=== PATIENT | male | born 1950 | race Caucasian/White ===

== ENCOUNTER → 2016-09-23 | Outpatient (CLI) | payer BC, OTHER ==
[~2016-09-23] MED LIST: ADVIN25/60 INH; ALBUAER2 INH; ASPI81TA28 PO; ATOR-54 PO; CLOP1TAB15 PO; DIGO0.122 PO; FURO-85 PO; LISI5TAB3 PO; MELO15TA4 PO; METO1TAB31 PO; SPIR25TA PO; VENL1CAP92 PO
--- NOTE | 2016-09-24 06:01 | PAP/PSG TECHNICIAN REPORT ---
[facility] Occupational Therapy Co Director Polysomnogram Report Study name: None Report date: 09/24/2016 Study date: 09/23/2016 Referring Physician: Misbah Bianchi M.D. Name: BRIGITTE GRIMM Interpreting Physician: Justine Bianchi M.D. Date of : 1950 Occupational Therapy Co Director: Faina Epps RPS. Sex: Male Age: 66 StudyType: PSG Weight: 200 lbs Height: 66 years, Height 6' 0" Neck Circum: 15 inches BMI: 27.12 Medications: Ccdmcuhw26-15 mg, Lipitor 40 mg, Toprol XL 25 mg, Lanoxin 125 mcg, Aldactone 25 mg, Anoro Ellipta 62.5-25 mcg, Venlafaxine 150 mg, Proventil 108 ( 90 Base), Aspirin 81 mg, Plavix 75 mg Patient History 66 yr. old male here for a possible split night sleep study with ETC02. Patient complains of EDS. Patient has a history of HTN, CHF, CAD, and COPD. Patients [place] Sleepiness Scale Score is 5/24. Parameters Monitored NPSG: E1-M2, E2-M1, Fp1-M2, Fp2-M1, F3-M2, F4-M2, F4-M1, C3-M2, C4-M2, C4-M1, O1-M2, O2-M2, O2-M1, T3-M2, T4-M1, P3-M2, P4-M1, CHIN1, CHIN2, HR, EKG, Legs, PFLOW, SNOR, FLOW, CFLOW, Tidal Volume, THOR, ABDO, SpO2, PLTH, CPRESS, ETCO2 Wave, ETCO2, pH Sleep Architecture Sleep Stages Time at Lights Off 10:43:37 PM STAGES Time (min.) TST (%) Time at Lights On 5:32:37 AM Wake 240.5 -- Total Recording Time (TRT) 409.50 min. N1 22.5 13 Total Sleep Period (TSP) 297.0 min. N2 139.0 82 Total Sleep Time (TST) 168.5min. N3 0.0 0 Awake Time 240.5 min. REM 7.0 4 Wake after Sleep Onset 128.5 min. Sleep Efficiency (SE) 41 % Sleep Onset Latency (JASON) 112.0 min. Number of Stage 1 Shifts None Awakenings 11 Stage Changes 50 Number of REM periods 1 REM 7.0 4 REM Latency 227.0 min. NREM 161.5 96 Body Position Analysis Supine Right Left Side Prone Vertical Total Sleep Time (min.) 110.7 3.5 93.0 96.52 0.0 0.0 Total Sleep Time (%) 43% 2% 55% 57 0% N/A% Total Sleep Time REM (min.) 7.0 0.0 0.0 None 0.0 0.0 Total Sleep Time NREM (min.) 65.0 3.5 93.0 None 0.0 0.0 Intermittent Wake (min.) 38.7 165.4 36.4 None 0.0 0.0 Total Sleep Period (%) 37% None None None None None Arousals Myoclonus (PLM) * Events Count Index Events Count Index Spontaneous 3 1 Events Awake (PLMW) 61 15.2 Respiratory 8 3.2 Events Asleep w/ Arousal (PLMA) 8 2.8 PLM 8 3 Events Asleep w/o Arousal (PLMS) 74 26.4 Snoring 7 2 Total Asleep 82 29.2 Total 26 9 Total 143 21 Respiratory Analysis * CA OA MA CH H RERA Total Count 3 8 4 0 67 1 82 Index 1.1 2.8 1.4 0 23.9 0 29.6 Mean Duration 15.0 24.4 26.2 0.00 30.5 33.7 29.2 Longest Duration 20.1 38.6 34.0 0.00 34.0 33.7 47.7 Respiratory Event Summary Total Supine ~Supine Right Left Prone REM NREM Apneas Count 15 13 2 0 2 N/A 4 11 Index 5.3 11 1 0.0 1.3 N/A 34 4 Hypopneas (4% Desat) Count 67 51 16 0 16 N/A 3 64 Index 23.9 42.5 10 0.0 10.3 N/A 25.7 23.8 Apneas & All Hypopneas Count 82 64 18 0 18 N/A 7 75 Index 29.2 53 11 0 12 N/A 60.0 27.9 Respiratory Events (Road Driver+All Hyp+RERA) Count 82 64 19 0 19 N/A 7 75 Index 29.6 53 12 0.0 12.3 N/A 60.0 28.2 Respiratory Related Arousal Count 8 64 2 0 2 N/A 0 9 Index 3.2 6 1 0 1 N/A 0 3 Snoring Analysis Supine Right Left Prone REM NREM Total Snore duration 4.9 min Snores count 67 0 81 N/A 2 146 148 Snore mean duration 2.0 Sec Snores index 56 0 52 N/A 17.1 54.2 52.7 TST with snoring (%) 2.9% SpO2 Analysis Total REM NREM Awake <50% 0.2 min. 0.0 min. 0.0 min. 0.2 min. 51 - 60% 0.0 min. 0.0 min. 0.0 min. 0.0 min. 61 - 70% 0.0 min. 0.0 min. 0.0 min. 0.0 min. 71 - 80% 0.1 min. 0.0 min. 0.0 min. 0.1 min. 81 - 90% 43.9 min. 1.7 min. 21.9 min. 20.4 min. 91 - 100% 355.6 min. 5.3 min. 139.6 min. 210.6 min. Average 92 93 92 93 Minimum SpO2 31 89 88 31 Desaturation Event Index 14.2 51.4 29.0 3.2 # Desat. Events below 89% 6 N/A 3 3 Time(%) with Saturation below 89% 1.0 0.0 0.1 0.9 Time(min.) with Saturation below 89% 3.8 0.0 0.4 3.4 Heart Rate Analysis End Tidal CO2 Analysis Min (bpm) Max (bpm) Average (bpm) TSP (mins) % of TSP Awake 67 237 74 Above 55 mmHg 0.0 0.0 NREM 62 87 70 50-55 mmHg 0.0 0.0 REM 69 70 70 45-50 mmHg 19.9 11.8 Overall 62 87 70 40-45 mmHg 57.3 34.0 35-40 mmHg 55.6 33.0 30-35 mmHg 19.7 11.7 Average ETCO2 0.1 Supplemental O2 Values Minimum O2 level: None Value Start Time End Time Occupational Therapy Co Director Comments Mr. Grimm slept in the right, left, and supine positions. Cardiac arrhythmia noted. PLMs noted. No bruxism noted. Snoring was noted and scored as a 3 on a scale of 0 through 5. (0=no snoring, 5=snoring loud enough to be heard through a closed door or down the [address])Mr. Grimm awoke to use the restroom two times during the night. Mr. Grimm stated, I did not sleep as well as I do when I am in my own bed. The final report will be interpreted and signed by a sleep physician. The completed physician report will then be placed in the patient medical record. Therapy (cm H2O) 0 TIB (min.) 409.0 TST (min.) 168.5 Sleep Onset (min.) 112.0 REM Onset From Sleep (min.) 227.0 Sleep Efficiency % 41 Wakefulness (%) 59 Wakefulness (min.) 240.5 NREM 1 (%) 13 NREM 1 (min.) 22.5 NREM 2 (%) 82 NREM 2 (min.) 139.0 NREM 3 (%) 0 NREM 3 (min.) 0.0 REM (%) 4 REM (min.) 7.0 # Arousals 26 Arousal Index 9 # Snore 148 Snore Index 52.7 AHI 29.2 AHI Supine 53 AHI Non-Supine 11 NREM AHI 27.9 REM AHI 60.0 RDI 29.6 # Obstructive Apnea 8 # Central Apnea 3 # Mixed Apnea 4 # Hypopneas 67 RERAs 1 Total Respiratory Events 86 Time Below SpO2 89% (min.) 0.4 Mean NREM SpO2 (%) 92 Mean REM SpO2 (%) 93 Mean Sleep SpO2 (%) 92 Min NREM SpO2 (%) 88 Min REM SpO2 (%) 89 Position Supine (min.) 110.7 Position Non-supine (min.) 96.5 LM Index Sleep 29.2 LM Index NREM 30.1 LM Index REM 8.6 Mean Heart Rate (bpm) 70 Min Heart Rate (bpm) 62
--- NOTE | 2016-10-02 09:08 | POLYSOMNOGRAPH REPORT ---
REFERRING PERSON: Dr. Cody Bianchi. ROLL EDGE STITCHER HAND: Faina Epps. Mr. Grimm is a 66-year-old male sent for a possible split night sleep study. He complains of excessive daytime sleepiness. He has a history of hypertension, congestive heart failure, coronary artery disease and COPD. His [place] sleepiness scale score on the evening of this study is 5. BMI is 27.12. Following the technical and digital specifications of the [place] [employer] (AASM) a standard diagnostic polysomnogram was performed monitoring EEG, EOG, EMG (chin and leg deviations), oxygen saturation, body position, digital video, respiratory effort and airflow. The sleep Stage and event scoring was based on the AASM Manual for the Scoring of Sleep and Associated Events 2007 edition. Apneas are defined as a drop in the peak thermal sensor excursion by >90% of baseline for at least 10 seconds. Hypopneas were scored using the 4% oxygen desaturation rule (4A-[employer]) and a decrease in the nasal pressure excursions by >30% of baseline for at least 10 seconds. Respiratory effort-related arousal (RERA's) is defined as a sequence of breaths lasting at least 10 seconds characterized by increasing respiratory effort or flattening of the nasal pressure waveform leading to an arousal from sleep when the sequence of breaths does not meet criteria for an apnea or hypopnea. Apnea Hypopnea index (AHI) is defined as the number of apneas and hypopneas occurring in an hour of sleep. Respiratory disturbance index (RDI) is defined as the number of apneas, hypopneas, and RERA's occurring in an hour of sleep. Mr. Grimm' total sleep period time was 297 minutes. Total sleep time was only 168.5 minutes. Sleep efficiency was 41%. Latency to sleep onset was prolonged at 112 minutes as was wake after sleep onset of 128.5 minutes. Total non-REM sleep time was 161.5 minutes. He spent 13% of that time in N1 sleep, 82% in N2 sleep and no time in N3 sleep. REM latency was 227 minutes. Total REM sleep time was only 7 minutes or 4% of total sleep time. This is abnormal sleep architecture with a propensity for superficial sleep. There are 26 cortical arousals from sleep. Three of these arousals were spontaneous, 8 were due to respiratory events, 8 due to periodic limb movements of sleep and 7 were due to snoring. There were 82 periodic limb movements noted on this test. Limb movement index was 29.2. Limb movement with arousal index was 2.8. There were 3 central, 8 obstructive and 4 mixed apnea on this test. There were 67 hypopnea and 1 RERA. Apnea-hypopnea index was 29.2. Supine AHI was 53, REM AHI was 60. 148 snoring events were recorded. Total sleep time with snoring was 2.9%. Mean saturation was 92%. Saturations were less than 89% for only 3.8 minutes of recorded time. PACs were noted on EKG monitoring. Heart rates ranged from a low of 62 beats per minute to a high of 87 beats per minute during sleep. End-tidal CO2 was recorded on this patient. End-tidal CO2s were between 45 and 50 mmHg for 11.8% of total sleep period time, between 40 and 45 mmHg for 34% of total sleep period time, between 35 and 40 mmHg for 33% of total sleep period time and between 30 and 35 mmHg for 11.7% of total sleep period time. IMPRESSION AND PLAN: Mr. Grimm is a 66-year-old male with evidence of moderately severe to severe sleep apnea in supine and REM sleep without nocturnal hypoxemia on this study. 1. This patient would likely benefit from positive airway pressure therapy. He should return to the sleep lab for a full night titration and then based on those results be started on equipment at home. A download from his machine can be reviewed in 1 month both to check compliance as well as AHI and further pressure adjustments can occur at that time. 2. Alternatively, this patient could be started on auto titrating CPAP with pressures of 5-15 cm. After a month, a review of his download can be done and this patient set to optimal pressure. 3. Should this patient be unwilling or unable to tolerate CPAP therapy, he could be referred to ear, nose and throat or oral surgery/dental medicine (if appropriate) to discuss alternative treatments for sleep disorder breathing.
== END | disposition home or self-care (01) ==
LOC: C.NEUR 21:00
PROVIDERS: ATTEND Family Medicine
DX: R40.0 Somnolence (principal); F51.11 Primary hypersomnia; I25.5 Ischemic cardiomyopathy; R06.02 Shortness of breath

== ENCOUNTER → 2016-11-28 | Outpatient (CLI) | payer OTHER ==
[~2016-11-28] MED LIST changes: +METO-478 PO; -METO1TAB31 PO
== END ==
LOC: C.LAB 22:38
DX: Z02.83 Encounter for blood-alcohol and blood-drug test (principal)

== ENCOUNTER 2021-03-12 09:44 | Inpatient (IN) ==
[2021-03-12 10:08] LABS: Basophils # (auto) 0.01 K/uL (0-0.2); Basophils % (auto) 0.1 %; Eosinophils # (auto) 0.08 K/uL (0-0.5); Hematocrit (blood only) 48.4 % (42-52); Hemoglobin 14.9 g/dL (14.0-18.0); Immature Granulocytes # (auto) 0.07 K/uL (0.00-0.02); Immature Granulocytes % (auto) 0.9 %; Lymphocytes # (auto) 0.96 K/uL (1.2-3.4); Mean Corpuscular Hemoglobin 28.8 pg (25-34); Mean Corpuscular Hgb Conc 30.8 g/dL (32-36); Mean Corpuscular Volume 93.6 fL (80-100); Mean Platelet Volume 10.4 fL (7.4-10.4); Monocytes # (auto) 0.42 K/uL (0.11-0.59); Monocytes % (auto) 5.2 %; Neutrophils # (auto) 6.49 K/uL (1.4-6.5); Neutrophils % (auto) 80.8 %; Platelet Count 187 K/uL (130-400); RDW Coefficient of Variation 17.4 % (11.5-14.5); RDW Standard Deviation 59.7 fL (36.4-46.3); Red Blood Count 5.17 M/uL (4.7-6.1); White Blood Count 8.03 K/uL (4.8-10.8)
--- NOTE | 2021-03-12 10:22 | XRay Report ---
XR chest 1V portable CLINICAL HISTORY: sob. COMPARISON STUDY: 08/20/2013 TECHNIQUE: 1 view of the chest FINDINGS: Single frontal view of the chest demonstrates the heart size to be at the upper limits of normal stat us post previous cardiothoracic surgery and pacer placement. Mild patchy interstitial and alveolar op acities are present bilaterally. The findings are most characteristic of a viral type pneumonitis. Co vid 19 pneumonia should be excluded. There is no evidence for pleural effusion. There is no evidence for vascular congestion. There is no acute osseous pathology. IMPRESSION: Mild patchy interstitial and alveolar opacities bilaterally characteristic of a viral typ e pneumonitis and probable early Covid 19 pneumonia. ACT 112: Negative or not required by law. Electronically signed by: Ever Matute M.D. 03/12/2021 10:20 AM
[2021-03-12 10:32] LABS: Troponin I 0.03 ng/ml (0-0.04)
[2021-03-12 10:41] LABS: Albumin Globulin Ratio 1.4 (0.9-2); Albumin Level 3.4 gm/dl (3.4-5.0); BUN Creatinine Ratio 24.7 (10-20); Bilirubin,Total 1.4 mg/dl (0.2-1.0); Calcium 9.2 mg/dl (8.5-10.1); Creatinine Clr Calc Pharmacy 84.4 ml/min; Est GFR (Non-African American) 77.7 ml/min; Globulin 2.5 gm/dl (2.5-4.0); Potassium 3.5 mmol/L (3.5-5.1); Total Protein 5.9 gm/dl (6.0-8.3)
[2021-03-12] MEDS ORDERED: FUROSEMIDE INJ 20 MG/2 ML VIAL IV ONE ×3 (11:07→17:00)
[2021-03-12 11:33] LABS: INR 4.6 (0.9-1.1); Prothrombin Time 41.7 Seconds (9.0-12.0)
--- NOTE | 2021-03-12 11:53 | Emergency Department Note ---
Impression & Plan TREADWELL (dyspnea on exertion), Chest pain, exertional, CHF (congestive heart failure) ED Provider Note Provider: Helio Woodall MD DATE OF SERVICE: 03/12/2021 CHIEF COMPLAINT: Shortness of breath, weakness, chest discomfort HISTORY OF PRESENT ILLNESS: Patient is a 71-year-old gentleman history of CHF, CAD with prior CABG, pacemaker, and COPD presenting here today via ambulance from home. Patient has been ill for approximately past 10 days. States he has had worsening shortness of breath with exertion and has recently been developing a bit of chest discomfort dull in nature with this as well. Denies currently having any chest discomfort. Denies sick contacts. Patient took a home Covid test and this was reportedly negative. He denies fevers. Denies significant abdominal pain, nausea, or diarrhea. States has not been eating or drinking so well and having decreased urine output. Does take Lasix 3 times a week and states only on those days does he have some good urine output. States over the past 3 months his weight is gone up about 10 pounds and states he feels that his lower legs are a bit more swollen than normal. Has been on his home medications otherwise including Coumadin and digoxin. Patient was somewhat weak and slid to the ground yesterday but denies any significant fall or striking his head or loss of consciousness. REVIEW OF SYSTEMS: A total of 10 review of systems was obtained and negative except as stated above in the HPI. PAST MEDICAL HISTORY: As noted above MEDICATIONS: Reviewed home medications includes Coumadin SOCIAL HISTORY: Lives at home with PHYSICAL EXAM: GENERAL: alert and oriented in no acute distress on stretcher but fatigued in appearance Head: normocephalic and atraumatic EYES: No injection, discharge or icterus. NECK: Trachea midline. LUNGS: Airway patent. No retractions. Breath sounds clear but diminished in the bases HEART: Mildly irregular rate and rhythm. No chest wall tenderness with L upper chest ACID appreciated ABDOMEN: Soft and non-tender, without guarding or rebound. SKIN: Acyanotic, warm, dry, without rashes EXTREMITIES: Without swelling, tenderness or deformity NEUROLOGICAL: No focal deficits. No aphasia. No facial droop or slurred speech. EK bpm predominantly ventricularly paced occasional [place] beat and PVC noted. No acute ST segment elevation noted with bundle branch block. QTc 524. Compared to previous from August 222013 in the system no longer atrially paced with a prolonged QRS. CONTINUOUS CARDIAC MONITORING: was ordered and showed a heart rate of 70s bpm in Ventricular paced rhythm with occasional [place] beat and PVC Patient's laboratory studies and imaging reviewed. Differential includes Reactive airway disease, pneumonia, pneumothorax, COPD, CHF, infections, cardiac ischemia, pulmonary embolism, musculoskeletal, gastrointestinal, as well as other pathologies. IMPRESSION/MEDICAL DECISION MAKING: Patient presents with some dyspnea on exertion and chest discomfort on exertion. Significant cardiac history. Anticoagulated on Coumadin. This level does retu rn somewhat high lowering suspicion for any VTE. Does have some increased lower extremity swelling. Not hypoxic at rest. Predominance of symptoms or with movement but does note some generalized fatigue. No fevers reported. Negative Covid test here. Chest x-ray question some pneumonitis but no classic findings for pneumonia. No significant leukocytosis. No anemia today. No severe electrolyte abnormalities and renal function appears similar to previous. Troponin detectable but not abnormal. Digoxin therapeutic at 1.0. Given concerns for some fluid overload given a small amount of additional IV Lasix here as he did take his oral Lasix prior to coming in today. Discussed with the patient trial of outpatient therapy of increased diuretic. Discussion with the patient and his at bedside given his significant generalized weakness they felt more comfortable staying for further observation given his symptoms. Patient does have 12 steps on stairs at home but he has to navigate and feels he is at high risk of falling and is concerned with this especially given his anticoagulated status. Discussed with the hospitalist. DIAGNOSIS: TREADWELL, CHF, exertional chest discomfort DISPOSITION: Hospitalist will evaluate Patient was agreeable with this plan. Past Med/Surg History Medical History (Updated 03/12/21 @ 12:55 by Yara Bedoya PA-C) Anticoagulated on Coumadin CHF (congestive heart failure) CHF (congestive heart failure), NYHA class III "Last EF 20%" COPD (chronic obstructive pulmonary disease) Coronary artery disease H/O cardiac pacemaker "[employer] AICD by Dr. Jiang, [facility] [place] 07/19/2013" Ischemic cardiomyopathy LV (left ventricular) mural thrombus Myocardial infarct SREEDHAR on CPAP Pericardial effusion Surgical History (Updated 03/12/21 @ 12:54 by Yara Bedoya PA-C) AICD (automatic cardioverter/defibrillator) present H/O percutaneous transluminal coronary angioplasty S/P CABG (coronary artery bypass graft) "SVG to LAD, SVG to OM" Family History (Updated 03/12/21 @ 12:45 by Yara Bedoya PA-C) Mother CHF (congestive heart failure) Social History (Updated 03/12/21 @ 12:45 by Yara Bedoya PA-C) Smoking Status: Former smoker Years Smoked: 50; Hx Alcohol Use: No Hx Substance Use: No Preferred Language: Chinese marital status: Current Living Situation: Spouse current occupational status: retired Feels Safe at Home: Yes Allergies Allergies Allergy/AdvReac Type Severity Reaction Status Date / Time codeine Allergy Severe HIVES, Verified 03/12/21 11:35 ITCHY Home Meds Home Medications Medication Instructions Recorded Confirmed albuterol sulfate 2.5 mg INHALATION QID PRN 03/12/21 03/12/21 aspirin 81 mg tablet,delayed 81 mg PO DAILY 03/12/21 03/12/21 release atorvastatin 40 mg tablet 40 mg PO DAILY@182903/12/21 03/12/21 digoxin 125 mcg (0.125 mg) tablet 125 mcg PO DAILY@182903/12/21 03/12/21 furosemide 20 mg tablet 40 mg PO DAILY 03/12/21 03/12/21 hydrocodone 5 mg-acetaminophen 325 1 tab PO Q8H PRN 03/12/21 03/12/21 mg tablet metoprolol succinate 100 mg 100 mg PO DAILY@182903/12/21 03/12/21 tablet,extended release 24 hr sacubitril 24 mg-valsartan 26 mg 1 tab PO BID 03/12/21 03/12/21 tablet (Entresto) umeclidinium 62.5 mcg-vilanterol 1 inh INHALATION DAILY 03/12/21 03/12/21 25 mcg/actuation powdr for inhalation (Anoro Ellipta) venlafaxine 75 mg capsule,extended 150 mg PO HS 03/12/21 03/12/21 release 24 hr warfarin 5 mg tablet 2.5 mg PO MOFR 03/12/21 03/12/21 warfarin 5 mg tablet 5 mg PO SUTUWETHSA 03/12/21 03/12/21 zolpidem 10 mg tablet 10 mg PO HS PRN 03/12/21 03/12/21 Results & Data (ED) Vital Signs Vital Signs - 24 hr 03/12/21 09:44 03/12/21 09:52 03/12/21 10:00 Temperature 36.5 C Temperature Source Oral Pulse Rate 77 88 70 Pulse Rate [Finger] Pulse Rate from SpO2 Sensor 76 70 Pulse Strength Normal Respiratory Rate 10 L 20 22 Respiratory Effort / Characteristics Spontaneous Respiratory Depth Blood Pressure [Right Arm] Blood Pressure Mean [Right Arm] Pulse Oximetry 100 97 98 Oxygen Delivery Method Room Air Sepsis Recent Fever Within 48 Hours No Sepsis New/Unexplained Change in Mental Status No Sepsis Action Taken by Nursing No Action Required 03/12/21 10:30 03/12/21 10:44 Temperature Temperature Source Pulse Rate 71 Pulse Rate [Finger] 70 Pulse Rate from SpO2 Sensor 69 Pulse Strength Respiratory Rate 19 20 Respiratory Effort / Characteristics Respiratory Depth Normal Blood Pressure [Right Arm] 115/89 Blood Pressure Mean [Right Arm] 97 Pulse Oximetry 96 95 Oxygen Delivery Method Room Air Sepsis Recent Fever Within 48 Hours Sepsis New/Unexplained Change in Mental Status Sepsis Action Taken by Nursing Laboratory Data Result diagrams: 03/12/21 09:35 03/12/21 09:35 Lab Results 03/12/21 03/12/21 03/12/21 Range/Units 09:35 09:35 09:35 WBC 8.03 (4.8-10.8) K/uL RBC 5.17 (4.7-6.1) M/uL Hgb 14.9 (14.0-18.0) g/dL Hct 48.4 (42-52) % MCV 93.6 (80-100) fL MCH 28.8 (25-34) pg MCHC 30.8 L (32-36) g/dL RDW Std Deviation 59.7 H (36.4-46.3) fL RDW Coeff of Kasey 17.4 H (11.5-14.5) % Plt Count 187 (130-400) K/uL MPV 10.4 (7.4-10.4) fL Immature Gran % (Auto) 0.9 % Neut % (Auto) 80.8 % Lymph % (Auto) 12.0 % [place] % (Auto) 5.2 % Eos % (Auto) 1.0 % Baso % (Auto) 0.1 % Neut # (Auto) 6.49 (1.4-6.5) K/uL Lymph # (Auto) 0.96 L (1.2-3.4) K/uL [place] # (Auto) 0.42 (0.11-0.59) K/uL Eos # (Auto) 0.08 (0-0.5) K/uL Baso # (Auto) 0.01 (0-0.2) K/uL Immature Gran # (Auto) 0.07 H (0.00-0.02) K/uL PT (9.0-12.0) Seconds INR (0.9-1.1) Sodium 140 (136-145) mmol/L Potassium 3.5 (3.5-5.1) mmol/L Chloride 101 (98-107) mmol/L Carbon Dioxide 31 (21-32) mmol/L Anion Gap 8 (3-11) BUN 24 H (6-23) mg/dl Creatinine 0.97 (0.6-1.4) mg/dl Est Cr Clr Drug Dosing 84.4 ml/min Est GFR ( Amer) 90.0 ml/min Est GFR (Non-Af Amer) 77.7 ml/min BUN/Creatinine Ratio 24.7 H (10-20) Glucose 146 H (70-99(Fasting)) mg/dl Calcium 9.2 (8.5-10.1) mg/dl Total Bilirubin 1.4 H (0.2-1.0) mg/dl AST 10 L (13-39) U/L ALT 15 (7-52) U/L Alkaline Phosphatase 67 (34-104) U/L Troponin I 0.03 (0-0.04) ng/ml B-Natriuretic Peptide (0-100) pg/ml Total Protein 5.9 L (6.0-8.3) gm/dl Albumin 3.4 (3.4-5.0) gm/dl Globulin 2.5 (2.5-4.0) gm/dl Albumin/Globulin Ratio 1.4 (0.9-2) Lipase 26 (11-82) U/L Procalcitonin (0-0.5) ng/ml Digoxin (0.8-2.0) ng/ml SARS-CoV-2, RNA, NAAT (NEGATIVE) 02/01/22 02/01/22 02/01/22 Range/Units 09:35 09:35 09:55 WBC (4.8-10.8) K/uL RBC (4.7-6.1) M/uL Hgb (14.0-18.0) g/dL Hct (42-52) % MCV (80-100) fL MCH (25-34) pg MCHC (32-36) g/dL RDW Std Deviation (36.4-46.3) fL RDW Coeff of Kasey (11.5-14.5) % Plt Count (130-400) K/uL MPV (7.4-10.4) fL Immature Gran % (Auto) % Neut % (Auto) % Lymph % (Auto) % [place] % (Auto) % Eos % (Auto) % Baso % (Auto) % Neut # (Auto) (1.4-6.5) K/uL Lymph # (Auto) (1.2-3.4) K/uL [place] # (Auto) (0.11-0.59) K/uL Eos # (Auto) (0-0.5) K/uL Baso # (Auto) (0-0.2) K/uL Immature Gran # (Auto) (0.00-0.02) K/uL PT 41.7 H (9.0-12.0) Seconds INR 4.6 H (0.9-1.1) Sodium (136-145) mmol/L Potassium (3.5-5.1) mmol/L Chloride (98-107) mmol/L Carbon Dioxide (21-32) mmol/L Anion Gap (3-11) BUN (6-23) mg/dl Creatinine (0.6-1.4) mg/dl Est Cr Clr Drug Dosing ml/min Est GFR ( Amer) ml/min Est GFR (Non-Af Amer) ml/min BUN/Creatinine Ratio (10-20) Glucose (70-99(Fasting)) mg/dl Calcium (8.5-10.1) mg/dl Total Bilirubin (0.2-1.0) mg/dl AST (13-39) U/L ALT (7-52) U/L Alkaline Phosphatase (34-104) U/L Troponin I (0-0.04) ng/ml B-Natriuretic Peptide 3324 H (0-100) pg/ml Total Protein (6.0-8.3) gm/dl Albumin (3.4-5.0) gm/dl Globulin (2.5-4.0) gm/dl Albumin/Globulin Ratio (0.9-2) Lipase (11-82) U/L Procalcitonin (0-0.5) ng/ml Digoxin 1.0 (0.8-2.0) ng/ml SARS-CoV-2, RNA, NAAT (NEGATIVE) 03/12/21 03/12/21 Range/Units 09:55 10:19 WBC (4.8-10.8) K/uL RBC (4.7-6.1) M/uL Hgb (14.0-18.0) g/dL Hct (42-52) % MCV (80-100) fL MCH (25-34) pg MCHC (32-36) g/dL RDW Std Deviation (36.4-46.3) fL RDW Coeff of Kasey (11.5-14.5) % Plt Count (130-400) K/uL MPV (7.4-10.4) fL Immature Gran % (Auto) % Neut % (Auto) % Lymph % (Auto) % [place] % (Auto) % Eos % (Auto) % Baso % (Auto) % Neut # (Auto) (1.4-6.5) K/uL Lymph # (Auto) (1.2-3.4) K/uL [place] # (Auto) (0.11-0.59) K/uL Eos # (Auto) (0-0.5) K/uL Baso # (Auto) (0-0.2) K/uL Immature Gran # (Auto) (0.00-0.02) K/uL PT (9.0-12.0) Seconds INR (0.9-1.1) Sodium (136-145) mmol/L Potassium (3.5-5.1) mmol/L Chloride (98-107) mmol/L Carbon Dioxide (21-32) mmol/L Anion Gap (3-11) BUN (6-23) mg/dl Creatinine (0.6-1.4) mg/dl Est Cr Clr Drug Dosing ml/min Est GFR ( Amer) ml/min Est GFR (Non-Af Amer) ml/min BUN/Creatinine Ratio (10-20) Glucose (70-99(Fasting)) mg/dl Calcium (8.5-10.1) mg/dl Total Bilirubin (0.2-1.0) mg/dl AST (13-39) U/L ALT (7-52) U/L Alkaline Phosphatase (34-104) U/L Troponin I (0-0.04) ng/ml B-Natriuretic Peptide (0-100) pg/ml Total Protein (6.0-8.3) gm/dl Albumin (3.4-5.0) gm/dl Globulin (2.5-4.0) gm/dl Albumin/Globulin Ratio (0.9-2) Lipase (11-82) U/L Procalcitonin < 0.05 (0-0.5) ng/ml Digoxin (0.8-2.0) ng/ml SARS-CoV-2, RNA, NAAT NEGATIVE (NEGATIVE) Administered Medications Discontinued Medications Furosemide (Furosemide Inj 20 Mg/2 Ml Vial) 10 mg IV ONE ONE Stop: 03/12/21 11:08 Last Admin: 03/12/21 11:21 Dose: 10 mg Documented by: [id number] Furosemide (Furosemide Inj 20 Mg/2 Ml Vial) 10 mg IV NOW STA Stop: 03/12/21 12:16 Last Admin: 03/12/21 12:28 Dose: 10 mg Documented by: [id number] Imaging Data Radiologist's Impression: Chest X-Ray 03/12/21 10:06 XR chest 1V portable CLINICAL HISTORY: sob. COMPARISON STUDY: 08/20/2013 TECHNIQUE: 1 view of the chest FINDINGS: Single frontal view of the chest demonstrates the heart size to be at the upper limits of normal status post previous cardiothoracic surgery and pacer placement. Mild patchy interstitial and alveolar opacities are present bilaterally. The findings are most characteristic of a viral type pneumonitis. Covid 19 pneumonia should be excluded. There is no evidence for pleural e ffusion. There is no evidence for vascular congestion. There is no acute osseous pathology. IMPRESSION: Mild patchy interstitial and alveolar opacities bilaterally characteristic of a viral type pneumonitis and probable early Covid 19 pneumonia. ACT 112: Negative or not required by law. Electronically signed by: Ever Matute M.D. 03/12/2021 10:20 AM Discharge Plan Visit Data Chief Complaint: Shortness of Breath/Dyspnea Stated Complaint: weakness; SOB ED Provider: Helio Woodall ED Midlevel Provider: Juan Manuel Caputo Discharge Problem: TREADWELL (dyspnea on exertion), Chest pain, exertional, CHF (congestive heart failure) Patient Disposition: Being Evaluated by Hospitalist Forms Stand Alone Forms: [facility] Prescriptions Prescriptions: No Action albuterol sulfate 2.5 mg /3 mL (0.083 %) solution for nebulization 2.5 mg inhalation QID PRN (Reason: Shortness Of Breath) RF: 0 atorvastatin 40 mg tablet 40 mg PO DAILY@1829 RF: 0 venlafaxine 75 mg capsule,extended release 24hr 150 mg PO HS RF: 0 hydrocodone-acetaminophen 5-325 mg tablet 1 tab PO Q8H PRN (Reason: Pain) RF: 0 metoprolol succinate 100 mg tablet extended release 24 hr 100 mg PO DAILY@1829 RF: 0 warfarin 5 mg tablet 2.5 mg PO MOFR RF: 0 digoxin 125 mcg (0.125 mg) tablet 125 mcg PO DAILY@1829 RF: 0 zolpidem 10 mg tablet 10 mg PO HS PRN (Reason: Sleep) RF: 0 Entresto 24-26 mg tablet 1 tab PO BID RF: 0 aspirin [Aspir-81] 81 mg Tablet,Delayed Release (Dr/Ec) 81 mg PO DAILY RF: 0 warfarin 5 mg Tablet 5 mg PO SUTUWETHSA RF: 0 furosemide 20 mg Tablet 40 mg PO DAILY RF: 0 Anoro Ellipta 62.5-25 mcg/actuation Blister With Device 1 inh INHALATION DAILY RF: 0 Referrals Referrals: Antonio Meredith MD [Primary Care Provider] -
[2021-03-12] MEDS ORDERED: FUROSEMIDE INJ 20 MG/2 ML VIAL IV STA (12:15)
--- NOTE | 2021-03-12 12:26 | History & Physical Report ---
Date of Service March 12, 2021 Assessment & Plan (1) Acute on chronic HFrEF (heart failure with reduced ejection fraction): (2) Ischemic cardiomyopathy: (3) Coronary artery disease: (4) SREEDHAR on CPAP: (5) AICD (automatic cardioverter/defibrillator) present: (6) COPD (chronic obstructive pulmonary disease): (7) Anticoagulated on Coumadin: Plan: This is a 71-year-old male who has significant past medical history of ischemic cardiomyopathy, CAD with hx of CABG, chronic systolic CHF EF 20 to 25%, pacemaker/AICD in place, left ventricular mural thrombus, SREEDHAR on CPAP, HTN, HLD, COPD, history of tobacco abuse who presents to ED due to dyspnea on exertion and fatigue x3 weeks. Acute on Chronic HFrEF Ischemic Cardiomyopathy CAD with hx of CABG AICD/PACER in place Last echo 2018 -EF 20 to 24%, LV cavity moderately dilated, diffuse ventricular myocardial thinning presents, possible small, laminar, apical thrombus. Diffuse severe left ventricular hypokinesis. Mild mitral regurgitation and tricuspid regurgitation present. PASP 70 mmHg. 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 with salt intake Pt appears to have confusion with his medication, appears to have been doubling his coumadin and only taking lasix 20mg (if at all per ) continue ASA, Statin, Entresto, Digoxin, metoprolol LV mural thrombus Supratherapeutic INR hold coumadin home regimen 2.5mg MoFr and 5mg all other days (appears pt has been doing 5mg and 10mg) SREEDHAR on CPAP cpap at HS COPD hx of tobacco abuse continue home inhalers, no acute exac DVT ppx: hold warfarin, INR 4.8, resume when between 2-3, pt follows with [facility] pharmacy Dispo: PCU, to remain hospitalized 1-2 days; pt likely to need assistance as outpt with medication regimen education, may benefit from [facility] pharmacy to help assist with this as well PCP: DANIELLE FULL CODE PT was seen and examined in collaboration with Dr. Myers, please see addendum History of Present Illness Chief Complaint: SOB/Fatigue x 3 weeks. Primary Care Provider: Antonio Meredith MD This is a 71-year-old male who has significant past medical history of ischemic cardiomyopathy, CAD with hx of CABG, chronic systolic CHF EF 20 to 25%, pacemaker/AICD in place, left ventricular mural thrombus, SREEDHAR on CPAP, HTN, HLD, COPD, history of tobacco abuse who presents to ED due to dyspnea on exertion and fatigue x3 weeks. His is at bedside. Over the past 3 weeks he has had worsening shortness of breath with exertion. He states he has 12 steps at home and typically he can do this with moderate effort. However, recently he can only do 5 steps due to being extremely short of breath and fatigue. He also has been complaining of exertional chest pain on 2 separate occasions. Last occurring 2 days ago. He further complains of a 10 pound weight gain over the past month as well as increased lower extremity swelling and abdominal bloating. He denies any orthopnea or PND; however he does wear a CPAP at bedtime. He recently established with Dr. Meredith as an outpatient PCP due to PCP in [facility]. He denies any recent illness and is fully vaccinated boosted against COVID-19. He denies any sick contacts. He does follow with [facility] cardiology but was last seen August 2019. Appears has not been compliant with follow-ups. He states last pacemaker check would have been at that time too. He denies any fever, chills, sweats, lightheadedness, dizziness, syncope, chest pain at rest, shortness of breath at rest, hemoptysis, nausea, vomiting, abdominal pain, dysuria, increased urgency or frequency with urination, hematuria, melena or hematochezia. He has noted decreased urination recently. He also admits to a wet cough worsening in the morning. After reviewing medication it appears patient may not be taking Lasix as prescribed if at all. He states he is either taking 5 or 10 mg daily. It also appears he is confusing his Lasix with his warfarin. He does not follow any dietary restrictions and also salts his food. In ED patient remained hemodynamically stable and not require any supplemental oxygen. His CBC and CMP was generally unremarkable. His troponin was detectable but not elevated. His BNP was elevated at 3324. Chest x-ray was concerning for mild patchy interstitial and alveolar opacities concerning for viral type pneumonitis. Received 10 mg IV Lasix in ED to start. Allergies Allergy/AdvReac Type Severity Reaction Status Date / Time codeine Allergy Severe HIVES, Verified 03/12/21 11:35 ITCHY Home Medications Medication Instructions Recorded Confirmed Type albuterol sulfate 2.5 mg INHALATION QID PRN 03/12/21 03/12/21 History aspirin 81 mg tablet,delayed 81 mg PO DAILY 03/12/21 03/12/21 History release atorvastatin 40 mg tablet 40 mg PO DAILY@182903/12/21 03/12/21 History digoxin 125 mcg (0.125 mg) tablet 125 mcg PO DAILY@182903/12/21 03/12/21 History furosemide 20 mg tablet 40 mg PO DAILY 03/12/21 03/12/21 History hydrocodone 5 mg-acetaminophen 325 1 tab PO Q8H PRN 03/12/21 03/12/21 History mg tablet metoprolol succinate 100 mg 100 mg PO DAILY@182903/12/21 03/12/21 History tablet,extended release 24 hr sacubitril 24 mg-valsartan 26 mg 1 tab PO BID 03/12/21 03/12/21 History tablet (Entresto) umeclidinium 62.5 mcg-vilanterol 1 inh INHALATION DAILY 03/12/21 03/12/21 History 25 mcg/actuation powdr for inhalation (Anoro Ellipta) venlafaxine 75 mg capsule,extended 150 mg PO HS 03/12/21 03/12/21 History release 24 hr warfarin 5 mg tablet 2.5 mg PO MOFR 03/12/21 03/12/21 History warfarin 5 mg tablet 5 mg PO SUTUWETHSA 03/12/21 03/12/21 History zolpidem 10 mg tablet 10 mg PO HS PRN 03/12/21 03/12/21 History Past Med/Surg History Medical History (Updated 03/12/21 @ 12:55 by Yara Bedoya PA-C) Anticoagulated on Coumadin CHF (congestive heart failure) CHF (congestive heart failure), NYHA class III "Last EF 20%" COPD (chronic obstructive pulmonary disease) Coronary artery disease H/O cardiac pacemaker "[employer] AICD by Dr. Jiang, [facility] [place] 07/19/2013" Ischemic cardiomyopathy LV (left ventricular) mural thrombus Myocardial infarct SREEDHAR on CPAP Pericardial effusion Surgical History (Updated 03/12/21 @ 12:54 by Yara Bedoya PA-C) AICD (automatic cardioverter/defibrillator) present H/O percutaneous transluminal coronary angioplasty S/P CABG (coronary artery bypass graft) "SVG to LAD, SVG to OM" Family History (Updated 03/12/21 @ 12:45 by Yara Bedoya PA-C) Mother CHF (congestive heart failure) Social History (Updated 03/12/21 @ 12:45 by Yara Bedoya PA-C) Smoking Status: Former smoker Years Smoked: 50; Second Hand Exposure: No; Do You Dip or Chew Tobacco: No; Tobacco Cessation Education Requested by Patient: No Hx Alcohol Use: No Hx Substance Use: No Preferred Language: [place] Communication Ability: Effective [employer] Required: No Beliefs That Will Affect Care: None marital status: Current Living Situation: Spouse current occupational status: retired Other Information That Helps Us Care for You: No Feels Safe at Home: Yes Assistive Devices: Denture - Upper, Denture - Lower and Glasses Review of Systems Review of Systems: All systems reviewed & are unremarkable except as noted in HPI & below Physical Exam Physical Exam: Constitutional: WD/WN, vitals as above, NAD, sitting up in bed, pleasant, conversing easily Head: Normocephalic, Atraumatic Eyes: PERRL, conjunctivae normal, anicteric sclerae ENMT: external ear and nose normal, oropharynx normal Neck: trachea midline, no thyromegaly normal visual inspection Respiratory: normal respiratory effort, lungs clear to auscultation, no wheeze, rales, rhonchi. Normal insp/exp effort, no accessory muscle use Cardiovascular: RRR, no murmur, +1-2 edema Vessels: + JVD or carotid bruit Chest: normal inspection of chest Abdomen: normal bowel sounds, soft, nontender, no hepatosplenomegaly Musculoskeletal: no cyanosis or clubbing, extremities motor strength 5/5 Skin: no rashes, warm and dry normal turgor Neurologic: PERRL, EOMI, accommodation nl, no face palsy, no dysarthria CN's II-XI intact bilaterally and moves all extremities Psychiatric: A+Ox3, euthymic affect Lymphatic: no cervical or axillary lymphadenopathy : deferred Results & Data Results & Data ([facility]) Vital Signs (Past 12 Hours) Vital Signs Temp Pulse Pulse Resp BP Pulse Ox 03/12/21 10:44 70 20 115/89 95 03/12/21 10:30 71 19 96 03/12/21 10:00 70 22 98 03/12/21 09:52 36.5 C 88 20 97 03/12/21 09:44 77 10 L 100 Diagnostic Findings Chest X-Ray 03/12/21 10:06 XR chest 1V portable CLINICAL HISTORY: sob. COMPARISON STUDY: 08/20/2013 TECHNIQUE: 1 view of the chest FINDINGS: Single frontal view of the chest demonstrates the heart size to be at the upper limits of normal status post previous cardiothoracic surgery and pacer placement. Mild patchy interstitial and alveolar opacities are present bilaterally. The findings are most characteristic of a viral type pneumonitis. Covid 19 pneumonia should be excluded. There is no evidence for pleural effusion. There is no evidence for vascular congestion. There is no acute osseous pathology. IMPRESSION: Mild patchy interstitial and alveolar opacities bilaterally characteristic of a viral type pneumonitis and probable early Covid 19 pneumonia. ACT 112: Negative or not required by law. Electronically signed by: Ever Matute M.D. 03/12/2021 10:20 AM Medications Administered Medication List Discontinued Medications Furosemide (Furosemide Inj 20 Mg/2 Ml Vial) 10 mg IV ONE ONE Stop: 03/12/21 11:08 Last Admin: 03/12/21 11:21 Dose: 10 mg Documented by: [id number] Furosemide (Furosemide Inj 20 Mg/2 Ml Vial) 10 mg IV NOW STA Stop: 03/12/21 12:16 Last Admin: 03/12/21 12:28 Dose: 10 mg Documented by: [id number] ECG Rate (beats per minute): 79 Rhythm: normal sinus Findings: + PVC and + paced rhythm COVID-19 Results Results COVID-19 Adm Lab Results: RBC 5.17 M/uL (4.7-6.1) 03/12/21 WBC 8.03 K/uL (4.8-10.8) 03/12/21 Hgb 14.9 g/dL (14.0-18.0) 03/12/21 Hct 48.4 % (42-52) 03/12/21 Plt Count 187 K/uL (130-400) 03/12/21 Neutrophils (%) (Auto) 80.8 % 03/12/21 Lymphocytes (%) (Auto) 12.0 % 03/12/21 Monocytes # (Auto) 0.42 K/uL (0.11-0.59) 03/12/21 Eosinophils # (Auto) 0.08 K/uL (0-0.5) 03/12/21 Immature Granulocyte % (Auto) 0.9 % 03/12/21 Neutrophils # (Auto) 6.49 K/uL (1.4-6.5) 03/12/21 Lymphocytes # (Auto) 0.96 K/uL (1.2-3.4) L 03/12/21 Monocytes # (Auto) 0.42 K/uL (0.11-0.59) 03/12/21 Eosinophils # (Auto) 0.08 K/uL (0-0.5) 03/12/21 Basophils # (Auto) 0.01 K/uL (0-0.2) 03/12/21 Immature Granulocyte # (Auto) 0.07 K/uL (0.00-0.02) H 03/12/21 Na 140 mmol/L (136-145) 03/12/21 K 3.5 mmol/L (3.5-5.1) 03/12/21 Cl 101 mmol/L (98-107) 03/12/21 CO2 31 mmol/L (21-32) 03/12/21 Anion Gap 8 (3-11) 03/12/21 BUN 24 mg/dl (6-23) H 03/12/21 Creatinine 0.97 mg/dl (0.6-1.4) 03/12/21 BUN/Creatinine Ratio 24.7 (10-20) H 03/12/21 Glucose Level 146 mg/dl (70-99(Fasting)) H 03/12/21 Ca 9.2 mg/dl (8.5-10.1) 03/12/21 Total Bilirubin 1.4 mg/dl (0.2-1.0) H 03/12/21 AST/SGOT 10 U/L (13-39) L 03/12/21 ALT/SGPT 15 U/L (7-52) 03/12/21 Alkaline Phosphatase 67 U/L (34-104) 03/12/21 Total Protein 5.9 gm/dl (6.0-8.3) L 03/12/21 Albumin 3.4 gm/dl (3.4-5.0) 03/12/21 Globulin 2.5 gm/dl (2.5-4.0) 03/12/21 Albumin/Globulin Ratio 1.4 (0.9-2) 03/12/21 Troponin I 0.03 ng/ml (0-0.04) 03/12/21 Procalcitonin < 0.05 ng/ml (0-0.5) 03/12/21 INR 4.6 (0.9-1.1) H 03/12/21 SARS-CoV-2, RNA, NAAT NEGATIVE (NEGATIVE) 03/12/21 Chest X-Ray 03/12/21 Code Status & VTE Plan Code Status FULL CODE VTE Prophylaxis Plan VTE Prophylaxis will be ordered: No Supervising Physician Co-Signing Physician Notes I have seen and examined the patient and have discussed the case with the provider above. I agree with the assessment and plan as stated. 71 yo M with known ischemic cardiomyopathy s/p ICD placement presents today with a few weeks of progressive SOB and weight gain. Denies any orthopnea but is winded with minimal exertion and reports feeling short of breath with just 5 steps. He reports some chest tightness with exertion but not otherwise. He denies PND, and has gained 10 lbs. He reports eating salty foods and lately having more dietary indiscretions than normal. He also has recently mixed up his Lasix and warfarin and caused his INR to go higher. Received lasix 20mg IV in the ER with approx 500cc out. Will give another 20mg IV now along with KCL 40MEq. Will cont with strict I/s, daily standing weights, low salt diet. Cardiology consult requested. Cont to monitor on telemetry. Physical reveals WNWD man in NAD, easily winded but no conversational dyspnea. Mentating normally and he is alert and appropriate. 3/6 JAYESH across precordium, lungs are CTA throughout but diminished at the bases. Abdomen is soft, NTND. No lower extremity edema. Reports a wound on his fot but has some cracked dry feet, especially worse on his left heel. Cont daily lasix as above and await cardiology recommendations and clinical improvement. Patient is not requiring oxygen. DO Louis
[2021-03-12] MEDS ORDERED: ALBUTEROL 0.083% NEBU SOLN 3 ML VIAL INH PRN (14:59)
[2021-03-12] MEDS ORDERED: ACETAMINOPHEN 325 MG TAB PO PRN (14:59)
[2021-03-12] MEDS ORDERED: HYDROCODONE/ACETAMOPHEN 5/325MG TAB PO PRN (14:59)
[2021-03-12] MEDS ORDERED: MAGNESIUM HYDROXIDE SUSP 30 ML UDC PO PRN (14:59)
[2021-03-12] MEDS ORDERED: ALUMINUM/MAGNESIUM SUSP 30 ML UDC PO PRN (14:59)
[2021-03-12] MEDS ORDERED: POLYETHYLENE (MIRALAX) 17 GM PACK PO PRN (14:59)
[2021-03-12] MEDS ORDERED: ONDANSETRON INJ 2 MG/ML 2 ML VIAL IV PRN (14:59)
[2021-03-12] MEDS ORDERED: ZOLPIDEM TARTRATE 10 MG TAB PO PRN (14:59)
[2021-03-12] MEDS ORDERED: POTASSIUM CHLORIDE CRTAB 20 MEQ TABCR PO STA (15:46)
--- NOTE | 2021-03-12 16:27 | Electrocardiogram Report ---
Test Reason : Blood Pressure : / mmHG Vent. Rate : 076 BPM Atrial Rate : 090 BPM P-R Int : 000 ms QRS Dur : 172 ms QT Int : 466 ms P-R-T Axes : 000 -76 109 degrees QTc Int : 524 ms Ventricular-paced rhythm with frequent , and consecutive Premature ventricular complexes Abnormal ECG When compared with ECG of 22-AUG-2013 06:28, Electronic ventricular pacemaker has replaced Electronic atrial pacemaker Confirmed by Terence Oseguera ([id number]) on 03/12/2021 4:27:23 PM Referred By: REFERRED SELF Confirmed By:Terence Oseguera
[2021-03-12] MEDS: ATORVASTATIN 40 MG TAB PO SCH (18:14)
[2021-03-12] MEDS: DIGOXIN 0.125 MG TAB PO SCH (18:14)
[2021-03-12] MEDS: METOPROLOL SUCC 50MG EXT REL TAB PO SCH (18:14)
[2021-03-12] MEDS: VENLAFAXINE HCL XR 150 MG CAPXR PO SCH (20:15)
[2021-03-12] MEDS: VALSARTAN/SACUBITRIL 26/24MG TAB PO SCH (20:16)
[2021-03-13 07:20] LABS: Hematocrit (blood only) 47.3 % (42-52); Hemoglobin 14.9 g/dL (14.0-18.0); Mean Corpuscular Hemoglobin 29.2 pg (25-34); Mean Corpuscular Hgb Conc 31.5 g/dL (32-36); Mean Corpuscular Volume 92.6 fL (80-100); Platelet Count 188 K/uL (130-400); RDW Coefficient of Variation 17.5 % (11.5-14.5); RDW Standard Deviation 59.2 fL (36.4-46.3); Red Blood Count 5.11 M/uL (4.7-6.1); White Blood Count 7.32 K/uL (4.8-10.8)
[2021-03-13 07:43] LABS: INR 3.8 (0.9-1.1); Prothrombin Time 34.5 Seconds (9.0-12.0)
[2021-03-13 07:46] LABS: Albumin Globulin Ratio 1.4 (0.9-2); Albumin Level 3.4 gm/dl (3.4-5.0); BUN Creatinine Ratio 23.2 (10-20); Bilirubin,Total 1.9 mg/dl (0.2-1.0); Creatinine Clr Calc Pharmacy 82.5 ml/min; Est GFR (African American) 87.8 ml/min; Est GFR (Non-African American) 75.8 ml/min; Globulin 2.4 gm/dl (2.5-4.0); Total Protein 5.8 gm/dl (6.0-8.3)
[2021-03-13] MEDS: ASPIRIN 81 MG ECTAB PO SCH (08:03)
[2021-03-13] MEDS: UMECLIDINIUM/VILANTEROL 62.5/25MCG 7 PUFFS/INHALER INH SCH (08:03)
[2021-03-13] MEDS: VALSARTAN/SACUBITRIL 26/24MG TAB PO SCH ×2 (08:03→19:53)
--- NOTE | 2021-03-13 10:08 | Cardiology Consultation ---
Date of Consultation March 13, 2021 Assessment & Plan (1) Acute on chronic HFrEF (heart failure with reduced ejection fraction): Continue cautious IV diuretic therapy along with oral potassium supplementation Monitor I/O's, daily weights on the same standing scale. Restrict sodium intake to 1,500 mg/day. Daily AM basic metabolic panels (2) Ischemic cardiomyopathy: Continue appropriate medical management. (3) Atrial fibrillation: New onset as of February 09, 2021, persistent. Rate controlled. Continue metoprolol and digoxin for rate control Continue chronic Coumadin anticoagulation. (4) LV (left ventricular) mural thrombus: Continue chronic Coumadin anticoagulation (5) AICD (automatic cardioverter/defibrillator) present: 7-12 months of longevity noted. Recommend outpatient Electrophysiology consultation, RE: generator exchange, ? benefit>risks of cardiac resynchronization therapy. (6) SREEDHAR on CPAP: Continue CPAP therapy Supervising Physician Co-Signing Physician Notes Patient seen and examined with Freddy Marino PA-C. Agree with findings and assessment as above. Need for cardiac follow-up and medication adherence reiterated to the patient. Would likely benefit from device upgrade with next generator change. Given the fact that atrial fibrillation is now present consideration may also be given to AV hao ablation at that time. History of Present Illness Reason for Consultation: Acute decompensated systolic heart failure Requesting Physician: Elke Attending Physician: Galina History of Present Illness Mr. Kiko Grimm is a complex 71 year old male with ASCVD status post CABG, severe ischemic cardiomyopathy with ejection fraction less than 20%, NYHA Functional Class III-IV chronic systolic congestive heart failure, status post dual chamber pacemaker defibrillator implantation, LV mural thrombus (prescribed Coumadin anticoagulation). Additional issues include obstructive sleep apnea (CPAP therapy), chronic obstructive pulmonary disease, dyslipidemia "Everything was fine until I screwed up my prescriptions (? taking Coumadin instead of furosemide). I started picking up water about three weeks ago." Notes gradual worsening fluid retention in the abdomen and lower extremities, cough, weight gain, worsening exertional dyspnea with reduced exercise tolerance, orthopnea with rare episode of PND despite CPAP therapy, increased fatigue, intermittent exertional chest pain. Decreased appetite. Decreased urine output. Mechanical fall yesterday. Received low-dose IV diuretic therapy in the ER with increased urine output and improvement in presenting symptoms. Noncompliance with cardiology follow-up noted. Last pacemaker interrogation was in October 2019. Allergies Allergy/AdvReac Type Severity Reaction Status Date / Time codeine Allergy Severe HIVES, Verified 03/12/21 11:35 ITCHY Home Medications Medication Instructions Recorded Confirmed Type albuterol sulfate 2.5 mg INHALATION QID PRN 03/12/21 03/12/21 History aspirin 81 mg tablet,delayed 81 mg PO DAILY 03/12/21 03/12/21 History release atorvastatin 40 mg tablet 40 mg PO DAILY@182903/12/21 03/12/21 History digoxin 125 mcg (0.125 mg) tablet 125 mcg PO DAILY@182903/12/21 03/12/21 History furosemide 20 mg tablet 40 mg PO DAILY 03/12/21 03/12/21 History hydrocodone 5 mg-acetaminophen 325 1 tab PO Q8H PRN 03/12/21 03/12/21 History mg tablet metoprolol succinate 100 mg 100 mg PO DAILY@182903/12/21 03/12/21 History tablet,extended release 24 hr sacubitril 24 mg-valsartan 26 mg 1 tab PO BID 03/12/21 03/12/21 History tablet (Entresto) umeclidinium 62.5 mcg-vilanterol 1 inh INHALATION DAILY 03/12/21 03/12/21 History 25 mcg/actuation powdr for inhalation (Anoro Ellipta) venlafaxine 75 mg capsule,extended 150 mg PO HS 03/12/21 03/12/21 History release 24 hr warfarin 5 mg tablet 2.5 mg PO MOFR 03/12/21 03/12/21 History warfarin 5 mg tablet 5 mg PO SUTUWETHSA 03/12/21 03/12/21 History zolpidem 10 mg tablet 10 mg PO HS PRN 03/12/21 03/12/21 History Patient History Medical History (Updated 03/13/21 @ 10:24 by Freddy Marino) Anticoagulated on Coumadin CHF (congestive heart failure) CHF (congestive heart failure), NYHA class III "Last EF 20%" COPD (chronic obstructive pulmonary disease) Coronary artery disease H/O cardiac pacemaker "[employer] AICD by Dr. Jiang, [facility] [place] 07/19/2013" Ischemic cardiomyopathy LV (left ventricular) mural thrombus Myocardial infarct SREEDHAR on CPAP Pericardial effusion Surgical History (Updated 03/12/21 @ 12:54 by Yara Bedoya PA-C) AICD (automatic cardioverter/defibrillator) present H/O percutaneous transluminal coronary angioplasty S/P CABG (coronary artery bypass graft) "SVG to LAD, SVG to OM" Family History (Updated 03/12/21 @ 12:45 by Yara Bedoya PA-C) Mother CHF (congestive heart failure) Social History (Updated 03/12/21 @ 12:45 by Yara Bedoya PA-C) Smoking Status: Former smoker Years Smoked: 50; Second Hand Exposure: No; Do You Dip or Chew Tobacco: No; Tobacco Cessation Education Requested by Patient: No Hx Alcohol Use: No Hx Substance Use: No Preferred Language: Greek Communication Ability: Effective High School Science Tutor Required: No Beliefs That Will Affect Care: None marital status: Current Living Situation: Spouse current occupational status: retired Other Information That Helps Us Care for You: No Feels Safe at Home: Yes Assistive Devices: Denture - Upper, Denture - Lower and Glasses Review of Systems Review of Systems: Complete Review of Systems is as stated above, negative, or noncontributory. Physical Exam Physical Exam: General: A&Ox3. NAD. HENT: Normocephalic. Atraumatic. Eyes: PER. Conjunctiva pink, sclera clear. Neck: No carotid bruits. + JVD. +HJR. Heart: Distant heart sounds. Irregular. Soft apical systolic murmur. No diastolic murmur. No rub. PMI is displaced laterally Lungs: Diminished. Decreased. Bibasilar rales. No wheeze. Abdomen: +BS. Soft. Nontender. No masses or organomegaly. Extremities: 1+ nonpitting edema. No clubbing. No cyanosis. Limited neurological examination is without focal deficits. Pulses: radial=2/4, posterior tibial=2/4. Results & Data ([facility]) Vital Signs (Past 12 Hours) Vital Signs Temp Pulse Pulse Resp BP Pulse Ox 03/13/21 06:46 36.6 C 70 18 124/88 93 03/13/21 03:45 36.8 C 73 18 129/85 96 03/13/21 01:05 70 03/12/21 23:18 75 23 95 03/12/21 23:05 36.6 C 68 18 131/92 94 Laboratory Results Laboratory Results - last 24 hr 03/12/21 03/12/21 03/12/21 09:35 09:35 09:35 WBC 8.03 RBC 5.17 Hgb 14.9 Hct 48.4 MCV 93.6 MCH 28.8 MCHC 30.8 L RDW Std Deviation 59.7 H RDW Coeff of Kasey 17.4 H Plt Count 187 MPV 10.4 Immature Gran % (Auto) 0.9 Neut % (Auto) 80.8 Lymph % (Auto) 12.0 [place] % (Auto) 5.2 Eos % (Auto) 1.0 Baso % (Auto) 0.1 Neut # (Auto) 6.49 Lymph # (Auto) 0.96 L [place] # (Auto) 0.42 Eos # (Auto) 0.08 Baso # (Auto) 0.01 Immature Gran # (Auto) 0.07 H PT INR Sodium 140 Potassium 3.5 Chloride 101 Carbon Dioxide 31 Anion Gap 8 BUN 24 H Creatinine 0.97 Est Cr Clr Drug Dosing 84.4 Est GFR ( Amer) 90.0 Est GFR (Non-Af Amer) 77.7 BUN/Creatinine Ratio 24.7 H Glucose 146 H Calcium 9.2 Magnesium Total Bilirubin 1.4 H AST 10 L ALT 15 Alkaline Phosphatase 67 Troponin I 0.03 B-Natriuretic Peptide Total Protein 5.9 L Albumin 3.4 Globulin 2.5 Albumin/Globulin Ratio 1.4 Lipase 26 Procalcitonin Digoxin Hepatitis C Ab Screen SARS-CoV-2, RNA, NAAT 03/12/21 03/12/21 03/12/21 09:35 09:35 09:55 WBC RBC Hgb Hct MCV MCH MCHC RDW Std Deviation RDW Coeff of Kasey Plt Count MPV Immature Gran % (Auto) Neut % (Auto) Lymph % (Auto) [place] % (Auto) Eos % (Auto) Baso % (Auto) Neut # (Auto) Lymph # (Auto) [place] # (Auto) Eos # (Auto) Baso # (Auto) Immature Gran # (Auto) PT 41.7 H INR 4.6 H Sodium Potassium Chloride Carbon Dioxide Anion Gap BUN Creatinine Est Cr Clr Drug Dosing Est GFR ( Amer) Est GFR (Non-Af Amer) BUN/Creatinine Ratio Glucose Calcium Magnesium Total Bilirubin AST ALT Alkaline Phosphatase Troponin I B-Natriuretic Peptide 3324 H Total Protein Albumin Globulin Albumin/Globulin Ratio Lipase Procalcitonin Digoxin 1.0 Hepatitis C Ab Screen SARS-CoV-2, RNA, NAAT 03/12/21 03/12/21 03/12/21 09:55 09:55 10:19 WBC RBC Hgb Hct MCV MCH MCHC RDW Std Deviation RDW Coeff of Kasey Plt Count MPV Immature Gran % (Auto) Neut % (Auto) Lymph % (Auto) [place] % (Auto) Eos % (Auto) Baso % (Auto) Neut # (Auto) Lymph # (Auto) [place] # (Auto) Eos # (Auto) Baso # (Auto) Immature Gran # (Auto) PT INR Sodium Potassium Chloride Carbon Dioxide Anion Gap BUN Creatinine Est Cr Clr Drug Dosing Est GFR ( Amer) Est GFR (Non-Af Amer) BUN/Creatinine Ratio Glucose Calcium Magnesium Total Bilirubin AST ALT Alkaline Phosphatase Troponin I B-Natriuretic Peptide Total Protein Albumin Globulin Albumin/Globulin Ratio Lipase Procalcitonin < 0.05 Digoxin Hepatitis C Ab Screen Pending SARS-CoV-2, RNA, NAAT NEGATIVE 03/12/21 03/12/21 03/13/21 14:52 20:50 06:54 WBC 7.32 RBC 5.11 Hgb 14.9 Hct 47.3 MCV 92.6 MCH 29.2 MCHC 31.5 L RDW Std Deviation 59.2 H RDW Coeff of Kasey 17.5 H Plt Count 188 MPV 10.0 Immature Gran % (Auto) Neut % (Auto) Lymph % (Auto) [place] % (Auto) Eos % (Auto) Baso % (Auto) Neut # (Auto) Lymph # (Auto) [place] # (Auto) Eos # (Auto) Baso # (Auto) Immature Gran # (Auto) PT INR Sodium Potassium Chloride Carbon Dioxide Anion Gap BUN Creatinine Est Cr Clr Drug Dosing Est GFR ( Amer) Est GFR (Non-Af Amer) BUN/Creatinine Ratio Glucose Calcium Magnesium Total Bilirubin AST ALT Alkaline Phosphatase Troponin I 0.03 0.03 B-Natriuretic Peptide Total Protein Albumin Globulin Albumin/Globulin Ratio Lipase Procalcitonin Digoxin Hepatitis C Ab Screen SARS-CoV-2, RNA, NAAT 03/13/21 03/13/21 06:54 06:54 WBC RBC Hgb Hct MCV MCH MCHC RDW Std Deviation RDW Coeff of Kasey Plt Count MPV Immature Gran % (Auto) Neut % (Auto) Lymph % (Auto) [place] % (Auto) Eos % (Auto) Baso % (Auto) Neut # (Auto) Lymph # (Auto) [place] # (Auto) Eos # (Auto) Baso # (Auto) Immature Gran # (Auto) PT 34.5 H INR 3.8 H Sodium 139 Potassium 4.0 Chloride 101 Carbon Dioxide 29 Anion Gap 9 BUN 23 Creatinine 0.99 Est Cr Clr Drug Dosing 82.5 Est GFR ( Amer) 87.8 Est GFR (Non-Af Amer) 75.8 BUN/Creatinine Ratio 23.2 H Glucose 98 Calcium 9.0 Magnesium 2.0 Total Bilirubin 1.9 H AST 11 L ALT 15 Alkaline Phosphatase 72 Troponin I B-Natriuretic Peptide Total Protein 5.8 L Albumin 3.4 Globulin 2.4 L Albumin/Globulin Ratio 1.4 Lipase Procalcitonin Digoxin Hepatitis C Ab Screen SARS-CoV-2, RNA, NAAT Diagnostic Findings Cardiac catheterization on 04/07/2013 demonstrated a 100% occlusion of the left main with the entire left circulation filling nicely through the SVG to the mid LAD. The LAD filled retrograde to the occlusion in the left main as well as the left circumflex system. The left circumflex had a moderate smooth stenosis in its obtuse marginal (50% long tubular lesion). The other graft (SVG to OM) was 100% occluded at the aorta. The RCA was described as huge, with a very long PDA (Type I LAD) and with mild disease only. Device interrogation occurred on October 20, 2019. At that time, 21 months of longevity were remaining. No atrial or ventricular arrhythmias were seen. Rhythm notably predominantly atrial paced at that time. EKG on March 12, 2021 revealed a ventricular paced rhythm with frequent and consecutive premature ventricular complexes. March 13, 2021 TTE Interpretation Summary ([facility], Dr. Cain): Moderately dilated LV chamber size with global wall thinning. Severely reduced LV systolic function with severe global hypokinesis, ejection fraction less than 15%. Cannot exclude a small, laminar apical thrombus. Grade 3 diastolic dysfunction consistent with restrictive physiology. Dilated mitral annulus with mild to moderate mitral regurgitation, poor leaflet coaptation. Moderate tricuspid regurgitation. Mild biatrial enlargement. Severe pulmonary hypertension, PASP 75 mmHg. PA systolic pressure of 65% of systolic blood pressure. Device interrogation today (03/13/2021) reveals 7-12 months of longevity. Atrial fibrillation noted since February 09, 2021. Increase % in ventricular pacing noted with the onset of atrial fibrillation Telemetry: Ventricular paced rhythm with what looks like underlying atrial fibrillation and frequent premature ventricular contractions.
--- NOTE | 2021-03-13 12:50 | Hospitalist Progress Note ---
Date of Service March 13, 2021 Assessment & Plan Plan: 1. Acute on chronic systolic CHF -Due to lasix non compliance, patient mixed up his lasix and coumadin -management per Cardiology, recommend continued low dose IV lasix -patient's I/Os and daily weights are not being measured -On exam still appears hypervolemic -Patient anxious to return home, discussed with Cardiology--> recommend additional 1-2 days of IV lasix -continue entresto 2. Anticoagulated on coumadin Supratherapeutic INR LV mural thrombus -continue to hold coumadin. INR down to 3.8 today -Patient follows at the coumadin clinic -goal INR 2-3 3. COPD, SREEDHAR -stable currently 4. CAD Ischemic cardiomyopathy -s/p AICD although patient not compliant with follow up -aspirin, statin 5. PAF -digoxin, metoprolol 100mg daily, coumadin on hold due to # 2 above Admission and Anticipated Discharge Date Admission Date: March 12, 2021 Subjective Feels anxious to return home. "I don't want to stay here another night now that I know what's wrong" Not yet back to baseline Review of Systems Review of Systems: still volume overloaded, diuresing well. denies chest pain Physical Exam Physical Exam: pleasant, no acute distress Neck: neck supple but thick Respiratory: diminished at bases, no wheezing/rhonchi Cardiovascular: regular rate and rhythm, no murmurs/rubs/gallops Gastrointestinal (Abdomen): soft, non tender Musculoskeletal: +1 edema bilateral legs, skin on anterior tibial area is shiny/tight Skin: very dry, scaly (chronic per patient) Neurologic: awake, alert, ambulating to rest room with no difficulty Psychiatric: anxious Results & Data Results & Data ([facility]) Vital Signs (Past 12 Hours) Vital Signs Temp Pulse Pulse Resp BP BP Pulse Ox 03/13/21 11:35 36.8 C 70 118/84 97 03/13/21 10:20 70 03/13/21 06:46 36.6 C 70 18 124/88 93 03/13/21 03:45 36.8 C 73 18 129/85 96 03/13/21 01:05 70 Pulse Ox 03/13/21 11:35 03/13/21 10:20 94 03/13/21 06:46 03/13/21 03:45 03/13/21 01:05 Laboratory Results INR 3.8
[2021-03-13] MEDS ORDERED: FUROSEMIDE 40 MG/4 ML VIAL IV ONE (17:12)
[2021-03-13] MEDS ORDERED: POTASSIUM CHLORIDE CRTAB 20 MEQ TABCR PO ONE (17:19)
[2021-03-13] MEDS: METOPROLOL SUCC 50MG EXT REL TAB PO SCH (18:13)
[2021-03-13] MEDS: ATORVASTATIN 40 MG TAB PO SCH (18:13)
[2021-03-13] MEDS: DIGOXIN 0.125 MG TAB PO SCH (18:14)
[2021-03-13] MEDS: VENLAFAXINE HCL XR 150 MG CAPXR PO SCH (19:53)
[2021-03-14 06:57] LABS: Hematocrit (blood only) 48.8 % (42-52); Hemoglobin 15.3 g/dL (14.0-18.0); Mean Corpuscular Hemoglobin 29.3 pg (25-34); Mean Corpuscular Hgb Conc 31.4 g/dL (32-36); Mean Corpuscular Volume 93.3 fL (80-100); Platelet Count 184 K/uL (130-400); RDW Coefficient of Variation 17.5 % (11.5-14.5); RDW Standard Deviation 59.1 fL (36.4-46.3); Red Blood Count 5.23 M/uL (4.7-6.1); White Blood Count 7.81 K/uL (4.8-10.8)
[2021-03-14 07:06] LABS: INR 2.5 (0.9-1.1); Prothrombin Time 23.2 Seconds (9.0-12.0)
[2021-03-14 07:27] LABS: Albumin Globulin Ratio 1.5 (0.9-2); Albumin Level 3.7 gm/dl (3.4-5.0); BUN Creatinine Ratio 21.9 (10-20); Bilirubin,Total 1.8 mg/dl (0.2-1.0); Calcium 9.4 mg/dl (8.5-10.1); Creatinine Clr Calc Pharmacy 77.4 ml/min; Est GFR (African American) 81.8 ml/min; Est GFR (Non-African American) 70.6 ml/min; Globulin 2.5 gm/dl (2.5-4.0); Magnesium 2.1 mg/dl (1.7-2.4); Potassium 4.6 mmol/L (3.5-5.1); Total Protein 6.2 gm/dl (6.0-8.3)
[2021-03-14] MEDS: ASPIRIN 81 MG ECTAB PO SCH (08:29)
[2021-03-14] MEDS: VALSARTAN/SACUBITRIL 26/24MG TAB PO SCH ×2 (08:29→20:31)
[2021-03-14] MEDS: UMECLIDINIUM/VILANTEROL 62.5/25MCG 7 PUFFS/INHALER INH SCH (08:29)
[2021-03-14] MEDS: FUROSEMIDE 40 MG/4 ML VIAL IV SCH (08:36)
--- NOTE | 2021-03-14 09:41 | Cardiology Progress Note ---
Date of Service March 14, 2021 Assessment & Plan (1) Acute on chronic HFrEF (heart failure with reduced ejection fraction): Plan: Continue IV diuretic therapy (furosemide 40 mg/day). Maintain normokalemia with oral potassium supplementation Monitor I/O's, daily weights on the same standing scale. Restrict sodium intake to 1,500 mg/day. Daily AM basic metabolic panels Continue appropriate guideline directed medical therapy. (2) Ischemic cardiomyopathy: Plan: Continue appropriate medical management. (3) Atrial fibrillation: Plan: New onset as of February 09, 2021, persistent, rate controlled. Continue metoprolol and digoxin for rate control Continue chronic Coumadin anticoagulation. (4) LV (left ventricular) mural thrombus: Plan: Continue chronic Coumadin anticoagulation (5) AICD (automatic cardioverter/defibrillator) present: Plan: 7-12 months of longevity noted via device interrogation on 03/13/2021.. Recommend outpatient Electrophysiology consultation, RE: generator exchange, ? device upgrade (6) SREEDHAR on CPAP: Plan: Recommend utilization of CPAP therapy at night and when napping during the day. Admission and Anticipated Discharge Date Admission Date: March 13, 2021 Supervising Physician Co-Signing Physician Notes Patient seen and examined with Freddy Marino PA-C. Agree with findings and assessment as above. Need for cardiac follow-up and medication adherence reiterated to the patient. Would likely benefit from device upgrade with next generator change. Given the fact that atrial fibrillation is now present consideration may also be given to AV hao ablation at that time. Subjective Patient seen and examined. Chart, medications, laboratory, and telemetry reviewed. Notes transiently feeling better after receiving IV diuretic therapy then with return of dyspnea and fatigue Orthopnea, abdominal bloating, and peripheral edema are unchanged. He becomes dyspnea when ambulating to the bathroom He has not been wearing CPAP in house at night or when napping during the day No chest pain, tachypalpitations, PND, dizziness, or near syncope Telemetry: Probable underlying atrial fibrillation with a high percentage of ventricular pacing and occasional premature ventricular or aberrantly conducted complexes. Review of Systems Review of Systems: Complete Review of Systems is as stated above, negative, or noncontributory. Physical Exam Physical Exam: General: A&Ox3. NAD. HENT: Normocephalic. Atraumatic. Eyes: PER. Conjunctiva pink, sclera clear. Neck: No carotid bruits. + JVD. +HJR. Heart: Distant heart sounds. Irregular. Soft apical systolic murmur. No diastolic murmur. No rub. PMI is displaced laterally Lungs: Diminished. Decreased. Bibasilar rales. No wheeze. Abdomen: +BS. Soft. Nontender. No masses or organomegaly. Extremities: 1+ nonpitting edema. No clubbing. No cyanosis. Limited neurological examination is without focal deficits. Pulses: radial=2/4, posterior tibial=2/4. Results & Data ([facility]) Vital Signs (Past 12 Hours) Vital Signs Temp Pulse Pulse Resp BP BP Pulse Ox 03/14/21 08:00 36.7 C 72 18 128/66 95 03/14/21 03:39 36.6 C 75 20 130/80 93 03/14/21 00:21 76 03/13/21 23:15 36.6 C 85 24 141/90 H 95 Laboratory Results Laboratory Results - last 24 hr 03/12/21 03/14/21 03/14/21 09:55 06:24 06:24 WBC 7.81 RBC 5.23 Hgb 15.3 Hct 48.8 MCV 93.3 MCH 29.3 MCHC 31.4 L RDW Std Deviation 59.1 H RDW Coeff of Kasey 17.5 H Plt Count 184 MPV 10.0 PT 23.2 H INR 2.5 H Sodium Potassium Chloride Carbon Dioxide Anion Gap BUN Creatinine Est Cr Clr Drug Dosing Est GFR ( Amer) Est GFR (Non-Af Amer) BUN/Creatinine Ratio Glucose Calcium Magnesium Total Bilirubin AST ALT Alkaline Phosphatase Total Protein Albumin Globulin Albumin/Globulin Ratio Hepatitis C Ab Screen Neg 03/14/21 06:24 WBC RBC Hgb Hct MCV MCH MCHC RDW Std Deviation RDW Coeff of Kasey Plt Count MPV PT INR Sodium 141 Potassium 4.6 Chloride 101 Carbon Dioxide 33 H Anion Gap 7 BUN 23 Creatinine 1.05 Est Cr Clr Drug Dosing 77.4 Est GFR ( Amer) 81.8 Est GFR (Non-Af Amer) 70.6 BUN/Creatinine Ratio 21.9 H Glucose 108 H Calcium 9.4 Magnesium 2.1 Total Bilirubin 1.8 H AST 13 ALT 15 Alkaline Phosphatase 74 Total Protein 6.2 Albumin 3.7 Globulin 2.5 Albumin/Globulin Ratio 1.5 Hepatitis C Ab Screen
--- NOTE | 2021-03-14 12:56 | Hospitalist Progress Note ---
Date of Service March 14, 2021 Assessment & Plan (1) Acute on chronic HFrEF (heart failure with reduced ejection fraction): Plan: Lasix 40mg IV daily Already on metoprolol, Entresto (2) Ischemic cardiomyopathy: Plan: s/p AICD. Will need follow up with EP for device upgrade (3) Coronary artery disease: Plan: aspirin, statin (4) SREEDHAR on CPAP: Plan: has refused CPAP while being here, uses CPAP at home (5) AICD (automatic cardioverter/defibrillator) present: (6) COPD (chronic obstructive pulmonary disease): Plan: stable (7) Anticoagulated on Coumadin: Plan: supratherapeutic INR on admission due to mixing up his medications INR today 2.5, resume coumadin at home dose Plan: Dispo: discharge home when cleared by Cardiology. Patient will need help with his medications Admission and Anticipated Discharge Date Admission Date: March 13, 2021 Subjective Initially was asking repeated to go home then agreed to stay after being seen by Cardiology. "Ok I give up, I'll stay for next couple days if you guys want me to" Feels better Physical Exam Physical Exam: ambulating in room with no difficulty Respiratory: no wheezing/rhonchi/rales Cardiovascular: irregular but not rapid, no murmurs/rubs/galloops Gastrointestinal (Abdomen): soft, decreased girth Musculoskeletal: Edema improved Skin: very dry scaly Neurologic: awake, alert, spontaneously moving extremities Results & Data Results & Data ([facility]) Vital Signs (Past 12 Hours) Vital Signs Temp Pulse Pulse Resp BP BP Pulse Ox 03/14/21 12:00 36.8 C 71 18 152/71 H 96 03/14/21 10:05 71 03/14/21 10:00 03/14/21 08:00 36.7 C 72 18 128/66 95 03/14/21 03:39 36.6 C 75 20 130/80 93 Pulse Ox 03/14/21 12:00 03/14/21 10:05 03/14/21 10:00 95 03/14/21 08:00 03/14/21 03:39
[2021-03-14] MEDS ORDERED: WARFARIN SOD 5 MG TAB PO ONE (16:00)
[2021-03-14] MEDS: ATORVASTATIN 40 MG TAB PO SCH (17:42)
[2021-03-14] MEDS: METOPROLOL SUCC 50MG EXT REL TAB PO SCH (17:43)
[2021-03-14] MEDS: DIGOXIN 0.125 MG TAB PO SCH (17:43)
[2021-03-14] MEDS: VENLAFAXINE HCL XR 150 MG CAPXR PO SCH (20:31)
[2021-03-15 07:15] LABS: INR 1.8 (0.9-1.1); Prothrombin Time 17.3 Seconds (9.0-12.0)
[2021-03-15 07:37] LABS: Creatinine Clr Calc Pharmacy 83.8 ml/min; Est GFR (African American) 91.2 ml/min; Est GFR (Non-African American) 78.7 ml/min; Magnesium 2.1 mg/dl (1.7-2.4)
[2021-03-15] MEDS: FUROSEMIDE 40 MG/4 ML VIAL IV SCH (09:29)
[2021-03-15] MEDS: UMECLIDINIUM/VILANTEROL 62.5/25MCG 7 PUFFS/INHALER INH SCH (09:29)
[2021-03-15] MEDS: VALSARTAN/SACUBITRIL 26/24MG TAB PO SCH ×2 (09:29→20:39)
[2021-03-15] MEDS: ASPIRIN 81 MG ECTAB PO SCH (09:29)
--- NOTE | 2021-03-15 11:29 | Cardiology Progress Note ---
Date of Service March 15, 2021 Assessment & Plan (1) Acute on chronic HFrEF (heart failure with reduced ejection fraction): Plan: Continue cautious IV diuretic therapy along with oral potassium supplementation Monitor I/O's, daily weights on the same standing scale. Restrict sodium intake to 1,500 mg/day. Daily AM basic metabolic panels (2) Ischemic cardiomyopathy: Plan: Continue appropriate medical management. 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 Rate controlled. Continue metoprolol and digoxin for rate control Continue chronic Coumadin anticoagulation. (4) LV (left ventricular) mural thrombus: Plan: Continue chronic Coumadin anticoagulation (5) AICD (automatic cardioverter/defibrillator) present: Plan: 7-12 months of longevity noted. Recommend outpatient Electrophysiology consultation, RE: generator exchange Device should be upgraded to BiV at that time and consideration given to possible AV node ablation given the decompensation with loss of atrial kick (6) SREEDHAR on CPAP: Plan: Continue CPAP therapy Admission and Anticipated Discharge Date Admission Date: March 13, 2021 Subjective Patient seen and examined, chart reviewed. States that still short of breath this morning but seems to improve throughout the day. Continues to actively diurese. Denies chest pain. Telemetry reviewed: Paced rhythm Review of Systems Review of Systems: All systems reviewed & are unremarkable except as noted in HPI & below Physical Exam Physical Exam: General: Awake, alert and oriented x 3. No acute distress. HEENT: Normocephalic, atraumatic. Pupils equal, round and reactive to light and accommodation. Extraocular muscles are intact. Anicteric sclera. Moist mucous membranes. Neck: No JVD. No bruit. Cardiovascular: Regular. Positive S-4. Normal S-1 and S-2. No S-3. No murmurs or rubs. Pulmonary: Clear to auscultation B/L. No rales, rhonchi or wheezing Abdomen: Bowel sounds x 4, soft. No rebound, guarding or tenderness. No organomegaly. Extremities: No clubbing, cyanosis or edema. +2 pedal pulses bilaterally. Skin: Warm and dry. Results & Data ([facility]) Vital Signs (Past 12 Hours) Vital Signs Temp Pulse Pulse Resp BP BP Pulse Ox 03/15/21 08:25 36.8 C 66 16 115/69 98 03/15/21 08:01 77 18 95 03/15/21 07:43 76 03/15/21 03:55 73 03/15/21 02:54 36.4 C L 75 18 120/82 95
--- NOTE | 2021-03-15 12:19 | Hospitalist Progress Note ---
Date of Service March 15, 2021 Assessment & Plan (1) Acute on chronic HFrEF (heart failure with reduced ejection fraction): Plan: Lasix 40mg IV daily Already on metoprolol, Entresto starting spironolactone today (2) Ischemic cardiomyopathy: Plan: s/p AICD. Will need follow up with EP for device upgrade (3) Coronary artery disease: Plan: aspirin, statin (4) SREEDHAR on CPAP: Plan: Had previously refused CPAP but last night used it (5) AICD (automatic cardioverter/defibrillator) present: (6) COPD (chronic obstructive pulmonary disease): Plan: stable (7) Anticoagulated on Coumadin: Plan: supratherapeutic INR on admission due to mixing up his medications INR today 1.8, will receive another coumadin 5mg today Plan: Dispo: discharge home when cleared by Cardiology. Patient will need help with his medications Admission and Anticipated Discharge Date Admission Date: March 13, 2021 Subjective This morning felt short of breath and received a breathing treatment. Overnight used CPAP Abdominal girth is improved Overall feels better than when he first got here. Denies chest pain Physical Exam Physical Exam: Pleasant and comfortable, no acute distress Neck: thick Respiratory: clear bilaterally, no wheezing/rhonchi/rales Cardiovascular: regular rate and rhythm, no murmurs/rubs/gallops Gastrointestinal (Abdomen): soft, non tender Musculoskeletal: bilateral trace edema (much improved ) Skin: dry, scaly Neurologic: awake, alert, spontaneously moving extremities Results & Data Results & Data ([facility]) Vital Signs (Past 12 Hours) Vital Signs Temp Pulse Pulse Resp BP BP Pulse Ox 03/15/21 12:00 36.8 C 77 18 134/63 98 03/15/21 08:25 36.8 C 66 16 115/69 98 03/15/21 08:01 77 18 95 03/15/21 07:43 76 03/15/21 03:55 73 03/15/21 02:54 36.4 C L 75 18 120/82 95
[2021-03-15] MEDS: SPIRONOLACTONE 12.5 MG TAB PO SCH (12:44)
[2021-03-15] MEDS ORDERED: WARFARIN SOD 5 MG TAB PO SCH (16:00)
[2021-03-15] MEDS: METOPROLOL SUCC 50MG EXT REL TAB PO SCH (17:33)
[2021-03-15] MEDS: ATORVASTATIN 40 MG TAB PO SCH (17:33)
[2021-03-15] MEDS: DIGOXIN 0.125 MG TAB PO SCH (17:34)
[2021-03-15] MEDS: VENLAFAXINE HCL XR 150 MG CAPXR PO SCH (20:39)
[2021-03-16] MEDS: ASPIRIN 81 MG ECTAB PO SCH (07:57)
[2021-03-16] MEDS: VALSARTAN/SACUBITRIL 26/24MG TAB PO SCH (07:57)
[2021-03-16] MEDS: SPIRONOLACTONE 12.5 MG TAB PO SCH (07:57)
[2021-03-16] MEDS: FUROSEMIDE 40 MG/4 ML VIAL IV SCH (07:57)
[2021-03-16] MEDS: UMECLIDINIUM/VILANTEROL 62.5/25MCG 7 PUFFS/INHALER INH SCH (07:57)
[2021-03-16 07:59] LABS: INR 2.1 (0.9-1.1); Prothrombin Time 20.5 Seconds (9.0-12.0)
[2021-03-16 08:07] LABS: BUN Creatinine Ratio 23.3 (10-20); Creatinine Clr Calc Pharmacy 88.7 ml/min; Est GFR (African American) 98.5 ml/min; Magnesium 2.1 mg/dl (1.7-2.4); Potassium 3.9 mmol/L (3.5-5.1)
[2021-03-16] MEDS ORDERED: POTASSIUM CHLORIDE CRTAB 20 MEQ TABCR PO STA (08:40)
[2021-03-16] MEDS ORDERED: POTASSIUM CHLORIDE CRTAB 20 MEQ TABCR PO ONE (08:40)
[2021-03-16 11:29] VITALS: PULSE 67; TEMP 97.7; O2SAT 95
--- NOTE | 2021-03-16 12:06 | Cardiology Progress Note ---
Date of Service March 16, 2021 Assessment & Plan (1) Acute on chronic HFrEF (heart failure with reduced ejection fraction): (2) Atrial fibrillation: (3) AICD (automatic cardioverter/defibrillator) present: (4) SREEDHAR on CPAP: Plan: From a cardiology standpoint the patient could be discharged to outpatient follow-up. I will arrange follow-up with our clinic. Admission and Anticipated Discharge Date Admission Date: March 13, 2021 Subjective No complaints today. Patient is anxious to be discharged. Review of Systems Review of Systems: Review of Systems: See HPI for pertinent positives. All other 10 point review of systems are negative. Physical Exam Physical Exam: General: no acute distress and stated age Head: normocephalic, no masses, lesions, tenderness or abnormalities Eyes: conjunctiva are pink and non-injected, sclera clear Neck: supple, no adenopathy, no bruits, normal jugular venous pulse, no hepatojugular reflux Chest: normal shape and normal respiratory effort Lungs: clear to auscultation and percussion Cardiac Exam: - regular rate & rhythm, no murmurs gallops or rubs - normal S1, normal S2 Pulses: 2(+) throughout Abdomen: abdomen soft, non-tender, no abnormal masses and no hepatosplenomegaly Musculoskeletal: no gait disturbance, no joint inflammation, no deforming arthritis Extremities: no edema and no cyanosis Neuro: grossly normal exam Results & Data ([facility]) Vital Signs (Past 12 Hours) Vital Signs Temp Pulse Pulse Resp BP BP Pulse Ox 03/16/21 11:00 36.5 C 67 15 124/86 95 03/16/21 08:00 71 03/16/21 06:52 36.6 C 67 20 128/89 93 03/16/21 02:58 36.5 C 80 20 126/76 96 Laboratory Results Laboratory Results - last 24 hr 03/16/21 03/16/21 07:21 07:21 PT 20.5 H INR 2.1 H Sodium 139 Potassium 3.9 Chloride 104 Carbon Dioxide 29 Anion Gap 6 BUN 21 Creatinine 0.90 Est Cr Clr Drug Dosing 88.7 Est GFR ( Amer) 98.5 Est GFR (Non-Af Amer) 85.0 BUN/Creatinine Ratio 23.3 H Glucose 121 H Calcium 9.0 Magnesium 2.1 Medications Administered Current Inpatient Medications Acetaminophen (Acetaminophen 325 Mg Tab) 650 mg PO Q4H PRN PRN Reason: Pain or Fever Stop: 04/11/21 14:58 Last Admin: 03/16/21 07:59 Dose: 650 mg Documented by: Hydrocodone Bitart/Acetaminophen (Hydrocodone/Acetamophen 5/325mg Tab) 1 tab PO Q8H PRN PRN Reason: Moderate or severe pain Stop: 03/26/21 14:58 Al Hydrox/Mg Hydrox/Simethicone (Aluminum/Magnesium Susp 30 Ml Udc) 15 ml PO Q4H PRN PRN Reason: Dyspepsia Stop: 04/11/21 14:58 Albuterol (Albuterol 0.083% Nebu Soln 3 Ml Vial) 2.5 mg INH QID PRN; Protocol PRN Reason: Shortness Of Breath Stop: 04/11/21 14:58 Last Admin: 03/15/21 07:59 Dose: 2.5 mg Documented by: Aspirin (Aspirin 81 Mg Ectab) 81 mg PO DAILY [facility] Stop: 04/12/21 08:59 Last Admin: 03/16/21 07:57 Dose: 81 mg Documented by: Atorvastatin Calcium (Atorvastatin 40 Mg Tab) 40 mg PO DAILY@1829 [facility] Stop: 04/11/21 18:29 Last Admin: 03/15/21 17:33 Dose: 40 mg Documented by: Digoxin (Digoxin 0.125 Mg Tab) 0.125 mg PO DAILY@1829 [facility] Stop: 04/11/21 18:29 Last Admin: 03/15/21 17:34 Dose: 0.125 mg Documented by: Furosemide (Furosemide 40 Mg Tab) 40 mg PO QAM [facility] Stop: 04/16/21 08:59 Magnesium Hydroxide (Magnesium Hydroxide Susp 30 Ml Udc) 30 ml PO Q12H PRN PRN Reason: Constipation Stop: 04/11/21 14:58 Metoprolol Succinate (Metoprolol Succ 50mg Ext Rel Tab) 100 mg PO DAILY@1829 [facility] Stop: 04/11/21 18:29 Last Admin: 03/15/21 17:33 Dose: 100 mg Documented by: Ondansetron HCl (Ondansetron Inj 2 Mg/Ml 2 Ml Vial) 4 mg IV Q6H PRN PRN Reason: Nausea Stop: 04/11/21 14:58 Polyethylene Glycol (Polyethylene (Miralax) 17 Gm Pack) 17 gm PO DAILY PRN PRN Reason: Constipation Stop: 04/11/21 14:58 Sacubitril/Valsartan (Valsartan/Sacubitril 26/24mg Tab) 1 tab PO BID [facility] Stop: 04/11/21 20:59 Last Admin: 03/16/21 07:57 Dose: 1 tab Documented by: Spironolactone (Spironolactone 12.5 Mg Tab) 12.5 mg PO DAILY [facility] Stop: 04/14/21 11:59 Last Admin: 03/16/21 07:57 Dose: 12.5 mg Documented by: Umeclidinium/Vilanterol (Umeclidinium/Vilanterol 62.5/25mcg 7 Puffs/Inhaler) 1 puffs INH DAILY [facility] Stop: 04/12/21 08:59 Last Admin: 03/16/21 07:57 Dose: 1 puffs Documented by: Venlafaxine HCl (Venlafaxine Hcl Xr 150 Mg Capxr) 150 mg PO HS [facility] Stop: 04/11/21 20:59 Last Admin: 03/15/21 20:39 Dose: 150 mg Documented by: Warfarin Sodium (Warfarin Sod 5 Mg Tab) 5 mg PO DAILY@1600 [facility] Stop: 03/16/21 15:59 Last Admin: 03/15/21 15:02 Dose: 5 mg Documented by: Warfarin Sodium (Warfarin Sod 5 Mg Tab) 5 mg PO NOW ONE Stop: 03/16/21 16:01 Zolpidem Tartrate (Zolpidem Tartrate 10 Mg Tab) 10 mg PO HS PRN PRN Reason: Sleep Stop: 04/11/21 14:58 Last Admin: 03/12/21 20:19 Dose: 10 mg Documented by:
--- NOTE | 2021-03-16 12:48 | Discharge Summary ---
Date of Service March 16, 2021 Admission HPI Per Admitting Provider This is a 71-year-old male who has significant past medical history of ischemic cardiomyopathy, CAD with hx of CABG, chronic systolic CHF EF 20 to 25%, pacemaker/AICD in place, left ventricular mural thrombus, SREEDHAR on CPAP, HTN, HLD, COPD, history of tobacco abuse who presents to ED due to dyspnea on exertion and fatigue x3 weeks. His is at bedside. Over the past 3 weeks he has had worsening shortness of breath with exertion. He states he has 12 steps at home and typically he can do this with moderate effort. However, recently he can only do 5 steps due to being extremely short of breath and fatigue. He also has been complaining of exertional chest pain on 2 separate occasions. Last occurring 2 days ago. He further complains of a 10 pound weight gain over the past month as well as increased lower extremity swelling and abdominal bloating. He denies any orthopnea or PND; however he does wear a CPAP at bedtime. He recently established with Dr. Meredith as an outpatient PCP due to PCP in [facility]. He denies any recent illness and is fully vaccinated boosted against COVID-19. He denies any sick contacts. He does follow with [facility] cardiology but was last seen August 2019. Appears has not been compliant with follow-ups. He states last pacemaker check would have been at that time too. He denies any fever, chills, sweats, lightheadedness, dizziness, syncope, chest pain at rest, shortness of breath at rest, hemoptysis, nausea, vomiting, abdominal pain, dysuria, increased urgency or frequency with urination, hematuria, melena or hematochezia. He has noted decreased urination recently. He also admits to a wet cough worsening in the morning. After reviewing medication it appears patient may not be taking Lasix as prescribed if at all. He states he is either taking 5 or 10 mg daily. It also appears he is confusing his Lasix with his warfarin. He does not follow any dietary restrictions and also salts his food. In ED patient remained hemodynamically stable and not require any supplemental oxygen. His CBC and CMP was generally unremarkable. His troponin was detectable but not elevated. His BNP was elevated at 3324. Chest x-ray was concerning for mild patchy interstitial and alveolar opacities concerning for viral type pneumonitis. Received 10 mg IV Lasix in ED to start. Principal Diagnosis Acute on chronic systolic CHF Supratherapeutic INR At risk for polypharmacy Discharge Exam Patient felt well Pulm- Breathing comfortably on room air, lungs are clear CV- Irregular but not tachycardic, no murmurs/ noted LE- no edema Skin- very dry and scaly (chronic) Discharge Data Allergies Allergy/AdvReac Type Severity Reaction Status Date / Time codeine Allergy Severe HIVES, Verified 03/12/21 11:35 ITCHY Consultations 03/12/21 11:32 ED Decision to Admit Stat 03/12/21 12:15 Consult Cardiology Routine Hospital Course (1) Acute on chronic HFrEF (heart failure with reduced ejection fraction): received Lasix 40mg IV daily while here Discharged on lasix 40mg PO daily which is his home dose Continued on metoprolol, Entresto Started spironolactone 12.5mg daily here which he tolerated (2) Ischemic cardiomyopathy: s/p AICD. Will need follow up with EP for device upgrade (3) Coronary artery disease: aspirin, statin (4) SREEDHAR on CPAP: Continued on CPAP while here (5) AICD (automatic cardioverter/defibrillator) present: (6) COPD (chronic obstructive pulmonary disease): stable (7) Anticoagulated on Coumadin: supratherapeutic INR on admission due to mixing up his medications INR within therapeutic range Discharged on home coumadin regimen: 5mg daily except on Thursday and Fridays it is 2.5mg Follow up at coumadin clinic on Thursday Prior to discharge, I called Mrs Grimm, patient's to review discharge plan. I explained that she may need to help review his medications when he returns home to avoid mix up again. Total Time Total Time Spent Total Time Spent (In Minutes): 35 Discharge Plan Discharge Items Patient Disposition: Home - Self-Care Reason For Visit: SOB, POSSIBLE DECOMPENSATION OF CHF Discharge Diagnosis: Acute on chronic systolic CHF At risk for polypharmacy Medical non compliance Condition on Discharge: Good Health Concerns: Patient mixed up his coumadin and lasix pills. He is at risk for polypharmacy. He is non compliant with follow up for ICD interrogation Goals: Medication Compliance INR goal 2-3, managed at the Coumadin Clinic Activity: Resume your previous activity Lifting: None Bathing: No limitations Sexual Activity: When tolerated Exercise/Sports: As tolerated Weightbearing: Full weightbearing Non-emergency contact: Primary Care Provider and [employer] Call non-emergency contact if: you have any medication questions and your symptoms worsen Follow-up/Referrals: Antonio Meredith MD [Primary Care Provider] - (Date & Time 03/18/2021 11:00 AM Provider ALIYAH Reeder Department [facility] ) Diet: Heart Healthy and Low Sodium (2gm) Fluids: 1500ml (6 cups) Addtl Attending Provider Instructions: You were admitted for shortness of breath and swelling of your legs in the setting of not taking your lasix properly. Your coumadin level (INR) was elevated as well since you had confused your lasix with your coumadin. It is important that you review your medications at home and take them as prescribed. You can resume your coumadin and lasix at prior doses Please follow up with your [employer] Pending Studies at Discharge: No Studies:: TTE 03/12/21- LVEF 15%, severe global hypokinesis, grade 3 diastolic dysfunction, moderate tricuspid regurgitation, mild-mod mitral regurgitation, severe pulmonary hypertension, mild biatrial enlargement Stand-Alone Forms: My [employer], Smoking Cessation Medications and DC Order Prescriptions: New spironolactone 25 mg Tablet 12.5 mg PO DAILY 365 Days Qty: 15 RF: 1 Continued albuterol sulfate 2.5 mg /3 mL (0.083 %) solution for nebulization 2.5 mg inhalation QID PRN (Reason: Shortness Of Breath) RF: 0 atorvastatin 40 mg tablet 40 mg PO DAILY@1829 RF: 0 venlafaxine 75 mg capsule,extended release 24hr 150 mg PO HS RF: 0 hydrocodone-acetaminophen 5-325 mg tablet 1 tab PO Q8H PRN (Reason: Pain) RF: 0 metoprolol succinate 100 mg tablet extended release 24 hr 100 mg PO DAILY@1829 RF: 0 warfarin 5 mg tablet 2.5 mg PO MOFR RF: 0 digoxin 125 mcg (0.125 mg) tablet 125 mcg PO DAILY@1829 RF: 0 zolpidem 10 mg tablet 10 mg PO HS PRN (Reason: Sleep) RF: 0 Entresto 24-26 mg tablet 1 tab PO BID RF: 0 aspirin 81 mg Tablet,Delayed Release (Dr/Ec) 81 mg PO DAILY RF: 0 warfarin 5 mg Tablet 5 mg PO SUTUWETHSA RF: 0 furosemide 20 mg Tablet 40 mg PO DAILY RF: 0 Anoro Ellipta 62.5-25 mcg/actuation Blister With Device 1 inh INHALATION DAILY RF: 0 Discharge Orders: Discharge Order (Routine); Ordered 03/16/21 Ordered By: Dinora Pike/Other Patient Handouts: CPAP, AFib Dc, Heart Failure Dc Admission Data Admit Date/Time: 03/13/21 17:15 Attending Provider: Dinora Mojica Admit Provider: Malaika Myers Primary Care Provider: Antonio Meredith Other Providers: Malaika Myers ; Manny Cain
[2021-03-16 12:58] VITALS: BP 128/89
[2021-03-16] MEDS ORDERED: WARFARIN SOD 5 MG TAB PO ONE (16:00)
[2021-03-17] MEDS ORDERED: FUROSEMIDE 40 MG TAB PO SCH (09:00)
== END 2021-03-16 14:20 | disposition home or self-care (01) | DRG 291 ==
LOC: 2S 09:44 → ED 09:44 → SUATTDRO 11:39 → 2S 14:21

== ENCOUNTER 2021-03-29 17:40 | Inpatient (IN) ==
[2021-03-29] MEDS ORDERED: SODIUM CHLORIDE 0.9% 500 ML IV SCH (18:15)
[2021-03-29 18:35] LABS: Basophils # (auto) 0.03 K/uL (0-0.2); Basophils % (auto) 0.5 %; Eosinophils # (auto) 0.22 K/uL (0-0.5); Eosinophils % (auto) 3.5 %; Hematocrit (blood only) 53.5 % (42-52); Hemoglobin 16.8 g/dL (14.0-18.0); Immature Granulocytes # (auto) 0.06 K/uL (0.00-0.02); Lymphocytes # (auto) 1.69 K/uL (1.2-3.4); Lymphocytes % (auto) 27.2 %; Mean Corpuscular Hemoglobin 29.3 pg (25-34); Mean Corpuscular Hgb Conc 31.4 g/dL (32-36); Mean Corpuscular Volume 93.4 fL (80-100); Mean Platelet Volume 9.3 fL (7.4-10.4); Monocytes # (auto) 0.56 K/uL (0.11-0.59); Neutrophils # (auto) 3.65 K/uL (1.4-6.5); Neutrophils % (auto) 58.8 %; Platelet Count 318 K/uL (130-400); RDW Coefficient of Variation 17.9 % (11.5-14.5); RDW Standard Deviation 61.5 fL (36.4-46.3); Red Blood Count 5.73 M/uL (4.7-6.1); White Blood Count 6.21 K/uL (4.8-10.8)
[2021-03-29 18:53] LABS: BUN Creatinine Ratio 18.3 (10-20); Calcium 10.4 mg/dl (8.5-10.1); Creatinine Clr Calc Pharmacy 63.7 ml/min; Est GFR (African American) 73.3 ml/min; Est GFR (Non-African American) 63.2 ml/min; Potassium 5.6 mmol/L (3.5-5.1)
[2021-03-29 18:56] LABS: INR 2.1 (0.9-1.1); Partial Thromboplastin Ratio 1.3; Partial Thromboplastin Time 34.5 Seconds (21.0-31.0); Prothrombin Time 20.4 Seconds (9.0-12.0)
[2021-03-29] MEDS ORDERED: CALCIUM GLUCONATE 10% 1,000 MG in DEXTROSE 5% 50 ML IV STA (18:59)
[2021-03-29] MEDS ORDERED: STAT IV STA (18:59)
[2021-03-29] MEDS ORDERED: SODIUM POLYSTYRENE SULFONATE 15G/60ML SUSP PO STA (21:22)
[2021-03-29] MEDS ORDERED: NovoLIN-R INSULIN PER UNIT CHARGE IV STA (21:22)
[2021-03-29] MEDS ORDERED: DEXTROSE 50% 50 ML SYRINGE IV STA (21:22)
--- NOTE | 2021-03-29 23:46 | History and Physical Report ---
DATE OF ADMISSION: 03/29/2021. CHIEF COMPLAINT: Abnormal labs, hyperkalemia. HISTORY OF PRESENT ILLNESS: A 71-year-old male with past medical history significant for hyperlipidemia, COPD, sleep apnea, chronic systolic heart failure, history of left ventricular mural thrombus, status post defibrillator, CAD, lumbar degenerative disk disease, persistent insomnia. Lives with his , ambulates without any support, comes because of abnormal labs. The patient was recently in the hospital from 03/12/2021 to 03/16/2021 for CHF. At the time of discharge, spironolactone was added, but since the patient seemed to have hyperkalemia on spironolactone, his dose was reduced as outpatient. Today, he went to see an fruit cutter for his plan for replacement of his pacemaker and outpatient labs showed a potassium of 6 and he was advised to come to the hospital. Currently, his potassium is 5.6. He received calcium gluconate in the ER. EKG showed ventricular paced rhythm at a rate of 74. The patient is resting comfortably, hemodynamically stable. Denies any chest pain. Says his shortness of breath is better. His lower extremity edema has resolved. Has some dizziness once in a while. No headache, no blurred visions. Has constant runny nose for the last 2 days. No cough, no fever, no chills, no nausea, no vomiting. Normal bowel and bladder movements. ALLERGIES: CODEINE. PAST MEDICAL HISTORY: As mentioned above. PAST SURGICAL HISTORY: Left heart catheterization, pacemaker insertion, right heart catheterization. MEDICATIONS: The patient is on albuterol sulfate 2.5 mg inhalation q.i.d. p.r.n., Anoro Ellipta 1 inhalation daily, aspirin 81 mg p.o. daily, atorvastatin 40 mg p.o. daily, digoxin 125 mcg p.o. daily, Entresto 1 tablet p.o. b.i.d., Lasix 40 mg p.o. daily, hydrocodone/acetaminophen 1 tablet p.o. q. 8 hours p.r.n., metoprolol succinate 100 mg p.o. daily, spironolactone 12.5 mg p.o. daily, venlafaxine 150 mg p.o. at bedtime, Coumadin 2.5 mg 2 times a week and Coumadin 5 mg 5 times daily, zolpidem 10 mg p.o. at bedtime p.r.n. FAMILY HISTORY: Significant for mother has CHF. SOCIAL HISTORY: , former smoker, smoked average 1 pack a day for 35 years. No alcohol use. No drug use. REVIEW OF SYSTEMS: As per HPI. Rest of review of systems is negative. PHYSICAL EXAMINATION: GENERAL: The patient is of moderate build, not in acute distress. VITAL SIGNS: Temperature 36.5, pulse 74, respiratory rate 20, blood pressure 105/73, oxygen 96% on room air. HEENT: Pupils equal, round and reactive to light. Oral mucosa moist. NECK: No JVD, no neck masses. CARDIOVASCULAR: S1 and S2 heard. Regular rate and rhythm. No murmur, no gallop. RESPIRATORY SYSTEM: Normal AP diameter. No accessory muscle use. No wheezing, no crackles. ABDOMEN: Soft, bowel sounds present, nontender, no distention. CENTRAL NERVOUS SYSTEM: Cranial nerves II-XII grossly intact, nonfocal. EXTREMITIES: No edema, no erythema. LABORATORY DATA: WBC 6.2, hemoglobin 16.8, hematocrit 53.5, platelets 318. PT 20.4, INR 2.1, APTT 34.5. Sodium 136, potassium 5.6, chloride 100, bicarbonate 31, BUN 21, creatinine 1.1, serum glucose 97. Lactate 1.8, calcium 10.4. SARS-CoV-2 negative. EKG: Ventricular paced rhythm with PVCs at the rate of 74, QT of 521. ASSESSMENT AND PLAN: This 71-year-old male presents with hyperkalemia. 1. Hyperkalemia: Recently started on Aldactone which is stopped. Received calcium gluconate in the ER. Will give a dose of insulin and dextrose and also a dose of Kayexalate. Follow the repeat labs in the a.m. and consult cardiology for adjustment of his medications. 2. Chronic systolic congestive heart failure. The recent echo done on 03/12/2021 shows ejection fraction of less than 15%. Possible small laminar apical thrombus, grade 2 diastolic dysfunction, , PA systolic pressure of 75. Continue his home medication of Toprol-XL, Entresto, digoxin. Stopping spironolactone as above. Further management as per Cardiology. Monitor in the tele floor. Plan for replacement of pacemaker as per Cardiology. 3. History of coronary artery disease: On aspirin. 4. Obstructive sleep apnea: On CPAP at bedtime. 5. Chronic obstructive pulmonary disease: Currently stable. Will continue home medications. 6. Anticoagulation with Coumadin possibly for congestive heart failure and mural thrombus. INR is 2.1. Follow the PT/INR. 7. Deep venous thrombosis prophylaxis: On Coumadin. INR therapeutic. DISPOSITION: Admit to tele floor. Expect to discharge home and follow with family doctor. Job ID: [id number] MELI
[2021-03-29] MEDS ORDERED: HYDROCODONE/ACETAMOPHEN 5/325MG TAB PO PRN (23:47)
[2021-03-29] MEDS ORDERED: ZOLPIDEM TARTRATE 10 MG TAB PO PRN (23:47)
[2021-03-29] MEDS ORDERED: NITROGLYCERIN SL 0.4 MG/TAB TAB SL PRN (23:47)
[2021-03-29] MEDS ORDERED: ACETAMINOPHEN 325 MG TAB PO PRN (23:47)
[2021-03-29] MEDS ORDERED: ALBUTEROL 0.083% NEBU SOLN 3 ML VIAL INH PRN (23:47)
--- NOTE | 2021-03-30 00:06 | Emergency Department Note ---
History of Present Illness General Chief complaint: Abnormal Labs/Diagnostic Testing Stated complaint: ABNORMAL LAB WORK- DOC REF Time Seen by Provider: 03/29/21 18:02 History of Present Illness Provider complaint: Abnormal labs Associated symptoms: no chest pain, no cough, no fever/chills, no headaches, no nausea/vomiting, no seizure, no shortness of breath or no weakness 71-year-old male presents emergency department for abnormal labs. Patient states he went to an appointment to see a crusher assembler today at [facility] who told him he will need to have his pacemaker replaced in next 2 weeks. Patient states he had outpatient blood work done and then they called him and told him to come to the emergency department because his labs are abnormal. Patient st ates he does not know what labs are abnormal. He states he is not sure if with his INR or his potassium. Patient currently denies any chest pain, difficulty breathing, headache, nausea, vomiting, diarrhea, melena, hematochezia, hematuria, dysuria, headache, or syncope. Home Medications Medication Instructions Recorded Confirmed Type albuterol sulfate 2.5 mg INHALATION QID PRN 03/12/21 03/29/21 History aspirin 81 mg tablet,delayed 81 mg PO DAILY 03/12/21 03/29/21 History release atorvastatin 40 mg tablet 40 mg PO DAILY@182903/12/21 03/29/21 History digoxin 125 mcg (0.125 mg) tablet 125 mcg PO DAILY@182903/12/21 03/29/21 History hydrocodone 5 mg-acetaminophen 325 1 tab PO Q8H PRN 03/12/21 03/29/21 History mg tablet metoprolol succinate 100 mg 100 mg PO DAILY@182903/12/21 03/29/21 History tablet,extended release 24 hr sacubitril 24 mg-valsartan 26 mg 1 tab PO BID 03/12/21 03/29/21 History tablet (Entresto) umeclidinium 62.5 mcg-vilanterol 1 inh INHALATION DAILY 03/12/21 03/29/21 History 25 mcg/actuation powdr for inhalation (Anoro Ellipta) venlafaxine 75 mg capsule,extended 150 mg PO HS 03/12/21 03/29/21 History release 24 hr warfarin 5 mg tablet 2.5 mg PO 2XWK 03/12/21 03/29/21 History warfarin 5 mg tablet 5 mg PO 5XWK 03/12/21 03/29/21 History zolpidem 10 mg tablet 10 mg PO HS PRN 03/12/21 03/29/21 History furosemide 20 mg tablet 40 mg PO DAILY #60 tab 03/16/21 03/29/21 Rx spironolactone 25 mg tablet 12.5 mg PO DAILY 365 Days #15 tab 03/16/21 03/29/21 Rx Allergies Allergy/AdvReac Type Severity Reaction Status Date / Time codeine Allergy Severe HIVES, Verified 03/29/21 20:06 ITCHY Past Med/Surg History Medical History Anticoagulated on Coumadin CHF (congestive heart failure) CHF (congestive heart failure), NYHA class III "Last EF 20%" COPD (chronic obstructive pulmonary disease) Coronary artery disease H/O cardiac pacemaker "Medtronic AICD by Dr. Jiang, [facility] [place] 07/19/2013" Ischemic cardiomyopathy LV (left ventricular) mural thrombus Myocardial infarct SREEDHAR on CPAP Pericardial effusion Surgical History AICD (automatic cardioverter/defibrillator) present H/O percutaneous transluminal coronary angioplasty S/P CABG (coronary artery bypass graft) "SVG to LAD, SVG to OM" Family History Mother CHF (congestive heart failure) Social History Smoking Status: Former smoker Years Smoked: 50; Second Hand Exposure: No; Hx Alcohol Use: No Hx Substance Use: No Preferred Language: [place] Citizen Communication Ability: Effective Distribution Agent Required: No Beliefs That Will Affect Care: None marital status: Current Living Situation: Spouse current occupational status: retired How many Children do You have: 1 Feels Safe at Home: Yes Assistive Devices: CPAP, Denture - Upper, Denture - Lower and Hearing Aid - Bilateral Review of Systems A total of 10 systems reviewed and were otherwise negative Physical Exam Vital Signs Vital Signs - 24 hr 03/29/21 17:46 03/29/21 20:00 03/29/21 20:30 Temperature 36.5 C Temperature Source Temporal Artery Scan Pulse Rate 71 72 74 Pulse Rate from SpO2 Sensor 72 74 Respiratory Rate 18 19 20 Blood Pressure 89/65 L 91/77 L 105/73 Blood Pressure Mean 73 81 83 Blood Pressure Position Sitting Pulse Oximetry 97 96 96 Oxygen Delivery Method Room Air Sepsis Recent Fever Within 48 Hours No Sepsis New/Unexplained Change in Mental Status No Sepsis Action Taken by Nursing No Action Required 03/29/21 21:00 Temperature Temperature Source Pulse Rate 72 Pulse Rate from SpO2 Sensor Respiratory Rate 20 Blood Pressure 95/74 L Blood Pressure Mean 81 Blood Pressure Position Pulse Oximetry 95 Oxygen Delivery Method Room Air Sepsis Recent Fever Within 48 Hours Sepsis New/Unexplained Change in Mental Status Sepsis Action Taken by Nursing Physical Exam GENERAL: He is oriented to person, place, and time. He appears well-developed and well-nourished. He does not appear distressed. HENT: Exam performed. - Head: Normocephalic and atraumatic. - Right Ear: External ear normal. No mastoid tenderness. - Left Ear: External ear normal. No mastoid tenderness. - Mouth/Throat: The oropharynx is clear and moist. No trismus in the jaw. No dental abscesses or uvula swelling. No oropharyngeal exudate or tonsillar abscesses. EYES: Conjunctivae and EOM are normal. Pupils are equal, round, and reactive to light. Right eye exhibits no discharge. Left eye exhibits no discharge. No scleral icterus. NECK: Normal range of motion. Neck supple. No JVD present. No spinous process tenderness present. No carotid bruit present. No rigidity. No tracheal deviation and normal range of motion present. No Brudzinski's sign and no Kernig's sign noted. CV: Normal rate, regular rhythm, normal heart sounds and intact distal pulses. There is no peripheral edema. Palpable radial pulses bue. PULM/CHEST: Effort normal and breath sounds normal. No respiratory distress. No stridor. He has no wheezes. He has no rales. - Chest Wall: He exhibits no tenderness. ABD: The abdomen is soft. Bowel sounds are normal. He has no distension. No mass is present. There is no tenderness. There is no rebound, no guarding, no Devine's sign and no tenderness at McBurney's point. Rovsig negative. MUSC/SKEL: Normal range of motion. There is no peripheral edema, tenderness or deformity. LYMPH: No cervical adenopathy. NEURO: He is alert and oriented to person, place, and time. He has normal strength. No cranial nerve deficit or sensory deficit. Coordination and gait normal. GCS eye subscore is 4. GCS verbal subscore is 5. GCS motor subscore is 6. Cerebellar tests wnl. SKIN: Skin is warm and dry. He is not diaphoretic. PSYCH: He has a normal mood and affect. Behavior is normal. Judgment and thought content normal. Course Course 1801: The patient was evaluated in room C9. A complete history and physical exam was performed Cardiac monitoring: An order was placed for continuous cardiac monitoring. The monitor shows a rate of 70 with paced rhythm Administered Medications Discontinued Medications Dextrose (Dextrose 50% 50 Ml Syringe) 25 ml IV NOW STA Stop: 03/29/21 21:23 Last Admin: 03/29/21 21:45 Dose: 25 ml Documented by: [id number] Sodium Chloride (Nss) 500 mls @ 125 mls/hr IV .Q4H ZULLY Stop: 04/28/21 18:14 Last Admin: 03/29/21 18:52 Dose: 125 mls/hr Documented by: [id number] Calcium Gluconate 1,000 mg/ (Dextrose) 60 mls @ 240 mls/hr IV ONCE STA Stop: 03/29/21 19:13 Last Infusion: 03/29/21 19:46 Dose: 0 mls/hr Documented by: [id number] Admin: 03/29/21 19:31 Dose: 240 mls/hr Documented by: [id number] Insulin Human Regular (Novolin-R Insulin Per Unit Charge) 5 units IV NOW STA Stop: 03/29/21 21:23 Last Admin: 03/29/21 21:45 Dose: 5 units Documented by: [id number] Cosigned by: [id number] Miscellaneous (Stat Iv) 1 ea N/A NOW STA Stop: 03/29/21 19:00 Last Admin: 03/29/21 20:14 Dose: Not Given Documented by: [id number] Sodium Polystyrene Sulfonate (Sodium Polystyrene Sulfonate 15g/60ml Susp) 45 gm PO NOW STA Stop: 03/29/21 21:23 Last Admin: 03/29/21 22:00 Dose: 45 gm Documented by: [id number] Medical Decision Making Laboratory Data Result diagrams: 03/29/21 18:25 03/29/21 18:25 Lab Results 03/29/21 03/29/21 03/29/21 Range/Units 18:25 18:25 18:25 WBC 6.21 (4.8-10.8) K/uL RBC 5.73 (4.7-6.1) M/uL Hgb 16.8 (14.0-18.0) g/dL Hct 53.5 H (42-52) % MCV 93.4 (80-100) fL MCH 29.3 (25-34) pg MCHC 31.4 L (32-36) g/dL RDW Std Deviation 61.5 H (36.4-46.3) fL RDW Coeff of Kasey 17.9 H (11.5-14.5) % Plt Count 318 (130-400) K/uL MPV 9.3 (7.4-10.4) fL Immature Gran % (Auto) 1.0 % Neut % (Auto) 58.8 % Lymph % (Auto) 27.2 % Island % (Auto) 9.0 % Eos % (Auto) 3.5 % Baso % (Auto) 0.5 % Neut # (Auto) 3.65 (1.4-6.5) K/uL Lymph # (Auto) 1.69 (1.2-3.4) K/uL Island # (Auto) 0.56 (0.11-0.59) K/uL Eos # (Auto) 0.22 (0-0.5) K/uL Baso # (Auto) 0.03 (0-0.2) K/uL Immature Gran # (Auto) 0.06 H (0.00-0.02) K/uL PT 20.4 H (9.0-12.0) Seconds INR 2.1 H (0.9-1.1) APTT 34.5 H (21.0-31.0) Seconds PTT Ratio 1.3 Sodium (136-145) mmol/L Potassium (3.5-5.1) mmol/L Chloride (98-107) mmol/L Carbon Dioxide (21-32) mmol/L Anion Gap (3-11) BUN (6-23) mg/dl Creatinine (0.6-1.4) mg/dl Est Cr Clr Drug Dosing ml/min Est GFR ( Amer) ml/min Est GFR (Non-Af Amer) ml/min BUN/Creatinine Ratio (10-20) Glucose (70-99(Fasting)) mg/dl Lactate 1.8 (0.4-2.0) mmol/L Calcium (8.5-10.1) mg/dl SARS-CoV-2, RNA, NAAT (NEGATIVE) 03/29/21 03/29/21 Range/Units 18:25 20:42 WBC (4.8-10.8) K/uL RBC (4.7-6.1) M/uL Hgb (14.0-18.0) g/dL Hct (42-52) % MCV (80-100) fL MCH (25-34) pg MCHC (32-36) g/dL RDW Std Deviation (36.4-46.3) fL RDW Coeff of Kasey (11.5-14.5) % Plt Count (130-400) K/uL MPV (7.4-10.4) fL Immature Gran % (Auto) % Neut % (Auto) % Lymph % (Auto) % Island % (Auto) % Eos % (Auto) % Baso % (Auto) % Neut # (Auto) (1.4-6.5) K/uL Lymph # (Auto) (1.2-3.4) K/uL Island # (Auto) (0.11-0.59) K/uL Eos # (Auto) (0-0.5) K/uL Baso # (Auto) (0-0.2) K/uL Immature Gran # (Auto) (0.00-0.02) K/uL PT (9.0-12.0) Seconds INR (0.9-1.1) APTT (21.0-31.0) Seconds PTT Ratio Sodium 136 (136-145) mmol/L Potassium 5.6 H (3.5-5.1) mmol/L Chloride 100 (98-107) mmol/L Carbon Dioxide 31 (21-32) mmol/L Anion Gap 5 (3-11) BUN 21 (6-23) mg/dl Creatinine 1.15 (0.6-1.4) mg/dl Est Cr Clr Drug Dosing 63.7 ml/min Est GFR ( Amer) 73.3 ml/min Est GFR (Non-Af Amer) 63.2 ml/min BUN/Creatinine Ratio 18.3 (10-20) Glucose 97 (70-99(Fasting)) mg/dl Lactate (0.4-2.0) mmol/L Calcium 10.4 H (8.5-10.1) mg/dl SARS-CoV-2, RNA, NAAT NEGATIVE (NEGATIVE) ECG Data Additional Comments: Paced rhythm with rate of 74. QRS 166. QTc 521. Frequent ectopic beats. MDM Narrative Vital signs stable. Patient continues to deny any symptoms. Labs were obtained by case loader operator Freda which showed the patient had a potassium of 6 today. Today in the emergency department his potassium was 5.6. His EKG does show paced rhythm but there are frequent ectopic beats. Is unsure if this is due to the patient's pacemaker not working properly as he is due to have his pacemaker change next 2 weeks or if is due to his arrhythmia. Patient be treated with calcium gluconate 1 g IV piggyback and [facility] Caballero notified Impression & Plan Acute hyperkalemia Discharge Plan Visit Data Chief Complaint: Abnormal Labs/Diagnostic Testing Stated Complaint: ABNORMAL LAB WORK- DOC REF Discharge Problem: Acute hyperkalemia Patient Disposition: Admitted As Inpatient Discharge Instructions Interventions: ED Discharge Assessment Last Done: 03/29/21 23:54
[2021-03-30 05:47] LABS: Basophils # (auto) 0.02 K/uL (0-0.2); Basophils % (auto) 0.4 %; Eosinophils # (auto) 0.29 K/uL (0-0.5); Eosinophils % (auto) 5.6 %; Hemoglobin 15.5 g/dL (14.0-18.0); Immature Granulocytes # (auto) 0.03 K/uL (0.00-0.02); Immature Granulocytes % (auto) 0.6 %; Lymphocytes # (auto) 1.37 K/uL (1.2-3.4); Lymphocytes % (auto) 26.2 %; Mean Corpuscular Hemoglobin 29.3 pg (25-34); Mean Corpuscular Hgb Conc 31.6 g/dL (32-36); Mean Corpuscular Volume 92.6 fL (80-100); Mean Platelet Volume 9.5 fL (7.4-10.4); Monocytes # (auto) 0.61 K/uL (0.11-0.59); Monocytes % (auto) 11.7 %; Neutrophils % (auto) 55.5 %; Platelet Count 258 K/uL (130-400); RDW Coefficient of Variation 17.7 % (11.5-14.5); RDW Standard Deviation 60.6 fL (36.4-46.3); Red Blood Count 5.29 M/uL (4.7-6.1); White Blood Count 5.22 K/uL (4.8-10.8)
[2021-03-30 05:57] LABS: INR 1.9 (0.9-1.1); Prothrombin Time 18.1 Seconds (9.0-12.0)
[2021-03-30 06:12] LABS: BUN Creatinine Ratio 23.3 (10-20); Calcium 9.3 mg/dl (8.5-10.1); Creatinine Clr Calc Pharmacy 85.2 ml/min; Est GFR (African American) 100.4 ml/min; Est GFR (Non-African American) 86.6 ml/min; Potassium 4.7 mmol/L (3.5-5.1)
[2021-03-30] MEDS ORDERED: VALSARTAN/SACUBITRIL 26/24MG TAB PO SCH (09:00)
[2021-03-30] MEDS ORDERED: FUROSEMIDE 40 MG TAB PO SCH (09:00)
[2021-03-30] MEDS ORDERED: UMECLIDINIUM/VILANTEROL 62.5/25MCG 7 PUFFS/INHALER INH SCH (09:00)
[2021-03-30] MEDS ORDERED: ASPIRIN 81 MG ECTAB PO SCH (09:00)
--- NOTE | 2021-03-30 09:35 | Electrocardiogram Report ---
Test Reason : Blood Pressure : / mmHG Vent. Rate : 074 BPM Atrial Rate : 220 BPM P-R Int : 000 ms QRS Dur : 166 ms QT Int : 470 ms P-R-T Axes : 000 -80 102 degrees QTc Int : 521 ms Poor data quality, interpretation may be adversely affected Ventricular-paced rhythm with premature ventricular or aberrantly conducted complexes Abnormal ECG When compared with ECG of 12-MAR-2021 09:50, Premature ventricular complexes are no longer Present Vent. rate has decreased BY 2 BPM Confirmed by Marshall Rodriguez ([id number]) on 03/30/2021 9:35:05 AM Referred By: REFERRED SELF Confirmed By:Marshall Rodriguez
--- NOTE | 2021-03-30 10:59 | Cardiology Consultation ---
Date of Consultation March 30, 2021 Assessment & Plan (1) Acute hyperkalemia: (2) Atrial flutter with controlled response: (3) Ischemic cardiomyopathy: (4) Chronic heart failure with reduced ejection fraction and diastolic dysfunction: (5) Hypotension: (6) AICD (automatic cardioverter/defibrillator) present: Discontinue Aldactone. Place Aldactone on patient allergy list secondary to recurrent hyperkalemia. Repeat basic metabolic panel in 3-5 days. Continue other evidence-based heart failure medical therapies as previously ordered. Patient evaluated by electrophysiology regarding atrial flutter yesterday. Will discuss further plans and possible JAGDEEP guided external direct-current cardioversion in the near future. Subtherapeutic INR documented 03/15/2021, and 03/30/2021. Appears compensated today. No indication for urgent procedure at this time. Patient instructed to monitor daily weight and continue furosemide 40 mg daily. Diuretic protocol: Take an additional 40 mg of furosemide if weight increases more than 2 pounds in a 48-hour period, or 5 pounds in 1 week. History of Present Illness Reason for Consultation: CHF, hyperkalemia Requesting Physician: Dr. Caballero Attending Physician: Dinora Mojica MD History of Present Illness 71-year-old patient present to the emergency department due to hyperkalemia. Recently hospitalized due to acute decompensated systolic heart failure. Aldactone added during hospitalization. Follow-up lab studies noting potassium of 6.0 when he was referred to the ER. Patient treated with Kayexalate in the ER. Serum potassium within normal range this morning. States "I feel great". No orthopnea, PND, weight gain, or abdominal bloating. Tolerating other cardiovascular medications listed below. Telemetry reveals atrial flutter with a controlled ventricular response and ventricular pacing. He was evaluated by electrophysiology yesterday to consider further therapeutic options, however, progress note is unavailable at this time. Complex cardiac history noted below. Cardiac problem list: 1. Severe ischemic cardiomyopathy with LVEF less than 15%. 2. Status post dual chamber pacemaker defibrillator implantation on July 24, 2023, with dwindling battery longevity. 3. Cardiac catheterization on 04/07/2013 demonstrated a 100% occlusion of the left main with the entire left circulation filling nicely through the SVG to the mid LAD. The LAD filled retrograde to the occlusion in the left main as well as the left circumflex system. The left circumflex had a moderate smooth stenosis in its obtuse marginal (50% long tubular lesion). The other graft (SVG to OM) was 100% occluded at the aorta. The RCA was described as huge, with a very long PDA (Type I LAD) and with mild disease only. 4. NYHA Functional Class III- 5. Atrial fibrillation, persistent. 6. Chronic anticoagulation, with Coumadin, history of possible apical left ventricular mural thrombus 7. Past frequent ventricular ectopy and nonsustained ventricular tachycardia. 8. Severe pulmonary hypertension, PA systolic pressure 75 mmHg assuming a right atrial pressure 15 mmHg. 9. Grade 3 diastolic dysfunction 10. Mild to moderate mitral regurgitation, poor leaflet coaptation 11. Moderate tricuspid regurgitation 12. Biatrial enlargement Allergies Allergy/AdvReac Type Severity Reaction Status Date / Time codeine Allergy Severe HIVES, Verified 03/29/21 20:06 ITCHY Home Medications Medication Instructions Recorded Confirmed Type albuterol sulfate 2.5 mg INHALATION QID PRN 03/12/21 03/29/21 History aspirin 81 mg tablet,delayed 81 mg PO DAILY 03/12/21 03/29/21 History release atorvastatin 40 mg tablet 40 mg PO DAILY@182903/12/21 03/29/21 History digoxin 125 mcg (0.125 mg) tablet 125 mcg PO DAILY@182903/12/21 03/29/21 History hydrocodone 5 mg-acetaminophen 325 1 tab PO Q8H PRN 03/12/21 03/29/21 History mg tablet metoprolol succinate 100 mg 100 mg PO DAILY@182903/12/21 03/29/21 History tablet,extended release 24 hr sacubitril 24 mg-valsartan 26 mg 1 tab PO BID 03/12/21 03/29/21 History tablet (Entresto) umeclidinium 62.5 mcg-vilanterol 1 inh INHALATION DAILY 03/12/21 03/29/21 History 25 mcg/actuation powdr for inhalation (Anoro Ellipta) venlafaxine 75 mg capsule,extended 150 mg PO HS 03/12/21 03/29/21 History release 24 hr warfarin 5 mg tablet 2.5 mg PO 2XWK 03/12/21 03/29/21 History warfarin 5 mg tablet 5 mg PO 5XWK 03/12/21 03/29/21 History zolpidem 10 mg tablet 10 mg PO HS PRN 03/12/21 03/29/21 History furosemide 20 mg tablet 40 mg PO DAILY #60 tab 03/16/21 03/29/21 Rx spironolactone 25 mg tablet 12.5 mg PO DAILY 365 Days #15 tab 03/16/21 03/29/21 Rx Patient History Medical History Anticoagulated on Coumadin CHF (congestive heart failure) CHF (congestive heart failure), NYHA class III "Last EF 20%" COPD (chronic obstructive pulmonary disease) Coronary artery disease H/O cardiac pacemaker "[employer] AICD by Dr. Jiang[place] [facility] [place]" Ischemic cardiomyopathy LV (left ventricular) mural thrombus Myocardial infarct SREEDHAR on CPAP Pericardial effusion Surgical History AICD (automatic cardioverter/defibrillator) present H/O percutaneous transluminal coronary angioplasty S/P CABG (coronary artery bypass graft) "SVG to LAD, SVG to OM" Family History Mother CHF (congestive heart failure) Social History Smoking Status: Former smoker Years Smoked: 50; Second Hand Exposure: No; Hx Alcohol Use: No Hx Substance Use: No Preferred Language: [place] Communication Ability: Effective Baby Sitter Required: No Beliefs That Will Affect Care: None marital status: Current Living Situation: Spouse current occupational status: retired How many Children do You have: 1 Other Information That Helps Us Care for You: No Feels Safe at Home: Yes Safety Concerns: Feels Safe At This Time Assistive Devices: Glasses Review of Systems Review of Systems: All systems reviewed & are unremarkable except as noted in Subjective Physical Exam Constitutional: well nourished; no acute distress and not ill appearing Respiratory: no respiratory distress, no labored breathing, no retractions and does not use accessory muscles Auscultation: lungs clear to auscultation bilaterally; breath sounds present, no diminished lung sounds, no crackles, no rales, no rhonchi and no wheezes Cardiovascular: Rate/Rhythm: regular rate and regular rhythm Heart Sounds: normal S1 and normal S2; no murmur Vessels: radial pulses present; no JVD and no carotid bruit Extremities: no edema Gastrointestinal (Abdomen): Inspection/Auscultation: abdomen normal to inspection and normal bowel sounds; abdomen not distended Percussion/Palpation: abdomen soft; abdomen nontender, no guarding and abdomen not rigid Neurologic: CN's II-XI intact bilaterally and moves all extremities; no focal motor deficits Motor/Sensory: no tremor Psychiatric: A+Ox3, euthymic affect Results & Data ([facility]) Vital Signs (Past 12 Hours) Vital Signs Temp Pulse Resp BP Pulse Ox 03/30/21 08:03 71 17 87/56 L 96 03/30/21 03:24 36.6 C 71 19 96/58 L 97 03/30/21 00:45 36.8 C 77 19 120/72 95
--- NOTE | 2021-03-30 13:28 | Discharge Summary ---
Date of Service March 30, 2021 Admission HPI Per Admitting Provider A 71-year-old male with past medical history significant for hyperlipidemia, COPD, sleep apnea, chronic systolic heart failure, history of left ventricular mural thrombus, status post defibrillator, CAD, lumbar degenerative disk disease, persistent insomnia. Lives with his , ambulates without any support, comes because of abnormal labs. The patient was recently in the hospital from 03/12/2021 to 03/16/2021 for CHF. At the time of discharge, spironolactone was added, but since the patient seemed to have hyperkalemia on spironolactone, his dose was reduced as outpatient. Today, he went to see an driver/merchandiser for his plan for replacement of his pacemaker and outpatient labs showed a potassium of 6 and he was advised to come to the hospital. Currently, his potassium is 5.6. He received calcium gluconate in the ER. EKG showed ventricular paced rhythm at a rate of 74. The patient is resting comfortably, hemodynamically stable. Denies any chest pain. Says his shortness of breath is better. His lower extremity edema has resolved. Has some dizziness once in a while. No headache, no blurred visions. Has constant runny nose for the last 2 days. No cough, no fever, no chills, no nausea, no vomiting. Normal bowel and bladder movements. Principal Diagnosis Hyperkalemia Discharge Exam gen- Pleasant comfortable Pulm- Breathing comfortably on room air CV- Irregular but not tachycardic Abd - soft LE- Extr no edema Discharge Data Allergies Allergy/AdvReac Type Severity Reaction Status Date / Time codeine Allergy Severe HIVES, Verified 03/29/21 20:06 ITCHY Consultations 03/29/21 18:59 ED Decision to Admit Stat 03/30/21 08:00 Consult Cardiology Routine Hospital Course Mr Kiko Grimm is a 71-year-old male with past medical history significant for hyperlipidemia, COPD, sleep apnea, chronic systolic heart failure, history of left ventricular mural thrombus, status post defibrillator, CAD, lumbar degenerative disk disease, persistent insomnia, atrial fibrillation was sent in today for elevated potassium level obtained on outpatient labwork. Patient was recently in the hospital from 03/12/2021 to 03/16/2021 for decompensated CHF due to mixing up his lasix and coumadin pills. Since being home, he feels well. Denies confusing his medications. He has followed up with EP and plans are in place for ICD exchange. He was sent to the hospital for elevated potassium level obtained in office (K 6). Upon arrival to the ER, potassium here was 5.6. He received D50, IV insulin, kayexalate, and calcium gluconate. His repeat potassium was normalized at 4.7 His spironolactone was discontinued. He can continue his remaining home medications. Will need repeat BMP in 3 days. Total Time Total Time Spent Total Time Spent (In Minutes): 35 Discharge Plan Discharge Items Patient Disposition: Home - Self-Care Reason For Visit: ABNORMAL LABS Discharge Diagnosis: Hyperkalemia Condition on Discharge: Good Activity: Resume your previous activity Lifting: Gradually increase as tolerated Bathing: No limitations Exercise/Sports: As tolerated Driving/Machine Use: No limitations Weightbearing: Full weightbearing Non-emergency contact: Primary Care Provider and Specialist Call non-emergency contact if: you have any medication questions Follow-up/Referrals: Antonio Meredith MD [Primary Care Provider] - Diet: Heart Healthy Fluids: 1500ml (6 cups) Addtl Attending Provider Instructions: Please have a repeat Chemistry panel (BMP) in 3 days Please follow up with your Shop Assistant Your Spironolactone was discontinued Pending Studies at Discharge: No Stand-Alone Forms: My [facility] Liquid State, Smoking Cessation Medications and DC Order Prescriptions: Continued albuterol sulfate 2.5 mg /3 mL (0.083 %) solution for nebulization 2.5 mg inhalation QID PRN (Reason: Shortness Of Breath) RF: 0 atorvastatin 40 mg tablet 40 mg PO DAILY@1829 RF: 0 venlafaxine 75 mg capsule,extended release 24hr 150 mg PO HS RF: 0 hydrocodone-acetaminophen 5-325 mg tablet 1 tab PO Q8H PRN (Reason: Pain) RF: 0 metoprolol succinate 100 mg tablet extended release 24 hr 100 mg PO DAILY@183 RF: 0 warfarin 5 mg tablet 2.5 mg PO 2XWK RF: 0 digoxin 125 mcg (0.125 mg) tablet 125 mcg PO DAILY@1830 RF: 0 zolpidem 10 mg tablet 10 mg PO HS PRN (Reason: Sleep) RF: 0 Entresto 24-26 mg tablet 1 tab PO BID RF: 0 aspirin 81 mg Tablet,Delayed Release (Dr/Ec) 81 mg PO DAILY RF: 0 warfarin 5 mg Tablet 5 mg PO 5XWK RF: 0 Anoro Ellipta 62.5-25 mcg/actuation Blister With Device 1 inh INHALATION DAILY RF: 0 furosemide 20 mg Tablet 40 mg PO DAILY Qty: 60 RF: 1 Discontinued spironolactone 25 mg Tablet 12.5 mg PO DAILY 365 Days Qty: 15 RF: 1 Discharge Orders: Discharge Order (Routine); Ordered 03/30/21 Ordered By: Dinora Pike/Other Patient Handouts: Heart Failure Dc Admission Data Admit Date/Time: 03/29/21 21:22 Attending Provider: Dinora Mojica Admit Provider: Bruno Caballero Primary Care Provider: Antonio Meredith Other Providers: Manny Cain ; Shekhar Canchola ; Claudio Catalan ; Estuardo Pickens ; Vaibhav Hawley ; Freddy Marino ; Kimberly Guillermo ; Kasandra Evans ; Christel Zelaya ; Maciel Ramos ; Bruno Caballero
[2021-03-30] MEDS ORDERED: WARFARIN SOD 5 MG TAB PO SCH (16:00)
[2021-03-30] MEDS ORDERED: ATORVASTATIN 40 MG TAB PO SCH (18:30)
[2021-03-30] MEDS ORDERED: METOPROLOL SUCC 50MG EXT REL TAB PO SCH (18:30)
[2021-03-30] MEDS ORDERED: DIGOXIN 0.125 MG TAB PO SCH (18:30)
[2021-03-30] MEDS ORDERED: VENLAFAXINE HCL XR 150 MG CAPXR PO SCH (21:00)
[2021-04-01] MEDS ORDERED: WARFARIN SOD 2.5 MG TAB PO SCH (16:00)
== END 2021-03-30 16:37 | disposition home or self-care (01) | DRG 641 ==
LOC: ED 17:40 → EDINP 21:22

== ENCOUNTER 2022-08-20 01:46 | Inpatient (IN) ==
[2022-08-20] MEDS ORDERED: methylPREDNISolone 125 MG/2 ML VIAL IV STA (02:35)
[2022-08-20] MEDS ORDERED: ALBUT/IPRATROP 3MG/0.5MG NEB 3 ML VIAL NEB STA (02:40)
--- NOTE | 2022-08-20 02:40 | Emergency Department Note ---
Impression & Plan Pulmonary edema, Hypoxia Admit to the [facility] ED Provider Note NAME: BRIGITTE LEDEZMA AGE: 72 SEX: M ARRIVES VIA: Ambulance INFORMANT: Patient and his ED PROVIDER(S): Yaneth Gordon DO CHIEF COMPLAINT: Shortness of breath PLAN: Disposition: Admit to the [facility] Condition: Guarded MEDICAL DECISION MAKING: This is a 72-year-old male patient with history of COPD and CHF who presents to the emergency department for worsening shortness of breath. The patient states that his overall respiratory status has been worsening in the past 48 hours. He tried taking some leftover prednisone but got no relief. He also has noticed that he has had increased leg weakness. Patient was noted to be hypoxic and required oxygen. Patient was given a DuoNeb treatment and IV Solu-Medrol. Laboratory studies revealed no leukocytosis and a stable H&H. Patient had normal renal function. Glucose was at 140. Troponin was elevated at 35 and BNP was noted to be up to 1061. Chest x-ray showed evidence of pulmonary edema. I was more concerned now about exacerbation of heart failure. Patient was given a dose of IV Lasix. [facility] for [facility] care. Triage Nursing notes reviewed and agree with them. Additional history obtained from his is at the bedside External medical records reviewed including previous admissions Vital Signs: reviewed and unremarkable Differential diagnosis: COPD exacerbation, pneumonia, CHF, PE ER treatment provided: Cardiac monitoring Twelve-lead EKG Supplemental oxygen DuoNeb treatment IV Solu-Medrol IV Lasix Diagnostics interpreted by me: ECG: Ventricular paced rhythm at 81 with no acute signs of ischemia. Cardiac Monitoring: ventricular paced rhythm at 80 Laboratory studies: See below Imaging studies: As per my independent interpretation portable chest x-ray: Cardiomegaly with pulmonary vascular congestion concerning for heart failure HPI: 72/M arrives for evaluation of shortness of breath. Patient has noticed increasing shortness of breath over the past couple weeks but it has drastically worsened in the past 2 days. Patient states he has 11 steps in his house and noticed that he has to sit down at the eighth step because he can no longer make it up the steps. Patient tried taking some leftover prednisone this morning but got no relief. He describes increasing leg swelling and increasing leg weakness. PAST MEDICAL HISTORY:See Below PAST SURGICAL HISTORY:See Below FAMILY HISTORY:See Below SOCIAL HISTORY:See Below HOME MEDICATIONS:See list ALLERGIES:Codeine VITALS:See Below PHYSICAL EXAMINATION: HEENT: Head - normocephalic and atraumatic. Pupils are equal, round, and reactive to light. Extraocular eye muscles are intact, and sclera are anicteric. Nose - moist nasal mucosa without discharge. Mouth - moist buccal mucosa. Oropharynx is nonerythematous and there is no tonsillar exudate or edema noted. Neck: Supple; JVD or cervical lymphadenopathy Heart: Regular rate and rhythm. There is a normal S1 and S2 with no murmurs, clicks, or gallops appreciated. Lungs: Diminished breath sounds in all lung dykes with expiratory wheezes and mild rales Abdomen: Soft, completely nontender, nondistended, with good bowel sounds. There are no palpable pulsatile masses or hepatosplenomegaly. There is no guarding, rigidity, or rebound noted. Extremities: 2+ edema both lower extremities Skin: warm and dry with good turgor and no rashes. ED COURSE: Times/Reassessments: 155: Patient was evaluated in room A-9. A complete history and physical was performed. An order was placed for continuous cardiac monitoring. Patient was in a paced rhythm at a rate of 80. The patient was hypoxic on room air. He was placed on supplemental oxygen by nasal cannula. A twelve-lead EKG was obtained. He received a DuoNeb treatment for his wheezing. He was given 125 mg of IV Solu-Medrol. He had a portable chest x-ray performed. Patient was given 40 mg of IV Lasix. I reviewed the results of the labs and x-ray with the patient and his . I discussed the case with the [facility] Hospitalist. Yaneth Gordon DO Past Med/Surg History Medical History Anticoagulated on Coumadin CHF (congestive heart failure) CHF (congestive heart failure), NYHA class III "Last EF 20%" COPD (chronic obstructive pulmonary disease) Coronary artery disease H/O cardiac pacemaker "[employer] AICD by Dr. Jiang, [facility] 07/19/2013" Ischemic cardiomyopathy LV (left ventricular) mural thrombus Myocardial infarct SREEDHAR on CPAP Pericardial effusion Surgical History AICD (automatic cardioverter/defibrillator) present H/O percutaneous transluminal coronary angioplasty S/P CABG (coronary artery bypass graft) "SVG to LAD, SVG to OM" Family History Mother CHF (congestive heart failure) Social History Smoking Status: Former smoker Second Hand Exposure: No; Do You Dip or Chew Tobacco: Yes; Hx Alcohol Use: No Hx Substance Use: No Preferred Language: [place] Communication Ability: Effective Spa Supervisor Required: No Beliefs That Will Affect Care: None marital status: Current Living Situation: Alone current occupational status: retired How many Children do You have: 1 Other Information That Helps Us Care for You: No Feels Safe at Home: Yes Safety Concerns: Feels Safe At This Time Assistive Devices: Cane and Walker Allergies Allergies Allergy/AdvReac Type Severity Reaction Status Date / Time codeine Allergy Severe HIVES, Verified 04/10/21 07:15 ITCHY Home Meds Home Medications Medication Instructions Recorded Confirmed albuterol sulfate 2.5 mg/3 mL 2.5 mg inhalation QID PRN 03/12/21 04/10/21 (0.083 %) solution for nebulization Shortness Of Breath aspirin 81 mg tablet,delayed 81 mg PO DAILY 03/12/21 04/10/21 release atorvastatin 40 mg tablet 40 mg PO DAILY@182903/12/21 04/10/21 digoxin 125 mcg (0.125 mg) tablet 125 mcg PO DAILY@0 03/12/21 04/10/21 hydrocodone 5 mg-acetaminophen 325 1 tab PO Q8H PRN Pain 03/12/21 04/10/21 mg tablet sacubitril 24 mg-valsartan 26 mg 1 tab PO BID 03/12/21 04/10/21 tablet (Entresto) umeclidinium 62.5 mcg-vilanterol 1 inh inhalation DAILY 03/12/21 04/10/21 25 mcg/actuation powdr for inhalation (Anoro Ellipta) venlafaxine 75 mg capsule,extended 150 mg PO HS 03/12/21 04/10/21 release 24 hr warfarin 5 mg tablet 2.5 mg PO 2XWK 03/12/21 04/10/21 warfarin 5 mg tablet 5 mg PO 5XWK 03/12/21 04/10/21 zolpidem 10 mg tablet 10 mg PO HS PRN Sleep 03/12/21 04/10/21 Previous Rx's Medication Instructions Recorded furosemide 20 mg tablet 40 mg PO DAILY #60 tabs 03/16/21 metoprolol succinate 25 mg 25 mg PO DAILY #90 tabs 04/10/21 tablet,extended release 24 hr (Toprol XL) Results & Data (ED) Vital Signs Vital Signs - 24 hr 08/20/22 02:01 08/20/22 01:38 Temperature 36.6 C Temperature Source Oral Pulse Rate 80 80 Respiratory Rate 16 Respiratory Effort / Characteristics Non-Labored Respiratory Depth Normal Blood Pressure 123/84 Blood Pressure Mean 97 Pulse Oximetry 98 Oxygen Delivery Method Room Air Sepsis Recent Fever Within 48 Hours No Sepsis New/Unexplained Change in Mental Status No Sepsis Action Taken by Nursing No Action Required Laboratory Data 08/21/22 05:44 08/21/22 05:49 Lab Results 08/20/22 08/20/22 08/20/22 Range/Units 01:50 01:50 01:50 WBC 6.72 (4.8-10.8) K/ul RBC 4.93 (4.70-6.10) M/uL Hgb 14.4 (14.0-18.0) g/dl Hct 43.6 (42.0-52.0) % MCV 88.4 (80.0-100.0) fL MCH 29.2 (25.0-34.0) pg MCHC 33.0 (32.0-36.0) g/dL RDW Std Deviation 58.4 H (36.4-46.3) fL RDW Coeff of Kasey 18.6 H (11.5-14.5) % Plt Count 176 (130-400) K/uL MPV 10.3 (9.4-12.4) fL Immature Gran % (Auto) 0.6 % Neut % (Auto) 87.7 % Lymph % (Auto) 7.0 % Rosebud % (Auto) 3.3 % Eos % (Auto) 1.0 % Baso % (Auto) 0.4 % Neut # (Auto) 5.89 (1.40-6.50) K/uL Lymph # (Auto) 0.47 L (1.2-3.4) K/uL Rosebud # (Auto) 0.22 (0.11-0.59) K/uL Eos # (Auto) 0.07 (0-0.50) K/uL Baso # (Auto) 0.03 (0-0.2) K/uL Immature Gran # (Auto) 0.04 (0.01-0.20) K/uL PT 26.6 H (9.0-12.0) Seconds INR 2.6 H (0.9-1.1) Sodium 139 (136-145) mmol/L Potassium 3.4 L (3.5-5.1) mmol/L Chloride 103 (98-107) mmol/L Carbon Dioxide 25 (21-32) mmol/L Anion Gap 11 (3-11) BUN 14 (6-23) mg/dl Creatinine 0.82 (0.6-1.4) mg/dl Est Cr Clr Drug Dosing 97.3 ml/min Est GFR ( Amer) 101.7 ml/min Est GFR (Non-Af Amer) 87.7 ml/min BUN/Creatinine Ratio 17.1 (10-20) Glucose 140 H (70-99(Fasting)) mg/dl Calcium 9.5 (8.6-10.3) mg/dl Total Bilirubin 1.5 H (0.2-1.0) mg/dl AST 11 L (13-39) U/L ALT 10 (7-52) U/L Alkaline Phosphatase 107 H (34-104) U/L Troponin I High Sens 41.5 H (0-20) pg/ml B-Natriuretic Peptide (0-100) pg/ml Total Protein 6.8 (6.0-8.3) gm/dl Albumin 3.9 (3.4-5.0) gm/dl Globulin 2.9 (2.5-4.0) gm/dl Albumin/Globulin Ratio 1.3 (0.9-2) SARS-CoV-2, RNA, NAAT (NEGATIVE) 08/20/22 08/20/22 Range/Units 03:15 04:43 WBC (4.8-10.8) K/ul RBC (4.70-6.10) M/uL Hgb (14.0-18.0) g/dl Hct (42.0-52.0) % MCV (80.0-100.0) fL MCH (25.0-34.0) pg MCHC (32.0-36.0) g/dL RDW Std Deviation (36.4-46.3) fL RDW Coeff of Kasey (11.5-14.5) % Plt Count (130-400) K/uL MPV (9.4-12.4) fL Immature Gran % (Auto) % Neut % (Auto) % Lymph % (Auto) % Rosebud % (Auto) % Eos % (Auto) % Baso % (Auto) % Neut # (Auto) (1.40-6.50) K/uL Lymph # (Auto) (1.2-3.4) K/uL Rosebud # (Auto) (0.11-0.59) K/uL Eos # (Auto) (0-0.50) K/uL Baso # (Auto) (0-0.2) K/uL Immature Gran # (Auto) (0.01-0.20) K/uL PT (9.0-12.0) Seconds INR (0.9-1.1) Sodium (136-145) mmol/L Potassium (3.5-5.1) mmol/L Chloride (98-107) mmol/L Carbon Dioxide (21-32) mmol/L Anion Gap (3-11) BUN (6-23) mg/dl Creatinine (0.6-1.4) mg/dl Est Cr Clr Drug Dosing ml/min Est GFR ( Amer) ml/min Est GFR (Non-Af Amer) ml/min BUN/Creatinine Ratio (10-20) Glucose (70-99(Fasting)) mg/dl Calcium (8.6-10.3) mg/dl Total Bilirubin (0.2-1.0) mg/dl AST (13-39) U/L ALT (7-52) U/L Alkaline Phosphatase (34-104) U/L Troponin I High Sens (0-20) pg/ml B-Natriuretic Peptide 1061 H (0-100) pg/ml Total Protein (6.0-8.3) gm/dl Albumin (3.4-5.0) gm/dl Globulin (2.5-4.0) gm/dl Albumin/Globulin Ratio (0.9-2) SARS-CoV-2, RNA, NAAT NEGATIVE (NEGATIVE) Administered Medications Albuterol (Albut/Ipratrop 3mg/0.5mg Neb 3 Ml Vial) 3 ml NEB QIDR [facility]; Protocol Stop: 09/19/22 06:59 Last Admin: 08/21/22 07:06 Dose: 3 ml Documented By: Admin: 08/20/22 19:32 Dose: 3 ml Documented By: Admin: 08/20/22 15:13 Dose: 3 ml Documented By: Admin: 08/20/22 15:13 Dose: Not Given Documented By: Admin: 08/20/22 07:10 Dose: 3 ml Documented By: LAVONNE Aspirin (Aspirin 81 Mg Ectab) 81 mg PO DAILY [facility] Stop: 09/19/22 08:59 Last Admin: 08/21/22 07:51 Dose: 81 mg Documented By: Admin: 08/20/22 08:01 Dose: 81 mg Documented By: CHRIS Atorvastatin Calcium (Atorvastatin 40 Mg Tab) 40 mg PO DAILY@1829 [facility] Stop: 09/19/22 18:29 Last Admin: 08/20/22 17:44 Dose: 40 mg Documented By: CHRIS Digoxin (Digoxin 0.125 Mg Tab) 0.125 mg PO DAILY@1829 [facility] Stop: 09/19/22 18:29 Last Admin: 08/20/22 17:43 Dose: 0.125 mg Documented By: CHRIS Doxycycline Hyclate (Doxycycline Hyclate 100 Mg Cap) 100 mg PO BID [facility] Stop: 08/27/22 08:59 Last Admin: 08/21/22 07:50 Dose: 100 mg Documented By: Admin: 08/20/22 20:06 Dose: 100 mg Documented By: Admin: 08/20/22 08:01 Dose: 100 mg Documented By: CHRIS Furosemide (Furosemide 40 Mg/4 Ml Vial) 40 mg IV BID [facility] Stop: 09/19/22 08:59 Last Admin: 08/21/22 07:50 Dose: 40 mg Documented By: Admin: 08/20/22 20:06 Dose: 40 mg Documented By: Admin: 08/20/22 08:02 Dose: 40 mg Documented By: CHRIS Ceftriaxone Sodium 2,000 mg/ (Dextrose) 70 mls @ 100 mls/hr IV Q24H [facility]; Protocol Stop: 08/27/22 06:59 Last Infusion: 08/21/22 07:47 Dose: 0 mls/hr Documented By: Admin: 08/21/22 06:33 Dose: 100 mls/hr Documented By: Infusion: 08/20/22 09:35 Dose: 0 mls/hr Documented By: Admin: 08/20/22 08:01 Dose: 100 mls/hr Documented By: CHRIS Metoprolol Succinate (Metoprolol Succ 25mg Ext Rel Tab) 25 mg PO DAILY [facility] Stop: 09/19/22 08:59 Last Admin: 08/21/22 07:51 Dose: 25 mg Documented By: Admin: 08/20/22 08:01 Dose: 25 mg Documented By: CHRIS Prednisone (Prednisone 20 Mg Tab) 40 mg PO DAILY [facility] Stop: 09/20/22 08:59 Last Admin: 08/21/22 07:51 Dose: 40 mg Documented By: CHRIS Sacubitril/Valsartan (Valsartan/Sacubitril 26/24mg Tab) 1 tab PO BID [facility] Stop: 09/19/22 08:59 Last Admin: 08/21/22 07:51 Dose: 1 tab Documented By: Admin: 08/20/22 20:06 Dose: 1 tab Documented By: Admin: 08/20/22 08:01 Dose: 1 tab Documented By: CHRIS Umeclidinium/Vilanterol (Umeclidinium/Vilanterol 62.5/25mcg 7 Puffs/Inhaler) 1 puffs INH DAILY [facility] Stop: 09/19/22 08:59 Last Admin: 08/21/22 07:51 Dose: 1 puffs Documented By: Admin: 08/20/22 08:02 Dose: 1 puffs Documented By: CHRIS Venlafaxine HCl (Venlafaxine Hcl Xr 150 Mg Capxr) 150 mg PO HS [facility] Stop: 09/19/22 20:59 Last Admin: 08/20/22 20:06 Dose: 150 mg Documented By: RUBY Warfarin Sodium (Warfarin Sod 5 Mg Tab) 5 mg PO SuTuWeThSa@1600 [facility] Stop: 09/19/22 15:59 Last Admin: 08/20/22 16:44 Dose: 5 mg Documented By: CHRIS Discontinued Medications Albuterol (Albut/Ipratrop 3mg/0.5mg Neb 3 Ml Vial) 3 ml NEB NOW STA; Protocol Stop: 08/20/22 02:41 Last Admin: 08/20/22 03:01 Dose: 3 ml Documented By: NARENDRA Furosemide (Furosemide 40 Mg/4 Ml Vial) 40 mg IV ONE ONE Stop: 08/20/22 04:23 Last Admin: 08/20/22 04:33 Dose: 40 mg Documented By: NARENDRA Methylprednisolone 40 mg/ (Syringe) 0.64 mls @ 1.5 mls/min IV BID [facility] Stop: 09/19/22 08:59 Last Admin: 08/20/22 08:02 Dose: 1.5 mls/min Documented By: CHRIS Methylprednisolone (Methylprednisolone 125 Mg/2 Ml Vial) 125 mg IV NOW STA Stop: 08/20/22 02:36 Last Admin: 08/20/22 03:01 Dose: 125 mg Documented By: NARENDRA Potassium Chloride (Potassium Chloride Crtab 20 Meq Tabcr) 40 meq PO NOW STA Stop: 08/20/22 06:34 Last Admin: 08/20/22 07:59 Dose: 40 meq Documented By: CHRIS Discharge Plan Visit Data Chief Complaint: Shortness of Breath/Dyspnea Stated Complaint: SHORTNESS OF BREATH X SEVERAL DAYS ED Provider: Yaneth Gordon Discharge Problem: Pulmonary edema, Hypoxia Patient Disposition: Admitted As Inpatient Discharge Instructions Interventions: ED Discharge Assessment Last Done: 08/20/22 06:16
[2022-08-20 02:48] LABS: Basophils # (auto) 0.03 K/uL (0-0.2); Basophils % (auto) 0.4 %; Eosinophils # (auto) 0.07 K/uL (0-0.50); Hematocrit (blood only) 43.6 % (42.0-52.0); Hemoglobin 14.4 g/dl (14.0-18.0); Immature Granulocytes # (auto) 0.04 K/uL (0.01-0.20); Immature Granulocytes % (auto) 0.6 %; Lymphocytes # (auto) 0.47 K/uL (1.2-3.4); Mean Corpuscular Hemoglobin 29.2 pg (25.0-34.0); Mean Corpuscular Volume 88.4 fL (80.0-100.0); Mean Platelet Volume 10.3 fL (9.4-12.4); Monocytes # (auto) 0.22 K/uL (0.11-0.59); Monocytes % (auto) 3.3 %; Neutrophils # (auto) 5.89 K/uL (1.40-6.50); Neutrophils % (auto) 87.7 %; Platelet Count 176 K/uL (130-400); RDW Coefficient of Variation 18.6 % (11.5-14.5); RDW Standard Deviation 58.4 fL (36.4-46.3); Red Blood Count 4.93 M/uL (4.70-6.10); White Blood Count 6.72 K/ul (4.8-10.8)
[2022-08-20 03:04] LABS: Albumin Globulin Ratio 1.3 (0.9-2); Albumin Level 3.9 gm/dl (3.4-5.0); BUN Creatinine Ratio 17.1 (10-20); Bilirubin,Total 1.5 mg/dl (0.2-1.0); Calcium 9.5 mg/dl (8.6-10.3); Creatinine Clr Calc Pharmacy 97.3 ml/min; Est GFR (African American) 101.7 ml/min; Est GFR (Non-African American) 87.7 ml/min; Globulin 2.9 gm/dl (2.5-4.0); Potassium 3.4 mmol/L (3.5-5.1); Total Protein 6.8 gm/dl (6.0-8.3)
[2022-08-20 03:14] LABS: Troponin I High Sensitivity 41.5 pg/ml (0-20)
[2022-08-20] MEDS ORDERED: FUROSEMIDE 40 MG/4 ML VIAL IV ONE (04:22)
[2022-08-20 05:11] LABS: INR 2.6 (0.9-1.1); Prothrombin Time 26.6 Seconds (9.0-12.0)
--- NOTE | 2022-08-20 06:11 | History & Physical Report ---
Date of Service August 20, 2022 Assessment & Plan (1) SOB (shortness of breath): Plan: 72-year-old male with past medical history significant for COPD and chronic systolic CHF presents with shortness of breath. Shortness of breath COPD exasperation Acute on chronic systolic CHF. Early mild wheezing on exam and having cough with some phlegm. Received nebs and steroid and IV Lasix in the ER We will continue with IV Lasix 40 mg twice daily Daily weights, I's and O's We will follow echocardiogram Monitor on store sales consultant labs while getting IV Lasix. Consult cardiology for further recommendations Previous echo showed EF of 20% S/p AICD. On metoprolol, Entresto, digoxin. Former smoker Possible COPD exasperation We will continue with IV Solu-Medrol 40 mg twice daily and nebs [id number] and as needed and continue home inhalers Empiric Rocephin and doxycycline We will closely monitor the response. History of left ventricular mural thrombus Follow-up echo On Coumadin Monitor PT/INR. History of permanent atrial fibrillation Rate control with digoxin and metoprolol succinate On Coumadin monitor the PT/INR History of obstructive sleep apnea On CPAP nightly. History of CAD On metoprolol, aspirin, statin, and Coumadin. DVT prophylaxis On Coumadin follow PT/INR Disposition Close monitoring on telemetry floor Full code (2) COPD exacerbation: (3) Acute on chronic systolic (congestive) heart failure: History of Present Illness Chief Complaint: Shortness of breath Primary Care Provider: Antonio Meredith MD 72-year-old male with past medical history significant for hyperlipidemia, COPD, obstructive sleep apnea on CPAP, lung nodule, chronic systolic CHF with EF of 20%, left ventricle mural thrombus following SD, pulmonary hypertension, s/p ICD, history of CAD, history of permanent atrial fibrillation, status post atrioventricular hao ablation, persistent insomnia, comes because of shortness of breath. Patient said he always short of breath but lately last few days it got worse and is coughing up small phlegm. Denies any fevers. He noticed leg swelling the last couple of days ago. Minimal exertion making short of breath. Denies any chest pain. No headache or dizziness. No blurred visions. No runny nose or sore throat. No nausea. No abdominal pain. Normal bowel movements. Says he is micturating less. Allergies Allergy/AdvReac Type Severity Reaction Status Date / Time codeine Allergy Severe HIVES, Verified 04/10/21 07:15 ITCHY Home Medications Medication Instructions Recorded Confirmed Type albuterol sulfate 2.5 mg/3 mL 2.5 mg inhalation QID PRN 03/12/21 04/10/21 History (0.083 %) solution for nebulization Shortness Of Breath aspirin 81 mg tablet,delayed 81 mg PO DAILY 03/12/21 04/10/21 History release atorvastatin 40 mg tablet 40 mg PO DAILY@182903/12/21 04/10/21 History digoxin 125 mcg (0.125 mg) tablet 125 mcg PO DAILY@182903/12/21 04/10/21 History hydrocodone 5 mg-acetaminophen 325 1 tab PO Q8H PRN Pain 03/12/21 04/10/21 History mg tablet sacubitril 24 mg-valsartan 26 mg 1 tab PO BID 03/12/21 04/10/21 History tablet (Entresto) umeclidinium 62.5 mcg-vilanterol 1 inh inhalation DAILY 03/12/21 04/10/21 History 25 mcg/actuation powdr for inhalation (Anoro Ellipta) venlafaxine 75 mg capsule,extended 150 mg PO HS 03/12/21 04/10/21 History release 24 hr warfarin 5 mg tablet 2.5 mg PO 2XWK 03/12/21 04/10/21 History warfarin 5 mg tablet 5 mg PO 5XWK 03/12/21 04/10/21 History zolpidem 10 mg tablet 10 mg PO HS PRN Sleep 03/12/21 04/10/21 History furosemide 20 mg tablet 40 mg PO DAILY #60 tabs 03/16/21 04/10/21 Rx metoprolol succinate 25 mg 25 mg PO DAILY #90 tabs 04/10/21 Rx tablet,extended release 24 hr (Toprol XL) Past Med/Surg History Medical History Anticoagulated on Coumadin CHF (congestive heart failure) CHF (congestive heart failure), NYHA class III "Last EF 20%" COPD (chronic obstructive pulmonary disease) Coronary artery disease H/O cardiac pacemaker [place]Medtronic [place] [facility] [place] Ischemic cardiomyopathy LV (left ventricular) mural thrombus Myocardial infarct SREEDHAR on CPAP Pericardial effusion Surgical History AICD (automatic cardioverter/defibrillator) present H/O percutaneous transluminal coronary angioplasty S/P CABG (coronary artery bypass graft) "SVG to LAD, SVG to OM" Family History Mother CHF (congestive heart failure) Social History Smoking Status: Former smoker Second Hand Exposure: No; Do You Dip or Chew Tobacco: No; Hx Alcohol Use: No Hx Substance Use: No Preferred Language: [place] Communication Ability: Effective Market Analyst Required: No Beliefs That Will Affect Care: None marital status: Current Living Situation: Spouse current occupational status: retired How many Children do You have: 1 Feels Safe at Home: Yes Assistive Devices: Glasses Review of Systems Review of Systems: All systems reviewed & are unremarkable except as noted in Subjective Physical Exam Physical Exam: NEEDS EDITING General- adult Head- atraumatic Eyes- PERRL, ENT- oropharynx clear Neck- supple, no JVD, Lungs- clear to auscultation and percussion, Occasional expiratory wheezing heard Heart- regular rhythm; no murmur, no gallop, no rub appreciated Abdomen- normal bowel sounds, soft, nontender, no masses or hepatosplenomegaly Extremities- b/l pedal edema present, no erythema seen Neuro- alert, oriented x 3; PERRL, Non focal. Skin- warm & dry Results & Data Results & Data Vital Signs (Past 12 Hours) Vital Signs Temp Pulse Resp BP Pulse Ox O2 Del Method O2 Flow Rate 08/20/22 05:59 80 08/20/22 03:50 80 19 94 08/20/22 03:40 80 19 94 08/20/22 03:30 82 26 H 95 08/20/22 03:20 80 18 94 08/20/22 03:10 80 22 94 08/20/22 03:00 80 20 97 08/20/22 02:50 80 20 94 08/20/22 02:40 80 17 95 08/20/22 02:30 82 18 96 08/20/22 02:20 80 21 93 08/20/22 02:10 80 23 94 08/20/22 02:00 83 20 96 08/20/22 01:59 80 18 95 2 08/20/22 02:34 Nasal Cannula 08/20/22 01:38 Nasal Cannula 08/20/22 01:38 88 L Room Air, Nasal Cannula 0 08/20/22 01:38 36.6 C 80 16 123/84 98 Room Air 08/20/22 02:01 80 Diagnostic Findings Laboratory Results WBC 6.72 K/ul (4.8-10.8) 08/20/22 01:50 RBC 4.93 M/uL (4.70-6.10) 08/20/22 01:50 Hgb 14.4 g/dl (14.0-18.0) 08/20/22 01:50 Hct 43.6 % (42.0-52.0) 08/20/22 01:50 MCV 88.4 fL (80.0-100.0) 08/20/22 01:50 MCH 29.2 pg (25.0-34.0) 08/20/22 01:50 MCHC 33.0 g/dL (32.0-36.0) 08/20/22 01:50 RDW Std Deviation 58.4 fL (36.4-46.3) H 08/20/22 01:50 RDW Coeff of Kasey 18.6 % (11.5-14.5) H 08/20/22 01:50 Plt Count 176 K/uL (130-400) 08/20/22 01:50 MPV 10.3 fL (9.4-12.4) 08/20/22 01:50 Immature Gran % (Auto) 0.6 % 08/20/22 01:50 Neut % (Auto) 87.7 % 08/20/22 01:50 Lymph % (Auto) 7.0 % 08/20/22 01:50 [place] % (Auto) 3.3 % 08/20/22 01:50 Eos % (Auto) 1.0 % 08/20/22 01:50 Baso % (Auto) 0.4 % 08/20/22 01:50 Neut # (Auto) 5.89 K/uL (1.40-6.50) 08/20/22 01:50 Lymph # (Auto) 0.47 K/uL (1.2-3.4) L 08/20/22 01:50 [place] # (Auto) 0.22 K/uL (0.11-0.59) 08/20/22 01:50 Eos # (Auto) 0.07 K/uL (0-0.50) 08/20/22 01:50 Baso # (Auto) 0.03 K/uL (0-0.2) 08/20/22 01:50 Immature Gran # (Auto) 0.04 K/uL (0.01-0.20) 08/20/22 01:50 PT 26.6 Seconds (9.0-12.0) H 08/20/22 01:50 INR 2.6 (0.9-1.1) H 08/20/22 01:50 Sodium 139 mmol/L (136-145) 08/20/22 01:50 Potassium 3.4 mmol/L (3.5-5.1) L 08/20/22 01:50 Chloride 103 mmol/L (98-107) 08/20/22 01:50 Carbon Dioxide 25 mmol/L (21-32) 08/20/22 01:50 Anion Gap 11 (3-11) 08/20/22 01:50 BUN 14 mg/dl (6-23) 08/20/22 01:50 Creatinine 0.82 mg/dl (0.6-1.4) 08/20/22 01:50 Est Cr Clr Drug Dosing 97.3 ml/min 08/20/22 01:50 Est GFR ( Amer) 101.7 ml/min 08/20/22 01:50 Est GFR (Non-Af Amer) 87.7 ml/min 08/20/22 01:50 BUN/Creatinine Ratio 17.1 (10-20) 08/20/22 01:50 Glucose 140 mg/dl (70-99(Fasting)) H 08/20/22 01:50 Calcium 9.5 mg/dl (8.6-10.3) 08/20/22 01:50 Total Bilirubin 1.5 mg/dl (0.2-1.0) H 08/20/22 01:50 AST 11 U/L (13-39) L 08/20/22 01:50 ALT 10 U/L (7-52) 08/20/22 01:50 Alkaline Phosphatase 107 U/L (34-104) H 08/20/22 01:50 Troponin I High Sens 41.5 pg/ml (0-20) H 08/20/22 01:50 B-Natriuretic Peptide 1061 pg/ml (0-100) H 08/20/22 04:43 Total Protein 6.8 gm/dl (6.0-8.3) 08/20/22 01:50 Albumin 3.9 gm/dl (3.4-5.0) 08/20/22 01:50 Globulin 2.9 gm/dl (2.5-4.0) 08/20/22 01:50 Albumin/Globulin Ratio 1.3 (0.9-2) 08/20/22 01:50 SARS-CoV-2, RNA, NAAT NEGATIVE (NEGATIVE) 08/20/22 03:15 ECG Additional Comments: ECG ventricular precipitin with rate of 81 Code Status & VTE Plan VTE Prophylaxis Plan VTE Prophylaxis will be ordered: Yes
[2022-08-20] MEDS ORDERED: ALBUTEROL 0.083% NEBU SOLN 3 ML VIAL INH PRN (06:33)
[2022-08-20] MEDS ORDERED: POLYETHYLENE (MIRALAX) 17 GM PACK PO PRN (06:33)
[2022-08-20] MEDS ORDERED: ACETAMINOPHEN 325 MG TAB PO PRN (06:33)
[2022-08-20] MEDS ORDERED: POTASSIUM CHLORIDE CRTAB 20 MEQ TABCR PO STA (06:33)
[2022-08-20] MEDS: ALBUT/IPRATROP 3MG/0.5MG NEB 3 ML VIAL NEB SCH ×4 (07:10→19:32)
--- NOTE | 2022-08-20 07:25 | XRay Report ---
XR chest 1V portable HISTORY: Dyspnea COMPARISON: Chest 04/10/2021. FINDINGS: No pneumothorax. The heart remains enlarged. Is left-sided pacemaker/defibrillator and post sternotomy changes again noted. There is mild interstitial pulmonary edema which has developed in the interval. Trace bilateral pleural effusions are noted. No focal lung consolidations to suggest a pne umonia. IMPRESSION: Mild interstitial pulmonary edema with trace bilateral pleural effusions. ACT 112: Negative or not required by law. Electronically signed by: Piotr Odell M.D. 08/20/2022 7:23 AM
[2022-08-20] MEDS: DOXYCYCLINE HYCLATE 100 MG CAP PO SCH ×2 (08:01→20:06)
[2022-08-20] MEDS: METOPROLOL SUCC 25MG EXT REL TAB PO SCH (08:01)
[2022-08-20] MEDS: VALSARTAN/SACUBITRIL 26/24MG TAB PO SCH ×2 (08:01→20:06)
[2022-08-20] MEDS: cefTRIAXone SODIUM 2,000 MG in DEXTROSE 5% 50 ML IV SCH (08:01)
[2022-08-20] MEDS: ASPIRIN 81 MG ECTAB PO SCH (08:01)
[2022-08-20] MEDS: UMECLIDINIUM/VILANTEROL 62.5/25MCG 7 PUFFS/INHALER INH SCH (08:02)
[2022-08-20] MEDS: FUROSEMIDE 40 MG/4 ML VIAL IV SCH ×2 (08:02→20:06)
[2022-08-20] MEDS ORDERED: methylPREDNISolone 40 MG in SYRINGE 0 ML IV SCH (09:00)
--- NOTE | 2022-08-20 09:51 | Cardiology Consultation ---
Date of Consultation August 20, 2022 Assessment & Plan (1) Acute on chronic systolic (congestive) heart failure: (2) COPD exacerbation: (3) Atrial fibrillation: (4) LV (left ventricular) mural thrombus: (5) Ischemic cardiomyopathy: (6) Coronary artery disease: Plan Continue IV furosemide at 40 mg twice per day Supplement potassium orally Trial eplerenone (Inspra) 25 mg/day Continue GDMT Metoprolol succinate, Sacubitril-valsartan, digoxin, aspirin, moderate intensity statin therapy, warfarin anticoagulation (history of LV thrombus and chronic atrial fibrillation). Patient will require an increased dose of oral furosemide on discharge, perhaps 60 mg/day along with the eplerenone with close monitoring for hyperkalemia. CPAP QHS. COPD exacerbation as per hospitalist. Supervising Physician Co-Signing Physician Notes Patient seen examined the bedside. Presented to the emergency department with 3 days of progressive shortness of breath. X-ray consistent with congestive heart failure. Diuresing with IV furosemide. Clinical status improved. Typically wears CPAP at night however does not require supplemental oxygen during the day. Currently requiring 3 L supplemental oxygen via nasal cannula. Blood pressure stable. Telemetry reveals rate controlled atrial fibrillation with demand ventricular pacing. PE: VSS. Gen: NAD, AAO x3. Heart: Regular rhythm, normal S1-S2, 1/6 midsystolic murmur heard at the apex. Lungs: Crackles at the bases bilateral. Extremities: Trace to mild bilateral pedal and ankle edema. Neuro: No focal deficit. A/P: Agree with above PA-C history, physical exam, assessment and plan. Continue IV diuretic therapy with furosemide. Monitor daily weight, fluid balance, GFR, and electrolytes. Continue goal-directed medical therapy including metoprolol succinate, and Entresto. Trial of Inspra (eplerenone) during hospitalization. Patient carries history of intolerance to Aldactone due to hyperkalemia. Continue oral anticoagulation with warfarin for treatment of chronic atrial fibrillation and history of left ventricular thrombus. As noted above, patient will require higher dose of loop diuretic therapy upon discharge. Consider titration of furosemide versus transition to 40 mg torsemide daily. History of Present Illness Reason for Consultation: Acute systolic heart failure Requesting Physician: Ada Attending Physician: Filiberto History of Present Illness Mr. Kiko Grimm is a very pleasant 72-year-old male who presented to the [facility] ER early this morning via ambulance with a chief complaint of acute on chronic shortness of breath over the preceding 2 to 3 days, cough productive of phlegm, abdominal bloating, lower extremity peripheral edema, and weight gain. Patient evaluated in ER by Dr. Gordon, receiving IV furosemide, nebulizer treatment, and steroids. Patient subsequently admitted with working diagnosis of acute respiratory failure, COPD exacerbation and acute decompensated systolic heart failure (HFrEF). High-sensitivity troponin I minimally elevated at 41.5 and 35.0 pg/mL. Chest x-ray was interpreted by the radiologist as revealing mild interstitial pulmonary edema with trace bilateral pleural effusions. Personal review of the patient's continuous patient monitor reveals paced rhythm in the 80s. Patient notes wanting to talk to me about potentially increasing his oral diuretic at home to aid with volume overload/heart failure. He also notes recently being contacted by Aida with the nurse questioning why he is prescribed digoxin. Denies chest pain. Denies palpitations. No PND. No worsening positional lightheadedness or dizziness. No syncope. No recent fevers or chills. No productive sputum. No epistaxis, hemoptysis, melena, hematochezia, or hematuria. Patient hospitalized at [facility] ([facility]) March 12, 2021 to March 16, 2021 with acute decompensated heart failure with reduced ejection fraction, responding relatively well to IV furosemide administration, following noncompliance with oral furosemide as an outpatient. Spironolactone was retired at that time, unfortunately with recurrent hyperkalemia necessitating discontinuation of spironolactone at that time. Patient was found to have new onset persistent atrial fibrillation via device interrogation at first occurred on February 09, 2021, rate controlled. Metoprolol and digoxin were continued for rate control. Patient maintained on chronic Coumadin anticoagulation due to history of LV mural thrombus. High percentage of ventricular pacing observed on telemetry. Status post April 10, 2021 upgrade to a biventricular rate responsive implantable cardiac defibrillator and AV hao ablation by Dr. Evans at [facility]. Past Medical and Surgical History: 1. Severe ischemic cardiomyopathy, LVEF 20%. 2. Status post dual chamber pacemaker defibrillator implantation on July 20, 2013 3. Status post device upgrade to a biventricular rate responsive implantable cardiac defibrillator on April 10, 2021, undergoing AV hao ablation at that time as well. The new pulse generator was a Medtronic Dataslide MRI Quad [employer]-D SureScan [id number] with Serial Number [id number]. The coronary sinus lead was a Medtronic 4598-88 cm with Serial number [id number]. The right atrial lead (5076- 52 cm, serial number [id number]) and the right ventricular lead (6935M-62 cm, serial number [id number]) were notably previously implanted on 07/20/2013. 4. Cardiac catheterization on 04/07/2013 demonstrated a 100% occlusion of the left main with the entire left circulation filling nicely through the SVG to the mid LAD. The LAD filled retrograde to the occlusion in the left main as well as the left circumflex system. The left circumflex had a moderate smooth stenosis in its obtuse marginal (50% long tubular lesion). The other graft (SVG to OM) was 100% occluded at the aorta. The RCA was described as huge, with a very long PDA (Type I LAD) and with mild disease only. 5. NYHA Functional Class III- 6. Atrial fibrillation, persistent, status post April 10, 2021 AV hao ablation. Lower rate set at 80 bpm 7. Chronic anticoagulation, with Coumadin, history of possible apical left ventricular mural thrombus 8. Frequent ventricular ectopy and nonsustained ventricular tachycardia. 9. Severe pulmonary hypertension 10. Grade 3 diastolic dysfunction 11. Mild to moderate mitral regurgitation, poor leaflet coaptation 12. Moderate tricuspid regurgitation 13. Biatrial enlargement 14. Dyslipidemia. 15. Obstructive sleep apnea, CPAP therapy 16. COPD Family History: Mother with CHF at the age of 67. Fathers history is unknown. Social History: Reformed smoker, quit in 2011. Rare alcoholic drink. No illegal drug use. Retired. . Allergies Allergy/AdvReac Type Severity Reaction Status Date / Time codeine Allergy Severe HIVES, Verified 08/21/22 10:05 ITCHY Home Medications Medication Instructions Recorded Confirmed Type albuterol sulfate 2.5 mg/3 mL 2.5 mg inhalation QID PRN 03/12/21 08/21/22 History (0.083 %) solution for nebulization Shortness Of Breath aspirin 81 mg tablet,delayed 81 mg PO DAILY 03/12/21 08/21/22 History release atorvastatin 40 mg tablet 40 mg PO DAILY@1830 03/12/21 08/21/22 History digoxin 125 mcg (0.125 mg) tablet 125 mcg PO DAILY@1830 03/12/21 08/21/22 History hydrocodone 5 mg-acetaminophen 325 1 tab PO Q8H PRN Pain 03/12/21 08/21/22 History mg tablet sacubitril 24 mg-valsartan 26 mg 1 tab PO BID 03/12/21 08/21/22 History tablet (Entresto) umeclidinium 62.5 mcg-vilanterol 1 inh inhalation DAILY 03/12/21 08/21/22 History 25 mcg/actuation powdr for inhalation (Anoro Ellipta) venlafaxine 75 mg capsule,extended 150 mg PO HS 03/12/21 08/21/22 History release 24 hr warfarin 5 mg tablet 2.5 mg PO 2XWK 03/12/21 08/21/22 History warfarin 5 mg tablet 5 mg PO 5XWK 03/12/21 08/21/22 History zolpidem 10 mg tablet 10 mg PO HS PRN Sleep 03/12/21 08/21/22 History metoprolol succinate 25 mg 25 mg PO DAILY #90 tabs 04/10/21 08/21/22 Rx tablet,extended release 24 hr (Toprol XL) furosemide 40 mg tablet 40 mg PO QAM 08/21/22 08/21/22 History Patient History Medical History Anticoagulated on Coumadin CHF (congestive heart failure) CHF (congestive heart failure), NYHA class III "Last EF 20%" COPD (chronic obstructive pulmonary disease) Coronary artery disease H/O cardiac pacemaker "Medtronic AICD by Dr. Jiang, [facility] [place]19[place]" Ischemic cardiomyopathy LV (left ventricular) mural thrombus Myocardial infarct SREEDHAR on CPAP Pericardial effusion Surgical History AICD (automatic cardioverter/defibrillator) present H/O percutaneous transluminal coronary angioplasty S/P CABG (coronary artery bypass graft) "SVG to LAD, SVG to OM" Family History Mother CHF (congestive heart failure) Social History Smoking Status: Former smoker Second Hand Exposure: No; Do You Dip or Chew Tobacco: Yes; Hx Alcohol Use: No Hx Substance Use: No Preferred Language: Sinhala Communication Ability: Effective Bulk Pigment Reducer Required: No Beliefs That Will Affect Care: None marital status: Current Living Situation: Alone current occupational status: retired How many Children do You have: 1 Other Information That Helps Us Care for You: No Feels Safe at Home: Yes Safety Concerns: Feels Safe At This Time Assistive Devices: Cane and Walker Review of Systems Review of Systems: Complete review of systems is otherwise as stated above, negative, or noncontributory. Physical Exam Physical Exam: General: A&Ox3. NAD. HENT: Normocephalic. Atraumatic. Eyes: PER. Conjunctiva pink, sclera clear. Neck: + JVD. + HJR. No carotid bruits. Heart: Regular, paced at 80 bpm. No rub. PMI is displaced. Lungs: Diminished. Decreased. Faint expiratory wheeze. Abdomen: +BS. Soft. Nontender. No masses or organomegaly. Extremities: 1+ edema. No clubbing. No cyanosis. Limited neurological examination is without focal deficits. Pulses: radial=2/4, posterior tibial=2/4 Results & Data Vital Signs (Past 12 Hours) Vital Signs Temp Pulse Pulse Resp BP BP Pulse Ox 08/20/22 08:54 37.0 C 82 18 112/77 94 08/20/22 07:10 90 16 95 08/20/22 06:37 36.5 C 80 16 123/80 96 08/20/22 06:38 08/20/22 06:11 94 08/20/22 06:11 120/93 08/20/22 06:10 80 21 96 08/20/22 06:00 80 21 95 08/20/22 05:50 80 20 93 08/20/22 05:40 80 18 94 08/20/22 05:31 80 19 94 08/20/22 05:31 125/91 08/20/22 05:30 80 21 90 08/20/22 05:20 86 23 95 08/20/22 05:10 87 21 08/20/22 05:00 80 22 94 08/20/22 05:00 134/96 08/20/22 04:50 80 21 95 08/20/22 04:40 80 20 94 08/20/22 04:30 80 20 96 08/20/22 04:30 132/89 08/20/22 04:20 80 20 93 08/20/22 04:10 80 17 95 08/20/22 04:00 80 20 95 08/20/22 04:00 131/86 08/20/22 03:55 80 25 H 93 08/20/22 03:55 139/84 08/20/22 06:16 08/20/22 05:59 80 08/20/22 03:50 80 19 94 08/20/22 03:40 80 19 94 08/20/22 03:30 82 26 H 95 08/20/22 03:20 80 18 94 08/20/22 03:10 80 22 94 08/20/22 03:00 80 20 97 08/20/22 02:50 80 20 94 08/20/22 02:40 80 17 95 08/20/22 02:30 82 18 96 08/20/22 02:20 80 21 93 08/20/22 02:10 80 23 94 08/20/22 02:00 83 20 96 08/20/22 01:59 80 18 95 08/20/22 02:34 08/20/22 01:38 08/20/22 01:38 88 L 08/20/22 01:38 36.6 C 80 16 123/84 98 08/20/22 02:01 80 O2 Del Method O2 Flow Rate 08/20/22 08:54 Nasal Cannula 3.0 08/20/22 07:10 Nasal Cannula 2 08/20/22 06:37 Nasal Cannula 2 08/20/22 06:38 Nasal Cannula 2 08/20/22 06:11 08/20/22 06:11 08/20/22 06:10 08/20/22 06:00 08/20/22 05:50 08/20/22 05:40 08/20/22 05:31 08/20/22 05:31 08/20/22 05:30 08/20/22 05:20 08/20/22 05:10 08/20/22 05:00 08/20/22 05:00 08/20/22 04:50 08/20/22 04:40 08/20/22 04:30 08/20/22 04:30 08/20/22 04:20 08/20/22 04:10 08/20/22 04:00 08/20/22 04:00 08/20/22 03:55 08/20/22 03:55 08/20/22 06:16 Room Air 08/20/22 05:59 08/20/22 03:50 08/20/22 03:40 08/20/22 03:30 08/20/22 03:20 08/20/22 03:10 08/20/22 03:00 08/20/22 02:50 08/20/22 02:40 08/20/22 02:30 08/20/22 02:20 08/20/22 02:10 08/20/22 02:00 08/20/22 01:59 2 08/20/22 02:34 Nasal Cannula 08/20/22 01:38 Nasal Cannula 08/20/22 01:38 Room Air, Nasal Cannula 0 08/20/22 01:38 Room Air 08/20/22 02:01 Laboratory Results Cardiac Enzymes 08/20/22 08/20/22 08/20/22 Range/Units 01:50 04:43 06:58 AST 11 L (13-39) U/L Troponin I High Sens 41.5 H 35.0 H (0-20) pg/ml B-Natriuretic Peptide 1061 H (0-100) pg/ml Coagulation 08/20/22 08/20/22 Range/Units 01:50 04:43 PT 26.6 H (9.0-12.0) Seconds B-Natriuretic Peptide 1061 H (0-100) pg/ml CBC 08/20/22 Range/Units 01:50 WBC 6.72 (4.8-10.8) K/ul RBC 4.93 (4.70-6.10) M/uL Hgb 14.4 (14.0-18.0) g/dl Hct 43.6 (42.0-52.0) % Plt Count 176 (130-400) K/uL Neut # (Auto) 5.89 (1.40-6.50) K/uL Lymph # (Auto) 0.47 L (1.2-3.4) K/uL [place] # (Auto) 0.22 (0.11-0.59) K/uL Eos # (Auto) 0.07 (0-0.50) K/uL Baso # (Auto) 0.03 (0-0.2) K/uL Comprehensive Metabolic Panel 08/20/22 Range/Units 01:50 Sodium 139 (136-145) mmol/L Potassium 3.4 L (3.5-5.1) mmol/L Chloride 103 (98-107) mmol/L Carbon Dioxide 25 (21-32) mmol/L BUN 14 (6-23) mg/dl Creatinine 0.82 (0.6-1.4) mg/dl Glucose 140 H (70-99(Fasting)) mg/dl Calcium 9.5 (8.6-10.3) mg/dl AST 11 L (13-39) U/L ALT 10 (7-52) U/L Alkaline Phosphatase 107 H (34-104) U/L Total Protein 6.8 (6.0-8.3) gm/dl Albumin 3.9 (3.4-5.0) gm/dl Intake and Output 08/19/22 08/20/22 08/20/22 22:59 06:59 14:59 Intake Total 70 / 70 Balance 70 / 70 Intake: IV 70 / 70 cefTRIAXone SODIUM 2,000 mg In 70 / 70 Dextrose 5% 50 ml @ 100 mls/hr IV Q24H REPLACED BY [facility] Rx#:[id number] Other: Weight 100.2 kg Weight Measurement Method Standing Scale Diagnostic Findings July 09, 2021 TTE Interpretation Summary (as per Dr. Cain): The left ventricular systolic function is severely reduced. Calculated LV ejection Fraction = 20% (three dimensional volumes). The left ventricular cavity size is severely enlarged with global wall thinning. There is an apical left ventricular mural thrombus. The left ventricular thrombus is small. The mitral valve annulus is moderately dilated. The mitral valve leaflets thickness is mildly increased. Mitral stenosis is absent. Moderate secondary mitral regurgitation is present. Mild tricuspid regurgitation. Indeterminate IVC size and collapsibility. Right atrial pressure estimated at 8 mmHg. Pulmonary hypertension is present. The PA systolic pressure is > 39 mmHg. The estimated pulmonary artery systolic pressure is 77 mm Hg. Device interrogation last on June 18, 2022 revealed appropriate function, 7.8 years remaining longevity. Lower rate set at 80 bpm. Chronic atrial fibrillation noted. Effective BiV pacing 96.9%. No VT or V-fib. OptiVol below threshold. Admission EKG revealed a ventricular paced rhythm at 81 bpm.
[2022-08-20 10:18] LABS: Appearance Urine Clear (Clear); Bilirubin Urine Negative (Negative); Blood Urine Negative (Negative); Color Urine Yellow; Glucose Urine UA Negative (Negative); Ketones Urine Negative (Negative); Leukocyte Esterase Urine Negative (Negative); Nitrite Urine Negative (Negative); Protein Urine Negative (Negative); Specific Gravity Urine 1.007 (1.000-1.030); Urobilinogen Urine Negative (Negative); pH Urine 6.5 (4.5-7.5)
--- NOTE | 2022-08-20 11:56 | Hospitalist Progress Note ---
Date of Service August 20, 2022 Assessment & Plan (1) Acute on chronic systolic (congestive) heart failure: Plan: Presented with more shortness of breath and leg heaviness for the last 3 or 4 days Noted to have CHF on x-ray Has been started on intravenous Lasix He has been feeling a little better since admission Appreciate cardiology input and recommendation Has been on metoprolol succinate, Entresto and to be tried on Inspra as per analog ic design engineer Monitor intake output and correct electrolytes (2) SOB (shortness of breath): Plan: 72-year-old male with past medical history significant for COPD and chronic systolic CHF presents with shortness of breath. Shortness of breath COPD exasperation Acute on chronic systolic CHF. Early mild wheezing on exam and having cough with some phlegm. Received nebs and steroid and IV Lasix in the ER We will continue with IV Lasix 40 mg twice daily Daily weights, I's and O's We will follow echocardiogram Monitor on station operator labs while getting IV Lasix. Consult cardiology for further recommendations Previous echo showed EF of 20% S/p AICD. On metoprolol, Entresto, digoxin. Former smoker Possible COPD exasperation We will continue with IV Solu-Medrol 40 mg twice daily and nebs [id number] and as needed and continue home inhalers Empiric Rocephin and doxycycline We will closely monitor the response. History of permanent atrial fibrillation Rate control with digoxin and metoprolol succinate On Coumadin monitor the PT/INR History of obstructive sleep apnea On CPAP nightly. History of CAD On metoprolol, aspirin, statin, and Coumadin. (3) COPD exacerbation: Plan: Doubt any COPD exacerbation Has been started on antibiotic with ceftriaxone and doxycycline Solu-Medrol will be changed to oral prednisone for a short course for 5 days only No wheezing We will continue antibiotic for now likely to change to oral doxycycline on discharge He has been feeling much better since admission (4) Atrial fibrillation: Plan: Rate is controlled Continue beta-francesco and digoxin Has been on Coumadin and INR is therapeutic (5) AICD (automatic cardioverter/defibrillator) present: Plan: No issues History of left ventricular mural thrombus Follow-up echo On Coumadin Monitor PT/INR.-Therapeutic now (6) SREEDHAR on CPAP: Plan: Continue CPAP DVT prophylaxis On Coumadin follow PT/INR Disposition Close monitoring on telemetry floor Full code Admission and Anticipated Discharge Date Admission Date: August 20, 2022 Subjective 08/20/2022 The patient was seen and examined in telemetry unit He has been feeling a little better since admission Denies any chest pain, palpitation and no shortness of breath at rest No cough and or wheezing, no fever and or chills Review of Systems Review of Systems: All systems reviewed and are unremarkable except as noted below Respiratory: Shortness of breath with minimal exertion. Physical Exam Physical Exam: Lying in bed comfortably but anxious Constitutional: well developed, well nourished, + ill appearing and + obese Eyes: PERRL, conjunctivae normal, anicteric sclerae ENMT: external ear and nose normal, oropharynx normal Neck: trachea midline, no thyromegaly Respiratory: + respiratory distress (Minimal distress at rest) Auscultation: + diminished lung sounds and + crackles (Minimal bibasilar crackles); no wheezes Cardiovascular: Rate/Rhythm: regular rate and regular rhythm Heart Sounds: normal S1 and normal S2; no murmur Extremities: + edema (1+ edema bilat erally) Gastrointestinal (Abdomen): Inspection/Auscultation: normal bowel sounds; abdomen not distended Percussion/Palpation: abdomen soft; abdomen nontender Musculoskeletal: No acute arthritis involving any joint Neurologic: normal touch/pain/proprioception and moves all extremities; no focal motor deficits Psychiatric: A+Ox3, euthymic affect Results & Data Results & Data Vital Signs (Past 12 Hours) Vital Signs Temp Pulse Pulse Resp BP BP Pulse Ox 08/20/22 11:38 36.9 C 82 19 112/76 94 08/20/22 08:54 37.0 C 82 18 112/77 94 08/20/22 07:10 90 16 95 08/20/22 06:37 36.5 C 80 16 123/80 96 08/20/22 06:38 08/20/22 06:11 94 08/20/22 06:11 120/93 08/20/22 06:10 80 21 96 08/20/22 06:00 80 21 95 08/20/22 05:50 80 20 93 08/20/22 05:40 80 18 94 08/20/22 05:31 80 19 94 08/20/22 05:31 125/91 08/20/22 05:30 80 21 90 08/20/22 05:20 86 23 95 08/20/22 05:10 87 21 08/20/22 05:00 80 22 94 08/20/22 05:00 134/96 08/20/22 04:50 80 21 95 08/20/22 04:40 80 20 94 08/20/22 04:30 80 20 96 08/20/22 04:30 132/89 08/20/22 04:20 80 20 93 08/20/22 04:10 80 17 95 08/20/22 04:00 80 20 95 08/20/22 04:00 131/86 08/20/22 03:55 80 25 H 93 08/20/22 03:55 139/84 08/20/22 06:16 08/20/22 05:59 80 08/20/22 03:50 80 19 94 08/20/22 03:40 80 19 94 08/20/22 03:30 82 26 H 95 08/20/22 03:20 80 18 94 08/20/22 03:10 80 22 94 08/20/22 03:00 80 20 97 08/20/22 02:50 80 20 94 08/20/22 02:40 80 17 95 08/20/22 02:30 82 18 96 08/20/22 02:20 80 21 93 08/20/22 02:10 80 23 94 08/20/22 02:00 83 20 96 08/20/22 01:59 80 18 95 08/20/22 02:34 08/20/22 01:38 08/20/22 01:38 88 L 08/20/22 01:38 36.6 C 80 16 123/84 98 08/20/22 02:01 80 O2 Del Method O2 Flow Rate 08/20/22 11:38 Nasal Cannula 3.0 08/20/22 08:54 Nasal Cannula 3.0 08/20/22 07:10 Nasal Cannula 2 08/20/22 06:37 Nasal Cannula 2 08/20/22 06:38 Nasal Cannula 2 08/20/22 06:11 08/20/22 06:11 08/20/22 06:10 08/20/22 06:00 08/20/22 05:50 08/20/22 05:40 08/20/22 05:31 08/20/22 05:31 08/20/22 05:30 08/20/22 05:20 08/20/22 05:10 08/20/22 05:00 08/20/22 05:00 08/20/22 04:50 08/20/22 04:40 08/20/22 04:30 08/20/22 04:30 08/20/22 04:20 08/20/22 04:10 08/20/22 04:00 08/20/22 04:00 08/20/22 03:55 08/20/22 03:55 08/20/22 06:16 Room Air 08/20/22 05:59 08/20/22 03:50 08/20/22 03:40 08/20/22 03:30 08/20/22 03:20 08/20/22 03:10 08/20/22 03:00 08/20/22 02:50 08/20/22 02:40 08/20/22 02:30 08/20/22 02:20 08/20/22 02:10 08/20/22 02:00 08/20/22 01:59 2 08/20/22 02:34 Nasal Cannula 08/20/22 01:38 Nasal Cannula 08/20/22 01:38 Room Air, Nasal Cannula 0 08/20/22 01:38 Room Air 08/20/22 02:01 Laboratory Results Short CBC 08/20/22 Range/Units 01:50 WBC 6.72 (4.8-10.8) K/ul Hgb 14.4 (14.0-18.0) g/dl Hct 43.6 (42.0-52.0) % Plt Count 176 (130-400) K/uL BMP 08/20/22 01:50 Sodium 139 Potassium 3.4 L Chloride 103 Carbon Dioxide 25 BUN 14 Creatinine 0.82 Glucose 140 H Calcium 9.5 Liver Function 08/20/22 Range/Units 01:50 Total Bilirubin 1.5 H (0.2-1.0) mg/dl AST 11 L (13-39) U/L ALT 10 (7-52) U/L Alkaline Phosphatase 107 H (34-104) U/L Albumin 3.9 (3.4-5.0) gm/dl Urine 08/20/22 Range/Units 07:18 Urine Color Yellow Urine Appearance Clear (Clear) Urine pH 6.5 (4.5-7.5) Ur Specific Boring 1.007 (1.000-1.030) Urine Protein Negative (Negative) Urine Glucose (UA) Negative (Negative) Medications Administered Current Inpatient Medications Acetaminophen (Acetaminophen 325 Mg Tab) 650 mg PO Q4H PRN PRN Reason: Pain or Fever Stop: 09/19/22 06:32 Hydrocodone Bitart/Acetaminophen (Hydrocodone/Acetamophen 5/325mg Tab) 1 tab PO Q8H PRN PRN Reason: Pain Stop: 09/03/22 06:32 Albuterol (Albuterol 0.083% Nebu Soln 3 Ml Vial) 2.5 mg INH QID PRN; Protocol PRN Reason: Shortness Of Breath Stop: 09/19/22 06:32 Albuterol (Albut/Ipratrop 3mg/0.5mg Neb 3 Ml Vial) 3 ml NEB QIDR ZULLY; Protocol Stop: 09/19/22 06:59 Last Admin: 08/20/22 07:10 Dose: 3 ml Aspirin (Aspirin 81 Mg Ectab) 81 mg PO DAILY ZULLY Stop: 09/19/22 08:59 Last Admin: 08/20/22 08:01 Dose: 81 mg Atorvastatin Calcium (Atorvastatin 40 Mg Tab) 40 mg PO DAILY@1830 [facility] Stop: 09/19/22 18:29 Digoxin (Digoxin 0.125 Mg Tab) 0.125 mg PO DAILY@1830 [facility] Stop: 09/19/22 18:29 Doxycycline Hyclate (Doxycycline Hyclate 100 Mg Cap) 100 mg PO BID ZULLY Stop: 08/27/22 08:59 Last Admin: 08/20/22 08:01 Dose: 100 mg Furosemide (Furosemide 40 Mg/4 Ml Vial) 40 mg IV BID ZULLY Stop: 09/19/22 08:59 Last Admin: 08/20/22 08:02 Dose: 40 mg Ceftriaxone Sodium 2,000 mg/ (Dextrose) 70 mls @ 100 mls/hr IV Q24H ZULLY; Pr otocol Stop: 08/27/22 06:59 Last Infusion: 08/20/22 09:35 Dose: Infused Methylprednisolone 40 mg/ (Syringe) 0.64 mls @ 1.5 mls/min IV BID ZULLY Stop: 09/19/22 08:59 Last Admin: 08/20/22 08:02 Dose: 1.5 mls/min Metoprolol Succinate (Metoprolol Succ 25mg Ext Rel Tab) 25 mg PO DAILY ZULLY Stop: 09/19/22 08:59 Last Admin: 08/20/22 08:01 Dose: 25 mg Nitroglycerin (Nitroglycerin Sl 0.4 Mg/Tab Tab) 0.4 mg SL Q5M PRN PRN Reason: Chest Pain Stop: 09/19/22 06:32 Polyethylene Glycol (Polyethylene (Miralax) 17 Gm Pack) 17 gm PO DAILY PRN PRN Reason: Constipation Stop: 09/19/22 06:32 Sacubitril/Valsartan (Valsartan/Sacubitril 26/24mg Tab) 1 tab PO BID ZULLY Stop: 09/19/22 08:59 Last Admin: 08/20/22 08:01 Dose: 1 tab Umeclidinium/Vilanterol (Umeclidinium/Vilanterol 62.5/25mcg 7 Puffs/Inhaler) 1 puffs INH DAILY ZULLY Stop: 09/19/22 08:59 Last Admin: 08/20/22 08:02 Dose: 1 puffs Venlafaxine HCl (Venlafaxine Hcl Xr 150 Mg Capxr) 150 mg PO HS ZULLY Stop: 09/19/22 20:59 Warfarin Sodium (Warfarin Sod 2.5 Mg Tab) 2.5 mg PO MoFr@1600 [facility] Stop: 09/21/22 15:59 Warfarin Sodium (Warfarin Sod 5 Mg Tab) 5 mg PO SuTuWeThSa@1600 [facility] Stop: 09/19/22 15:59 Zolpidem Tartrate (Zolpidem Tartrate 10 Mg Tab) 10 mg PO HS PRN PRN Reason: Sleep Stop: 09/19/22 06:32
--- NOTE | 2022-08-20 14:15 | Electrocardiogram Report ---
Test Reason : Blood Pressure : / mmHG Vent. Rate : 081 BPM Atrial Rate : 080 BPM P-R Int : 000 ms QRS Dur : 172 ms QT Int : 444 ms P-R-T Axes : 000 270 094 degrees QTc Int : 515 ms Ventricular-paced rhythm Abnormal ECG When compared with ECG of 10-APR-2021 15:03, Vent. rate has decreased BY 8 BPM Confirmed by Elgin Obrien ([id number]) on 08/20/2022 2:14:49 PM Referred By: REFERRED SELF Confirmed By:Jovany Obrien
[2022-08-20] MEDS: WARFARIN SOD 5 MG TAB PO SCH (16:44)
[2022-08-20] MEDS: DIGOXIN 0.125 MG TAB PO SCH (17:43)
[2022-08-20] MEDS: ATORVASTATIN 40 MG TAB PO SCH (17:44)
[2022-08-20] MEDS: VENLAFAXINE HCL XR 150 MG CAPXR PO SCH (20:06)
[2022-08-21 06:17] LABS: Basophils # (auto) 0.01 K/uL (0-0.2); Basophils % (auto) 0.1 %; Hematocrit (blood only) 40.4 % (42.0-52.0); Hemoglobin 12.9 g/dl (14.0-18.0); Immature Granulocytes # (auto) 0.04 K/uL (0.01-0.20); Immature Granulocytes % (auto) 0.5 %; Lymphocytes # (auto) 0.34 K/uL (1.2-3.4); Lymphocytes % (auto) 4.3 %; Mean Corpuscular Hemoglobin 28.4 pg (25.0-34.0); Mean Corpuscular Hgb Conc 31.9 g/dL (32.0-36.0); Mean Platelet Volume 9.7 fL (9.4-12.4); Monocytes # (auto) 0.41 K/uL (0.11-0.59); Monocytes % (auto) 5.2 %; Neutrophils # (auto) 7.03 K/uL (1.40-6.50); Neutrophils % (auto) 89.9 %; Nucleated RBC # (auto) 0.02 K/uL (0-0.12); Nucleated RBC % (auto) 0.3 %; Platelet Count 159 K/uL (130-400); RDW Coefficient of Variation 18.6 % (11.5-14.5); RDW Standard Deviation 58.7 fL (36.4-46.3); Red Blood Count 4.54 M/uL (4.70-6.10); White Blood Count 7.83 K/ul (4.8-10.8)
[2022-08-21] MEDS: cefTRIAXone SODIUM 2,000 MG in DEXTROSE 5% 50 ML IV SCH (06:33)
[2022-08-21 06:49] LABS: INR 3.8 (0.9-1.1); Prothrombin Time 38.3 Seconds (9.0-12.0)
[2022-08-21] MEDS: ALBUT/IPRATROP 3MG/0.5MG NEB 3 ML VIAL NEB SCH ×4 (07:06→18:56)
[2022-08-21] MEDS: DOXYCYCLINE HYCLATE 100 MG CAP PO SCH ×2 (07:50→20:49)
[2022-08-21] MEDS: FUROSEMIDE 40 MG/4 ML VIAL IV SCH ×2 (07:50→20:50)
[2022-08-21] MEDS: UMECLIDINIUM/VILANTEROL 62.5/25MCG 7 PUFFS/INHALER INH SCH (07:51)
[2022-08-21] MEDS: VALSARTAN/SACUBITRIL 26/24MG TAB PO SCH ×2 (07:51→20:49)
[2022-08-21] MEDS: ASPIRIN 81 MG ECTAB PO SCH (07:51)
[2022-08-21] MEDS: METOPROLOL SUCC 25MG EXT REL TAB PO SCH (07:51)
[2022-08-21 08:56] LABS: BUN Creatinine Ratio 23.3 (10-20); Calcium 9.1 mg/dl (8.6-10.3); Creatinine Clr Calc Pharmacy 86.6 ml/min; Est GFR (African American) 97.9 ml/min; Est GFR (Non-African American) 84.4 ml/min
[2022-08-21] MEDS ORDERED: predniSONE 20 MG TAB PO SCH (09:00)
--- NOTE | 2022-08-21 10:43 | Cardiology Progress Note ---
Date of Service August 21, 2022 Assessment & Plan (1) Acute on chronic systolic (congestive) heart failure: (2) COPD exacerbation: (3) Atrial fibrillation: (4) LV (left ventricular) mural thrombus: (5) Ischemic cardiomyopathy: (6) Coronary artery disease: Plan Continue IV diuresis, furosemide 40 mg twice per day Supplement potassium orally Eplerenone (Inspra) nonformulary/not available. We will plan to trial as outpatient, likely at 12.5 mg on MWF to start. Continue GDMT Metoprolol succinate, Sacubitril-valsartan, digoxin, aspirin, moderate intensity statin therapy, warfarin anticoagulation (history of LV thrombus and chronic atrial fibrillation). Patient will require an increased dose of loop diuretic on discharge, perhaps 60 mg/day along with the eplerenone, with close monitoring for recurrent hyperkalemia. CPAP QHS. COPD exacerbation as per hospitalist. Admission and Anticipated Discharge Date Admission Date: August 20, 2022 Supervising Physician Co-Signing Physician Notes Patient seen examined the bedside. Clinically improved. Renal function remained stable. Oxygen saturations improved, now 96% on room air. Telemetry reveals atrial fibrillation with demand ventricular pacing. PE: VSS. Gen: NAD, AAO x3. Heart: Regular rhythm, normal S1-S2, 1/6 midsystolic murmur heard at the apex. Lungs: Crackles at the bases bilateral. Extremities: Trace to mild bilateral pedal and ankle edema. Neuro: No focal deficit. A/P: Agree with above PA-C history, physical exam, assessment and plan. Continue IV diuretic therapy with furosemide. Monitor daily weight, fluid balance, GFR, and electrolytes. Continue goal-directed medical therapy including metoprolol succinate, and Entresto. Trial of Inspra (eplerenone) during hospitalization if possible. Patient carries history of intolerance to Aldactone due to hyperkalemia. Subjective Patient seen and examined. Chart, medications, and telemetry reviewed. Breathing has improved. Peripheral edema may be some better. No chest pain. No palpitations. No orthopnea or PND. No dizziness. No fevers or chills. Normal BM this morning. Urinating on his own without difficulty. Cumulative I's/O's -335 mL overall Telemetry: Paced with occasional PVC. August 20, 2022 TTE Interpretation Summary ([facility], Dr. Pickens): Compared to prior study, no significant change. Severely dilated LV. Severely reduced LV systolic function. Ejection fraction 15 to 20%. Global thinning of the LV mejia. Mid and apical inferior wall is aneurysmal and dyskinetic. Apical anterior wall is dyskinetic. Otherwise, severe diffuse hypokinesis. Mildly dilated RV with reduced RV systolic function by TAPSE. Mild mitral and tricuspid regurgitation. Dilated IVC with reduced collapsibility with sniff indicating an elevated right atrial pressure of 15 mmHg. Estimated systolic pulmonary pressure 73 mmHg. Review of Systems Review of Systems: Complete review of systems is otherwise as stated above, negative, or nonco ntributory. Physical Exam Physical Exam: General: A&Ox3. NAD. HENT: Normocephalic. Atraumatic. Eyes: PER. Conjunctiva pink, sclera clear. Neck: Normal JVP. + HJR. No carotid bruits. Heart: Regular, paced at 80 bpm. No rub. PMI is displaced. Lungs: Diminished. Decreased. Faint expiratory wheeze. Abdomen: +BS. Soft. Nontender. No masses or organomegaly. Extremities: Trace to 1+ edema. No clubbing. No cyanosis. Limited neurological examination is without focal deficits. Pulses: radial=2/4, posterior tibial=2/4 Results & Data Vital Signs (Past 12 Hours) Vital Signs Temp Pulse Pulse Resp BP Pulse Ox O2 Del Method 08/21/22 09:33 Room Air 08/21/22 08:00 80 08/21/22 07:30 36.8 C 16 100/64 97 Room Air 08/21/22 07:06 80 16 93 Room Air 08/20/22 23:00 81 08/21/22 02:17 36.7 C 81 20 105/64 95 CPAP 08/21/22 02:10 25 H FiO2 08/21/22 09:33 08/21/22 08:00 08/21/22 07:30 08/21/22 07:06 08/20/22 23:00 08/21/22 02:17 08/21/22 02:10 21 Laboratory Results Cardiac Enzymes 08/20/22 08/20/22 Range/Units 12:42 19:35 Troponin I High Sens 28.5 H 24.7 H (0-20) pg/ml Coagulation 08/21/22 Range/Units 05:44 PT 38.3 H (9.0-12.0) Seconds CBC 08/21/22 Range/Units 05:44 WBC 7.83 (4.8-10.8) K/ul RBC 4.54 L (4.70-6.10) M/uL Hgb 12.9 L (14.0-18.0) g/dl Hct 40.4 L (42.0-52.0) % Plt Count 159 (130-400) K/uL Neut # (Auto) 7.03 H (1.40-6.50) K/uL Lymph # (Auto) 0.34 L (1.2-3.4) K/uL [place] # (Auto) 0.41 (0.11-0.59) K/uL Eos # (Auto) 0.00 (0-0.50) K/uL Baso # (Auto) 0.01 (0-0.2) K/uL Comprehensive Metabolic Panel 08/21/22 Range/Units 05:49 Sodium 138 (136-145) mmol/L Potassium 4.0 (3.5-5.1) mmol/L Chloride 102 (98-107) mmol/L Carbon Dioxide 30 (21-32) mmol/L BUN 21 (6-23) mg/dl Creatinine 0.90 (0.6-1.4) mg/dl Glucose 176 H (70-99(Fasting)) mg/dl Calcium 9.1 (8.6-10.3) mg/dl Intake and Output 08/20/22 08/21/22 08/21/22 22:59 06:59 14:59 Intake Total 250 / 1595 70 Output Total 1999 Balance 50 / -405 -500 / -405 Intake: IV 70 / 70 cefTRIAXone SODIUM 2,000 mg In 70 / 70 Dextrose 5% 50 ml @ 100 mls/hr IV Q24H [facility] Rx#:[id number] Oral 250 / 1525 Output: Urine 200 / 1900 500 / 1900 Other: Weight 96.4 kg Weight Measurement Method Built in [facility]
[2022-08-21] MEDS ORDERED: POTASSIUM CHLORIDE 10 MEQ TABCR PO ONE (11:00)
[2022-08-21 13:47] LABS: BUN Creatinine Ratio 22.9 (10-20); Calcium 9.1 mg/dl (8.6-10.3); Creatinine Clr Calc Pharmacy 81.2 ml/min; Est GFR (African American) 90.5 ml/min; Est GFR (Non-African American) 78.1 ml/min; Magnesium 1.8 mg/dl (1.7-2.4); Potassium 3.7 mmol/L (3.5-5.1)
[2022-08-21] MEDS ORDERED: OPTIRAY 320 125ml IV ONE (16:59)
--- NOTE | 2022-08-21 17:17 | CT Scan Report ---
CHEST CTA for PULMONARY ARTERIES CT DOSE: 1037.97 mGy.cm HISTORY: Atypical chest pain. Shortness of breath. TECHNIQUE: Multiaxial CT images of the chest were performed following the intravenous administration of contrast to evaluate the pulmonary arteries. 3D/Maximal intensity projection images were also obta ined. Sagittal and coronal reformations were also reviewed. A dose lowering technique was utilized a dhering to the principles of ALARA. COMPARISON STUDY: None. FINDINGS: Normal caliber thoracic aorta. Inadequate contrast within the thoracic aorta to evaluate fo r a dissection. Limited views of the upper abdomen demonstrate retrograde opacification of contrast i nto the hepatic veins consistent with right heart dysfunction. There is a punctate gallstone noted. T he spleen and adrenal glands are unremarkable. There are trace bilateral pleural effusions. Normal th yroid gland. Mild body wall edema is noted. Normal esophagus. The heart is mildly enlarged. No signif icant pericardial effusion. Multiple mediastinal lymph nodes. The majority these are subcentimeter in size. There are few mildly enlarged left paratracheal and subcarinal lymph nodes measuring up to 12 mm in short axis diameter. This is nonspecific but could be due to chronic pulmonary edema. There are moderate coronary artery calcifications noted. Left-sided pacemaker is present. No filling defects w ithin the pulmonary arteries to suggest a pulmonary embolus. No acute fractures. There are poststerno zachariah changes. No pneumothorax. The central airways are patent. Mild interlobular septal thickening. T his suggests developing pulmonary edema. Tree-in-bud nodular opacities within the bilateral lower lob es are noted. This favors a mild infectious bronchiolitis and could be due to aspiration. Punctate ca lcified granulomas within the left lower lobe. There is a 4 mm nodule within the right middle lobe on image 152. IMPRESSION: 1. No evidence for a pulmonary embolus. 2. Cardiomegaly with trace bilateral pleural effusions and developing pulmonary edema. 3. Tree-in-bud nodular opacities within the bilateral lower lobes. This favors a mild infectious bron chiolitis and could be due to aspiration. 4. A 4 mm indeterminate pulmonary nodule within the right middle lobe. Follow-up detailed below. 5. Cholelithiasis. 6. Mild mediastinal lymphadenopathy. This could be due to chronic pulmonary edema. 7. Additional findings as described above. Please refer to below summary of Fleischner criteria recommendations for follow-up of incidental CT n odules (Opal [place], Guidelines for management of small pulmonary nodules detected on CT scans: A kusum burnham from the Fleischner Society, Radiology 237: [phone].) SOLID NODULES Solitary nodule size: <6 mm * Low risk patients: no follow-up needed * high risk patients: optional CT at 12 months Solitary nodule size: 6-8 mm * Low risk patients: follow-up at 6-12 months, then consider further follow-up at 18-24 months * high risk patients: initial follow-up CT at 6-12 months and then at 18-24 months if no change Solitary nodule size: >8 mm * either low or high risk patients - consider follow-up CT at 3 months, and/or CT-PET, and/or biopsy Multiple nodules size: <6 mm * Low risk patients: no routine follow-up * high risk patients: optional CT at 12 months Multiple nodules size: 6-8 mm * Low risk patients: follow-up at 3-6 months, then consider further follow-up at 18-24 months * high risk patients: follow-up at 3-6 months, then at 18-24 months if no change Multiple nodules size: >8 mm * Low risk patients: follow-up at 3-6 months, then consider further follow-up at 18-24 months * high risk patients: follow-up at 3-6 months, then at 18-24 months if no change Note: newly detected indeterminate nodule in persons 35 years of age or older. * Low risk patients: minimal or absent history of smoking and/or other known risk factors * high risk patients: history of smoking or of other known risk factors (e.g. first degree relative with lung cancer, or exposure to asbestos, radon, uranium) * if a nodule up to 8 mm is partly solid or is ground glass further follow-up is required after 24 m onths to exclude possible slow growing adenocarcinoma (JOCELIN) SUBSOLID NODULES Solitary pure ground-glass nodule * nodule size <6 mm - no CT follow-up required * nodule size >=6 mm - follow-up CT at 6-12 months, then every 2 years until 5 years Solitary part-solid nodule * nodule size <6 mm - no CT follow-up required * nodule size >=6 mm - follow-up CT at 3-6 months. If unchanged, and solid component remains <6 mm, then annual follow-up for 5 years Multiple subsolid nodules * nodule size <6 mm - follow-up CT at 3-6 months, consider further follow-up at 2 and 4 years if sta ble * nodule size >=6 mm - follow-up CT at 3-6 months, subsequent management based on the most suspiciou s nodule(s) ACT 112: Negative or not required by law. Electronically signed by: Piotr Odell M.D. 08/21/2022 5:14 PM
--- NOTE | 2022-08-21 17:23 | Hospitalist Progress Note ---
Date of Service August 21, 2022 Assessment & Plan (1) Acute on chronic systolic (congestive) heart failure: Plan: 72-year-old male with past medical history significant for COPD and chronic systolic CHF presents with shortness of breath. SOB worse today though no increased need for oxygen Noted to have CHF on x-ray, Hx of COPD Echo with noted EF 15-20%, severely dilated LV, global thinning of the left ventricle and severe diffuse hypokinesis CT chest ordered Continue IV lasix 40mg BID, appreciate cardiology input Continue prednisone, rocephin, doxycycline, duonebs, inhalers for COPD exacerbation Oxygen supplementation as needed- no requirement at this time (2) SOB (shortness of breath): Plan: As above, likely due to COPD exacerbation, Acute on chronic systolic CHF. History of permanent atrial fibrillation Rate control with digoxin and metoprolol succinate On Coumadin monitor the PT/INR History of obstructive sleep apnea On CPAP nightly. (3) COPD exacerbation: Plan: As above (4) Atrial fibrillation: Plan: On beta-francesco and digoxin, holding coumadin currently as INR supratherapauetic Repeat PT/INR in AM (5) AICD (automatic cardioverter/defibrillator) present: Plan: Stable History of left ventricular mural thrombus Follow-up echo On Coumadin Monitor PT/INR (6) SREEDHAR on CPAP: Plan: Continue CPAP Hyperglycemia AM [id number] DVT prophylaxis: On Coumadin follow PT/INR Disposition: on tele Full code Admission and Anticipated Discharge Date Admission Date: August 20, 2022 Subjective Pt states that he is not feeling well today. Notes increased cough and SOB. States he feels like he needs to bring mucus up, and though he has been coughing up white mucus, he feels like it is not enough. Has been receiving breathing treatments and state that they help. Review of Systems Review of Systems: All systems reviewed & are unremarkable except as noted in Subjective Physical Exam Physical Exam: General: Alert, oriented. No acute distress Skin: No noted rashes or bruises Psych: Appropriate mood and affect Neuro: No gross deficits HEENT: NC/AT CV: RRR Resp: Breath sounds decreased bilaterally Abdomen: Soft, nontender, nondistended. Extremities: edema in lower extremities bilaterally. Results & Data Results & Data Vital Signs (Past 12 Hours) Vital Signs Temp Pulse Pulse Resp BP Pulse Ox O2 Del Method 08/21/22 15:15 86 08/21/22 15:05 82 18 94 Room Air 08/21/22 14:54 36.5 C 80 18 97/67 L 95 Room Air 08/21/22 11:14 84 16 96 Room Air 08/21/22 11:06 36.8 C 83 18 122/85 97 Room Air 08/21/22 09:33 Room Air 08/21/22 08:00 80 08/21/22 07:30 36.8 C 16 100/64 97 Room Air 08/21/22 07:06 80 16 93 Room Air
[2022-08-21] MEDS: DIGOXIN 0.125 MG TAB PO SCH (17:43)
[2022-08-21] MEDS: ATORVASTATIN 40 MG TAB PO SCH (17:43)
[2022-08-21] MEDS: guaiFENesin 600 MG TABCR PO SCH (20:49)
[2022-08-21] MEDS: VENLAFAXINE HCL XR 150 MG CAPXR PO SCH (20:49)
[2022-08-21] MEDS: ZOLPIDEM TARTRATE 10 MG TAB PO PRN (22:21)
[2022-08-22] MEDS: HYDROCODONE/ACETAMOPHEN 5/325MG TAB PO PRN ×2 (06:00→10:55)
[2022-08-22] MEDS: cefTRIAXone SODIUM 2,000 MG in DEXTROSE 5% 50 ML IV SCH (06:05)
[2022-08-22] MEDS: ALBUT/IPRATROP 3MG/0.5MG NEB 3 ML VIAL NEB SCH ×4 (06:10→20:04)
[2022-08-22 06:31] LABS: Basophils # (auto) 0.01 K/uL (0-0.2); Basophils % (auto) 0.1 %; Hematocrit (blood only) 41.9 % (42.0-52.0); Hemoglobin 13.6 g/dl (14.0-18.0); Immature Granulocytes # (auto) 0.06 K/uL (0.01-0.20); Immature Granulocytes % (auto) 0.6 %; Lymphocytes % (auto) 6.9 %; Mean Corpuscular Hemoglobin 28.9 pg (25.0-34.0); Mean Corpuscular Hgb Conc 32.5 g/dL (32.0-36.0); Monocytes # (auto) 0.52 K/uL (0.11-0.59); Monocytes % (auto) 5.1 %; Neutrophils # (auto) 8.89 K/uL (1.40-6.50); Neutrophils % (auto) 87.3 %; Platelet Count 193 K/uL (130-400); RDW Coefficient of Variation 18.8 % (11.5-14.5); RDW Standard Deviation 59.7 fL (36.4-46.3); Red Blood Count 4.71 M/uL (4.70-6.10); White Blood Count 10.18 K/ul (4.8-10.8)
[2022-08-22] MEDS ORDERED: IPRATROPIUM BROMIDE NEB SOLN 0.02% 2.5 ML VIAL INH ONE (06:32)
[2022-08-22] MEDS ORDERED: XOPENEX/ATROVENT 1.25mg/0.5MG NEB COMBO NEB STA (06:32)
[2022-08-22] MEDS ORDERED: LEVALBUTEROL 1.25 MG/3 ML NEB NEB ONE (06:33)
[2022-08-22] MEDS ORDERED: FUROSEMIDE 40 MG/4 ML VIAL IV STA (06:39)
[2022-08-22 06:50] LABS: BUN Creatinine Ratio 26.8 (10-20); Creatinine Clr Calc Pharmacy 80.3 ml/min; Est GFR (African American) 89.4 ml/min; Est GFR (Non-African American) 77.1 ml/min; Potassium 3.6 mmol/L (3.5-5.1)
[2022-08-22 07:13] LABS: INR 3.7 (0.9-1.1); Prothrombin Time 37.3 Seconds (9.0-12.0)
[2022-08-22] MEDS: predniSONE 20 MG TAB PO SCH (07:26)
[2022-08-22] MEDS: guaiFENesin 600 MG TABCR PO SCH ×2 (08:11→20:42)
[2022-08-22] MEDS: METOPROLOL SUCC 25MG EXT REL TAB PO SCH ×2 (08:11→20:42)
[2022-08-22] MEDS: ASPIRIN 81 MG ECTAB PO SCH (08:11)
[2022-08-22] MEDS: UMECLIDINIUM/VILANTEROL 62.5/25MCG 7 PUFFS/INHALER INH SCH (08:12)
[2022-08-22] MEDS: VALSARTAN/SACUBITRIL 26/24MG TAB PO SCH ×2 (08:12→20:42)
[2022-08-22] MEDS: DOXYCYCLINE HYCLATE 100 MG CAP PO SCH ×2 (08:12→20:42)
--- NOTE | 2022-08-22 09:21 | Cardiology Progress Note ---
Date of Service August 22, 2022 Assessment & Plan (1) Acute on chronic systolic (congestive) heart failure: (2) COPD exacerbation: (3) Chronic heart failure with reduced ejection fraction and diastolic dysfunction: (4) Atrial fibrillation: (5) Anticoagulated on Coumadin: (6) LV (left ventricular) mural thrombus: (7) AICD (automatic cardioverter/defibrillator) present: (8) Ischemic cardiomyopathy: Plan Continue IV diuresis today then switch to oral furosemide at 40 mg twice per day Supplement potassium orally today, for now Plan to trial low dose Eplerenone (Inspra) as an outpatient, 12.5 mg on MWF Increase Metoprolol succinate to 25 mg in the AM and 12.5 mg in the PM Continue Sacubitril-valsartan, digoxin, aspirin, moderate intensity statin therapy, warfarin anticoagulation (history of LV thrombus and chronic atrial fibrillation). Limited options. Uninterested in LVAD/transplantation Will need close monitoring for recurrent hyperkalemia on eplerenone as an outpatient. Addendum created at 12:11 PM on 08/22/2022. Late entry. Received [place] Text at 10:22. Patient with 8 out of 10 left sided chest pain/pressure. EKG paced. Vital Signs: 120/87, 78 bpm, 95% on 2L/min via NC. Anxious. Patient received three sublingual nitroglycerin and Maalox with improvement. Describes swallowing potassium chloride and feeling as though it was stuck in his throat then experiencing burning down the right sided of his sternum. After the nitro and Maalox he later received [place] and "could feel it doing down." Now resting comfortably, calm. I discussed his code status. He does not want chest compressions, intubation, or mechanical ventilation should the need arise. Admission and Anticipated Discharge Date Admission Date: August 20, 2022 Supervising Physician Co-Signing Physician Notes Patient seen examined the bedside. Acute throat burning and substernal chest discomfort noted this a.m. after taking oral potassium. Patient received sublingual nitroglycerin x3 with moderate relief. Discomfort has "moved down" to his epigastric region. Telemetry reveals ventricular paced rhythm. PE: VSS. Gen: NAD, AAO x3. Heart: Regular rhythm, normal S1-S2, 1/6 midsystolic murmur heard at the apex. Lungs: Crackles at the bases bilateral. Extremities: Trace to mild bilateral pedal and ankle edema. Neuro: No focal deficit. A/P: Agree with above PASujatha history, physical exam, assessment and plan. Patient with acute chest discomfort this a.m. Symptoms improving with sublingual nitroglycerin. Initial high-sensitivity troponin unchanged from admission. Repeat in 2 hours. Add topical nitrates as blood pressure allows. Patient will receive 30 mL of oral Maalox. Continue goal-directed medical therapy including metoprolol succinate, and Entresto. Subjective Patient seen and examined. Chart, medications, and telemetry reviewed. Feeling about the same. No chest pain. No palpitations. Stable shortness of breath. No orthopnea or PND. No fevers or chills. 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 I/O's -845 mL overall. Weight 101.5 kg -> 96.3 kg Review of Systems Constitutional: + fatigue; no fever and no chills Eyes: + corrective lenses Ear, Nose, Mouth, Throat: + nasal congestion Respiratory: + cough, + dyspnea and + dyspnea on exertion; no hemoptysis Cardiovascular: + dyspnea, + dyspnea on exertion, + palpitations, + lightheadedness and + edema; no chest pain at rest, no dyspnea at rest, no orthopnea and no paroxysmal nocturnal dyspnea Gastrointestinal: no nausea and no vomiting Physical Exam Physical Exam: General: A&Ox3. NAD. HENT: Normocephalic. Atraumatic. Eyes: PER. Conjunctiva pink, sclera clear. Neck: Normal JVP. + HJR. No carotid bruits. Heart: Regular, paced at 80 bpm. No rub. PMI is displaced. Lungs: Diminished. Decreased. Faint expiratory wheeze. Abdomen: +BS. Soft. Nontender. No masses or organomegaly. Extremities: Trace to 1+ edema. No clubbing. No cyanosis. Limited neurological examination is without focal deficits. Pulses: radial=2/4, posterior tibial=2/4 Results & Data Vital Signs (Past 12 Hours) Vital Signs Temp Pulse Pulse Resp BP Pulse Ox O2 Del Method 08/22/22 07:44 80 08/22/22 07:29 36.6 C 82 18 120/81 95 Room Air 08/22/22 06:10 80 18 95 Room Air 08/22/22 02:49 36.8 C 90 18 116/92 95 Room Air 08/21/22 22:57 73 26 H 96 08/21/22 22:34 36.7 C 83 18 130/72 94 Room Air 08/21/22 22:04 81 Laboratory Results Coagulation 08/22/22 Range/Units 05:31 PT 37.3 H (9.0-12.0) Seconds CBC 08/22/22 Range/Units 05:31 WBC 10.18 (4.8-10.8) K/ul RBC 4.71 (4.70-6.10) M/uL Hgb 13.6 L (14.0-18.0) g/dl Hct 41.9 L (42.0-52.0) % Plt Count 193 (130-400) K/uL Neut # (Auto) 8.89 H (1.40-6.50) K/uL Lymph # (Auto) 0.70 L (1.2-3.4) K/uL [place] # (Auto) 0.52 (0.11-0.59) K/uL Eos # (Auto) 0.00 (0-0.50) K/uL Baso # (Auto) 0.01 (0-0.2) K/uL Comprehensive Metabolic Panel 08/21/22 08/22/22 Range/Units 12:52 05:31 Sodium 140 142 (136-145) mmol/L Potassium 3.7 3.6 (3.5-5.1) mmol/L Chloride 101 103 (98-107) mmol/L Carbon Dioxide 30 31 (21-32) mmol/L BUN 22 26 H (6-23) mg/dl Creatinine 0.96 0.97 (0.6-1.4) mg/dl Glucose 251 H 124 H (70-99(Fasting)) mg/dl Calcium 9.1 9.0 (8.6-10.3) mg/dl Intake and Output 08/21/22 08/22/22 08/22/22 22:59 06:59 14:59 Intake Total 570 / 810 170 / 810 Output Total 350 / 900 550 / 900 350 / 350 Balance 220 / -90 -380 / -90 -350 / -350 Intake: IV 70 / 140 cefTRIAXone SODIUM 2,000 mg In 70 / 140 Dextrose 5% 50 ml @ 100 mls/hr IV Q24H [facility] Rx#:[id number] Oral 570 / 670 100 / 670 Output: Urine 350 / 900 550 / 900 350 / 350 Other: # Unmeasured Voids 550 Weight 96.4 kg 96.3 kg
[2022-08-22 09:26] LABS: Estimated Average Glucose 169 mg/dl; Hemoglobin A1C 7.5 % (4.5-5.6)
[2022-08-22] MEDS ORDERED: POTASSIUM CHLORIDE CRTAB 20 MEQ TABCR PO STA (09:28)
[2022-08-22] MEDS: NITROGLYCERIN SL 0.4 MG/TAB TAB SL PRN ×4 (10:16→10:34)
[2022-08-22] MEDS ORDERED: ALUMINUM/MAGNESIUM SUSP 30 ML UDC ONE (10:48)
[2022-08-22] MEDS ORDERED: ALUMINUM/MAGNESIUM SUSP 30 ML UDC PO STA (11:24)
--- NOTE | 2022-08-22 12:07 | Electrocardiogram Report ---
Test Reason : Blood Pressure : / mmHG Vent. Rate : 086 BPM Atrial Rate : 087 BPM P-R Int : 000 ms QRS Dur : 132 ms QT Int : 406 ms P-R-T Axes : 000 -89 097 degrees QTc Int : 485 ms Ventricular-paced rhythm with PVCs Abnormal ECG When compared with ECG of 20-AUG-2022 01:54, Vent. rate has increased BY 5 BPM Confirmed by Elgin Obrien ([id number]) on 08/22/2022 12:07:33 PM Referred By: REFERRED SELF Confirmed By:Jovany Obrien
--- NOTE | 2022-08-22 12:09 | Cardiology Progress Note ---
Date of Service August 22, 2022 Assessment & Plan Admission and Anticipated Discharge Date Admission Date: August 20, 2022 Subjective Late entry [place] Text message received at 10:20, patient Results & Data Vital Signs (Past 12 Hours) Vital Signs Temp Pulse Pulse Resp BP Pulse Ox O2 Del Method 08/22/22 10:47 83 18 124/77 93 Nasal Cannula 08/22/22 10:35 81 18 115/78 92 Nasal Cannula 08/22/22 11:28 77 20 115/78 95 Nasal Cannula 08/22/22 10:20 36.6 C 78 20 120/87 95 Nasal Cannula 08/22/22 09:19 Room Air 08/22/22 07:44 80 08/22/22 07:29 36.6 C 82 18 120/81 95 Room Air 08/22/22 06:10 80 18 95 Room Air 08/22/22 02:49 36.8 C 90 18 116/92 95 Room Air O2 Flow Rate 08/22/22 10:47 2 08/22/22 10:35 2 08/22/22 11:28 2 08/22/22 10:20 2 08/22/22 09:19 08/22/22 07:44 08/22/22 07:29 08/22/22 06:10 08/22/22 02:49
--- NOTE | 2022-08-22 12:14 | Electrocardiogram Report ---
Test Reason : Blood Pressure : / mmHG Vent. Rate : 085 BPM Atrial Rate : 041 BPM P-R Int : 000 ms QRS Dur : 132 ms QT Int : 414 ms P-R-T Axes : 076 -87 098 degrees QTc Int : 492 ms Ventricular-paced rhythm with PVCs Abnormal ECG When compared with ECG of 21-AUG-2022 15:45, (unconfirmed) No significant change was found Confirmed by Elgin Obrien ([id number]) on 08/22/2022 12:13:51 PM Referred By: REFERRED SELF Confirmed By:Jovany Obrien
[2022-08-22] MEDS ORDERED: WARFARIN SOD 2.5 MG TAB PO SCH (16:00)
[2022-08-22] MEDS: FUROSEMIDE 40 MG/4 ML VIAL IV SCH (16:21)
--- NOTE | 2022-08-22 17:04 | Hospitalist Progress Note ---
Date of Service August 22, 2022 Assessment & Plan (1) Acute on chronic systolic (congestive) heart failure: (2) SOB (shortness of breath): (3) COPD exacerbation: (4) Atrial fibrillation: (5) AICD (automatic cardioverter/defibrillator) present: (6) SREEDHAR on CPAP: Plan 72yoM with PMHx significant for COPD and chronic systolic CHF admitted with shortness of breath. SOB/Chest Pain/CHF/COPD Pt with repeated episodes of chest pain and SOB over the past few days WBC trending higher though still currently wnl on last check CT chest- notes tree in bud opacities suggestive of an infectious bronchiolitis/aspiration, no PE, "cardiomegaly with trace bilateral pleural effusions and developing pulmonary edema." Echo with noted EF 15-20%, severely dilated LV, global thinning of the left v entricle and severe diffuse hypokinesis Continue IV lasix 40mg BID, appreciate cardiology input Given worsening symptoms, rocephin broadened to zosyn for infectious/aspiration changes on CT. Continue doxycycline Continue prednisone, duonebs, inhalers for COPD changes Oxygen supplementation as needed History of permanent atrial fibrillation Rate control with digoxin and metoprolol succinate On Coumadin, holding for supratherapeutic INR currently monitor PT/INR History of obstructive sleep apnea On CPAP nightly. AICD (automatic cardioverter/defibrillator) Stable Hyperglycemia hgba1c of 7.5 New Diagnosis of Diabetes- goal <8, DVT prophylaxis: On Coumadin follow PT/INR Disposition: on tele Admission and Anticipated Discharge Date Admission Date: Admission and Anticipated Discharge Date Admission Date: August 20, 2022 Subjective Seen this AM after having chest pain. Received multiple rounds of nitroglycerin, cardiology present in the room. Was not comfortable. Review of Systems Review of Systems: All systems reviewed & are unremarkable except as noted in Subjective Physical Exam Physical Exam: General: Alert, oriented. Some slight distress Skin: No noted rashes or bruises Psych: Appropriate mood and affect Neuro: No gross deficits HEENT: NC/AT CV: RRR Resp: Breath sounds decreased bilaterally on the front Abdomen: Soft, nontender, nondistended. Extremities: edema in lower extremities bilaterally. Results & Data Results & Data Vital Signs (Past 12 Hours) Vital Signs Temp Pulse Pulse Resp BP Pulse Ox O2 Del Method 08/22/22 16:00 36.5 C 81 16 113/83 97 Nasal Cannula 08/22/22 10:47 83 18 124/77 93 Nasal Cannula 08/22/22 10:35 81 18 115/78 92 Nasal Cannula 08/22/22 11:28 77 20 115/78 95 Nasal Cannula 08/22/22 10:20 36.6 C 78 20 120/87 95 Nasal Cannula 08/22/22 09:19 Room Air 08/22/22 07:44 80 08/22/22 07:29 36.6 C 82 18 120/81 95 Room Air 08/22/22 06:10 80 18 95 Room Air O2 Flow Rate 08/22/22 16:00 2 08/22/22 10:47 2 08/22/22 10:35 2 08/22/22 11:28 2 08/22/22 10:20 2 08/22/22 09:19 08/22/22 07:44 08/22/22 07:29 08/22/22 06:10
[2022-08-22] MEDS: ATORVASTATIN 40 MG TAB PO SCH (17:40)
[2022-08-22] MEDS: DIGOXIN 0.125 MG TAB PO SCH (17:40)
--- NOTE | 2022-08-22 17:49 | Electrocardiogram Report ---
Test Reason : Blood Pressure : / mmHG Vent. Rate : 081 BPM Atrial Rate : 081 BPM P-R Int : 000 ms QRS Dur : 130 ms QT Int : 420 ms P-R-T Axes : 118 -85 097 degrees QTc Int : 487 ms Poor data quality, interpretation may be adversely affected Ventricular-paced rhythm Abnormal ECG When compared with ECG of 22-AUG-2022 05:12, (unconfirmed) Vent. rate has decreased BY 4 BPM Confirmed by Elgin Obrien ([id number]) on 08/22/2022 5:48:52 PM Referred By: REFERRED SELF Confirmed By:Jovany Obrien
[2022-08-22] MEDS: VENLAFAXINE HCL XR 150 MG CAPXR PO SCH (20:42)
[2022-08-22] MEDS ORDERED: PIPERACILLIN/TAZOBACTAM 4.5 GM in DEXTROSE 5% 100 ML IV ONE (22:00)
[2022-08-22] MEDS: ZOLPIDEM TARTRATE 10 MG TAB PO PRN (22:08)
[2022-08-23] MEDS: PIPERACILLIN/TAZOBACTAM 4.5 GM in DEXTROSE 5% 100 ML IV SCH ×3 (04:05→20:23)
[2022-08-23 06:13] LABS: Basophils # (auto) 0.01 K/uL (0-0.2); Basophils % (auto) 0.1 %; Hematocrit (blood only) 44.8 % (42.0-52.0); Hemoglobin 14.2 g/dl (14.0-18.0); Immature Granulocytes # (auto) 0.08 K/uL (0.01-0.20); Immature Granulocytes % (auto) 0.9 %; Lymphocytes # (auto) 0.56 K/uL (1.2-3.4); Lymphocytes % (auto) 6.5 %; Mean Corpuscular Hemoglobin 28.3 pg (25.0-34.0); Mean Corpuscular Hgb Conc 31.7 g/dL (32.0-36.0); Mean Corpuscular Volume 89.4 fL (80.0-100.0); Mean Platelet Volume 9.5 fL (9.4-12.4); Monocytes # (auto) 0.42 K/uL (0.11-0.59); Monocytes % (auto) 4.9 %; Neutrophils # (auto) 7.57 K/uL (1.40-6.50); Neutrophils % (auto) 87.6 %; Platelet Count 173 K/uL (130-400); RDW Standard Deviation 60.5 fL (36.4-46.3); Red Blood Count 5.01 M/uL (4.70-6.10); White Blood Count 8.64 K/ul (4.8-10.8)
[2022-08-23 06:26] LABS: BUN Creatinine Ratio 25.2 (10-20); Creatinine Clr Calc Pharmacy 76.2 ml/min; Est GFR (African American) 83.1 ml/min; Est GFR (Non-African American) 71.7 ml/min; Potassium 3.7 mmol/L (3.5-5.1)
[2022-08-23 06:39] LABS: INR 2.5 (0.9-1.1); Prothrombin Time 26.1 Seconds (9.0-12.0)
[2022-08-23] MEDS: ALBUT/IPRATROP 3MG/0.5MG NEB 3 ML VIAL NEB SCH ×4 (07:14→19:30)
[2022-08-23] MEDS: DOXYCYCLINE HYCLATE 100 MG CAP PO SCH ×2 (08:02→20:54)
[2022-08-23] MEDS: guaiFENesin 600 MG TABCR PO SCH ×2 (08:03→20:54)
[2022-08-23] MEDS: FUROSEMIDE 40 MG/4 ML VIAL IV SCH ×2 (08:03→16:53)
[2022-08-23] MEDS: ASPIRIN 81 MG ECTAB PO SCH (08:04)
[2022-08-23] MEDS: UMECLIDINIUM/VILANTEROL 62.5/25MCG 7 PUFFS/INHALER INH SCH (08:04)
[2022-08-23] MEDS: predniSONE 20 MG TAB PO SCH (08:04)
[2022-08-23] MEDS: VALSARTAN/SACUBITRIL 26/24MG TAB PO SCH ×2 (08:05→20:54)
--- NOTE | 2022-08-23 11:15 | Cardiology Progress Note ---
Date of Service August 23, 2022 Assessment & Plan (1) Acute on chronic systolic (congestive) heart failure: (2) COPD exacerbation: (3) Chronic heart failure with reduced ejection fraction and diastolic dysfunction: (4) Atrial fibrillation: (5) Anticoagulated on Coumadin: (6) LV (left ventricular) mural thrombus: (7) AICD (automatic cardioverter/defibrillator) present: (8) Ischemic cardiomyopathy: Plan 08/23/2022 Continue IV diuresis today with transition to oral in a.m., torsemide 40 mg p.o. daily Fluid restriction 2 L/day. Patient currently drinking in excess by description CHF instruction packet Admission and Anticipated Discharge Date Admission Date: August 20, 2022 Subjective Patient was seen and examined, chart, medications, telemetry reviewed. No further chest or esophageal pain Fatigued but otherwise no acute complaints. Still manifesting diuresis. Is drinking a fair amount of fluids per patient No arrhythmias on telemetry Review of Systems Review of Systems: All systems reviewed & are unremarkable except as noted in Subjective Physical Exam Constitutional: + ill appearing; no acute distress Eyes: PERRL, conjunctivae normal, anicteric sclerae ENMT: external ear and nose normal, oropharynx normal Neck: trachea midline, no thyromegaly Respiratory: Auscultation: + crackles Cardiovascular: Rate/Rhythm: regular rate (Ventricular paced) Heart Sounds: normal S1 and + murmur (Grade 1/6 systolic) Vessels: no JVD Extremities: + edema Gastrointestinal (Abdomen): normal bowel sounds, soft, nontender, no hepatosplenomegaly Musculoskeletal: no cyanosis or clubbing, extremities motor strength 5/5 Skin: no rashes, warm and dry Results & Data Vital Signs (Past 12 Hours) Vital Signs Temp Pulse Pulse Resp BP Pulse Ox O2 Del Method 08/23/22 09:19 Nasal Cannula 08/23/22 07:57 83 08/23/22 07:44 36.4 C L 82 18 117/75 94 Nasal Cannula 08/23/22 07:14 89 18 98 Nasal Cannula 08/23/22 03:00 36.7 C 86 22 90/55 L 92 Nasal Cannula O2 Flow Rate 08/23/22 09:19 2 08/23/22 07:57 08/23/22 07:44 1 08/23/22 07:14 2 08/23/22 03:00 2 Laboratory Results Laboratory Results - last 24 hr 08/22/22 08/22/22 08/23/22 10:35 15:36 05:39 WBC 8.64 RBC 5.01 Hgb 14.2 Hct 44.8 MCV 89.4 MCH 28.3 MCHC 31.7 L RDW Std Deviation 60.5 H RDW Coeff of Kasey 19.0 H Plt Count 173 MPV 9.5 Immature Gran % (Auto) 0.9 Neut % (Auto) 87.6 Lymph % (Auto) 6.5 Boyle % (Auto) 4.9 Eos % (Auto) 0.0 Baso % (Auto) 0.1 Neut # (Auto) 7.57 H Lymph # (Auto) 0.56 L Boy[place] # (Auto) 0.42 Eos # (Auto) 0.00 Baso # (Auto) 0.01 Immature Gran # (Auto) 0.08 PT INR Sodium Potassium Chloride Carbon Dioxide Anion Gap BUN Creatinine Est Cr Clr Drug Dosing Est GFR ( Amer) Est GFR (Non-Af Amer) BUN/Creatinine Ratio Glucose Calcium Troponin I High Sens 36.0 H D 34.1 H Procalcitonin 08/23/22 08/23/22 08/23/22 05:39 05:39 05:39 WBC RBC Hgb Hct MCV MCH MCHC RDW Std Deviation RDW Coeff of Kasey Plt Count MPV Immature Gran % (Auto) Neut % (Auto) Lymph % (Auto) Boyle % (Auto) Eos % (Auto) Baso % (Auto) Neut # (Auto) Lymph # (Auto) Boy[place] # (Auto) Eos # (Auto) Baso # (Auto) Immature Gran # (Auto) PT 26.1 H INR 2.5 H Sodium 139 Potassium 3.7 Chloride 101 Carbon Dioxide 30 Anion Gap 8 BUN 26 H Creatinine 1.03 Est Cr Clr Drug Dosing 76.2 Est GFR ( Amer) 83.1 Est GFR (Non-Af Amer) 71.7 BUN/Creatinine Ratio 25.2 H Glucose 199 H Calcium 9.0 Troponin I High Sens Procalcitonin 0.12
[2022-08-23] MEDS: WARFARIN SOD 5 MG TAB PO SCH (16:53)
--- NOTE | 2022-08-23 16:59 | Hospitalist Progress Note ---
Date of Service August 23, 2022 Assessment & Plan (1) Acute on chronic systolic (congestive) heart failure: (2) SOB (shortness of breath): (3) COPD exacerbation: (4) Atrial fibrillation: (5) AICD (automatic cardioverter/defibrillator) present: (6) SREEDHAR on CPAP: Plan 72yoM with PMHx significant for COPD and chronic systolic CHF admitted with shortness of breath. SOB/Chest Pain/CHF/COPD Pt with repeated episodes of chest pain and SOB over the past few days. Chest pain better today. WBC now trending back down after addition of zosyn to doxycycline. Continue. CT chest- notes tree in bud opacities suggestive of an infectious bronchiolitis/aspiration, no PE, "cardiomegaly with trace bilateral pleural effusions and developing pulmonary edema." Echo with noted EF 15-20%, severely dilated LV, global thinning of the left ventricle and severe diffuse hypokinesis Continue IV lasix 40mg BID, appreciate cardiology input Continue prednisone, duonebs, inhalers for COPD changes Oxygen supplementation as needed History of permanent atrial fibrillation Rate control with digoxin and metoprolol succinate On Coumadin, can restart coumadin, INR within goal today monitor PT/INR History of obstructive sleep apnea On CPAP nightly. AICD (automatic cardioverter/defibrillator) Stable Hyperglycemia hgba1c of 7.5 New Diagnosis of Diabetes- goal <8, DVT prophylaxis: On Coumadin follow PT/INR Disposition: on tele Admission and Anticipated Discharge Date Admission Date: Admission and Anticipated Discharge Date Admission Date: August 20, 2022 Subjective Pt seen this AM. States he is feeling better though still not back to baseline. Denies any chest pain episodes today. Review of Systems Review of Systems: All systems reviewed & are unremarkable except as noted in Subjective Physical Exam Physical Exam: General: Alert, oriented. sitting up in bed today but looks worn out Skin: No noted rashes or bruises Psych: Appropriate mood and affect Neuro: No gross deficits HEENT: NC/AT CV: RRR Resp: Breath sounds decreased bilaterally Abdomen: Soft, nontender, nondistended. Extremities: edema in lower extremities bilaterally. Results & Data Results & Data Vital Signs (Past 12 Hours) Vital Signs Temp Pulse Pulse Resp BP Pulse Ox O2 Del Method 08/23/22 16:20 80 16 97 Nasal Cannula 08/23/22 15:37 36.5 C 84 16 125/88 99 Nasal Cannula 08/23/22 15:10 80 08/23/22 10:45 36.3 C L 80 18 113/80 97 Room Air 08/23/22 11:18 80 16 98 Nasal Cannula 08/23/22 09:19 Nasal Cannula 08/23/22 07:57 83 08/23/22 07:44 36.4 C L 82 18 117/75 94 Nasal Cannula 08/23/22 07:14 89 18 98 Nasal Cannula O2 Flow Rate 08/23/22 16:20 2 08/23/22 15:37 2 08/23/22 15:10 08/23/22 10:45 08/23/22 11:18 2 08/23/22 09:19 2 08/23/22 07:57 08/23/22 07:44 1 08/23/22 07:14 2
[2022-08-23] MEDS: ATORVASTATIN 40 MG TAB PO SCH (19:23)
[2022-08-23] MEDS: DIGOXIN 0.125 MG TAB PO SCH (19:23)
[2022-08-23] MEDS: VENLAFAXINE HCL XR 150 MG CAPXR PO SCH (20:54)
[2022-08-23] MEDS: METOPROLOL SUCC 25MG EXT REL TAB PO SCH (20:54)
[2022-08-23] MEDS: ZOLPIDEM TARTRATE 10 MG TAB PO PRN (21:38)
[2022-08-24] MEDS: PIPERACILLIN/TAZOBACTAM 4.5 GM in DEXTROSE 5% 100 ML IV SCH ×3 (04:08→19:50)
[2022-08-24 06:25] LABS: Basophils # (auto) 0.01 K/uL (0-0.2); Basophils % (auto) 0.1 %; Hematocrit (blood only) 42.5 % (42.0-52.0); Hemoglobin 13.5 g/dl (14.0-18.0); Immature Granulocytes # (auto) 0.09 K/uL (0.01-0.20); Immature Granulocytes % (auto) 1.3 %; Lymphocytes % (auto) 7.2 %; Mean Corpuscular Hemoglobin 28.3 pg (25.0-34.0); Mean Corpuscular Hgb Conc 31.8 g/dL (32.0-36.0); Mean Corpuscular Volume 89.1 fL (80.0-100.0); Mean Platelet Volume 9.7 fL (9.4-12.4); Monocytes # (auto) 0.48 K/uL (0.11-0.59); Monocytes % (auto) 6.9 %; Neutrophils # (auto) 5.83 K/uL (1.40-6.50); Neutrophils % (auto) 84.5 %; Platelet Count 160 K/uL (130-400); RDW Coefficient of Variation 18.5 % (11.5-14.5); RDW Standard Deviation 59.9 fL (36.4-46.3); Red Blood Count 4.77 M/uL (4.70-6.10); White Blood Count 6.91 K/ul (4.8-10.8)
[2022-08-24 06:39] LABS: BUN Creatinine Ratio 27.5 (10-20); Calcium 8.8 mg/dl (8.6-10.3); Creatinine Clr Calc Pharmacy 86.2 ml/min; Est GFR (African American) 96.6 ml/min; Est GFR (Non-African American) 83.3 ml/min; Potassium 3.4 mmol/L (3.5-5.1)
[2022-08-24 06:58] LABS: INR 2.3 (0.9-1.1); Prothrombin Time 23.8 Seconds (9.0-12.0)
[2022-08-24] MEDS: ALBUT/IPRATROP 3MG/0.5MG NEB 3 ML VIAL NEB SCH ×2 (07:16→10:56)
[2022-08-24] MEDS: UMECLIDINIUM/VILANTEROL 62.5/25MCG 7 PUFFS/INHALER INH SCH (08:17)
[2022-08-24] MEDS: guaiFENesin 600 MG TABCR PO SCH ×2 (08:17→21:18)
[2022-08-24] MEDS: ASPIRIN 81 MG ECTAB PO SCH (08:18)
[2022-08-24] MEDS: TORSEMIDE 10 MG TAB PO SCH (08:18)
[2022-08-24] MEDS: DOXYCYCLINE HYCLATE 100 MG CAP PO SCH ×2 (08:18→21:17)
[2022-08-24] MEDS: VALSARTAN/SACUBITRIL 26/24MG TAB PO SCH ×2 (08:19→21:17)
[2022-08-24] MEDS: predniSONE 20 MG TAB PO SCH (08:19)
[2022-08-24] MEDS ORDERED: POTASSIUM CHLORIDE 10 MEQ TABCR PO STA (08:40)
[2022-08-24] MEDS ORDERED: CARBOHYDRATES FOR HYPOGLYCEMIA PO PRN (08:42)
[2022-08-24] MEDS ORDERED: GLUCAGON FOR INJ 1 MG VIAL SQ PRN (08:42)
[2022-08-24] MEDS ORDERED: DEXTROSE 50% 50 ML SYRINGE IV PRN (08:42)
[2022-08-24] MEDS ORDERED: GLUCOSE 40% GEL 15 GM TUBE PO PRN (08:42)
[2022-08-24] MEDS ORDERED: GLUCOSE 10 TAB/TUBE PO PRN (08:42)
--- NOTE | 2022-08-24 08:45 | Hospitalist Progress Note ---
Date of Service August 24, 2022 Assessment & Plan (1) Acute on chronic systolic (congestive) heart failure: (2) SOB (shortness of breath): (3) COPD exacerbation: (4) Atrial fibrillation: (5) AICD (automatic cardioverter/defibrillator) present: (6) SREEDHAR on CPAP: Plan 72yoM with PMHx significant for COPD and chronic systolic CHF admitted with shortness of breath. SOB/Chest Pain/CHF/COPD/Infectious bronchiolitis Pt with previous repeated episodes of chest pain and SOB, currently resolved. WBC now trending back down after addition of zosyn to doxycycline. Continue, consider narrowing tomorrow. CT chest- noted tree in bud opacities suggestive of an infectious bronchiolitis/aspiration, no PE, "cardiomegaly with trace bilateral pleural effusions and developing pulmonary edema." Echo with noted EF 15-20%, severely dilated LV, global thinning of the left ventricle and severe diffuse hypokinesis IV lasix switched to po torsemide by cardiology, appreciate cardiology input Continue home Entresto Prednisone burst discontinued due to gastritis concerns Continue duonebs prn, inhalers for COPD changes Has weaned off oxygen. History of permanent atrial fibrillation Rate control with digoxin and metoprolol succinate On Coumadin, can restart coumadin, INR within goal today monitor PT/INR CAD Continue home statin and aspirin History of obstructive sleep apnea On CPAP nightly. AICD (automatic cardioverter/defibrillator) Stable Hyperglycemia/DMII hgba1c of 7.5 New Diagnosis of Diabetes- goal <8 ISS Mood Continue home Effexor DVT prophylaxis: On Coumadin follow PT/INR DNR/DNI Admission and Anticipated Discharge Date Admission Date: Admission and Anticipated Discharge Date Admission Date: August 20, 2022 Subjective Seen this AM, sitting in chair without nasal cannula on. States that he is feeling much better. However concerned about weakness and having to stop to catch his breath when he ambulates. Had to get up to urgently use the bathroom while in the room Review of Systems Review of Systems: All systems reviewed & are unremarkable except as noted in Subjective Physical Exam Physical Exam: General: Alert, oriented. sitting up in chair at bedside, no oxygen on Skin: No noted rashes or bruises Psych: Appropriate mood and affect Neuro: No gross deficits HEENT: NC/AT Resp: Breath sounds decreased bilaterally Extremities: edema in lower extremities bilaterally. Results & Data Results & Data Vital Signs (Past 12 Hours) Vital Signs Temp Pulse Pulse Resp BP Pulse Ox Pulse Ox 08/24/22 07:18 81 16 94 08/24/22 07:08 83 08/24/22 06:00 95 08/23/22 23:10 75 21 94 08/24/22 03:00 36.4 C L 72 19 107/72 95 08/23/22 22:00 80 08/23/22 23:00 36.8 C 81 19 113/71 91 O2 Del Method O2 Del Method FiO2 08/24/22 07:18 Room Air 08/24/22 07:08 08/24/22 06:00 Room Air 08/23/22 23:10 21 08/24/22 03:00 Room Air 08/23/22 22:00 08/23/22 23:00 Room Air
--- NOTE | 2022-08-24 11:27 | Cardiology Progress Note ---
Date of Service August 24, 2022 Assessment & Plan (1) Acute on chronic systolic (congestive) heart failure: (2) COPD exacerbation: (3) Chronic heart failure with reduced ejection fraction and diastolic dysfunction: (4) Atrial fibrillation: (5) Anticoagulated on Coumadin: (6) LV (left ventricular) mural thrombus: (7) AICD (automatic cardioverter/defibrillator) present: (8) Ischemic cardiomyopathy: Plan 08/23/2022 Continue IV diuresis today with transition to oral in a.m., torsemide 40 mg p.o. daily Fluid restriction 2 L/day. Patient currently drinking in excess by description CHF instruction packet 08/24/2022 Patient transition to torsemide orally today Plan on adding eplerenone 25 mg p.o. daily on discharge with close follow-up BMP Still with indigestion post medications, potassium and prednisone Recommend prednisone taper or discontinuation given chronic anticoagulation Admission and Anticipated Discharge Date Admission Date: August 20, 2022 Subjective Patient seen and examined, chart, medications, telemetry reviewed Breathing better. Still dyspneic with exertion but improved. Mild dizziness on standing but no syncope or near syncope. No bleeding No fevers chills or cough Heartburn after morning medications again. Review of Systems Review of Systems: All systems reviewed & are unremarkable except as noted in Subjective Constitutional: + fatigue Cardiovascular: + dyspnea on exertion; no chest pain Gastrointestinal: + heartburn Physical Exam Constitutional: no acute distress Eyes: PERRL, conjunctivae normal, anicteric sclerae ENMT: external ear and nose normal, oropharynx normal Neck: trachea midline, no thyromegaly Respiratory: Auscultation: + crackles Cardiovascular: Rate/Rhythm: regular rate (Ventricular paced) Heart Sounds: normal S1 and + murmur (Grade 1/6 systolic) Vessels: no JVD Extremities: + edema Gastrointestinal (Abdomen): normal bowel sounds, soft, nontender, no hepatosplenomegaly Musculoskeletal: no cyanosis or clubbing, extremities motor strength 5/5 Skin: no rashes, warm and dry Results & Data Vital Signs (Past 12 Hours) Vital Signs Temp Pulse Pulse Pulse Resp BP Pulse Ox 08/24/22 10:56 85 16 95 08/24/22 10:35 36.7 C 89 18 119/83 91 08/24/22 08:43 08/24/22 07:18 81 16 94 08/24/22 07:08 83 08/24/22 06:00 08/24/22 03:00 36.4 C L 72 19 107/72 95 Pulse Ox O2 Del Method O2 Del Method 08/24/22 10:56 Room Air 08/24/22 10:35 Room Air 08/24/22 08:43 Room Air 08/24/22 07:18 Room Air 08/24/22 07:08 08/24/22 06:00 95 Room Air 08/24/22 03:00 Room Air Laboratory Results Laboratory Results - last 24 hr 08/24/22 08/24/22 08/24/22 05:34 05:34 05:34 WBC 6.91 RBC 4.77 Hgb 13.5 L Hct 42.5 MCV 89.1 MCH 28.3 MCHC 31.8 L RDW Std Deviation 59.9 H RDW Coeff of Kasey 18.5 H Plt Count 160 MPV 9.7 Immature Gran % (Auto) 1.3 Neut % (Auto) 84.5 Lymph % (Auto) 7.2 Clark % (Auto) 6.9 Eos % (Auto) 0.0 Baso % (Auto) 0.1 Neut # (Auto) 5.83 Lymph # (Auto) 0.50 L Clark # (Auto) 0.48 Eos # (Auto) 0.00 Baso # (Auto) 0.01 Immature Gran # (Auto) 0.09 PT 23.8 H INR 2.3 H Sodium 141 Potassium 3.4 L Chloride 101 Carbon Dioxide 33 H Anion Gap 7 BUN 25 H Creatinine 0.91 Est Cr Clr Drug Dosing 86.2 Est GFR ( Amer) 96.6 Est GFR (Non-Af Amer) 83.3 BUN/Creatinine Ratio 27.5 H Glucose 153 H Calcium 8.8
[2022-08-24] MEDS ORDERED: ALBUT/IPRATROP 3MG/0.5MG NEB 3 ML VIAL NEB PRN (11:31)
[2022-08-24] MEDS: INSULIN ASPART PER UNIT CHARGE SC SCH ×3 (11:49→21:18)
[2022-08-24] MEDS: WARFARIN SOD 5 MG TAB PO SCH (16:53)
[2022-08-24] MEDS: ATORVASTATIN 40 MG TAB PO SCH (19:16)
[2022-08-24] MEDS: DIGOXIN 0.125 MG TAB PO SCH (19:16)
[2022-08-24] MEDS: METOPROLOL SUCC 25MG EXT REL TAB PO SCH (21:17)
[2022-08-24] MEDS: VENLAFAXINE HCL XR 150 MG CAPXR PO SCH (21:17)
[2022-08-24] MEDS: ZOLPIDEM TARTRATE 10 MG TAB PO PRN (21:26)
[2022-08-25] MEDS: PIPERACILLIN/TAZOBACTAM 4.5 GM in DEXTROSE 5% 100 ML IV SCH ×3 (03:59→20:35)
[2022-08-25 06:14] LABS: Basophils # (auto) 0.04 K/uL (0-0.2); Basophils % (auto) 0.5 %; Eosinophils # (auto) 0.01 K/uL (0-0.50); Eosinophils % (auto) 0.1 %; Hematocrit (blood only) 41.3 % (42.0-52.0); Hemoglobin 13.5 g/dl (14.0-18.0); Immature Granulocytes # (auto) 0.22 K/uL (0.01-0.20); Immature Granulocytes % (auto) 2.9 %; Lymphocytes % (auto) 10.5 %; Mean Corpuscular Hemoglobin 28.4 pg (25.0-34.0); Mean Corpuscular Hgb Conc 32.7 g/dL (32.0-36.0); Mean Corpuscular Volume 86.8 fL (80.0-100.0); Monocytes # (auto) 0.58 K/uL (0.11-0.59); Monocytes % (auto) 7.6 %; Neutrophils # (auto) 5.95 K/uL (1.40-6.50); Neutrophils % (auto) 78.4 %; Nucleated RBC # (auto) 0.02 K/uL (0-0.12); Nucleated RBC % (auto) 0.3 %; Platelet Count 176 K/uL (130-400); RDW Coefficient of Variation 18.2 % (11.5-14.5); RDW Standard Deviation 57.4 fL (36.4-46.3); Red Blood Count 4.76 M/uL (4.70-6.10)
[2022-08-25 06:19] LABS: BUN Creatinine Ratio 23.6 (10-20); Calcium 9.3 mg/dl (8.6-10.3); Creatinine Clr Calc Pharmacy 63.8 ml/min; Est GFR (African American) 67.1 ml/min; Est GFR (Non-African American) 57.9 ml/min; Potassium 3.7 mmol/L (3.5-5.1)
[2022-08-25 06:32] LABS: INR 2.3 (0.9-1.1); Prothrombin Time 24.2 Seconds (9.0-12.0)
[2022-08-25] MEDS: INSULIN ASPART PER UNIT CHARGE SC SCH ×4 (08:17→20:29)
[2022-08-25] MEDS: UMECLIDINIUM/VILANTEROL 62.5/25MCG 7 PUFFS/INHALER INH SCH (08:18)
[2022-08-25] MEDS: TORSEMIDE 10 MG TAB PO SCH (08:19)
[2022-08-25] MEDS: VALSARTAN/SACUBITRIL 26/24MG TAB PO SCH ×2 (08:19→20:29)
[2022-08-25] MEDS: DOXYCYCLINE HYCLATE 100 MG CAP PO SCH ×2 (08:19→20:28)
[2022-08-25] MEDS: guaiFENesin 600 MG TABCR PO SCH ×2 (08:19→20:27)
[2022-08-25] MEDS: ASPIRIN 81 MG ECTAB PO SCH (08:20)
--- NOTE | 2022-08-25 11:19 | Cardiology Progress Note ---
Date of Service August 25, 2022 Assessment & Plan (1) Acute on chronic systolic (congestive) heart failure: (2) COPD exacerbation: (3) Chronic heart failure with reduced ejection fraction and diastolic dysfunction: (4) Atrial fibrillation: (5) Anticoagulated on Coumadin: (6) LV (left ventricular) mural thrombus: (7) AICD (automatic cardioverter/defibrillator) present: (8) Ischemic cardiomyopathy: Plan 08/23/2022 Continue IV diuresis today with transition to oral in a.m., torsemide 40 mg p.o. daily Fluid restriction 2 L/day. Patient currently drinking in excess by description CHF instruction packet 08/24/2022 Patient transition to torsemide orally today Plan on adding eplerenone 25 mg p.o. daily on discharge with close follow-up BMP Still with indigestion post medications, potassium and prednisone Recommend prednisone taper or discontinuation given chronic anticoagulation 08/25/2022. Continued gradual improvement. We will hold on initiating eplerenone given slight rise in creatinine. Continue other medications with guideline directed medical regimen including metoprolol succinate, Entresto and change in furosemide to torsemide Continue anticoagulation with warfarin Admission and Anticipated Discharge Date Admission Date: August 20, 2022 Subjective Patient seen and examined, chart, medications, telemetry reviewed. Sitting out of bed in chair still feeling gradually better. Indigestion after pills in a.m. No arrhythmias on telemetry Weight down greater than 10 kg. Lower extremity edema much improved Review of Systems Review of Systems: All systems reviewed & are unremarkable except as noted in Subjective Physical Exam Constitutional: no acute distress Eyes: PERRL, conjunctivae normal, anicteric sclerae ENMT: external ear and nose normal, oropharynx normal Neck: trachea midline, no thyromegaly Respiratory: Auscultation: + crackles Cardiovascular: Rate/Rhythm: regular rate (Ventricular paced) Heart Sounds: normal S1 and + murmur (Grade 1/6 systolic) Vessels: no JVD Extremities: + edema (1+) Gastrointestinal (Abdomen): normal bowel sounds, soft, nontender, no hepatosplenomegaly Musculoskeletal: no cyanosis or clubbing, extremities motor strength 5/5 Skin: no rashes, warm and dry Results & Data Vital Signs (Past 12 Hours) Vital Signs Temp Pulse Pulse Resp BP Pulse Ox Pulse Ox 08/25/22 11:00 36.8 C 81 18 120/81 93 08/25/22 10:33 90 08/25/22 09:45 08/25/22 08:47 84 08/25/22 07:00 36.3 C L 81 18 108/80 94 08/25/22 03:00 36.2 C L 81 17 125/88 94 08/25/22 01:54 80 18 94 O2 Del Method O2 Flow Rate FiO2 08/25/22 11:00 Room Air 08/25/22 10:33 0 08/25/22 09:45 Room Air 08/25/22 08:47 08/25/22 07:00 Room Air 08/25/22 03:00 CPAP 08/25/22 01:54 21 Laboratory Results Laboratory Results - last 24 hr 08/24/22 08/24/22 08/24/22 11:41 16:33 20:31 WBC RBC Hgb Hct MCV MCH MCHC RDW Std Deviation RDW Coeff of Kasey Plt Count MPV Immature Gran % (Auto) Neut % (Auto) Lymph % (Auto) [place] % (Auto) Eos % (Auto) Baso % (Auto) Neut # (Auto) Lymph # (Auto) [place] # (Auto) Eos # (Auto) Baso # (Auto) Immature Gran # (Auto) Absolute Nucleated RBC Nucleated RBC % (auto) PT INR Sodium Potassium Chloride Carbon Dioxide Anion Gap BUN Creatinine Est Cr Clr Drug Dosing Est GFR ( Amer) Est GFR (Non-Af Amer) BUN/Creatinine Ratio Glucose POC Glucose 189 H 199 H 165 H Calcium 08/25/22 08/25/22 08/25/22 05:30 05:30 05:30 WBC 7.60 RBC 4.76 Hgb 13.5 L Hct 41.3 L MCV 86.8 MCH 28.4 MCHC 32.7 RDW Std Deviation 57.4 H RDW Coeff of Kasey 18.2 H Plt Count 176 MPV 10.0 Immature Gran % (Auto) 2.9 Neut % (Auto) 78.4 Lymph % (Auto) 10.5 [place] % (Auto) 7.6 Eos % (Auto) 0.1 Baso % (Auto) 0.5 Neut # (Auto) 5.95 Lymph # (Auto) 0.80 L [place] # (Auto) 0.58 Eos # (Auto) 0.01 Baso # (Auto) 0.04 Immature Gran # (Auto) 0.22 H Absolute Nucleated RBC 0.02 Nucleated RBC % (auto) 0.3 PT 24.2 H INR 2.3 H Sodium 140 Potassium 3.7 Chloride 100 Carbon Dioxide 33 H Anion Gap 7 BUN 29 H Creatinine 1.23 D Est Cr Clr Drug Dosing 63.8 Est GFR ( Amer) 67.1 Est GFR (Non-Af Amer) 57.9 BUN/Creatinine Ratio 23.6 H Glucose 129 H POC Glucose Calcium 9.3 08/25/22 08/25/22 07:08 11:10 WBC RBC Hgb Hct MCV MCH MCHC RDW Std Deviation RDW Coeff of Kasey Plt Count MPV Immature Gran % (Auto) Neut % (Auto) Lymph % (Auto) [place] % (Auto) Eos % (Auto) Baso % (Auto) Neut # (Auto) Lymph # (Auto) [place] # (Auto) Eos # (Auto) Baso # (Auto) Immature Gran # (Auto) Absolute Nucleated RBC Nucleated RBC % (auto) PT INR Sodium Potassium Chloride Carbon Dioxide Anion Gap BUN Creatinine Est Cr Clr Drug Dosing Est GFR ( Amer) Est GFR (Non-Af Amer) BUN/Creatinine Ratio Glucose POC Glucose 123 H 119 H Calcium
--- NOTE | 2022-08-25 12:18 | Hospitalist Progress Note ---
Date of Service August 25, 2022 Assessment & Plan (1) Acute on chronic systolic (congestive) heart failure: Plan: 3 days proressive SOB prior to arrival treated with IV lasix for several days transitinoed to torsemide PO today still remaining slightly short of breath Conot Entresto, Toprol XL. Start trial of epleronone at [facility]. Echo with EF 15-20 (2) COPD exacerbation: Plan: prednisone burst stopped 2/2 gastritis (3) Atrial fibrillation: Plan: History of atrial fibrillation Currently sinus rhythm Rate control with digoxin and metoprolol succinate On Coumadin, can restart coumadin, INR within goal today monitor PT/INR (4) AICD (automatic cardioverter/defibrillator) present: (5) SREEDHAR on CPAP: Plan: CPAP QHS (6) DMII (diabetes mellitus, type 2): Plan: A1C is 7.5. Appears to be not on medication per home med list on admission. Cont novolog and discuss plan for oral medications on discharge. With h/o heart failure and diabetes, Jardiance should be considered. (7) Depression: Plan: chronic, stable. Cont Effexorrr per home regimen. warfarin DNR/DNI Dispo-to home tomorrow as long as breathing is improved. Malaika Myers DO [facility] Hospitalist Admission and Anticipated Discharge Date Admission Date: August 20, 2022 Subjective 72 yo M admitted for 3 days of progressive shortness of breath 2/2 acute on chronic systolic CHF. He was recently taking IV Lasix and was just converted to oral torsemide. Today he reports feeling short of breath with exertion and not quite to baseline. He is eating lunch without issue No swelling or pain Review of Systems Review of Systems: no issues. Physical Exam Physical Exam: CONSTITUTIONAL: WNWD, vitals as above, generally well-appearing, NAD EYES: normal conjunctivae, no scleral icterus ENT: external ear and nose normal, MMM NECK: trachea midline RESPIRATORY: clear to auscultation bilaterally, no crackles, rales or wheezes, normal respiratory effort CARDIOVASCULAR: regular rate and rhythm, S1 and 2 heard without murmurs, gallops or rubs, no JVD, no peripheral edema, CHEST: inspection of chest was normal GASTROINTESTINAL: soft, nontender, ND, no guarding MUSCULOSKELETAL: strength 5/5 throughout, head is normocephalic and atraumatic, SKIN: warm and dry NEUROLOGIC: CN 2-12 grossly intact, no sensory deficit, normal cognition, normal speech, no tremor PSYCHIATRIC: alert cooperative and oriented to person, place and time. Euthymic mood, makes good eye contact, language grossly intact, recent and remote memory grossly intact. Results & Data Results & Data Vital Signs (Past 12 Hours) Vital Signs Temp Pulse Pulse Resp BP Pulse Ox Pulse Ox 08/25/22 11:00 36.8 C 81 18 120/81 93 08/25/22 10:33 90 08/25/22 09:45 08/25/22 08:47 84 08/25/22 07:00 36.3 C L 81 18 108/80 94 08/25/22 03:00 36.2 C L 81 17 125/88 94 08/25/22 01:54 80 18 94 O2 Del Method O2 Flow Rate FiO2 08/25/22 11:00 Room Air 08/25/22 10:33 0 08/25/22 09:45 Room Air 08/25/22 08:47 08/25/22 07:00 Room Air 08/25/22 03:00 CPAP 08/25/22 01:54 21 Laboratory Results Short CBC 08/25/22 Range/Units 05:30 WBC 7.60 (4.8-10.8) K/ul Hgb 13.5 L (14.0-18.0) g/dl Hct 41.3 L (42.0-52.0) % Plt Count 176 (130-400) K/uL BMP 08/25/22 05:30 Sodium 140 Potassium 3.7 Chloride 100 Carbon Dioxide 33 H BUN 29 H Creatinine 1.23 D Glucose 129 H Calcium 9.3 Medications Administered Current Inpatient Medications Acetaminophen (Acetaminophen 325 Mg Tab) 650 mg PO Q4H PRN PRN Reason: Mild Pain or Fever Stop: 09/19/22 06:32 Hydrocodone Bitart/Acetaminophen (Hydrocodone/Acetamophen 5/325mg Tab) 1 tab PO Q8H PRN PRN Reason: Moderate-Severe Pain Stop: 09/03/22 06:32 Last Admin: 08/22/22 10:55 Dose: 1 tab Albuterol (Albuterol 0.083% Nebu Soln 3 Ml Vial) 2.5 mg INH QID PRN; Protocol PRN Reason: Shortness Of Breath Stop: 09/19/22 06:32 Albuterol (Albut/Ipratrop 3mg/0.5mg Neb 3 Ml Vial) 3 ml NEB QIDR PRN; Protocol PRN Reason: Shortness Of Breath Or Wheezing Stop: 09/19/22 06:59 Aspirin (Aspirin 81 Mg Ectab) 81 mg PO DAILY [facility] Stop: 09/19/22 08:59 Last Admin: 08/25/22 08:20 Dose: 81 mg Atorvastatin Calcium (Atorvastatin 40 Mg Tab) 40 mg PO DAILY@1830 [facility] Stop: 09/19/22 18:29 Last Admin: 08/24/22 19:16 Dose: 40 mg Dextrose (Dextrose 50% 50 Ml Syringe) 25 - 50 ml IV UD PRN; Protocol PRN Reason: Hypoglycemia Protocol Stop: 09/23/22 08:41 Digoxin (Digoxin 0.125 Mg Tab) 0.125 mg PO DAILY@1830 [facility] Stop: 09/19/22 18:29 Last Admin: 08/24/22 19:16 Dose: 0.125 mg Doxycycline Hyclate (Doxycycline Hyclate 100 Mg Cap) 100 mg PO BID [facility] Stop: 08/27/22 08:59 Last Admin: 08/25/22 08:19 Dose: 100 mg Glucagon (Glucagon For Inj 1 Mg Vial) 1 mg SQ UD PRN; Protocol PRN Reason: Hypoglycemia Protocol Stop: 09/23/22 08:41 Glucose (Glucose 10 Tab/Tube) 4 - 8 tab PO UD PRN; Protocol PRN Reason: Hypoglycemia Treatment Stop: 09/23/22 08:41 Glucose (Glucose 40% Gel 15 Gm Tube) 15 - 30 gm PO UD PRN; Protocol PRN Reason: Hypoglycemia Protocol Stop: 09/23/22 08:41 Guaifenesin (Guaifenesin 600 Mg Tabcr) 600 mg PO Q12 [facility] Stop: 09/20/22 20:59 Last Admin: 08/25/22 08:19 Dose: 600 mg Piperacillin Sod/Tazobactam (Sod 4.5 gm/ Dextrose) 120 mls @ 30 mls/hr IV Q8H [facility]; Protocol Stop: 08/30/22 03:59 Last Admin: 08/25/22 11:53 Dose: 30 mls/hr Insulin Aspart (Insulin Aspart Per Unit Charge) 0 units SC ACHS [facility] Stop: 09/23/22 11:29 Last Admin: 08/25/22 11:53 Dose: 5 units Metoprolol Succinate (Metoprolol Succ 25mg Ext Rel Tab) 12.5 mg PO QPM [facility] Stop: 09/21/22 20:59 Last Admin: 08/24/22 21:17 Dose: 12.5 mg Miscellaneous (Carbohydrates For Hypoglycemia ) 15 - 30 gm PO UD PRN PRN Reason: Hypoglycemia Protocol Stop: 09/23/22 08:41 Nitroglycerin (Nitroglycerin Sl 0.4 Mg/Tab Tab) 0.4 mg SL Q5M PRN PRN Reason: Chest Pain Stop: 09/19/22 06:32 Last Admin: 08/22/22 10:34 Dose: 0.4 mg Polyethylene Glycol (Polyethylene (Miralax) 17 Gm Pack) 17 gm PO DAILY PRN PRN Reason: Constipation Stop: 09/19/22 06:32 Sacubitril/Valsartan (Valsartan/Sacubitril 26/24mg Tab) 1 tab PO BID [facility] Stop: 09/19/22 08:59 Last Admin: 08/25/22 08:19 Dose: 1 tab Torsemide (Torsemide 10 Mg Tab) 40 mg PO QAM [facility] Stop: 09/23/22 08:59 Last Admin: 08/25/22 08:19 Dose: 40 mg Umeclidinium/Vilanterol (Umeclidinium/Vilanterol 62.5/25mcg 7 Puffs/Inhaler) 1 puffs INH DAILY [facility] Stop: 09/19/22 08:59 Last Admin: 08/25/22 08:18 Dose: 1 puffs Venlafaxine HCl (Venlafaxine Hcl Xr 150 Mg Capxr) 150 mg PO HS [facility] Stop: 09/19/22 20:59 Last Admin: 08/24/22 21:17 Dose: 150 mg Warfarin Sodium (Warfarin Sod 2.5 Mg Tab) 2.5 mg PO MoFr@1600 [facility] Stop: 09/21/22 15:59 Warfarin Sodium (Warfarin Sod 5 Mg Tab) 5 mg PO SuTuWeThSa@1600 [facility] Stop: 09/19/22 15:59 Last Admin: 08/24/22 16:53 Dose: 5 mg Zolpidem Tartrate (Zolpidem Tartrate 10 Mg Tab) 10 mg PO HS PRN PRN Reason: Sleep Stop: 09/19/22 06:32 Last Admin: 08/24/22 21:26 Dose: 10 mg (3) Atrial fibrillation Atrial fibrillation type: paroxysmal Qualified Code(s): I48.0 - Paroxysmal atrial fibrillation
[2022-08-25] MEDS: DIGOXIN 0.125 MG TAB PO SCH (18:10)
[2022-08-25] MEDS: ATORVASTATIN 40 MG TAB PO SCH (18:10)
[2022-08-25] MEDS: METOPROLOL SUCC 25MG EXT REL TAB PO SCH (20:27)
[2022-08-25] MEDS: VENLAFAXINE HCL XR 150 MG CAPXR PO SCH (20:29)
[2022-08-25] MEDS: ZOLPIDEM TARTRATE 10 MG TAB PO PRN (22:21)
[2022-08-26 06:38] LABS: Basophils # (auto) 0.05 K/uL (0-0.2); Basophils % (auto) 0.6 %; Eosinophils # (auto) 0.19 K/uL (0-0.50); Eosinophils % (auto) 2.3 %; Hematocrit (blood only) 44.2 % (42.0-52.0); Hemoglobin 14.5 g/dl (14.0-18.0); Immature Granulocytes # (auto) 0.41 K/uL (0.01-0.20); Lymphocytes # (auto) 0.75 K/uL (1.2-3.4); Lymphocytes % (auto) 9.2 %; Mean Corpuscular Hemoglobin 28.7 pg (25.0-34.0); Mean Corpuscular Hgb Conc 32.8 g/dL (32.0-36.0); Mean Corpuscular Volume 87.5 fL (80.0-100.0); Monocytes % (auto) 7.4 %; Neutrophils # (auto) 6.12 K/uL (1.40-6.50); Neutrophils % (auto) 75.5 %; Nucleated RBC # (auto) 0.03 K/uL (0-0.12); Nucleated RBC % (auto) 0.4 %; Platelet Count 200 K/uL (130-400); RDW Coefficient of Variation 18.6 % (11.5-14.5); RDW Standard Deviation 57.3 fL (36.4-46.3); Red Blood Count 5.05 M/uL (4.70-6.10); White Blood Count 8.12 K/ul (4.8-10.8)
[2022-08-26 06:56] LABS: BUN Creatinine Ratio 32.1 (10-20); Calcium 9.4 mg/dl (8.6-10.3); Creatinine Clr Calc Pharmacy 70.6 ml/min; Est GFR (African American) 77.6 ml/min; Potassium 3.4 mmol/L (3.5-5.1)
[2022-08-26 07:01] LABS: INR 2.4 (0.9-1.1); Prothrombin Time 24.9 Seconds (9.0-12.0)
[2022-08-26] MEDS: TORSEMIDE 10 MG TAB PO SCH (08:31)
[2022-08-26] MEDS: DOXYCYCLINE HYCLATE 100 MG CAP PO SCH (08:31)
[2022-08-26] MEDS: ASPIRIN 81 MG ECTAB PO SCH (08:31)
[2022-08-26] MEDS: VALSARTAN/SACUBITRIL 26/24MG TAB PO SCH (08:32)
[2022-08-26] MEDS: UMECLIDINIUM/VILANTEROL 62.5/25MCG 7 PUFFS/INHALER INH SCH (08:32)
[2022-08-26] MEDS: INSULIN ASPART PER UNIT CHARGE SC SCH ×2 (08:36→12:58)
[2022-08-26] MEDS: guaiFENesin 600 MG TABCR PO SCH (09:29)
[2022-08-26] MEDS ORDERED: ALUMINUM/MAGNESIUM SUSP 30 ML UDC PO STA (10:25)
[2022-08-26] MEDS ORDERED: POTASSIUM CHLORIDE CRTAB 20 MEQ TABCR PO STA (11:08)
--- NOTE | 2022-08-26 12:04 | Cardiology Progress Note ---
Date of Service August 26, 2022 Assessment & Plan (1) Acute on chronic systolic (congestive) heart failure: (2) COPD exacerbation: (3) Chronic heart failure with reduced ejection fraction and diastolic dysfunction: (4) Atrial fibrillation: (5) Anticoagulated on Coumadin: (6) LV (left ventricular) mural thrombus: (7) AICD (automatic cardioverter/defibrillator) present: (8) Ischemic cardiomyopathy: Plan 08/23/2022 Continue IV diuresis today with transition to oral in a.m., torsemide 40 mg p.o. daily Fluid restriction 2 L/day. Patient currently drinking in excess by description CHF instruction packet 08/24/2022 Patient transition to torsemide orally today Plan on adding eplerenone 25 mg p.o. daily on discharge with close follow-up BMP Still with indigestion post medications, potassium and prednisone Recommend prednisone taper or discontinuation given chronic anticoagulation 08/25/2022. Continued gradual improvement. We will hold on initiating eplerenone given slight rise in creatinine. Continue other medications with guideline directed medical regimen including metoprolol succinate, Entresto and change in furosemide to torsemide Continue anticoagulation with warfarin 08/26/2022 Clinically stable with gradual heart failure improvement. Plan as outlined with medications above. Agree with suggestion for Jardiance if approved by formulary Will need close laboratory and clinical follow-up with adjustment medications including follow-up with potassium and renal function CHF instructions Admission and Anticipated Discharge Date Admission Date: August 20, 2022 Subjective Patient seen and examined, chart telemetry reviewed. Continues to demonstrate slow improvement Oxygenating well on room air Lungs with few basilar crackles, lower extremity edema improved Review of Systems Review of Systems: All systems reviewed & are unremarkable except as noted in Subjective Physical Exam Constitutional: no acute distress Eyes: PERRL, conjunctivae normal, anicteric sclerae ENMT: external ear and nose normal, oropharynx normal Neck: trachea midline, no thyromegaly Respiratory: Auscultation: + crackles Cardiovascular: Rate/Rhythm: regular rate (Ventricular paced) Heart Sounds: normal S1 and + murmur (Grade 1/6 systolic) Vessels: no JVD Extremities: + edema (1+) Gastrointestinal (Abdomen): normal bowel sounds, soft, nontender, no hepatosplenomegaly Musculoskeletal: no cyanosis or clubbing, extremities motor strength 5/5 Skin: no rashes, warm and dry Results & Data Vital Signs (Past 12 Hours) Vital Signs Temp Pulse Pulse Resp BP Pulse Ox O2 Del Method 08/26/22 08:00 Room Air 08/26/22 08:21 82 08/26/22 07:12 36.5 C 80 16 107/74 Room Air 08/26/22 02:31 36.8 C 80 16 128/91 96 Room Air Laboratory Results Laboratory Results - last 24 hr 08/25/22 08/25/22 08/26/22 15:50 20:02 05:50 WBC 8.12 RBC 5.05 Hgb 14.5 Hct 44.2 MCV 87.5 MCH 28.7 MCHC 32.8 RDW Std Deviation 57.3 H RDW Coeff of Kasey 18.6 H Plt Count 200 MPV 10.0 Immature Gran % (Auto) 5.0 Neut % (Auto) 75.5 Lymph % (Auto) 9.2 [place] % (Auto) 7.4 Eos % (Auto) 2.3 Baso % (Auto) 0.6 Neut # (Auto) 6.12 Lymph # (Auto) 0.75 L [place] # (Auto) 0.60 H Eos # (Auto) 0.19 Baso # (Auto) 0.05 Immature Gran # (Auto) 0.41 H Absolute Nucleated RBC 0.03 Nucleated RBC % (auto) 0.4 PT INR Sodium Potassium Chloride Carbon Dioxide Anion Gap BUN Creatinine Est Cr Clr Drug Dosing Est GFR ( Amer) Est GFR (Non-Af Amer) BUN/Creatinine Ratio Glucose POC Glucose 180 H 122 H Calcium 08/26/22 08/26/22 08/26/22 05:50 05:50 07:16 WBC RBC Hgb Hct MCV MCH MCHC RDW Std Deviation RDW Coeff of Kasey Plt Count MPV Immature Gran % (Auto) Neut % (Auto) Lymph % (Auto) [place] % (Auto) Eos % (Auto) Baso % (Auto) Neut # (Auto) Lymph # (Auto) [place] # (Auto) Eos # (Auto) Baso # (Auto) Immature Gran # (Auto) Absolute Nucleated RBC Nucleated RBC % (auto) PT 24.9 H INR 2.4 H Sodium 141 Potassium 3.4 L Chloride 101 Carbon Dioxide 31 Anion Gap 9 BUN 35 H Creatinine 1.09 Est Cr Clr Drug Dosing 70.6 Est GFR ( Amer) 77.6 Est GFR (Non-Af Amer) 67.0 BUN/Creatinine Ratio 32.1 H Glucose 151 H POC Glucose 135 H Calcium 9.4 08/26/22 12:10 WBC RBC Hgb Hct MCV MCH MCHC RDW Std Deviation RDW Coeff of Kasey Plt Count MPV Immature Gran % (Auto) Neut % (Auto) Lymph % (Auto) [place] % (Auto) Eos % (Auto) Baso % (Auto) Neut # (Auto) Lymph # (Auto) [place] # (Auto) Eos # (Auto) Baso # (Auto) Immature Gran # (Auto) Absolute Nucleated RBC Nucleated RBC % (auto) PT INR Sodium Potassium Chloride Carbon Dioxide Anion Gap BUN Creatinine Est Cr Clr Drug Dosing Est GFR ( Amer) Est GFR (Non-Af Amer) BUN/Creatinine Ratio Glucose POC Glucose 116 H Calcium (4) Atrial fibrillation Atrial fibrillation type: paroxysmal Qualified Code(s): I48.0 - Paroxysmal atrial fibrillation
--- NOTE | 2022-08-26 12:42 | Discharge Summary ---
Discharge Summary Date of Service August 26, 2022 Notes For Next Care Provider BMP in 2 weeks Medication Changes From Visit NEW torsemide STOP Lasix NEW epleronone NEW Jardiance Principal Dx & Hospital Course #1 = Principal Diagnosis (1) Acute on chronic systolic (congestive) heart failure: 3 days proressive SOB prior to arrival treated with IV lasix for several days transitinoed to torsemide PO today still remaining slightly short of breath Conot Entresto, Toprol XL. Start trial of epleronone at [facility]. Echo with EF 15-20 (2) COPD exacerbation: prednisone burst stopped 2/2 gastritis (3) Atrial fibrillation: History of atrial fibrillation Currently sinus rhythm Rate control with digoxin and metoprolol succinate On Coumadin, can restart coumadin, INR within goal today monitor PT/INR (4) AICD (automatic cardioverter/defibrillator) present: (5) SREEDHAR on CPAP: CPAP QHS (6) DMII (diabetes mellitus, type 2): A1C is 7.5. Appears to be not on medication per home med list on admission. Cont novolog and discuss plan for oral medications on discharge. With h/o heart failure and diabetes, Jardiance should be considered. (7) Depression: chronic, stable. Cont Effexorrr per home regimen. warfarin DNR/DNI Dispo-to home tomorrow as long as breathing is improved. DO Lidya Dunn Hospitalist Discharge Exam CONSTITUTIONAL: WNWD, vitals as above, generally well-appearing, NAD EYES: normal conjunctivae, no scleral icterus ENT: external ear and nose normal, MMM NECK: trachea midline RESPIRATORY: clear to auscultation bilaterally, no crackles, rales or wheezes, normal respiratory effort CARDIOVASCULAR: regular rate and rhythm, S1 and 2 heard without murmurs, gallops or rubs, no JVD, no peripheral edema, CHEST: inspection of chest was normal GASTROINTESTINAL: soft, nontender, ND, no guarding MUSCULOSKELETAL: strength 5/5 throughout, head is normocephalic and atraumatic, SKIN: warm and dry NEUROLOGIC: CN 2-12 grossly intact, no sensory deficit, normal cognition, normal speech, no tremor PSYCHIATRIC: alert cooperative and oriented to person, place and time. Euthymic mood, makes good eye contact, language grossly intact, recent and remote memory grossly intact. Updated Medication List Medication Instructions Recorded Confirmed Type albuterol sulfate 2.5 mg/3 mL 2.5 mg inhalation QID PRN 03/12/21 08/21/22 History (0.083 %) solution for nebulization Shortness Of Breath aspirin 81 mg tablet,delayed 81 mg PO DAILY 03/12/21 08/21/22 History release atorvastatin 40 mg tablet 40 mg PO DAILY@0 03/12/21 08/21/22 History digoxin 125 mcg (0.125 mg) tablet 125 mcg PO DAILY@1830 03/12/21 08/21/22 History hydrocodone 5 mg-acetaminophen 325 1 tab PO Q8H PRN Pain 03/12/21 08/21/22 History mg tablet sacubitril 24 mg-valsartan 26 mg 1 tab PO BID 03/12/21 08/21/22 History tablet (Entresto) umeclidinium 62.5 mcg-vilanterol 1 inh inhalation DAILY 03/12/21 08/21/22 History 25 mcg/actuation powdr for inhalation (Anoro Ellipta) venlafaxine 75 mg capsule,extended 150 mg PO HS 03/12/21 08/21/22 History release 24 hr warfarin 5 mg tablet 2.5 mg PO 2XWK 03/12/21 08/21/22 History warfarin 5 mg tablet 5 mg PO 5XWK 03/12/21 08/21/22 History zolpidem 10 mg tablet 10 mg PO HS PRN Sleep 03/12/21 08/21/22 History metoprolol succinate 25 mg 25 mg PO DAILY #90 tabs 04/10/21 08/21/22 Rx tablet,extended release 24 hr (Toprol XL) furosemide 40 mg tablet 40 mg PO QAM 08/21/22 08/21/22 History empagliflozin 10 mg tablet 10 mg PO DAILY #30 tabs 08/26/22 Rx (Jardiance) eplerenone 25 mg tablet 25 mg PO DAILY #30 tabs 08/26/22 Rx torsemide 40 mg tablet 40 mg PO DAILY #30 tabs 08/26/22 Rx Hospital Stay Data Consultations 08/20/22 08:00 Consult Cardiology Routine Diagnostic Imagining Performed 08/21/22 15:50 CT angio chest PE protocol Urgent Pending Results Patient Have Any Pending Studies at Discharge: No Discharge Instructions Given to Patient (Per Discharging Provider) Please take all medications as instructed on discharge list below. You are being switched from Lasix to torsemide which is an alternative water pill. You are being also started on eplerenone and Jardiance which are for your heart condition. It is recommended that you followup with your primary care physician within 1 week from hospital discharge. You will need nonfasting labwork within two weeks to monitor your kidney function and electrolytes with the new medications. It was a pleasure taking care of you! Please call if you have any questions or problems. You can reach a [facility] hospitalist on duty at [facility] 24 hours a day by calling [phone]. Take care of yourself. Malaika Myers, [facility] Hospitalist Total Time Total Time Spent Total Time Spent (In Minutes): 60
== END 2022-08-26 14:40 | disposition home or self-care (01) | DRG 292 ==
LOC: ED 01:46 → 2E 05:38 → SUATTDRO 05:38 → 2E 06:16

== ENCOUNTER 2024-08-31 17:56 | Inpatient (IN) ==
[2024-08-31 18:30] LABS: Hematocrit (blood only) 48.8 % (42.0-52.0); Hemoglobin 16.2 g/dl (14.0-18.0); Immature Granulocytes # (auto) 0.10 K/uL (0.01-0.20); Immature Granulocytes % (auto) 0.8 %; Mean Corpuscular Hemoglobin 30.3 pg (25.0-34.0); Mean Corpuscular Volume 91.4 fL (80.0-100.0); Platelet Count 168 K/uL (130-400); RDW Standard Deviation 51.9 fL (36.4-46.3); Red Blood Count 5.34 M/uL (4.70-6.10); White Blood Count 12.97 K/ul (4.8-10.8)
[2024-08-31] MEDS: SODIUM CHLORIDE 0.9% 250 ML IV ONE (18:37)
[2024-08-31 18:48] LABS: Alanine Aminotransferase 22.0 U/L (7-52); Albumin Globulin Ratio 1.0 (0.9-2); Alkaline Phosphatase 131.0 U/L (34-104); Anion Gap 10.0 (3-11); Bilirubin,Total 1.6 mg/dl (0.2-1.0); Blood Urea Nitrogen 13.0 mg/dl (6-23); Calcium 9.4 mg/dl (8.6-10.3); Carbon Dioxide 27.0 mmol/L (21-32); Chloride 100.0 mmol/L (98-107); Creatinine Clr Calc Pharmacy 89.0 ml/min; Globulin 3.6 gm/dl (2.5-4.0); Glucose 164.0 mg/dl (70-99(Fasting)); Lipase 15.0 U/L (11-82); Magnesium 1.7 mg/dl (1.7-2.4); Potassium 3.3 mmol/L (3.5-5.1); Sodium 137.0 mmol/L (136-145); Total Protein 7.3 gm/dl (6.0-8.3)
[2024-08-31 18:53] LABS: Appearance Urine Clear (Clear); Bacteria Urine Automated None Seen (None Seen); Cast Urine Automated 0-2 /lpf (0-2); Epithelial Cell Urine Auto 0-2 /hpf (0-2); Glucose Urine UA 3+ (Negative); RBC Urine Automated 0-2 /hpf (0-2); WBC Urine Automated 0-5 /hpf (0-5)
[2024-08-31] MEDS: ACETAMINOPHEN 1,000 MG/100 ML VIAL IV STA (18:56)
--- NOTE | 2024-08-31 18:56 | Emergency Department Note ---
Impression & Plan Generalized weakness, Cough, Diarrhea, Pneumonia, Elevated troponin ED Provider Note ED Provider Note NAME: BRIGITTE LEDEZMA AGE:74 SEX: Male : 1950 ARRIVES VIA: EMS INFORMANT: Patient ED PROVIDER(s): Alice Landa DO CHIEF COMPLAINT: Weakness, cough, diarrhea HPI: This is a 74-year-old male presents to the emergency department complaining of 3 days of weakness, cough, diarrhea. Patient with significant past medical history including multiple cardiac procedures. He states no known sick contact, no recent change in any medications, no recent travel. He states he is having approximately 5 episodes of watery diarrhea daily, denies noting any blood. He states he has been more weak and tired, and had a dry cough. He states he does occasionally feel as though it is hard to breathe but denies any chest pain, abdominal pain, fevers or chills. He states he has had a constant daily headache as well. Patient denies any history of headaches including no migraines or tension headaches. He states no recent trauma or injury. He denies any accompanying dizziness, vision changes, or paresthesias. PAST MEDICAL HISTORY:See Below PAST SURGICAL HISTORY:See Below FAMILY HISTORY:See Below SOCIAL HISTORY:See Below HOME MEDICATIONS:See Below ALLERGIES:See Below VITALS:See Below PHYSICAL EXAMINATION: GENERAL: alert, well appearing, well nourished, no distress, non-toxic EYE EXAM: normal conjunctiva, PERRL and EOM's grossly intact OROPHARYNX: no exudate, no erythema, lips, buccal mucosa, and tongue normal and mucous membranes are moist NECK: supple, no nuchal rigidity, no adenopathy, non-tender LUNGS: Decreased b/l to auscultation. Normal chest wall mechanics, no w/r/r, hypoxic at 89% on RA HEART: no murmurs, S1 normal and S2 normal ABDOMEN: abdomen soft, non-tender, normo-active bowel sounds, no masses, no rebound or guarding. BACK: Back is symmetrical on inspection and there is no deformity, no midline tenderness, no CVA tenderness. SKIN: no rashes, petechiae, orbruising UPPER EXTREMITIES: upper extremities are grossly normal. FROM, nml pulses b/l. LOWER EXTREMITIES: No pitting edema. FROM, nml pulses b/l. NEURO EXAM: Normal sensorium, cranial nerves II-XII grossly intact, normal speech, no facial droop,nogross weakness of arms, no gross weakness of legs. Gross sensation intact. No ataxia. Vital Signs: reviewed and remarkable Differential Diagnosis: dehydration, stroke, anemia, hypoglycemia, hyponatremia, hypernatremia, urinary tract infection, pneumonia, bronchitis, sepsis, gastroenteritis, additional abdominal pathology, metabolic abnormalities, as well as others were considered MEDICAL DECISION MAKING: This is a 74 yo male who presents to the ER with concern for weakness, diarrhea, and cough. He was afebrile and VS stable. He was noted to be mildly hypoxic at 89%. He was started on oxygen via nasal cannula with improvement. Labs drawn and sent, IV established, EKG and CXR performed and interpreted at bedside, and patient placed on telemetry. Patient's AICD interrogated. Chest x-ray reassuring and he had a mild leukocytosis and and elevated troponin. INR therapeutic at 2.3. Troponin chronically elevated however slightly higher compared to prior. BNP elevated however improved compared to prior. Given accompanying diarrhea we discussed further abdominal imaging. Patient had no diarrhea here. We discussed CT of the abdomen and pelvis. CT head reassuring despite reported headache. No acute intra-abdominal pathology however radiology read a right-sided pneumonia on the chest portion of the study. Following this all results were discussed with the patient at bedside. IV antibiotics added and case discussed with the hospitalist team for further inpatient evaluation and mgmt. Consultation(s): 1818: Discussed with Dee Hyman. Patient in a.flutter. No other dysrhythmias or defibrillations. 2033: Discussed with Dr. Caballero, [facility] hospitalist team, for additional evaluation and mgmt. ER Treatment Provided: See below Diagnostics Interpreted By Me: -ECG: paced at 83, left axis, prolonged intervals consistent with pacing, no other acute changes noted -Cardiac Monitoring: An order was placed for continuous cardiac monitoring. The monitor shows a rate of 77 with paced rhythm. -Laboratory studies: As stated above and show below. -Imaging studies: X-ray Chest: A single view study of the chest was reviewed and was negative for cardiomegaly, focal infiltrate, effusion, pulmonary edema, or wide mediastinum. Pacer noted. Triage Nursing Note Reviewed Prior/Outside Records Reviewed - prior cardiology visit reviewed Past Med/Surg History Problem List (Updated 09/01/24 @ 21:47 by Alice Landa, ) Elevated troponin (Acute) Pneumonia (Acute) Sepsis Multifocal pneumonia Chronic ischemic vertebrobasilar artery cerebellar stroke Diarrhea (Acute) Cough (Acute) Generalized weakness (Acute) DMII (diabetes mellitus, type 2) Pulmonary edema (Acute) Hypoxia (Acute) Acute on chronic systolic (congestive) heart failure COPD exacerbation SOB (shortness of breath) Chronic heart failure with reduced ejection fraction and diastolic dysfunction Atrial flutter with controlled response Acute hyperkalemia (Acute) Atrial fibrillation Anticoagulated on Coumadin LV (left ventricular) mural thrombus COPD (chronic obstructive pulmonary disease) AICD (automatic cardioverter/defibrillator) present SREEDHAR on CPAP CHF (congestive heart failure) (Acute) CHF (congestive heart failure), NYHA class III (Chronic) "Last EF 20%" Ischemic cardiomyopathy (Chronic) Coronary artery disease (Chronic) H/O cardiac pacemaker (Chronic) "Medtronic [facility]ICD [facility] [place]/19/2013" CHF (congestive heart failure) (Acute) Hypotension (Acute) Medical History Depression Anticoagulated on Coumadin LV (left ventricular) mural thrombus COPD (chronic obstructive pulmonary disease) SREEDHAR on CPAP CHF (congestive heart failure) CHF (congestive heart failure), NYHA class III "Last EF 20%" Ischemic cardiomyopathy Myocardial infarct Pericardial effusion H/O cardiac pacemaker [place]onic [place] [facility] [place] Coronary artery disease Surgical History AICD (automatic cardioverter/defibrillator) present S/P CABG (coronary artery bypass graft) "SVG to LAD, SVG to OM" H/O percutaneous transluminal coronary angioplasty Family History Mother CHF (congestive heart failure) Social History Smoking Status: Former smoker Tobacco Type: Cigarettes Second Hand Exposure: No; Do You Dip or Chew Tobacco: No; Hx Alcohol Use: No Hx Substance Use: Yes Last Used Substance: Days (ago) Substance Use Type Other:: Gummies Preferred Language: Frisian Communication Ability: Effective Block Breaker Required: No Beliefs That Will Affect Care: None marital status: Current Living Situation: Alone and Spouse current occupational status: retired How many Children do You have: 1 Feels Safe at Home: Yes Assistive Devices: Cane and Walker Allergies Allergies Allergy/AdvReac Type Severity Reaction Status Date / Time codeine Allergy Severe HIVES, Verified 08/31/24 19:51 ITCHY Home Meds Home Medications Medication Instructions Recorded Confirmed albuterol sulfate 2.5 mg/3 mL 2.5 mg inhalation QID PRN 03/12/21 08/31/24 (0.083 %) solution for nebulization Shortness Of Breath aspirin 81 mg tablet,delayed 81 mg PO QPM 03/12/21 08/31/24 release atorvastatin 40 mg tablet 40 mg PO QPM 03/12/21 08/31/24 digoxin 125 mcg (0.125 mg) tablet 125 mcg PO QPM 03/12/21 08/31/24 hydrocodone 5 mg-acetaminophen 325 1 tab PO Q8H PRN Pain 03/12/21 08/31/24 mg tablet sacubitril 24 mg-valsartan 26 mg 0.5 tab PO BID 03/12/21 08/31/24 tablet (Entresto) umeclidinium 62.5 mcg-vilanterol 1 inh inhalation DAILY 03/12/21 08/31/24 25 mcg/actuation powdr for inhalation (Anoro Ellipta) venlafaxine 75 mg capsule,extended 150 mg PO HS 03/12/21 08/31/24 release 24 hr warfarin 5 mg tablet 2.5 mg PO 2XWK 03/12/21 08/31/24 warfarin 5 mg tablet 5 mg PO 5XWK 03/12/21 08/31/24 zolpidem 10 mg tablet 10 mg PO HS PRN Sleep 03/12/21 08/31/24 albuterol sulfate 90 mcg/actuation 2 puff inhalation Q4H PRN DYSPNEA 08/31/24 08/31/24 aerosol inhaler (Ventolin HFA) OR WHEEZING empagliflozin 10 mg tablet 10 mg PO QPM 08/31/24 08/31/24 (Jardiance) eplerenone 25 mg tablet 25 mg PO QPM 08/31/24 08/31/24 metoprolol succinate 25 mg 25 mg PO QPM 08/31/24 08/31/24 tablet,extended release 24 hr (Toprol XL) torsemide 40 mg tablet 40 mg PO QPM 08/31/24 08/31/24 Results & Data (ED) Vital Signs Vital Signs - 24 hr 08/31/24 21:42 Pulse Rate 81 Pulse Rate from SpO2 Sensor 80 Respiratory Rate 20 Pulse Oximetry 95 Laboratory Data 09/01/24 05:41 09/01/24 05:41 Lab Results 08/31/24 08/31/24 Range/Units 18:04 21:16 WBC 12.97 H (4.8-10.8) K/ul RBC 5.34 (4.70-6.10) M/uL Hgb 16.2 (14.0-18.0) g/dl Hct 48.8 (42.0-52.0) % MCV 91.4 (80.0-100.0) fL MCH 30.3 (25.0-34.0) pg MCHC 33.2 (32.0-36.0) g/dL RDW Std Deviation 51.9 H (36.4-46.3) fL RDW Coeff of Kasey 15.5 H (11.5-14.5) % Plt Count 168 (130-400) K/uL MPV 10.0 (9.4-12.4) fL Immature Gran % (Auto) 0.8 % Neut % (Auto) 89.1 % Lymph % (Auto) 4.5 % [place] % (Auto) 5.2 % Eos % (Auto) 0.1 % Baso % (Auto) 0.3 % Neut # (Auto) 11.57 H (1.40-6.50) K/uL Lymph # (Auto) 0.58 L (1.20-3.40) K/uL [place] # (Auto) 0.67 H (0.11-0.59) K/uL Eos # (Auto) 0.01 (0.00-0.50) K/uL Baso # (Auto) 0.04 (0.00-0.20) K/uL Immature Gran # (Auto) 0.10 (0.01-0.20) K/uL PT 23.1 H (9.0-12.0) Seconds INR 2.3 H (0.9-1.1) Sodium 137 (136-145) mmol/L Potassium 3.3 L (3.5-5.1) mmol/L Chloride 100 (98-107) mmol/L Carbon Dioxide 27 (21-32) mmol/L Anion Gap 10 (3-11) BUN 13 (6-23) mg/dl Creatinine 0.87 (0.6-1.4) mg/dl Est Cr Clr Drug Dosing 89.0 ml/min eGFR 89.98 BUN/Creatinine Ratio 14.9 (10-20) Glucose 164 H (70-99(Fasting)) mg/dl Calcium 9.4 (8.6-10.3) mg/dl Magnesium 1.7 (1.7-2.4) mg/dl Total Bilirubin 1.6 H (0.2-1.0) mg/dl AST 26 (13-39) U/L ALT 22 (7-52) U/L Alkaline Phosphatase 131 H (34-104) U/L Troponin I High Sens 61.0 H* 58.5 H* (0-20) pg/ml B-Natriuretic Peptide 374 H (0-100) pg/ml Total Protein 7.3 (6.0-8.3) gm/dl Albumin 3.7 (3.4-5.0) gm/dl Globulin 3.6 (2.5-4.0) gm/dl Albumin/Globulin Ratio 1.0 (0.9-2) Lipase 15 (11-82) U/L TSH 1.388 (0.300-4.500) uIu/ml Administered Medications Acetaminophen (Acetaminophen 325 Mg Tab) 650 mg PO Q4H PRN PRN Reason: Pain or Fever Stop: 09/30/24 23:52 Last Admin: 09/01/24 10:39 Dose: 650 mg Documented By: LEROY Hydrocodone Bitart/Acetaminophen (Hydrocodone/Acetamophen 5/325mg Tab) 1 tab PO Q8H PRN PRN Reason: Pain Stop: 09/14/24 23:52 Last Admin: 09/01/24 04:59 Dose: 1 tab Documented By: VIV Albuterol (Albuterol 0.083% Nebu Soln 3 Ml Vial) 2.5 mg INH QID PRN; Protocol PRN Reason: Shortness Of Breath Stop: 09/30/24 23:52 Last Admin: 09/01/24 19:50 Dose: 2.5 mg Documented By: RODRIGO Ceftriaxone Sodium (Rocephin) 2,000 mg in 50 mls @ 100 mls/hr IV Q24H [facility] Stop: 09/06/24 19:59 Last Infusion: 09/01/24 21:16 Dose: Infused Documented By: KDErnesto Admin: 09/01/24 20:30 Dose: 100 mls/hr Documented By: NANCY Insulin Aspart (Insulin Aspart Per Unit Charge) 0 units SC ACHS [facility] Stop: 10/01/24 11:29 Last Admin: 09/01/24 18:15 Dose: Not Given Documented By: Admin: 09/01/24 12:08 Dose: Not Given Documented By: LEROY Miscellaneous ((Eplerenone 25 Mg Tablet)~Order Awaiting Action) 1 each N/A QS [facility] Stop: 10/01/24 07:59 Last Admin: 09/01/24 16:45 Dose: Not Given Documented By: Admin: 09/01/24 08:41 Dose: Not Given Documented By: LEROY Nitroglycerin (Nitroglycerin Sl 0.4 Mg/Tab Tab) 0.4 mg SL Q5M PRN PRN Reason: Chest Pain Stop: 09/30/24 23:52 Last Admin: 09/01/24 19:42 Dose: 0.4 mg Documented By: NANCY Sacubitril/Valsartan (Valsartan/Sacubitril 26/24mg Tab) 0.5 tab PO BID [facility] Stop: 10/01/24 08:59 Last Admin: 09/01/24 08:40 Dose: 0.5 tab Documented By: LEROY Umeclidinium/Vilanterol (Umeclidinium/Vilanterol 62.5/25mcg 7 Puffs/Inhaler) 1 puffs INH DAILY [facility] Stop: 10/01/24 08:59 Last Admin: 09/01/24 08:40 Dose: 1 puffs Documented By: LEROY Warfarin Sodium (Warfarin Sod 5 Mg Tab) 5 mg PO SuTuWeThSa [facility] Stop: 10/01/24 15:59 Last Admin: 09/01/24 16:44 Dose: 5 mg Documented By: LEROY Zolpidem Tartrate (Zolpidem Tartrate 5 Mg Tab) 10 mg PO HS PRN PRN Reason: Sleep Stop: 09/30/24 23:52 Last Admin: 09/01/24 00:29 Dose: 10 mg Documented By: VIV Discontinued Medications Sodium Chloride (Nss) 250 mls @ 999 mls/hr IV .Q16M ONE Stop: 08/31/24 18:33 Last Infusion: 08/31/24 18:56 Dose: Infused Documented By: Admin: 08/31/24 18:37 Dose: 999 mls/hr Documented By: REDDY(2) Acetaminophen (Ofirmev) 1,000 mg in 100 mls @ 400 mls/hr IV NOW STA Stop: 08/31/24 19:00 Last Infusion: 08/31/24 20:26 Dose: Infused Documented By: Admin: 08/31/24 18:56 Dose: 400 mls/hr Documented By: REDDY Ceftriaxone Sodium (Rocephin) 2,000 mg in 50 mls @ 100 mls/hr IV NOW STA Stop: 08/31/24 20:35 Last Infusion: 09/01/24 00:20 Dose: Infused Documented By: Admin: 08/31/24 20:33 Dose: 100 mls/hr Documented By: REDDY Doxycycline Hyclate 100 mg/ (Dextrose) 100 mls @ 50 mls/hr IV NOW STA Stop: 08/31/24 22:05 Last Infusion: 08/31/24 23:31 Dose: Infused Documented By: Admin: 08/31/24 21:28 Dose: 50 mls/hr Documented By: REDDY Doxycycline Hyclate 100 mg/ (Dextrose) 100 mls @ 50 mls/hr IV Q12H [facility] Stop: 09/06/24 08:59 Last Infusion: 09/01/24 12:09 Dose: Infused Documented By: Admin: 09/01/24 08:40 Dose: 50 mls/hr Documented By: LEROY Morphine Sulfate (Morphine Sulfate 2 Mg/Ml Carp) 2 mg IV NOW STA Stop: 09/01/24 19:50 Last Admin: 09/01/24 19:57 Dose: 2 mg Documented By: KDErnesto Potassium Chloride (Potassium Chloride Crtab 20 Meq Tabcr) 40 meq PO NOW STA Stop: 08/31/24 21:05 Last Admin: 08/31/24 21:36 Dose: 40 meq Documented By: PAG Potassium Chloride (Potassium Chloride Crtab 20 Meq Tabcr) 40 meq PO NOW STA Stop: 09/01/24 07:36 Last Admin: 09/01/24 08:40 Dose: 40 meq Documented By: BT Imaging Data Radiologist's Impression: Chest X-Ray 08/31/24 18:19 Chest radiograph, one view History: Shortness of breath Comparison: None Findings: Single AP view of the chest performed. No focal consolidation or pleural effusion. No pneumothorax. Cardiomegaly. Left chest wall 3-lead AICD. Median sternotomy wires. Normal pulmonary vascularity. No evidence for lymphadenopathy. No visualized bony or soft tissue abnormality. Impression: No acute process Electronically signed by Elgin Moraes 08-31-2024 7:01 PM Abdomen/Pelvis CT 08/31/24 18:58 Clinical History: Diarrhea and weakness Technique: Axial computed tomography images were obtained of the abdomen and pelvis without intravenous contrast. Findings: The liver is overall of normal size, attenuation, and contour with no sign of cirrhosis or significant fatty infiltration. No definite liver mass lesion is seen on this noncontrast study. A small gallstone is present. There is no sign of acute cholecystitis. No bile duct dilatation is noted. The spleen is of normal size. No focal splenic lesion is evident. The pancreas appears normal with no sign of acute or chronic pancreatitis and no mass lesion noted. The pancreatic duct is of normal caliber. The adrenal glands appear unremarkable. No renal or proximal ureteral calculi are seen. There is no hydronephrosis. No definite renal mass lesion is identified. There is a large 7.8 cm right renal cyst. The aorta is of normal caliber. No abdominal adenopathy is seen. There is prominence of the gastric wall that could be due to the decompressed state. There is no sign of small bowel obstruction. The colon appears unremarkable. There is no definite sign of appendicitis. No free intraperitoneal fluid or air is identified. No distal ureteral or bladder calculi are seen. No obvious bladder mass lesion is evident. The iliac arteries are of normal caliber. No pelvic adenopathy is noted. The prostate is of normal size. There are multifocal nodular alveolar and interstitial opacities in the right lower lobe, consistent with pneumonia. Pacemaker leads are present. There is elevation of the right hemidiaphragm. Lumbar degenerative disc disease is seen. No fracture is identified. No focal osseous lesion is seen Impression: 1. Right lower lobe pneumonia 2. Cholelithiasis without evidence of acute cholecystitis 3. Right renal cyst ACT 112: Positive. There are findings on this exam that require communication between the performing entity and the patient following Patient Test Result Information Act ([place] ACT 112) guidelines. Electronically signed by Kali Rojo 08-31-2024 8:[address] 08/31/24 18:58 Clinical History: Headache for 3 days Technique: Axial computed tomography images were obtained of the brain without intravenous contrast. Findings: There is diffuse cerebral atrophy, within expected limits for the patient's age. Areas of decreased attenuation are seen within the periventricular white matter, likely representing chronic small vessel ischemic disease. There is an old infarct of the right cerebellar hemisphere. There is a right thalamic infarct that is likely old but could be subacute No intracranial hemorrhage is evident. No definite mass lesion is seen on this noncontrast examination. There is no midline shift or other form of herniation. No hydrocephalus is seen. No fracture is identified. The orbits and the visualized paranasal sinuses appear unremarkable. The mastoid air cells appear clear. Impression: 1. Cerebral atrophy, old cerebellar infarct and chronic small vessel ischemic disease 2. Right thalamic infarct, likely old but possibly subacute. MRI with diffusion-weighted images could better establish chronicity ACT 112: Positive. There are findings on this exam that require communication between the performing entity and the patient following Patient Test Result Information Act ([place] ACT 112) guidelines. Electronically signed by Kali Rojo 08-31-2024 7:57 PM Discharge Plan Visit Data Chief Complaint: Weakness Stated Complaint: WEAKNESS ED Provider: Alice Landa Discharge Problem: Generalized weakness, Cough, Diarrhea, Pneumonia, Elevated troponin Patient Disposition: Admitted As Inpatient Condition: Fair Discharge Instructions Interventions: ED Discharge Assessment Last Done: 08/31/24 23:55
[2024-08-31 18:57] LABS: INR 2.3 (0.9-1.1); Prothrombin Time 23.1 Seconds (9.0-12.0)
--- NOTE | 2024-08-31 19:02 | XRay Report ---
Chest radiograph, one view History: Shortness of breath Comparison: None Findings: Single AP view of the chest performed. No focal consolidation or pleural effusion. No pneumothorax. Cardiomegaly. Left chest wall 3-lead AICD. Median sternotomy wires. Normal pulmonary vascularity. No evidence for lymphadenopathy. No visualized bony or soft tissue abnormality. Impression: No acute process Electronically signed by Elgin Moraes 08-31-2024 7:01 PM
[2024-08-31 19:05] LABS: Thyroid Stimulating Hormone 1.388 uIu/ml (0.300-4.500)
[2024-08-31 19:43] LABS: Chlamydia pneumoniae PCR Not Detected (NotDetected); Coronavirus 229E PCR Not Detected (NotDetected); Coronavirus CoV-2 (COVID19)PCR Not Detected (NotDetected); Coronavirus HKU1 PCR Not Detected (NotDetected); Coronavirus NL63 PCR Not Detected (NotDetected); Coronavirus OC43PCR Not Detected (NotDetected); Human Metapneumovirus PCR Not Detected (NotDetected); Parainfluenza Virus 1 PCR Not Detected (NotDetected); Parainfluenza Virus 2 PCR Not Detected (NotDetected); Parainfluenza Virus 3 PCR Not Detected (NotDetected); Parainfluenza Virus 4 PCR Not Detected (NotDetected); Respiratory Syncytial VirusPCR Not Detected (NotDetected); Rhinovirus/Enterovirus PCR Not Detected (NotDetected)
--- NOTE | 2024-08-31 19:57 | CT Scan Report ---
Clinical History: Headache for 3 days Technique: Axial computed tomography images were obtained of the brain without intravenous contrast. Findings: There is diffuse cerebral atrophy, within expected limits for the patient's age. Areas of decreased attenuation are seen within the periventricular white matter, likely representing chronic small vessel ischemic disease. There is an old infarct of the right cerebellar hemisphere. There is a right thalamic infarct that is likely old but could be subacute No intracranial hemorrhage is evident. No definite mass lesion is seen on this noncontrast examination. There is no midline shift or other form of herniation. No hydrocephalus is seen. No fracture is identified. The orbits and the visualized paranasal sinuses appear unremarkable. The mastoid air cells appear clear. Impression: 1. Cerebral atrophy, old cerebellar infarct and chronic small vessel ischemic disease 2. Right thalamic infarct, likely old but possibly subacute. MRI with diffusion-weighted images could better establish chronicity ACT 112: Positive. There are findings on this exam that require communication between the performing entity and the patient following Patient Test Result Information Act ([place] ACT 112) guidelines. Electronically signed by Kali Rojo 08-31-2024 7:57 PM
--- NOTE | 2024-08-31 20:00 | CT Scan Report ---
Clinical History: Diarrhea and weakness Technique: Axial computed tomography images were obtained of the abdomen and pelvis without intravenous contrast. Findings: The liver is overall of normal size, attenuation, and contour with no sign of cirrhosis or significant fatty infiltration. No definite liver mass lesion is seen on this noncontrast study. A small gallstone is present. There is no sign of acute cholecystitis. No bile duct dilatation is noted. The spleen is of normal size. No focal splenic lesion is evident. The pancreas appears normal with no sign of acute or chronic pancreatitis and no mass lesion noted. The pancreatic duct is of normal caliber. The adrenal glands appear unremarkable. No renal or proximal ureteral calculi are seen. There is no hydronephrosis. No definite renal mass lesion is identified. There is a large 7.8 cm right renal cyst. The aorta is of normal caliber. No abdominal adenopathy is seen. There is prominence of the gastric wall that could be due to the decompressed state. There is no sign of small bowel obstruction. The colon appears unremarkable. There is no definite sign of appendicitis. No free intraperitoneal fluid or air is identified. No distal ureteral or bladder calculi are seen. No obvious bladder mass lesion is evident. The iliac arteries are of normal caliber. No pelvic adenopathy is noted. The prostate is of normal size. There are multifocal nodular alveolar and interstitial opacities in the right lower lobe, consistent with pneumonia. Pacemaker leads are present. There is elevation of the right hemidiaphragm. Lumbar degenerative disc disease is seen. No fracture is identified. No focal osseous lesion is seen Impression: 1. Right lower lobe pneumonia 2. Cholelithiasis without evidence of acute cholecystitis 3. Right renal cyst ACT 112: Positive. There are findings on this exam that require communication between the performing entity and the patient following Patient Test Result Information Act ([place] ACT 112) guidelines. Electronically signed by Kali Rojo 08-31-2024 8:00 PM
[2024-08-31] MEDS: cefTRIAXone SODIUM 2,000 MG/50 ML BAG IV STA (20:33)
[2024-08-31] MEDS: DOXYCYCLINE HYCLATE 100 MG in DEXTROSE 5% MINI-B 100 ML IV STA (21:28)
[2024-08-31] MEDS: POTASSIUM CHLORIDE CRTAB 20 MEQ TABCR PO STA (21:36)
--- NOTE | 2024-08-31 22:07 | History & Physical Report ---
Date of Service August 31, 2024 Assessment & Plan (1) Generalized weakness: Plan: 74-year-old male with past medical history significant for type 2 diabetes, dyslipidemia, COPD, obstructive sleep apnea on CPAP, pulmonary nodules, chronic systolic heart failure, status post AICD, history of left ventricular mural thrombus following PA, pulmonary hypertension, history of CAD, permanent atrial fibrillation, status post atrioventricular hao ablation, persistent insomnia, depression with anxiety who lives at home with his and ambulates without support comes because of weakness and cough going on for last 4 days. Since last 4 days he is also having severe headaches. Feeling generalized weakness. Not able to ambulate because of weakness. Also having some cough. As was not feeling better called his daughter and came to the hospital. He has chronic chest pains. He was also feeling short of breath. In the ER he was saturating 89% and on 2 L oxygen he is saturating okay currently. Vision is okay. No headache. No runny nose. Has some sore throat. No difficulty swallowing. Appetite is not great. No abdominal pain. Last couple of days he was having diarrhea. Denies any blood in the stools. Micturating okay. No rash. Hemodynamics are okay currently. Generalized weakness Cough and diarrhea Headaches CT abdomen pelvis showing right lower lobe pneumonia Empirically started on Rocephin and doxycycline Will follow CT chest Will follow stool studies PT OT when stable Monitor on telemetry Headaches Improved with IV Tylenol CT head showing right thalamic infarct likely old but possible subacute . On exam patient has mild decrease sensation in the left lower leg which patient not sure new or old Patient has ICD Will get MRI scan if its ICD compatible Neuroconsult in a.m. Hypoxia Saturating 89% on room air Requiring 2 L oxygen Possible from pneumonia Will follow CT chest Elevated troponin Initial troponin 61 repeat is 58.5 Mostly demand ischemia We will follow serial enzymes Currently patient has no chest pain COPD Continue home inhalers Obstructive sleep apnea On CPAP nightly Permanent atrial fibrillation Status post AV hao ablation On warfarin and metoprolol succinate and digoxin INR 2.3 we will follow PT/INR History of severe ischemic cardiomyopathy Chronic systolic CHF with EF of 15 to 20% and grade 3 diastolic dysfunction Status post dual-chamber pacemaker defibrillator in 2013 which was upgraded to a biventricular rate possible implantable cardiac defibrillator in 2021 On metoprolol succinate, Entresto, torsemide, eplerenone and digoxin and Jardiance Will monitor for volume overload History of severe pulm hypertension History of CAD status post CABG On aspirin beta-francesco and statin Diabetes On Jardiance iss We will follow HbA1c levels Monitor Hyperlipidemia Statin Hypertension On Entresto, eplerenone, torsemide and metoprolol succinate Monitor DVT prophylaxis On Coumadin. INR therapeutic Disposition Telemetry Full code. History of Present Illness Chief Complaint: Weakness and cough Primary Care Provider: Antonio Meredith MD 74-year-old male with past medical history significant for type 2 diabetes, dyslipidemia, COPD, obstructive sleep apnea on CPAP, pulmonary nodules, chronic systolic heart failure, status post AICD, history of left ventricular mural thrombus following PA, pulmonary hypertension, history of CAD, permanent atrial fibrillation, status post atrioventricular hao ablation, persistent insomnia, depression with anxiety who lives at home with his and ambulates without support comes because of weakness and cough going on for last 4 days. Since last 4 days he is also having severe headaches. Feeling generalized weakness. Not able to ambulate because of weakness. Also having some cough. As was not feeling better called his daughter and came to the hospital. He has chronic chest pains. He was also feeling short of breath. In the ER he was saturating 89% and on 2 L oxygen he is saturating okay currently. Vision is okay. No headache. No runny nose. Has some sore throat. No difficulty swallowing. Appetite is not great. No abdominal pain. Last couple of days he was having diarrhea. Denies any blood in the stools. Micturating okay. No rash. Hemodynamics are okay currently. Past medical history. As mentioned above Past surgical history. Left and right heart catheterization. ICD placement. Social history. . Quit smoking 2011. Smoked 1 pack a day for 35 years. No alcohol use. No drug use. Family history. Mother had CHF. Allergies Allergy/AdvReac Type Severity Reaction Status Date / Time codeine Allergy Severe HIVES, Verified 08/31/24 19:51 ITCHY Home Medications Medication Instructions Recorded Confirmed Type albuterol sulfate 2.5 mg/3 mL 2.5 mg inhalation QID PRN 03/12/21 08/31/24 History (0.083 %) solution for nebulization Shortness Of Breath aspirin 81 mg tablet,delayed 81 mg PO QPM 03/12/21 08/31/24 History release atorvastatin 40 mg tablet 40 mg PO QPM 03/12/21 08/31/24 History digoxin 125 mcg (0.125 mg) tablet 125 mcg PO QPM 03/12/21 08/31/24 History hydrocodone 5 mg-acetaminophen 325 1 tab PO Q8H PRN Pain 03/12/21 08/31/24 History mg tablet sacubitril 24 mg-valsartan 26 mg 0.5 tab PO BID 03/12/21 08/31/24 History tablet (Entresto) umeclidinium 62.5 mcg-vilanterol 1 inh inhalation DAILY 03/12/21 08/31/24 History 25 mcg/actuation powdr for inhalation (Anoro Ellipta) venlafaxine 75 mg capsule,extended 150 mg PO HS 03/12/21 08/31/24 History release 24 hr warfarin 5 mg tablet 2.5 mg PO 2XWK 03/12/21 08/31/24 History warfarin 5 mg tablet 5 mg PO 5XWK 03/12/21 08/31/24 History zolpidem 10 mg tablet 10 mg PO HS PRN Sleep 03/12/21 08/31/24 History albuterol sulfate 90 mcg/actuation 2 puff inhalation Q4H PRN DYSPNEA 08/31/24 08/31/24 History aerosol inhaler (Ventolin HFA) OR WHEEZING empagliflozin 10 mg tablet 10 mg PO QPM 08/31/24 08/31/24 History (Jardiance) eplerenone 25 mg tablet 25 mg PO QPM 08/31/24 08/31/24 History metoprolol succinate 25 mg 25 mg PO QPM 08/31/24 08/31/24 History tablet,extended release 24 hr (Toprol XL) torsemide 40 mg tablet 40 mg PO QPM 08/31/24 08/31/24 History Past Med/Surg History Problem List (Updated 08/31/24 @ 18:56 by Alice Landa DO) Diarrhea (Acute) Cough (Acute) Generalized weakness (Acute) DMII (diabetes mellitus, type 2) Pulmonary edema (Acute) Hypoxia (Acute) Acute on chronic systolic (congestive) heart failure COPD exacerbation SOB (shortness of breath) Chronic heart failure with reduced ejection fraction and diastolic dysfunction Atrial flutter with controlled response Acute hyperkalemia (Acute) Atrial fibrillation Anticoagulated on Coumadin LV (left ventricular) mural thrombus COPD (chronic obstructive pulmonary disease) AICD (automatic cardioverter/defibrillator) present SREEDHAR on CPAP CHF (congestive heart failure) (Acute) CHF (congestive heart failure), NYHA class III (Chronic) "Last EF 20%" Ischemic cardiomyopathy (Chronic) Coronary artery disease (Chronic) H/O cardiac pacemaker (Chronic) "[employer]onic AICD by Dr. Jiang, [facility] 07/19/2013" CHF (congestive heart failure) (Acute) Hypotension (Acute) Medical History Depression Anticoagulated on Coumadin LV (left ventricular) mural thrombus COPD (chronic obstructive pulmonary disease) SREEDHAR on CPAP CHF (congestive heart failure) CHF (congestive heart failure), NYHA class III "Last EF 20%" Ischemic cardiomyopathy Myocardial infarct Pericardial effusion H/O cardiac pacemaker "[employer]onic AICD by Dr. Jiang, [facility] 07/19/2013" Coronary artery disease Surgical History AICD (automatic cardioverter/defibrillator) present S/P CABG (coronary artery bypass graft) "SVG to LAD, SVG to OM" H/O percutaneous transluminal coronary angioplasty Family History Mother CHF (congestive heart failure) Social History Smoking Status: Former smoker Tobacco Type: Cigarettes Second Hand Exposure: No; Do You Dip or Chew Tobacco: No; Hx Alcohol Use: No Hx Substance Use: Yes Last Used Substance: Days (ago) Substance Use Type Other:: Gummies Preferred Language: Danish Communication Ability: Effective Project Development Coordinator Required: No Beliefs That Will Affect Care: None marital status: Current Living Situation: Alone and Spouse current occupational status: retired How many Children do You have: 1 Feels Safe at Home: Yes Assistive Devices: Denture - Upper and Denture - Lower Review of Systems Review of Systems: All systems reviewed & are unremarkable except as noted in HPI & below Physical Exam Physical Exam: General- Not in acute distress Head- atraumatic Eyes- PERRL. ENT- oropharynx clear Neck- supple, no JVD. Lungs- clear to auscultation no wheezing or crackles Heart- regular rhythm; no murmur, no gallop. Abdomen- normal bowel sounds, soft, nontender, no distension Extremities- trace pretibial edema, no erythema seen Neuro- alert, oriented PERRL, no facial palsy; no dysarthria; motor 5/5 bilaterally; no pronator drift,sensations slightly low on left leg position sense intact. Results & Data Results & Data Vital Signs (Past 12 Hours) Vital Signs Temp Pulse Pulse Resp BP BP Pulse Ox 08/31/24 19:21 80 20 94 08/31/24 19:06 80 23 95 08/31/24 19:00 111/66 08/31/24 19:00 111/66 08/31/24 18:42 80 19 122/84 96 08/31/24 18:36 89 L 08/31/24 18:09 80 08/31/24 18:05 36.7 C 80 20 112/69 90 O2 Del Method O2 Flow Rate 08/31/24 19:21 08/31/24 19:06 08/31/24 19:00 08/31/24 19:00 08/31/24 18:42 Nasal Cannula 2 08/31/24 18:36 Room Air 08/31/24 18:09 08/31/24 18:05 Room Air Diagnostic Findings Laboratory Results WBC 12.97 K/ul (4.8-10.8) H 08/31/24 18:04 RBC 5.34 M/uL (4.70-6.10) 08/31/24 18:04 Hgb 16.2 g/dl (14.0-18.0) 08/31/24 18:04 Hct 48.8 % (42.0-52.0) 08/31/24 18:04 MCV 91.4 fL (80.0-100.0) 08/31/24 18:04 MCH 30.3 pg (25.0-34.0) 08/31/24 18:04 MCHC 33.2 g/dL (32.0-36.0) 08/31/24 18:04 RDW Std Deviation 51.9 fL (36.4-46.3) H 08/31/24 18:04 RDW Coeff of [place] 15.5 % (11.5-14.5) H 08/31/24 18:04 Plt Count 168 K/uL (130-400) 08/31/24 18:04 MPV 10.0 fL (9.4-12.4) 08/31/24 18:04 Immature Gran % (Auto) 0.8 % 08/31/24 18:04 Neut % (Auto) 89.1 % 08/31/24 18:04 Lymph % (Auto) 4.5 % 08/31/24 18:04 [place] % (Auto) 5.2 % 08/31/24 18:04 Eos % (Auto) 0.1 % 08/31/24 18:04 Baso % (Auto) 0.3 % 08/31/24 18:04 Neut # (Auto) 11.57 K/uL (1.40-6.50) H 08/31/24 18:04 Lymph # (Auto) 0.58 K/uL (1.20-3.40) L 08/31/24 18:04 [place] # (Auto) 0.67 K/uL (0.11-0.59) H 08/31/24 18:04 Eos # (Auto) 0.01 K/uL (0.00-0.50) 08/31/24 18:04 Baso # (Auto) 0.04 K/uL (0.00-0.20) 08/31/24 18:04 Immature Gran # (Auto) 0.10 K/uL (0.01-0.20) 08/31/24 18:04 PT 23.1 Seconds (9.0-12.0) H 08/31/24 18:04 INR 2.3 (0.9-1.1) H 08/31/24 18:04 Sodium 137 mmol/L (136-145) 08/31/24 18:04 Potassium 3.3 mmol/L (3.5-5.1) L 08/31/24 18:04 Chloride 100 mmol/L (98-107) 08/31/24 18:04 Carbon Dioxide 27 mmol/L (21-32) 08/31/24 18:04 Anion Gap 10 (3-11) 08/31/24 18:04 BUN 13 mg/dl (6-23) 08/31/24 18:04 Creatinine 0.87 mg/dl (0.6-1.4) 08/31/24 18:04 Est Cr Clr Drug Dosing 89.0 ml/min 08/31/24 18:04 eGFR 89.98 08/31/24 18:04 BUN/Creatinine Ratio 14.9 (10-20) 08/31/24 18:04 Glucose 164 mg/dl (70-99(Fasting)) H 08/31/24 18:04 Calcium 9.4 mg/dl (8.6-10.3) 08/31/24 18:04 Magnesium 1.7 mg/dl (1.7-2.4) 08/31/24 18:04 Total Bilirubin 1.6 mg/dl (0.2-1.0) H 08/31/24 18:04 AST 26 U/L (13-39) 08/31/24 18:04 ALT 22 U/L (7-52) 08/31/24 18:04 Alkaline Phosphatase 131 U/L (34-104) H 08/31/24 18:04 Troponin I High Sens 58.5 pg/ml (0-20) H* 08/31/24 21:16 B-Natriuretic Peptide 374 pg/ml (0-100) H 08/31/24 18:04 Total Protein 7.3 gm/dl (6.0-8.3) 08/31/24 18:04 Albumin 3.7 gm/dl (3.4-5.0) 08/31/24 18:04 Globulin 3.6 gm/dl (2.5-4.0) 08/31/24 18:04 Albumin/Globulin Ratio 1.0 (0.9-2) 08/31/24 18:04 Lipase 15 U/L (11-82) 08/31/24 18:04 TSH 1.388 uIu/ml (0.300-4.500) 08/31/24 18:04 Urine Color Yellow 08/31/24 Unknown Urine Appearance Clear (Clear) 08/31/24 Unknown Urine pH 5.5 (4.5-7.5) 08/31/24 Unknown Ur Specific [place] 1.040 (1.000-1.030) H 08/31/24 Unknown Urine Protein 1+ (Negative) H 08/31/24 Unknown Urine Glucose (UA) 3+ (Negative) H 08/31/24 Unknown Urine Ketones Negative (Negative) 08/31/24 Unknown Urine Blood Trace (Negative) H 08/31/24 Unknown Urine Nitrite Negative (Negative) 08/31/24 Unknown Urine Bilirubin Negative (Negative) 08/31/24 Unknown Urine Urobilinogen Negative (Negative) 08/31/24 Unknown Ur Leukocyte Esterase Negative (Negative) 08/31/24 Unknown Urine WBC (Auto) 0-5 /hpf (0-5) 08/31/24 Unknown Urine RBC (Auto) 0-2 /hpf (0-2) 08/31/24 Unknown U Hyaline Cast (Auto) 0-2 /lpf (0-2) 08/31/24 Unknown U Epithel Cells (Auto) 0-2 /hpf (0-2) 08/31/24 Unknown Urine Bacteria (Auto) None Seen (None Seen) 08/31/24 Unknown Urine Comment 08/31/24 Unknown Adenovirus (PCR) Not Detected (NotDetected) 08/31/24 Unknown B. pertussis DNA (PCR) Not Detected (NotDetected) 08/31/24 Unknown B.parapertussis DNA PCR Not Detected (NotDetected) 08/31/24 Unknown C. pneumoniae DNA (PCR) Not Detected (NotDetected) 08/31/24 Unknown Coronavirus OC43 (PCR) Not Detected (NotDetected) 08/31/24 Unknown Coronavirus HKU1 (PCR) Not Detected (NotDetected) 08/31/24 Unknown Coronavirus 229E (PCR) Not Detected (NotDetected) 08/31/24 Unknown SARS-CoV-2 (PCR) Not Detected (NotDetected) 08/31/24 Unknown Coronavirus NL63 (PCR) Not Detected (NotDetected) 08/31/24 Unknown Human Metapneumovir PCR Not Detected (NotDetected) 08/31/24 Unknown Influenza Type A (PCR) Not Detected (NotDetected) 08/31/24 Unknown Influenza Type B (PCR) Not Detected (NotDetected) 08/31/24 Unknown M. pneumoniae (PCR) Not Detected (NotDetected) 08/31/24 Unknown Parainfluenza 1 (PCR) Not Detected (NotDetected) 08/31/24 Unknown Parainfluenza 2 (PCR) Not Detected (NotDetected) 08/31/24 Unknown Parainfluenza 3 (PCR) Not Detected (NotDetected) 08/31/24 Unknown Parainfluenza 4 (PCR) Not Detected (NotDetected) 08/31/24 Unknown RSV (PCR) Not Detected (NotDetected) 08/31/24 Unknown Entero/Rhino (PCR) Not Detected (NotDetected) 08/31/24 Unknown Impressions Chest X-Ray 08/31/24 18:19 Chest radiograph, one view History: Shortness of breath Comparison: None Findings: Single AP view of the chest performed. No focal consolidation or pleural effusion. No pneumothorax. Cardiomegaly. Left chest wall 3-lead AICD. Median sternotomy wires. Normal pulmonary vascularity. No evidence for lymphadenopathy. No visualized bony or soft tissue abnormality. Impression: No acute process Electronically signed by Elgin Moraes 08-31-2024 7:01 PM Abdomen/Pelvis CT 08/31/24 18:58 Clinical History: Diarrhea and weakness Technique: Axial computed tomography images were obtained of the abdomen and pelvis without intravenous contrast. Findings: The liver is overall of normal size, attenuation, and contour with no sign of cirrhosis or significant fatty infiltration. No definite liver mass lesion is seen on this noncontrast study. A small gallstone is present. There is no sign of acute cholecystitis. No bile duct dilatation is noted. The spleen is of normal size. No focal splenic lesion is evident. The pancreas appears normal with no sign of acute or chronic pancreatitis and no mass lesion noted. The pancreatic duct is of normal caliber. The adrenal glands appear unremarkable. No renal or proximal ureteral calculi are seen. There is no hydronephrosis. No definite renal mass lesion is identified. There is a large 7.8 cm right renal cyst. The aorta is of normal caliber. No abdominal adenopathy is seen. There is prominence of the gastric wall that could be due to the decompressed state. There is no sign of small bowel obstruction. The colon appears unremarkable. There is no definite sign of appendicitis. No free intraperitoneal fluid or air is identified. No distal ureteral or bladder calculi are seen. No obvious bladder mass lesion is evident. The iliac arteries are of normal caliber. No pelvic adenopathy is noted. The prostate is of normal size. There are multifocal nodular alveolar and interstitial opacities in the right lower lobe, consistent with pneumonia. Pacemaker leads are present. There is elevation of the right hemidiaphragm. Lumbar degenerative disc disease is seen. No fracture is identified. No focal osseous lesion is seen Impression: 1. Right lower lobe pneumonia 2. Cholelithiasis without evidence of acute cholecystitis 3. Right renal cyst ACT 112: Positive. There are findings on this exam that require communication between the performing entity and the patient following Patient Test Result Information Act ([place] ACT 112) guidelines. Electronically signed by Kali Rojo 08-31-2024 8:[address] 08/31/24 18:58 Clinical History: Headache for 3 days Technique: Axial computed tomography images were obtained of the brain without intravenous contrast. Findings: There is diffuse cerebral atrophy, within expected limits for the patient's age. Areas of decreased attenuation are seen within the periventricular white matter, likely representing chronic small vessel ischemic disease. There is an old infarct of the right cerebellar hemisphere. There is a right thalamic infarct that is likely old but could be subacute No intracranial hemorrhage is evident. No definite mass lesion is seen on this noncontrast examination. There is no midline shift or other form of herniation. No hydrocephalus is seen. No fracture is identified. The orbits and the visualized paranasal sinuses appear unremarkable. The mastoid air cells appear clear. Impression: 1. Cerebral atrophy, old cerebellar infarct and chronic small vessel ischemic disease 2. Right thalamic infarct, likely old but possibly subacute. MRI with diffusion-weighted images could better establish chronicity ACT 112: Positive. There are findings on this exam that require communication between the performing entity and the patient following Patient Test Result Information Act ([place] ACT 112) guidelines. Electronically signed by Kali Rojo 08-31-2024 7:57 PM ECG Additional Comments: ECG. Ventricular paced rhythm with rate of 83. Code Status & VTE Plan VTE Prophylaxis Plan VTE Prophylaxis will be ordered: Yes
[2024-08-31] MEDS ORDERED: ALBUTEROL HFA 8 GM INHALER INH PRN (23:53)
[2024-08-31] MEDS ORDERED: POLYETHYLENE (MIRALAX) 17 GM PACK PO PRN (23:53)
[2024-09-01] MEDS: ZOLPIDEM TARTRATE 5 MG TAB PO PRN (00:29)
--- NOTE | 2024-09-01 01:31 | CT Scan Report ---
EXAM: CT chest diagnostic wo con CLINICAL HISTORY: pneumonia? on ct abd/pelvis. has cough TECHNIQUE: Contiguous axial images were obtained from the neck base through the upper abdomen without contrast. In addition, sagittal and coronal reconstructions were performed to potentially increase the sensitivity for the detection of disease. CT scan was performed according to ALARA (as low as reasonable achievable). 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 FINDINGS: Multiple small peribronchiolar nodular infiltrates are noted involving superior and posterior basal segment of right lower lobe. Dilated right lower lobe segmental Bronchi and shows intrinsic hypodensity/ mucus clogging is seen. Multiple tiny innumerable centrilobular nodular infiltrates with ground-glass attenuation are noted involving Bilateral lower lobes and lingula- possibility of infective etiology/bronchiolitis. Small calcified granuloma is noted involving left posterior basal segment. Multiple subcentimeter sized nodes are noted involving prevascular and pretracheal lymph nodes are seen. The central airways are patent. There are no pleural effusions. No pneumothorax is seen. Evaluation of the mediastinum and kali is limited due to the lack of intravenous contrast. No axillary or mediastinal adenopathy is identified. The thyroid is unremarkable. The heart, aorta, and pulmonary arteries are of normal size and configuration. There are coronary artery and aortic atherosclerotic calcifications. No pericardial effusion is identified. Imaged portions of the upper abdomen are unremarkable. No aggressive appearing osseous lesions are identified. IMPRESSION: 1. Multiple small peribronchiolar nodular infiltrates are noted involving superior and posterior basal segment of right lower lobe- possibility of infective etiology..-new finding. 2. Dilated right lower lobe segmental Bronchi and shows intrinsic hypodensity/ mucus clogging is seen.-new finding.- post-contrast evaluation suggested. 3. Multiple tiny innumerable centrilobular nodular infiltrates with ground-glass attenuation are noted involving Bilateral lower lobes and lingula- possibility of infective etiology/bronchiolitis.-increased . 4. Small calcified granuloma is noted involving left posterior basal segment.-stable. 5. Resolution of prior bilateral pleural effusion. Electronically signed by Alejandro Kwan 09-01-2024 01:31 AM
[2024-09-01 02:03] LABS: Cdiff Toxin B Gene (2yr or >) Negative Cdiff Gene (Neg)
[2024-09-01 02:35] LABS: Adenovirus F 40/41 PCR Not Detected (NotDetected); Campylobacter PCR Not Detected (NotDetected); Enteroaggregative E.coli(EAEC) Not Detected (NotDetected); Shiga-like Toxin E.coli (STEC) Not Detected (NotDetected); Vibrio species PCR Not Detected (NotDetected)
[2024-09-01] MEDS: HYDROCODONE/ACETAMOPHEN 5/325MG TAB PO PRN (04:59)
[2024-09-01 06:25] LABS: Hematocrit (blood only) 51.9 % (42.0-52.0); Hemoglobin 16.7 g/dl (14.0-18.0); Immature Granulocytes # (auto) 0.05 K/uL (0.01-0.20); Immature Granulocytes % (auto) 0.4 %; Mean Corpuscular Hemoglobin 30.1 pg (25.0-34.0); Mean Corpuscular Volume 93.7 fL (80.0-100.0); Platelet Count 172 K/uL (130-400); RDW Standard Deviation 53.4 fL (36.4-46.3); Red Blood Count 5.54 M/uL (4.70-6.10); White Blood Count 11.59 K/ul (4.8-10.8)
[2024-09-01 06:40] LABS: Anion Gap 9.0 (3-11); Calcium 9.9 mg/dl (8.6-10.3); Carbon Dioxide 28.0 mmol/L (21-32); Chloride 103.0 mmol/L (98-107); Magnesium 2.0 mg/dl (1.7-2.4); Potassium 3.4 mmol/L (3.5-5.1); Sodium 140.0 mmol/L (136-145)
[2024-09-01 06:45] LABS: Blood Urea Nitrogen 14.0 mg/dl (6-23); Creatinine Clr Calc Pharmacy 93.4 ml/min; Glucose 147.0 mg/dl (70-99(Fasting))
[2024-09-01 07:11] LABS: INR 1.7 (0.9-1.1); Prothrombin Time 17.2 Seconds (9.0-12.0)
[2024-09-01 07:40] LABS: Hemoglobin A1C 7.1 % (4.5-5.6)
[2024-09-01] MEDS ORDERED: GLUCOSE 10 TAB/TUBE PO PRN (08:25)
[2024-09-01] MEDS ORDERED: CARBOHYDRATES FOR HYPOGLYCEMIA PO PRN (08:25)
[2024-09-01] MEDS ORDERED: DEXTROSE 50% 50 ML SYRINGE IV PRN (08:25)
[2024-09-01] MEDS ORDERED: GLUCAGON FOR INJ 1 MG VIAL SQ PRN (08:25)
[2024-09-01] MEDS ORDERED: GLUCOSE 40% GEL 15 GM TUBE PO PRN (08:25)
[2024-09-01] MEDS: VALSARTAN/SACUBITRIL 26/24MG TAB PO SCH (08:40)
[2024-09-01] MEDS: UMECLIDINIUM/VILANTEROL 62.5/25MCG 7 PUFFS/INHALER INH SCH (08:40)
[2024-09-01] MEDS: POTASSIUM CHLORIDE CRTAB 20 MEQ TABCR PO STA (08:40)
[2024-09-01] MEDS: DOXYCYCLINE HYCLATE 100 MG in DEXTROSE 5% MINI-B 100 ML IV SCH (08:40)
[2024-09-01] MEDS: ACETAMINOPHEN 325 MG TAB PO PRN (10:39)
--- NOTE | 2024-09-01 11:01 | Ultrasound Report ---
US carotid doppler BI CLINICAL HISTORY: 74 years-old Male with cva?. Acute stroke symptoms COMPARISON: None TECHNIQUE: Multiple real time sonographic images of the carotid bifurcations were obtained assessing bledsoe scale, color Doppler and spectral wave form appearance FINDINGS: RIGHT CAROTID: The peak systolic velocity measurements in the right ICA is 52 cm/sec. The end diast olic velocity measured 13 cm/sec. The ICA to CCA ratio measured 0.78 which correlates with a stenosi s of 0-50%. Moderate atherosclerosis. LEFT CAROTID: The peak systolic velocity measured in the left ICA is 62 cm/sec. The end diastolic v elocity measured 22 cm/sec. The ICA to CCA ratio measured 0.70 which correlates with a stenosis of 0- 50%. Moderate atherosclerosis. There is normal antegrade vertebral flow bilaterally. IMPRESSION: 1. Atherosclerosis without hemodynamically significant stenosis. 2. Normal antegrade vertebral flow bilaterally. ACT 112: Negative or not required by law. The above report was generated using voice recognition software. It may contain grammatical, syntax o r spelling errors. Electronically signed by: Addi Rodriguez M.D. 09/01/2024 11:00 AM
[2024-09-01] MEDS: INSULIN ASPART PER UNIT CHARGE SC SCH (12:08)
--- NOTE | 2024-09-01 13:06 | Neurology Consultation ---
Date of Consultation September 01, 2024 Assessment & Plan (1) Chronic ischemic vertebrobasilar artery cerebellar stroke: -- Consider obtaining MRI w/o contrast if able or repeat CT Head in AM to visualize any evolutionary changes - if not feasible due to bradycardia with laying flat would recommend monitoring with Q4 neurochecks and repeating if any change in exam -- Continue medical management with warfarin -- Address stroke risk factors including HGbA1c < 7.0, LDL <70, BP < 130/80, physical exercise, mediterranean diet. Plan 74 yo man w h/o DM2, DLD, COPD, obstructive sleep apnea on CPAP, pulmonary nodules, chronic systolic heart failure, status post AICD, history of left ventricular mural thrombus following [place], pulmonary hypertension, history of CAD, permanent atrial fibrillation (on warfarin), status post atrioventricular hao ablation, persistent insomnia, depression with anxiety who presents for generalized weakness, cough, headache in setting of possible PNA. interestingly he developed what sounds like cerebellar symptoms at time of heart attack in 2011 as well as left leg numbnes, this could be explained by both strokes seen on CT Head (cerebellar, thalamic stroke) which would indicate they are chronic (no prior Head imaging on file). He is medically managed on warfarin. Would recommend the below for further evaluation. Telehealth Consultation Telehealth Information Telehealth Information: I performed this visit using a real-time telehealth connection between my location and the patients location (). After connecting through interactive tele-video, patient was identified by name and date of and/or wristband check.Patient (or authorized healthcare pharmaceutical sales representative) was informed that this was a telemedicine visit and it was being conducted confidentially over secure lines. My office door was closed and no one else was present in the room with me.Patient (or authorized healthcare pharmaceutical sales representative) provided consent to proceed with the visit, expressed an understanding of privacy and security of the telemedicine visit, and gave permission to have a hospital pharmaceutical sales representative in the room in order to assist with the visit and to conduct portions of the visit, as needed. I informed the patient (or authorized healthcare pharmaceutical sales representative) that I reviewed their record and presented the opportunity for them to ask any questions regarding the visit today. The patient agreed to participate. History of Present Illness Reason for Consultation: Generalized weakness Requesting Physician: Dr. Caballero Attending Physician: Bryson Calderon DO History of Present Illness Patient presents to [facility] for four days of generalized weakness, cough, headahe and diarrhea. CT Head revealed a chronic appearing cerebellar stroke as well as a questionable R thalamic small vessel infarct. Patient states that around the time of his heart attack in 2011 he developed sudden onset severe vertigo and that his balance has been off since. He has had episodes of vertigo ever since that he has not had a good explanation for. Never had a CT Head prior to this admission. Today he states that these chronic issues have slightly worsened over the last four days but that he feels somewhat better today. Denies having unilateral weakness but does state he has had some numbness in his left leg since 2011. No new neurologic symptoms aside from headache. He has a significant cardiac history and is on warfarin with therapeutic INR. Allergies Allergy/AdvReac Type Severity Reaction Status Date / Time codeine Allergy Severe HIVES, Verified 08/31/24 19:51 ITCHY Home Medications Medication Instructions Recorded Confirmed Type albuterol sulfate 2.5 mg/3 mL 2.5 mg inhalation QID PRN 03/12/21 08/31/24 History (0.083 %) solution for nebulization Shortness Of Breath aspirin 81 mg tablet,delayed 81 mg PO QPM 03/12/21 08/31/24 History release atorvastatin 40 mg tablet 40 mg PO QPM 03/12/21 08/31/24 History digoxin 125 mcg (0.125 mg) tablet 125 mcg PO QPM 03/12/21 08/31/24 History hydrocodone 5 mg-acetaminophen 325 1 tab PO Q8H PRN Pain 03/12/21 08/31/24 History mg tablet sacubitril 24 mg-valsartan 26 mg 0.5 tab PO BID 03/12/21 08/31/24 History tablet (Entresto) umeclidinium 62.5 mcg-vilanterol 1 inh inhalation DAILY 03/12/21 08/31/24 History 25 mcg/actuation powdr for inhalation (Anoro Ellipta) venlafaxine 75 mg capsule,extended 150 mg PO HS 03/12/21 08/31/24 History release 24 hr warfarin 5 mg tablet 2.5 mg PO 2XWK 03/12/21 08/31/24 History warfarin 5 mg tablet 5 mg PO 5XWK 03/12/21 08/31/24 History zolpidem 10 mg tablet 10 mg PO HS PRN Sleep 03/12/21 08/31/24 History albuterol sulfate 90 mcg/actuation 2 puff inhalation Q4H PRN DYSPNEA 08/31/24 08/31/24 History aerosol inhaler (Ventolin HFA) OR WHEEZING empagliflozin 10 mg tablet 10 mg PO QPM 08/31/24 08/31/24 History (Jardiance) eplerenone 25 mg tablet 25 mg PO QPM 08/31/24 08/31/24 History metoprolol succinate 25 mg 25 mg PO QPM 08/31/24 08/31/24 History tablet,extended release 24 hr (Toprol XL) torsemide 40 mg tablet 40 mg PO QPM 08/31/24 08/31/24 History Patient History Medical History Depression Anticoagulated on Coumadin LV (left ventricular) mural thrombus COPD (chronic obstructive pulmonary disease) SREEDHAR on CPAP CHF (congestive heart failure) CHF (congestive heart failure), NYHA class III "Last EF 20%" Ischemic cardiomyopathy Myocardial infarct Pericardial effusion H/O cardiac pacemaker "[employer] [place]. [place] [facility] [place] Coronary artery disease Surgical History AICD (automatic cardioverter/defibrillator) present S/P CABG (coronary artery bypass graft) "SVG to LAD, SVG to OM" H/O percutaneous transluminal coronary angioplasty Family History Mother CHF (congestive heart failure) Social History Smoking Status: Former smoker Tobacco Type: Cigarettes Second Hand Exposure: No; Do You Dip or Chew Tobacco: No; Hx Alcohol Use: No Hx Substance Use: Yes Last Used Substance: Days (ago) Substance Use Type Other:: Gummies Preferred Language: Czech Communication Ability: Effective Floor Framer Required: No Beliefs That Will Affect Care: None marital status: Current Living Situation: Alone and Spouse current occupational status: retired How many Children do You have: 1 Feels Safe at Home: Yes Assistive Devices: Cane and Walker Review of Systems Negative aside from above. Physical Exam Patient resting comfortably in bed with NC in place. Fully conversant, A&O x 3, no aphasia. Pupils symmetric and equal in size, no EOM abnormality, no facial droop. Able to lift arms above gravity and complete finger to nose without ataxia. Some slowed movement on finger taps. Able to lift both legs above gravit y. Results & Data Vital Signs (Past 12 Hours) Vital Signs Temp Pulse Pulse Resp BP Pulse Ox O2 Del Method 09/01/24 11:07 36.8 C 79 16 116/78 95 Nasal Cannula 09/01/24 08:00 Nasal Cannula 09/01/24 07:59 81 09/01/24 07:30 37.4 C 97 H 16 113/72 94 Nasal Cannula 09/01/24 03:18 36.6 C 80 21 112/72 93 Room Air 09/01/24 03:04 82 23 94 O2 Flow Rate FiO2 09/01/24 11:07 1 09/01/24 08:00 1 09/01/24 07:59 09/01/24 07:30 1 09/01/24 03:18 09/01/24 03:04 21 Laboratory Results Per Chart Diagnostic Findings CT Head: chronic appearing cerebellar stroke as well as subacute-chronic r thalamic stroke.
--- NOTE | 2024-09-01 15:05 | Hospitalist Progress Note ---
Date of Service September 01, 2024 Assessment & Plan (1) Multifocal pneumonia: (2) Sepsis: (3) Chronic ischemic vertebrobasilar artery cerebellar stroke: (4) DMII (diabetes mellitus, type 2): (5) Chronic heart failure with reduced ejection fraction and diastolic dysfunction: (6) COPD (chronic obstructive pulmonary disease): (7) AICD (automatic cardioverter/defibrillator) present: Plan Patient's history and clinical presentation seems most consistent with infectious process and sepsis due to multifocal pneumonia Continue antibiotics, patient appears to be responding Did communication with neurology, suspect findings on head CT are chronic changes, patient already on full treatment for secondary stroke prevention Continue warfarin, monitor INR Continue chronic treatments for heart failure Continue treatments for COPD no obvious evidence of exacerbation Admission and Anticipated Discharge Date Admission Date: August 31, 2024 Subjective Reviewed patient's history. He states on Thursday he already started to feel ill. He describes chills, shakes and sweats. Describes just an overwhelming weakness and fatigue. Denies any unilateral weakness or poor coordination. Reports that he is feeling better today Physical Exam Physical Exam: Constitutional: Alert, nontoxic HEENT: Mucous membranes moist. Lungs: Decreased breath sounds, few crackles at bases CV: S1-S2, regular Abdomen: Soft, nontender, nondistended Extremities: No significant edema Neuro: No focal deficits, generally weak but improved Psych: Cooperative, normal mood Results & Data Results & Data Vital Signs (Past 12 Hours) Vital Signs Temp Pulse Pulse Resp BP Pulse Ox O2 Del Method 09/01/24 11:07 36.8 C 79 16 116/78 95 Nasal Cannula 09/01/24 08:00 Nasal Cannula 09/01/24 07:59 81 09/01/24 07:30 37.4 C 97 H 16 113/72 94 Nasal Cannula 09/01/24 03:18 36.6 C 80 21 112/72 93 Room Air 09/01/24 03:04 82 23 94 O2 Flow Rate FiO2 09/01/24 11:07 1 09/01/24 08:00 1 09/01/24 07:59 09/01/24 07:30 1 09/01/24 03:18 09/01/24 03:04 21 Diagnostic Findings Reviewed imaging, laboratory and diagnostic studies. Pertinent findings as below. WBCs 11.5 Hemoglobin 16.7 INR 1.7 Potassium 3.4 Hemoglobin A1c 7.1% Troponins reviewed and stable TSH 1.3
[2024-09-01] MEDS: WARFARIN SOD 5 MG TAB PO SCH (16:44)
[2024-09-01] MEDS: NITROGLYCERIN SL 0.4 MG/TAB TAB SL PRN (19:42)
[2024-09-01] MEDS: ALBUTEROL 0.083% NEBU SOLN 3 ML VIAL INH PRN (19:50)
[2024-09-01] MEDS: MoRPHine SULFATE 2 MG/ML CARP IV STA (19:57)
[2024-09-01] MEDS: cefTRIAXone SODIUM 2,000 MG/50 ML BAG IV SCH (20:30)
[2024-09-01] MEDS: DIGOXIN 0.125 MG TAB PO SCH (21:51)
[2024-09-01] MEDS: ASPIRIN 81 MG ECTAB PO SCH (21:51)
[2024-09-01] MEDS: METOPROLOL SUCC 25MG EXT REL TAB PO SCH (21:51)
[2024-09-01] MEDS: DOXYCYCLINE HYCLATE 100 MG CAP PO SCH (21:52)
[2024-09-01] MEDS: ATORVASTATIN 40 MG TAB PO SCH (21:52)
[2024-09-01] MEDS: TORSEMIDE 20 MG TAB PO SCH (21:52)
[2024-09-01] MEDS: EMPAGLIFLOZIN 10 MG TAB PO SCH (21:52)
[2024-09-01] MEDS: VENLAFAXINE HCL XR 150 MG CAPXR PO SCH (21:54)
[2024-09-02] MEDS: ACETAMINOPHEN 1,000 MG/100 ML VIAL IV STA (04:10)
[2024-09-02 06:49] LABS: Hematocrit (blood only) 45.5 % (42.0-52.0); Hemoglobin 15.1 g/dl (14.0-18.0); Mean Corpuscular Hemoglobin 30.7 pg (25.0-34.0); Mean Corpuscular Volume 92.5 fL (80.0-100.0); Platelet Count 177 K/uL (130-400); RDW Standard Deviation 52.7 fL (36.4-46.3); Red Blood Count 4.92 M/uL (4.70-6.10); White Blood Count 10.36 K/ul (4.8-10.8)
[2024-09-02 07:16] LABS: Anion Gap 10.0 (3-11); Calcium 9.2 mg/dl (8.6-10.3); Carbon Dioxide 27.0 mmol/L (21-32); Chloride 101.0 mmol/L (98-107); Potassium 3.8 mmol/L (3.5-5.1); Sodium 138.0 mmol/L (136-145)
[2024-09-02 07:17] LABS: INR 1.6 (0.9-1.1); Prothrombin Time 17.0 Seconds (9.0-12.0)
[2024-09-02 07:22] LABS: Blood Urea Nitrogen 20.0 mg/dl (6-23); Creatinine Clr Calc Pharmacy 78.7 ml/min; Glucose 130.0 mg/dl (70-99(Fasting))
[2024-09-02 10:15] VITALS: PULSE 80
[2024-09-02 10:40] VITALS: RESP 18; TEMP 97.3; O2SAT 92
--- NOTE | 2024-09-02 12:06 | Discharge Summary ---
Discharge Summary Date of Service September 02, 2024 Principal Dx & Hospital Course #1 = Principal Diagnosis (1) Multifocal pneumonia: (2) Sepsis: (3) Chronic ischemic vertebrobasilar artery cerebellar stroke: (4) DMII (diabetes mellitus, type 2): (5) Chronic heart failure with reduced ejection fraction and diastolic dysfunction: (6) COPD (chronic obstructive pulmonary disease): (7) AICD (automatic cardioverter/defibrillator) present: Plan Patient 74-year-old gentleman with acute onset of headaches, generalized weakness, shakes, chills and a bit of a cough. Evaluation in the emergency room was concerning for pneumonia and possibly a subacute infarction on CT scan. Patient admitted to the hospital. He started antibiotics for presumed pneumonia. By the following day he had significant improvement of his symptoms. He was evaluated by neurology. They reviewed CT scan. [place] this was most likely chronic small vessel disease and no evidence of acute infarction. Patient was unable to go undergo MRI of the brain due to his AICD. Patient continued to improve through his hospitalization. He was titrated off oxygen. There was no evidence of exacerbation of his COPD. He was transition to oral antibiotics. On the day of discharge he was feeling significantly improved. Headache had resolved. He was tolerating his diet. His WBCs had normalized. He was afebrile. He can be transition to oral antibiotics to complete a course outpatient follow-up with his outpatient providers. Notes For Next Care Provider Complete course of antibiotics PT/INR on Thursday per his usual process. Followed by cardiology, Freddy Marino Medication Changes From Visit Doxycycline and Omnicef for pneumonia Warfarin 5 mg daily Admission HPI Per Admitting Provider 74-year-old male with past medical history significant for type 2 diabetes, dyslipidemia, COPD, obstructive sleep apnea on CPAP, pulmonary nodules, chronic systolic heart failure, status post AICD, history of left ventricular mural thrombus following [place], pulmonary hypertension, history of CAD, permanent atrial fibrillation, status post atrioventricular hao ablation, persistent insomnia, depression with anxiety who lives at home with his and ambulates without support comes because of weakness and cough going on for last 4 days. Since last 4 days he is also having severe headaches. Feeling generalized weakness. Not able to ambulate because of weakness. Also having some cough. As was not feeling better called his daughter and came to the hospital. He has chronic chest pains. He was also feeling short of breath. In the ER he was saturating 89% and on 2 L oxygen he is saturating okay currently. Vision is okay. No headache. No runny nose. Has some sore throat. No difficulty swallowing. Appetite is not great. No abdominal pain. Last couple of days he was having diarrhea. Denies any blood in the stools. Micturating okay. No rash. Hemodynamics are okay currently. Past medical history. As mentioned above Past surgical history. Left and right heart catheterization. ICD placement. Social history. . Quit smoking 2011. Smoked 1 pack a day for 35 years. No alcohol use. No drug use. Family history. Mother had CHF. Admission Exam Per Admitting Provider See H&P Discharge Exam Constitutional: Alert, nontoxic, no acute distress HEENT: Mucous membranes moist. Lungs: Decreased breath sounds, prolonged expiratory phase, no wheezes or rails CV: S1-S2, regular Abdomen: Soft, nontender, nondistended Extremities: No significant edema Neuro: No focal deficits Psych: Cooperative, normal mood Updated Medication List Medication Instructions Recorded Confirmed Type albuterol sulfate 2.5 mg/3 mL 2.5 mg inhalation QID PRN 03/12/21 08/31/24 History (0.083 %) solution for nebulization Shortness Of Breath aspirin 81 mg tablet,delayed 81 mg PO QPM 03/12/21 08/31/24 History release atorvastatin 40 mg tablet 40 mg PO QPM 03/12/21 08/31/24 History digoxin 125 mcg (0.125 mg) tablet 125 mcg PO QPM 03/12/21 08/31/24 History hydrocodone 5 mg-acetaminophen 325 1 tab PO Q8H PRN Pain 03/12/21 08/31/24 History mg tablet sacubitril 24 mg-valsartan 26 mg 0.5 tab PO BID 03/12/21 08/31/24 History tablet (Entresto) umeclidinium 62.5 mcg-vilanterol 1 inh inhalation DAILY 03/12/21 08/31/24 History 25 mcg/actuation powdr for inhalation (Anoro Ellipta) venlafaxine 75 mg capsule,extended 150 mg PO HS 03/12/21 08/31/24 History release 24 hr warfarin 5 mg tablet 2.5 mg PO 2XWK 03/12/21 08/31/24 History warfarin 5 mg tablet 5 mg PO 5XWK 03/12/21 08/31/24 History zolpidem 10 mg tablet 10 mg PO HS PRN Sleep 03/12/21 08/31/24 History albuterol sulfate 90 mcg/actuation 2 puff inhalation Q4H PRN DYSPNEA 08/31/24 08/31/24 History aerosol inhaler (Ventolin HFA) OR WHEEZING empagliflozin 10 mg tablet 10 mg PO QPM 08/31/24 08/31/24 History (Jardiance) eplerenone 25 mg tablet 25 mg PO QPM 08/31/24 08/31/24 History metoprolol succinate 25 mg 25 mg PO QPM 08/31/24 08/31/24 History tablet,extended release 24 hr (Toprol XL) torsemide 40 mg tablet 40 mg PO QPM 08/31/24 08/31/24 History cefdinir 300 mg capsule 300 mg PO BID 4 days #8 caps 09/02/24 Rx doxycycline hyclate 100 mg capsule 100 mg PO BID 4 days #8 caps 09/02/24 Rx Hospital Stay Data Consultations 08/31/24 20:48 ED Decision to Admit Stat 09/01/24 08:00 Consult Neurology Routine Diagnostic Imagining Performed 08/31/24 18:58 CT abd pelvis wo con Stat CT head/brain wo con Stat 08/31/24 22:08 CT chest diagnostic wo con Urgent 09/01/24 10:00 US carotid doppler BI Routine Reviewed imaging, laboratory and diagnostic studies. Pertinent findings as b elow. WBCs 10.3 Hemoglobin 15.1 INR 1.6 Electrolytes within normal range Creatinine 0.89 Respiratory viral panel negative Echocardiogram showed ejection fraction 2025% which is essentially his baseline. AICD interrogation, no significant arrhythmias Pending Results Patient Have Any Pending Studies at Discharge: No Discharge Instructions Given to Patient (Per Discharging Provider) Complete course of antibiotics. Get your INR/Coumadin checked per your usual process on Thursday Total Time Total Time Spent Total Time Spent (In Minutes): 33
[2024-09-02 12:15] VITALS: BP 129/81
--- NOTE | 2024-09-02 15:03 | Electrocardiogram Report ---
Test Reason : Blood Pressure : */* mmHG Vent. Rate : 84 BPM Atrial Rate : 81 BPM P-R Int : * ms QRS Dur : 158 ms QT Int : 408 ms P-R-T Axes : * -88 94 degrees QTcB Int : 482 ms Ventricular-paced rhythm with premature ventricular or aberrantly conducted complexes Biventricular pacemaker detected Underlying atrial fibrillation Abnormal ECG When compared with ECG of 31-Aug-2024 18:02, (unconfirmed) No significant change was found Confirmed by Chang Roche ([id number]) on 09/02/2024 3:03:15 PM Referred By: REFERRED SELF Confirmed By: Chang Roche
[2024-09-02] MEDS ORDERED: WARFARIN SOD 2.5 MG TAB PO SCH (16:00)
--- NOTE | 2024-09-03 06:00 | Electrocardiogram Report ---
Test Reason : Blood Pressure : */* mmHG Vent. Rate : 83 BPM Atrial Rate : 82 BPM P-R Int : * ms QRS Dur : 176 ms QT Int : 442 ms P-R-T Axes : * -88 90 degrees QTcB Int : 519 ms Ventricular-paced rhythm Biventricular pacemaker detected Abnormal ECG When compared with ECG of 11-Feb-2023 19:14, Vent. rate has decreased by 4 bpm Confirmed by Chang Roche ([id number] on 09/03/2024 6:00:21 AM Referred By: Confirmed By: Chang Roche
== END 2024-09-02 14:11 | disposition home or self-care (01) | DRG 871 ==
LOC: ED 17:56 → 2S 21:51 → SUATTDRO 21:51 → 2S 23:55

== ENCOUNTER 2024-12-17 09:41 | Inpatient (IN) ==
[2024-12-17 10:18] LABS: Hematocrit (blood only) 46.5 % (42.0-52.0); Hemoglobin 14.8 g/dl (14.0-18.0); Immature Granulocytes # (auto) 0.04 K/uL (0.01-0.20); Immature Granulocytes % (auto) 0.6 %; Mean Corpuscular Hemoglobin 30.5 pg (25.0-34.0); Mean Corpuscular Volume 95.9 fL (80.0-100.0); Platelet Count 144 K/uL (130-400); RDW Standard Deviation 55.2 fL (36.4-46.3); Red Blood Count 4.85 M/uL (4.70-6.10); White Blood Count 7.07 K/ul (4.8-10.8)
[2024-12-17 10:30] LABS: Alanine Aminotransferase 8 U/L (7-52); Albumin Globulin Ratio 1.3 (0.9-2); Albumin Level 4.1 gm/dl (3.4-5.0); Alkaline Phosphatase 99 U/L (34-104); Anion Gap 6 (3-11); Bilirubin,Total 1.4 mg/dl (0.2-1.0); Blood Urea Nitrogen 11 mg/dl (6-23); Calcium 9.2 mg/dl (8.6-10.3); Carbon Dioxide 26 mmol/L (21-32); Chloride 106 mmol/L (98-107); Creatinine Clr Calc Pharmacy 78.7 ml/min; Globulin 3.2 gm/dl (2.5-4.0); Glucose 123 mg/dl (70-99(Fasting)); Sodium 138 mmol/L (136-145); Total Protein 7.3 gm/dl (6.0-8.3)
--- NOTE | 2024-12-17 10:32 | Emergency Department Note ---
History of Present Illness General Chief complaint: Fall Stated complaint: WEAKNESS, FALL, COUGH, HYPOXIA Source: patient Mode of arrival: EMS History of Present Illness Maximum Pain Intensity: 8 Patient is a 74-year-old male with history of type 2 diabetes, CHF status post AICD placement, COPD, chronic anticoagulation on Coumadin CAD who presents after a fall. He says he was getting out of his recliner when he fell too weak to stand and fell to the ground. No loss of consciousness. He did strike his head. He is unable to get up after the fall and therefore his called EMS. Patient says he has had a couple days of nonproductive cough and generalized malaise. His was recently sick with upper respiratory symptoms as well. Denies any fevers, chills, lightheadedness, dizziness, neck pain, headache, numbness or weakness in the extremities. He does report on and off chest pain has been going on for several weeks now. Unable to really qualify the pain. No lower extremity swelling reported. Home Medications Medication Instructions Recorded Confirmed Type albuterol sulfate 2.5 mg/3 mL 2.5 mg inhalation QID PRN 03/12/21 12/17/24 History (0.083 %) solution for nebulization Shortness Of Breath aspirin 81 mg tablet,delayed 81 mg PO QPM 03/12/21 12/17/24 History release atorvastatin 40 mg tablet 80 mg PO QPM 03/12/21 12/17/24 History digoxin 125 mcg (0.125 mg) tablet 125 mcg PO QPM 03/12/21 12/17/24 History hydrocodone 5 mg-acetaminophen 325 1 tab PO Q8H PRN Pain 03/12/21 12/17/24 History mg tablet venlafaxine 75 mg capsule,extended 150 mg PO HS 03/12/21 12/17/24 History release 24 hr zolpidem 10 mg tablet 10 mg PO HS PRN Sleep 03/12/21 12/17/24 History albuterol sulfate 90 mcg/actuation 2 puff inhalation Q4H PRN DYSPNEA 08/31/24 12/17/24 History aerosol inhaler (Ventolin HFA) OR WHEEZING empagliflozin 10 mg tablet 10 mg PO QPM 08/31/24 12/17/24 History (Jardiance) metoprolol succinate 25 mg 25 mg PO QPM 08/31/24 12/17/24 History tablet,extended release 24 hr (Toprol XL) warfarin 5 mg tablet 5 mg PO DAILY #0 tabs 09/02/24 12/17/24 Rx fluticasone fur. 100 mcg-umeclid 1 inh inhalation DAILY 12/17/24 12/17/24 History 62.5 mcg-vilant 25 mcg inhalat.powder (Trelegy Ellipta) midodrine 2.5 mg tablet 2.5 mg PO BID 12/17/24 12/17/24 History sacubitril 24 mg-valsartan 26 mg 0.5 tab PO BID 12/17/24 12/17/24 History tablet Allergies Allergy/AdvReac Type Severity Reaction Status Date / Time codeine Allergy Severe HIVES, Verified 08/31/24 19:51 ITCHY Past Med/Surg History Problem List (Updated 12/17/24 @ 15:53 by Abhi Gacria MD) Hypoxia (Acute) Pneumonia due to COVID-19 virus (Acute) Fall Acute viral bronchiolitis SARS-CoV-2 positive Elevated troponin (Acute) Pneumonia (Acute) Sepsis Multifocal pneumonia Chronic ischemic vertebrobasilar artery cerebellar stroke Diarrhea (Acute) Cough (Acute) Generalized weakness (Acute) DMII (diabetes mellitus, type 2) Pulmonary edema (Acute) Hypoxia (Acute) Acute on chronic systolic (congestive) heart failure COPD exacerbation SOB (shortness of breath) Chronic heart failure with reduced ejection fraction and diastolic dysfunction Atrial flutter with controlled response Acute hyperkalemia (Acute) Atrial fibrillation Anticoagulated on Coumadin LV (left ventricular) mural thrombus COPD (chronic obstructive pulmonary disease) AICD (automatic cardioverter/defibrillator) present SREEDHAR on CPAP CHF (congestive heart failure) (Acute) CHF (congestive heart failure), NYHA class III (Chronic) "Last EF 20%" Ischemic cardiomyopathy (Chronic) Coronary artery disease (Chronic) H/O cardiac pacemaker (Chronic) "[employer] AICD by Dr. Jiang, [facility] [place] 07/19/2013" CHF (congestive heart failure) (Acute) Hypotension (Acute) Medical History Depression Myocardial infarct Pericardial effusion Surgical History S/P CABG (coronary artery bypass graft) "SVG to LAD, SVG to OM" H/O percutaneous transluminal coronary angioplasty Family History Mother CHF (congestive heart failure) Social History Smoking Status: Never smoker Tobacco Type: Declines Second Hand Exposure: No; Do You Dip or Chew Tobacco: No; Hx Alcohol Use: No Hx Substance Use: Yes Last Used Substance: Days (ago) Substance Use Type Other:: Gummies Preferred Language: Chadian Communication Ability: Effective Radiologist Chief Of Breast Imaging Required: No Beliefs That Will Affect Care: None marital status: Current Living Situation: Alone and Spouse current occupational status: retired How many Children do You have: 1 Feels Safe at Home: Yes Assistive Devices: Cane and Walker Review of Systems Review of systems negative outside of positive findings mentioned in HPI. Physical Exam Vital Signs Vital Signs - 24 hr 12/17/24 09:51 12/17/24 09:54 12/17/24 10:04 Temperature 36.8 C Temperature Source Oral Pulse Rate 81 80 Pulse Rate [Apical] Pulse Rate [Right Finger] Pulse Rate from SpO2 Sensor 82 Respiratory Rate 18 14 Respiratory Effort / Characteristics Non-Labored Respiratory Depth Normal Respiratory Pattern Regular Blood Pressure 103/65 103/65 Blood Pressure [Right Arm] Blood Pressure Mean 77 77 Blood Pressure Mean [Right Arm] Blood Pressure Position [Right Arm] Pulse Oximetry 94 94 Oxygen Delivery Method Nasal Cannula Nasal Cannula Nasal Cannula Oxygen Flow Rate 2 2 2 Sepsis Recent Fever Within 48 Hours Yes Sepsis New/Unexplained Change in Mental Status No Sepsis Action Taken by Nursing No Action Required 12/17/24 10:06 12/17/24 10:06 12/17/24 10:09 Temperature 36.9 C Temperature Source Oral Pulse Rate 81 80 Pulse Rate [Apical] Pulse Rate [Right Finger] 81 Pulse Rate from SpO2 Sensor Respiratory Rate 18 18 Respiratory Effort / Characteristics Respiratory Depth Respiratory Pattern Blood Pressure Blood Pressure [Right Arm] 103/65 Blood Pressure Mean Blood Pressure Mean [Right Arm] 77 Blood Pressure Position [Right Arm] Sitting Pulse Oximetry 93 93 Oxygen Delivery Method Nasal Cannula Nasal Cannula Oxygen Flow Rate 2 2 Sepsis Recent Fever Within 48 Hours Sepsis New/Unexplained Change in Mental Status Sepsis Action Taken by Nursing 12/17/24 11:00 12/17/24 11:03 12/17/24 12:00 Temperature Temperature Source Pulse Rate 82 80 Pulse Rate [Apical] 82 Pulse Rate [Right Finger] 82 Pulse Rate from SpO2 Sensor 83 80 Respiratory Rate 14 15 21 Respiratory Effort / Characteristics Non-Labored Respiratory Depth Normal Respiratory Pattern Regular Blood Pressure 102/67 Blood Pressure [Right Arm] 102/67 Blood Pressure Mean 78 Blood Pressure Mean [Right Arm] 78 Blood Pressure Position [Right Arm] Pulse Oximetry 94 93 96 Oxygen Delivery Method Nasal Cannula Nasal Cannula Oxygen Flow Rate 2 2 Sepsis Recent Fever Within 48 Hours Sepsis New/Unexplained Change in Mental Status Sepsis Action Taken by Nursing 12/17/24 12:30 12/17/24 13:00 12/17/24 13:00 Temperature Temperature Source Pulse Rate 81 80 Pulse Rate [Apical] 80 Pulse Rate [Right Finger] Pulse Rate from SpO2 Sensor Respiratory Rate 19 26 H 25 H Respiratory Effort / Characteristics Non-Labored Respiratory Depth Normal Respiratory Pattern Regular Blood Pressure Blood Pressure [Right Arm] 108/66 Blood Pressure Mean Blood Pressure Mean [Right Arm] 80 Blood Pressure Position [Right Arm] Pulse Oximetry 95 97 94 Oxygen Delivery Method Nasal Cannula Nasal Cannula Nasal Cannula Oxygen Flow Rate 2 2 2 Sepsis Recent Fever Within 48 Hours Sepsis New/Unexplained Change in Mental Status Sepsis Action Taken by Nursing Primary Survey Airway: Intact Breathing: Normal, breath sounds equal bilaterally Circulation: Skin warm, well perfused, capillary refill less than 2 seconds Disability Pupils: Equal and reactive to light, 4mm, brisk GCS: 15, E = 4 V=5 M= 6 Motor Function: Moves all extremities. Sensory: No deficits Secondary Survey GENERAL: NAD, non-toxic. HEAD: Normocephalic atraumatic EYE EXAM: Normal conjunctiva. PERRL, no anisocoria and EOM's grossly intact w/o pain. OROPHARYNX: Moist mucus membranes. Grossly normal dentition. NECK: Supple, trachea midline, no midline C spine TTP. Chest: No reproducible chest wall pain. LUNGS: Clear to auscultation. Normal chest wall mechanics. HEART: NSR, no MRG. ABDOMEN: Abdomen soft, non-tender, no obvious bruising, normo-active bowel sounds, no masses, no rebound or guarding. BACK: No CVA TTP. No midline thoracic or lumbar TTP. SKIN: No rashes and no bruising. UPPER EXTREMITIES: Upper extremities are grossly normal. Well-perfused and compartments are soft throughout. LOWER EXTREMITIES: Grossly normal, no edema. Well-perfused and compartments are soft throughout. NEURO EXAM: A&O x3, cranial nerves II-XII grossly intact, normal speech, moves all 4 extremities. Course Administered Medications Albuterol (Albut/Ipratrop 3mg/0.5mg Neb 3 Ml Vial) 3 ml NEB Q4R ZULLY; Protocol Stop: 01/16/25 14:59 Last Admin: 12/17/24 14:32 Dose: Not Given Documented By: MYLES Lactic Acid (Ammonium Lactate 12% Lotion 225 Gm Btl) 1 gm EXT TID ZULLY Stop: 01/16/25 13:59 Last Admin: 12/17/24 15:19 Dose: 1 gm Documented By: darling Midodrine (Midodrine Hcl 2.5 Mg Tab) 2.5 mg PO BID@0800,1400 ZULLY Stop: 01/16/25 14:14 Last Admin: 12/17/24 14:35 Dose: 2.5 mg Documented By: billy Discontinued Medications Albuterol (Albut/Ipratrop 3mg/0.5mg Neb 3 Ml Vial) 3 ml NEB NOW STA; Protocol Stop: 12/17/24 13:33 Last Admin: 12/17/24 14:16 Dose: 3 ml Documented By: billy Dexamethasone (Dexamethasone Sod Inj 4 Mg/Ml Vial) 6 mg IV NOW STA Stop: 12/17/24 11:06 Last Admin: 12/17/24 11:15 Dose: 6 mg Documented By: billy Remdesivir 200 mg/ Sodium (Chloride) 250 mls @ 125 mls/hr IV ONE STA Stop: 12/17/24 15:08 Last Admin: 12/17/24 14:16 Dose: 125 mls/hr Documented By: billy Medical Decision Making Differential Diagnosis DDx includes but not limited to: CHF exacerbation, ACS, pneumonia, viral URI Medical Records Attestation: I reviewed the patient's medical records. Home Medications Current Medication List: was personally reviewed by me Laboratory Data Attestation: I reviewed the patient's lab results. 12/17/24 09:55 12/17/24 10:39 Lab Results 12/17/24 12/17/24 12/17/24 Range/Units 09:50 09:55 10:15 WBC 7.07 (4.8-10.8) K/ul RBC 4.85 (4.70-6.10) M/uL Hgb 14.8 (14.0-18.0) g/dl Hct 46.5 (42.0-52.0) % MCV 95.9 (80.0-100.0) fL MCH 30.5 (25.0-34.0) pg MCHC 31.8 L (32.0-36.0) g/dL RDW Std Deviation 55.2 H (36.4-46.3) fL RDW Coeff of Kasey 15.6 H (11.5-14.5) % Plt Count 144 (130-400) K/uL MPV 9.5 (9.4-12.4) fL Immature Gran % (Auto) 0.6 % Neut % (Auto) 87.6 % Lymph % (Auto) 5.7 % [place] % (Auto) 5.0 % Eos % (Auto) 0.7 % Baso % (Auto) 0.4 % Neut # (Auto) 6.20 (1.40-6.50) K/uL Lymph # (Auto) 0.40 L (1.20-3.40) K/uL [place] # (Auto) 0.35 (0.11-0.59) K/uL Eos # (Auto) 0.05 (0.00-0.50) K/uL Baso # (Auto) 0.03 (0.00-0.20) K/uL Immature Gran # (Auto) 0.04 (0.01-0.20) K/uL PT Cancelled INR Cancelled Sodium 138 (136-145) mmol/L Potassium TNP Chloride 106 (98-107) mmol/L Carbon Dioxide 26 (21-32) mmol/L Anion Gap 6 (3-11) BUN 11 (6-23) mg/dl Creatinine 0.89 (0.6-1.4) mg/dl Est Cr Clr Drug Dosing 78.7 ml/min eGFR 89.37 BUN/Creatinine Ratio 12.4 (10-20) Glucose 123 H (70-99(Fasting)) mg/dl Lactate 1.7 (0.4-2.0) mmol/L Calcium 9.2 (8.6-10.3) mg/dl Total Bilirubin 1.4 H (0.2-1.0) mg/dl AST TNP ALT 8 (7-52) U/L Alkaline Phosphatase 99 (34-104) U/L Troponin I High Sens 24.2 H (0-20) pg/ml B-Natriuretic Peptide 437 H (0-100) pg/ml Total Protein 7.3 (6.0-8.3) gm/dl Albumin 4.1 (3.4-5.0) gm/dl Globulin 3.2 (2.5-4.0) gm/dl Albumin/Globulin Ratio 1.3 (0.9-2) Procalcitonin 0.09 (0-0.5) ng/ml TSH 4.663 H (0.300-4.500) uIu/ml Free T4 1.00 (0.61-1.60) ng/dl Adenovirus (PCR) Not Detected (NotDetected) B. pertussis DNA (PCR) Not Detected (NotDetected) B.parapertussis DNA PCR Not Detected (NotDetected) C. pneumoniae DNA (PCR) Not Detected (NotDetected) Coronavirus OC43 (PCR) Not Detected (NotDetected) Coronavirus HKU1 (PCR) Not Detected (NotDetected) Coronavirus 229E (PCR) Not Detected (NotDetected) SARS-CoV-2 (PCR) DETECTED A (NotDetected) Coronavirus NL63 (PCR) Not Detected (NotDetected) Human Metapneumovir PCR Not Detected (NotDetected) Influenza Type A (PCR) Not Detected (NotDetected) Influenza Type B (PCR) Not Detected (NotDetected) M. pneumoniae (PCR) Not Detected (NotDetected) Parainfluenza 1 (PCR) Not Detected (NotDetected) Parainfluenza 2 (PCR) Not Detected (NotDetected) Parainfluenza 3 (PCR) Not Detected (NotDetected) Parainfluenza 4 (PCR) Not Detected (NotDetected) RSV (PCR) Not Detected (NotDetected) Entero/Rhino (PCR) Not Detected (NotDetected) 12/17/24 12/17/24 12/17/24 Range/Units 10:39 10:47 11:51 WBC (4.8-10.8) K/ul RBC (4.70-6.10) M/uL Hgb (14.0-18.0) g/dl Hct (42.0-52.0) % MCV (80.0-100.0) fL MCH (25.0-34.0) pg MCHC (32.0-36.0) g/dL RDW Std Deviation (36.4-46.3) fL RDW Coeff of Kasey (11.5-14.5) % Plt Count (130-400) K/uL MPV (9.4-12.4) fL Immature Gran % (Auto) % Neut % (Auto) % Lymph % (Auto) % [place] % (Auto) % Eos % (Auto) % Baso % (Auto) % Neut # (Auto) (1.40-6.50) K/uL Lymph # (Auto) (1.20-3.40) K/uL [place] # (Auto) (0.11-0.59) K/uL Eos # (Auto) (0.00-0.50) K/uL Baso # (Auto) (0.00-0.20) K/uL Immature Gran # (Auto) (0.01-0.20) K/uL PT 25.1 H INR 2.5 H Sodium (136-145) mmol/L Potassium 3.9 Chloride (98-107) mmol/L Carbon Dioxide (21-32) mmol/L Anion Gap (3-11) BUN (6-23) mg/dl Creatinine (0.6-1.4) mg/dl Est Cr Clr Drug Dosing ml/min eGFR BUN/Creatinine Ratio (10-20) Glucose (70-99(Fasting)) mg/dl Lactate (0.4-2.0) mmol/L Calcium (8.6-10.3) mg/dl Total Bilirubin (0.2-1.0) mg/dl AST 13 ALT (7-52) U/L Alkaline Phosphatase (34-104) U/L Troponin I High Sens 27.8 H (0-20) pg/ml B-Natriuretic Peptide (0-100) pg/ml Total Protein (6.0-8.3) gm/dl Albumin (3.4-5.0) gm/dl Globulin (2.5-4.0) gm/dl Albumin/Globulin Ratio (0.9-2) Procalcitonin (0-0.5) ng/ml TSH (0.300-4.500) uIu/ml Free T4 (0.61-1.60) ng/dl Adenovirus (PCR) (NotDetected) B. pertussis DNA (PCR) (NotDetected) B.parapertussis DNA PCR (NotDetected) C. pneumoniae DNA (PCR) (NotDetected) Coronavirus OC43 (PCR) (NotDetected) Coronavirus HKU1 (PCR) (NotDetected) Coronavirus 229E (PCR) (NotDetected) SARS-CoV-2 (PCR) (NotDetected) Coronavirus NL63 (PCR) (NotDetected) Human Metapneumovir PCR (NotDetected) Influenza Type A (PCR) (NotDetected) Influenza Type B (PCR) (NotDetected) M. pneumoniae (PCR) (NotDetected) Parainfluenza 1 (PCR) (NotDetected) Parainfluenza 2 (PCR) (NotDetected) Parainfluenza 3 (PCR) (NotDetected) Parainfluenza 4 (PCR) (NotDetected) RSV (PCR) (NotDetected) Entero/Rhino (PCR) (NotDetected) Imaging Data Radiologist's Impression: Chest CT 12/17/24 10:03 CT OF THE CHEST WITHOUT IV CONTRAST CLINICAL HISTORY: Abnormal exam. Cough. Fall. COMPARISON STUDY: Chest CT September 01, 2024. CT DOSE: 1492.47 mGy.cm TECHNIQUE: Axial images of the chest were obtained without IV contrast. Images were reviewed in the axial, sagittal, and coronal planes. IV contrast was not administered for this examination. Automated exposure control was utilized for the study. A dose lowering technique was utilized adhering to the principles of ALARA. FINDINGS: Left subclavian pacer is in place. Moderate cardiomegaly is again noted. There is no pericardial effusion. Moderate dilatation of the central pulmonary arteries is unchanged. Thoracic aorta is suboptimally assessed on unenhanced exam but there is no mediastinal hematoma. There is no evidence for traumatic injury to the thoracic aorta on this exam. Thoracic spine fractures are present. No acute fractures are identified within visualized portions of the ribs. There are trace bilateral pleural effusions. There is no pneumothorax. Lungs are suboptimally assessed due to respiratory motion. Mild interlobular septal thickening. Multifocal tree-in-bud nodules are present. These include right lower lobe opacities. These have improved when compared to prior CT. There are also lingular and left lower lobe tree-in-bud nodules. Mildly enlarged mediastinal lymph nodes are unchanged from earlier exams. IMPRESSION: 1. No acute traumatic findings within the chest on unenhanced exam. 2. Cardiomegaly with suspected mild interstitial pulmonary edema. Trace bilateral pleural effusions. 3. Multifocal tree-in-bud nodules, as described above. The findings favor an infectious process such as bronchiolitis. Lungs suboptimally assessed due to respiratory motion. A chest CT in 6 months to ensure resolution is recommended. 4. No change in mildly enlarged mediastinal lymph nodes. These are likely benign but can be assessed on follow-up CT. ACT 112: Negative or not required by law. Electronically signed by: Efrem Wright M.D. 12/17/2024 11:[address] 12/17/24 10:03 CT SCAN OF THE BRAIN WITHOUT IV CONTRAST CLINICAL HISTORY: Fall. COMPARISON STUDY: Head CT August 31, 2024. TECHNIQUE: Unenhanced axial CT scan of the brain was performed from the vertex to the skull base. A dose lowering technique was utilized adhering to the principles of ALARA. FINDINGS: Brain parenchyma: No acute intracranial hemorrhage, midline shift or mass effect is present. [place]-white matter differentiation is preserved. There are no extra- axial fluid collections. There are no findings to suggest acute dural sinus thrombosis or acute territorial infarct. White matter hypodensities are unchanged and favor small vessel disease. Inferior right cerebellar encephalomalacia suggestive of old infarct is again noted. Ventricles, sulci, cisterns: There is no hydrocephalus. The basal cisterns are patent. Calvarium: Unremarkable. Sinuses and mastoids: The visualized paranasal sinuses are clear. The mastoid air cells are well pneumatized. Orbits: The bony orbits are grossly intact. IMPRESSION: 1. No acute intracranial findings. No change in appearance of the brain. 2. No calvarial fractures. ACT 112: Negative or not required by law. Electronically signed by: Efrem Wright M.D. 12/17/2024 11:18 AM ECG Data Attestation: I personally reviewed and interpreted this ECG as follows: Indication: + weakness Rate (beats per minute): 80 Rhythm: + other (V-paced rhythm) ECG Intervals/blocks: + Left bundle branch block and + Normal QT ECG [place]: + Left axis deviation Comparison ECG Date: from (09/01/24) Change: no significant change MDM Narrative Patient is a 74-year-old male with history as seen above who presents for generalized weakness and fall. He fell from his chair to the floor. He did strike his head. GCS of 15. Primary exam is nonconcerning. Secondary exam notable for findings above. He was made an injury alert on arrival due to fall and anticoagulation. CT of the head nonconcerning. No midline neck pain or concerning neurofindings requiring CT of the cervical spine. Patient also complains of generalized weakness and several days of URI symptoms. He is hypoxic here in the ED and requiring 2 L of nasal cannula which is new for him. No leukocytosis or evidence of sepsis on lab work. COVID-19 positive. IV Decadron given. CT of the chest shows evidence of tree-in-bud opacities consistent with viral pneumonia. No indication for antibiotics at this time will admit for COVID-19 management with new hypoxia. Impression & Plan Pneumonia due to COVID-19 virus, Hypoxia Discharge Plan Visit Data Chief Complaint: Fall Stated Complaint: WEAKNESS, FALL, COUGH, HYPOXIA ED Provider: Abhi Garcia Discharge Problem: Pneumonia due to COVID-19 virus, Hypoxia Patient Disposition: Admitted As Inpatient Condition: Good Discharge Instructions Interventions: ED Discharge Assessment Last Done: 12/17/24 15:12
[2024-12-17 10:42] LABS: Thyroid Stimulating Hormone 4.663 uIu/ml (0.300-4.500)
[2024-12-17 11:01] LABS: Chlamydia pneumoniae PCR Not Detected (NotDetected); Coronavirus 229E PCR Not Detected (NotDetected); Coronavirus CoV-2 (COVID19)PCR DETECTED (NotDetected); Coronavirus HKU1 PCR Not Detected (NotDetected); Coronavirus NL63 PCR Not Detected (NotDetected); Coronavirus OC43PCR Not Detected (NotDetected); Human Metapneumovirus PCR Not Detected (NotDetected); Parainfluenza Virus 1 PCR Not Detected (NotDetected); Parainfluenza Virus 2 PCR Not Detected (NotDetected); Parainfluenza Virus 3 PCR Not Detected (NotDetected); Parainfluenza Virus 4 PCR Not Detected (NotDetected); Respiratory Syncytial VirusPCR Not Detected (NotDetected); Rhinovirus/Enterovirus PCR Not Detected (NotDetected)
[2024-12-17] MEDS: DEXAMETHASONE SOD INJ 4 MG/ML VIAL IV STA (11:15)
[2024-12-17 11:16] LABS: Potassium 3.9 mmol/L (3.5-5.1)
--- NOTE | 2024-12-17 11:20 | CT Scan Report ---
CT SCAN OF THE BRAIN WITHOUT IV CONTRAST CLINICAL HISTORY: Fall. COMPARISON STUDY: Head CT August 31, 2024. TECHNIQUE: Unenhanced axial CT scan of the brain was performed from the vertex to the skull base. A dose lowering technique was utilized adhering to the principles of ALARA. FINDINGS: Brain parenchyma: No acute intracranial hemorrhage, midline shift or mass effect is present. [place]-whi te matter differentiation is preserved. There are no extra-axial fluid collections. There are no find ings to suggest acute dural sinus thrombosis or acute territorial infarct. White matter hypodensities are unchanged and favor small vessel disease. Inferior right cerebellar encephalomalacia suggestive of old infarct is again noted. Ventricles, sulci, cisterns: There is no hydrocephalus. The basal cisterns are patent. Calvarium: Unremarkable. Sinuses and mastoids: The visualized paranasal sinuses are clear. The mastoid air cells are well pneu matized. Orbits: The bony orbits are grossly intact. IMPRESSION: 1. No acute intracranial findings. No change in appearance of the brain. 2. No calvarial fractures. ACT 112: Negative or not required by law. Electronically signed by: Efrem Wright M.D. 12/17/2024 11:18 AM
--- NOTE | 2024-12-17 11:30 | CT Scan Report ---
CT OF THE CHEST WITHOUT IV CONTRAST CLINICAL HISTORY: Abnormal exam. Cough. Fall. COMPARISON STUDY: Chest CT September 01, 2024. CT DOSE: 1492.47 mGy.cm TECHNIQUE: Axial images of the chest were obtained without IV contrast. Images were reviewed in the axial, sagittal, and coronal planes. IV contrast was not administered for this examination. Automat ed exposure control was utilized for the study. A dose lowering technique was utilized adhering to t he principles of ALARA. FINDINGS: Left subclavian pacer is in place. Moderate cardiomegaly is again noted. There is no peric ardial effusion. Moderate dilatation of the central pulmonary arteries is unchanged. Thoracic aorta i s suboptimally assessed on unenhanced exam but there is no mediastinal hematoma. There is no evidence for traumatic injury to the thoracic aorta on this exam. Thoracic spine fractures are present. No ac hannah fractures are identified within visualized portions of the ribs. There are trace bilateral pleura l effusions. There is no pneumothorax. Lungs are suboptimally assessed due to respiratory motion. Mil d interlobular septal thickening. Multifocal tree-in-bud nodules are present. These include right low er lobe opacities. These have improved when compared to prior CT. There are also lingular and left lo wer lobe tree-in-bud nodules. Mildly enlarged mediastinal lymph nodes are unchanged from earlier exam s. IMPRESSION: 1. No acute traumatic findings within the chest on unenhanced exam. 2. Cardiomegaly with suspected mild interstitial pulmonary edema. Trace bilateral pleural effusions. 3. Multifocal tree-in-bud nodules, as described above. The findings favor an infectious process such as bronchiolitis. Lungs suboptimally assessed due to respiratory motion. A chest CT in 6 months to en sure resolution is recommended. 4. No change in mildly enlarged mediastinal lymph nodes. These are likely benign but can be assessed on follow-up CT. ACT 112: Negative or not required by law. Electronically signed by: Efrem Wright M.D. 12/17/2024 11:28 AM
[2024-12-17 11:41] LABS: INR 2.5 (0.9-1.1); Prothrombin Time 25.1 Seconds (9.0-12.0)
[2024-12-17 12:51] LABS: T4 Free Thyroxine 1.00 ng/dl (0.61-1.60)
--- NOTE | 2024-12-17 12:59 | History & Physical Report ---
Date of Service December 17, 2024 Assessment & Plan (1) Hypoxia: (2) Acute viral bronchiolitis: (3) SARS-CoV-2 positive: (4) Generalized weakness: (5) Fall: (6) Elevated troponin: Plan Patient is a 74y/o M with PMHx significant for DM type II, HLD, CAD, COPD, SREEDHAR on CPAP, pulmonary nodules, symptomatic orthostatic hypotension, severe ischemic cardiomyopathy s/p AICD implantation, permanent atrial fibrillation s/p prior ablation and history of apical left ventricular mural thrombus s/p IN chronically anticoagulated on Coumadin, history of frequent ventricular ectopy and nonsustained ventricular tachycardia, severe pulmonary HTN, mitral regurgitation, tricuspid regurgitation, lumbar DDD, chronic low back pain on Percocet [employer], prior tobacco use and depression with anxiety who presented to the ED from home with c/o generalized weakness s/p mechanical fall this morning as well as URI symptoms x 2 days. Acute hypoxia Acute viral bronchiolitis 2/2 SARS-CoV-2 infection P/w dry cough, SOB, myalgias and chills x [address] suggestive of acute bronchiolitis, suspect acute viral bronchiolitis 2/2 SARS-CoV-2. Was hypoxic down to 88% on RA in ED per RN and was placed on 2L NC with improvement in saturations. No leukocytosis, not meeting sepsis criteria on admission. No indication for ABX coverage at this time, will check Pro-Michele. S/p 6mg IV dexamethasone in ED, no appreciable wheezing heard at the time of my examination in the ED. Hold off on further corticosteroids for now. Remdesivir ordered. Wean O2 as tolerated. Pulmonary toileting with scheduled nebs, ISP and FV. Hold home Trelegy for now. Generalized weakness 2/2 above Mechanical fall with (+) head strike [employer] Head CT unremarkable. Appreciate PT/OT evals, fall precautions. Elevated troponin Suspect demand ischemia ISO above, EKG without any overt ST segment changes. Follow trend. EKG with chest pain PRN, telemetry monitoring onboard. Severe ischemic cardiomyopathy s/p AICD: TTE done 08/2024 with EF = 20-25%, diffuse hypokinesis to dyskinesis, mild MR/TR, pulm HTN. Possible acute on chronic systolic HF with EF 20-25% as of August [address] did also note mild interstitial pulmonary edema, trace bilateral pleural effusions which could be c/t presentation. Trace pretibial edema appreciated on exam. BNP also slightly bumped >> suggestive of acute on chronic HFrEF. Trial 20mg IV Lasix BID for now and reassess volume status in AM >> judicious diuresis given HFrEF, hypotension. Updated TTE pending. Follows closely with [facility] cardiology. Continue GDMT including Jardiance, BB and Entresto. Permanent atrial fibrillation s/p prior ablation Continue BB, digoxin (level pending). INR therapeutic, continue Coumadin and follow repeat INR in AM. H/o apical LV mural thrombus Seen on TTE completed in August 2024, continue Coumadin. DMII Hgb A1c 6.8% 9mo ago, repeat in AM. Diet-controlled. SSI protocol while inpt, monitor BSG checks ACHS. H/o symptomatic orthostatic hypotension Continue midodrine with routine BP checks. Fall precautions as per above. Other chronic medical conditions: SREEDHAR - Continue CPAP HS. HLD, CAD - Continue statin, ASA. Subclinical hypothyroidism - Noted on admitting labs, recommend repeat TFT in 4- 6wk on OP basis. Depression/anxiety - Continue Effexor. DVT Prophylaxis: Coumadin Code Status: DNR/DNI - Confirmed with pt at bedside in the ED. PCP: Antonio Meredith MD Disposition: Admit to med/telemetry Patient seen in collaboration with Dr. Ocasio. Please see addendum. I spent a total of 72 minutes coordinating, documenting, and providing care for this patient excluding time spent in the performance of separately billed services or time spent by another provider/QHP. This included personally reviewing all current laboratories and imaging studies, medical reconciliation, outpatient chart review and discussion with specialists. This chart was completed in part utilizing Speech Voice Recognition Software. Grammatical errors, random word insertions, pronoun errors, and incomplete sentences are an occasional consequence of this system due to software limitations, ambient noise, and hardware issues. Any formal questions or concerns about the content, text, or information contained within the body of this dictation should be directly addressed to the provider for clarification. History of Present Illness Chief Complaint: Generalized weakness s/p fall URI symptoms x 2 days Primary Care Provider: Antonio Meredith MD Patient is a 74y/o M with PMHx significant for DM type II, HLD, CAD, COPD, SREEDHAR on CPAP, pulmonary nodules, symptomatic orthostatic hypotension, severe ischemic cardiomyopathy s/p AICD implantation, permanent atrial fibrillation s/p prior ablation and history of apical left ventricular mural thrombus s/p IN chronically anticoagulated on Coumadin, history of frequent ventricular ectopy and nonsustained ventricular tachycardia, severe pulmonary HTN, mitral regurgitation, tricuspid regurgitation, lumbar DDD, chronic low back pain on Percocet [employer], prior tobacco use and depression with anxiety who presented to the ED from home with c/o generalized weakness s/p mechanical fall this morning as well as URI symptoms x 2 days. History obtained from the patient, patient's at bedside, discussion with ED provider and associated chart review. Diamond his "legs give out" when attempting to get out of recliner this morning. Mechanical in nature, no LOC. + head strike. Unwitnessed. Was unable to get off of the floor with the assistance of his 2/2 generalized weakness therefore EMS was called. Admits to URI symptoms x 2 days including dry cough and SOB. recently with similar symptoms. Also describes myalgias and chills. No recorded fevers. No O2 requirement [employer]. Uses CPAP at bedtime for SREEDHAR. Appetite fair. Denies any bowel or urinary habit changes. No reported chest pain. Former smoker. No recent alcohol use. No recreational drug use. Admits to not taking any of this morning medications. Allergies Allergy/AdvReac Type Severity Reaction Status Date / Time codeine Allergy Severe HIVES, Verified 08/31/24 19:51 ITCHY Home Medications Medication Instructions Recorded Confirmed Type albuterol sulfate 2.5 mg/3 mL 2.5 mg inhalation QID PRN 03/12/21 12/17/24 History (0.083 %) solution for nebulization Shortness Of Breath aspirin 81 mg tablet,delayed 81 mg PO QPM 03/12/21 12/17/24 History release atorvastatin 40 mg tablet 80 mg PO QPM 03/12/21 12/17/24 History digoxin 125 mcg (0.125 mg) tablet 125 mcg PO QPM 03/12/21 12/17/24 History hydrocodone 5 mg-acetaminophen 325 1 tab PO Q8H PRN Pain 03/12/21 12/17/24 History mg tablet venlafaxine 75 mg capsule,extended 150 mg PO HS 03/12/21 12/17/24 History release 24 hr zolpidem 10 mg tablet 10 mg PO HS PRN Sleep 03/12/21 12/17/24 History albuterol sulfate 90 mcg/actuation 2 puff inhalation Q4H PRN DYSPNEA 08/31/24 12/17/24 History aerosol inhaler (Ventolin HFA) OR WHEEZING empagliflozin 10 mg tablet 10 mg PO QPM 08/31/24 12/17/24 History (Jardiance) metoprolol succinate 25 mg 25 mg PO QPM 08/31/24 12/17/24 History tablet,extended release 24 hr (Toprol XL) warfarin 5 mg tablet 5 mg PO DAILY #0 tabs 09/02/24 12/17/24 Rx fluticasone fur. 100 mcg-umeclid 1 inh inhalation DAILY 12/17/24 12/17/24 Hist ory 62.5 mcg-vilant 25 mcg inhalat.powder (Trelegy Ellipta) midodrine 2.5 mg tablet 2.5 mg PO BID 12/17/24 12/17/24 History sacubitril 24 mg-valsartan 26 mg 0.5 tab PO BID 12/17/24 12/17/24 History tablet Past Med/Surg History Problem List (Updated 12/17/24 @ 15:53 by Abhi Garcia MD) Hypoxia (Acute) Pneumonia due to COVID-19 virus (Acute) Fall Acute viral bronchiolitis SARS-CoV-2 positive Elevated troponin (Acute) Pneumonia (Acute) Sepsis Multifocal pneumonia Chronic ischemic vertebrobasilar artery cerebellar stroke Diarrhea (Acute) Cough (Acute) Generalized weakness (Acute) DMII (diabetes mellitus, type 2) Pulmonary edema (Acute) Hypoxia (Acute) Acute on chronic systolic (congestive) heart failure COPD exacerbation SOB (shortness of breath) Chronic heart failure with reduced ejection fraction and diastolic dysfunction Atrial flutter with controlled response Acute hyperkalemia (Acute) Atrial fibrillation Anticoagulated on Coumadin LV (left ventricular) mural thrombus COPD (chronic obstructive pulmonary disease) AICD (automatic cardioverter/defibrillator) present SREEDHAR on CPAP CHF (congestive heart failure) (Acute) CHF (congestive heart failure), NYHA class III (Chronic) "Last EF 20%" Ischemic cardiomyopathy (Chronic) Coronary artery disease (Chronic) H/O cardiac pacemaker (Chronic) "[employer] AICD by Dr. Jiang, [facility] [place] 07/19/2013" CHF (congestive heart failure) (Acute) Hypotension (Acute) Medical History Depression Myocardial infarct Pericardial effusion Surgical History S/P CABG (coronary artery bypass graft) "SVG to LAD, SVG to OM" H/O percutaneous transluminal coronary angioplasty Family History Mother CHF (congestive heart failure) Social History Smoking Status: Former smoker Tobacco Type: Declines Second Hand Exposure: No; Do You Dip or Chew Tobacco: No; Hx Alcohol Use: No Hx Substance Use: No Preferred Language: Polish Communication Ability: Effective Training Executive Required: No Beliefs That Will Affect Care: None marital status: Current Living Situation: Spouse current occupational status: retired How many Children do You have: 1 Feels Safe at Home: Yes Assistive Devices: Cane Review of Systems Review of Systems: At least ten systems reviewed and negative, except as noted in the HPI. Physical Exam Physical Exam: General: Ill-appearing male, no acute distress, sitting up in bed, A&Ox3. at bedside. HEENT: Normocephalic. Oropharynx somewhat dry. Respiratory: Normal respiratory effort. On 2L NC and saturating around 96%. Decreased breath sounds bilaterally. No accessory muscle use. Cardiovascular: RRR, trace pretibial edema. Abdomen/GI: Active bowel sounds, soft, nontender to palpation in all quadrants. Extremities/MSK: No cyanosis or clubbing, extremities motor strength intact, actively moves all extremities. + significantly dry and flaky skin on BUE and BLE. Neurologic: No overt focal deficits, CN's II-XI not formally tested but appear grossly intact bilaterally. Results & Data Results & Data Vital Signs (Past 12 Hours) Vital Signs Temp Pulse Pulse Pulse Resp BP BP 12/17/24 11:00 82 82 14 102/67 12/17/24 10:09 80 12/17/24 10:06 81 18 12/17/24 10:06 36.9 C 81 18 103/65 12/17/24 10:04 12/17/24 09:54 36.8 C 80 14 103/65 12/17/24 09:51 81 18 103/65 Pulse Ox O2 Del Method O2 Flow Rate 12/17/24 11:00 94 Nasal Cannula 2 12/17/24 10:09 12/17/24 10:06 93 Nasal Cannula 2 12/17/24 10:06 93 Nasal Cannula 2 12/17/24 10:04 Nasal Cannula 2 12/17/24 09:54 94 Nasal Cannula 2 12/17/24 09:51 94 Nasal Cannula 2 Laboratory Results Short CBC 12/17/24 Range/Units 09:55 WBC 7.07 (4.8-10.8) K/ul Hgb 14.8 (14.0-18.0) g/dl Hct 46.5 (42.0-52.0) % Plt Count 144 (130-400) K/uL BMP 12/17/24 12/17/24 09:55 10:39 Sodium 138 Potassium TNP 3.9 Chloride 106 Carbon Dioxide 26 BUN 11 Creatinine 0.89 Glucose 123 H Calcium 9.2 Liver Function 12/17/24 12/17/24 Range/Units 09:55 10:39 Total Bilirubin 1.4 H (0.2-1.0) mg/dl AST TNP 13 ALT 8 (7-52) U/L Alkaline Phosphatase 99 (34-104) U/L Albumin 4.1 (3.4-5.0) gm/dl Diagnostic Findings Chest CT 12/17/24 10:03 CT OF THE CHEST WITHOUT IV CONTRAST CLINICAL HISTORY: Abnormal exam. Cough. Fall. COMPARISON STUDY: Chest CT September 01, 2024. CT DOSE: 1492.47 mGy.cm TECHNIQUE: Axial images of the chest were obtained without IV contrast. Images were reviewed in the axial, sagittal, and coronal planes. IV contrast was not administered for this examination. Automated exposure control was utilized for the study. A dose lowering technique was utilized adhering to the principles of ALARA. FINDINGS: Left subclavian pacer is in place. Moderate cardiomegaly is again noted. There is no pericardial effusion. Moderate dilatation of the central pulmonary arteries is unchanged. Thoracic aorta is suboptimally assessed on unenhanced exam but there is no mediastinal hematoma. There is no evidence for traumatic injury to the thoracic aorta on this exam. Thoracic spine fractures are present. No acute fractures are identified within visualized portions of the ribs. There are trace bilateral pleural effusions. There is no pneumothorax. Lungs are suboptimally assessed due to respiratory motion. Mild interlobular septal thickening. Multifocal tree-in-bud nodules are present. These include right lower lobe opacities. These have improved when compared to prior CT. There are also lingular and left lower lobe tree-in-bud nodules. Mildly enlarged mediastinal lymph nodes are unchanged from earlier exams. IMPRESSION: 1. No acute traumatic findings within the chest on unenhanced exam. 2. Cardiomegaly with suspected mild interstitial pulmonary edema. Trace bilateral pleural effusions. 3. Multifocal tree-in-bud nodules, as described above. The findings favor an infectious process such as bronchiolitis. Lungs suboptimally assessed due to respiratory motion. A chest CT in 6 months to ensure resolution is recommended. 4. No change in mildly enlarged mediastinal lymph nodes. These are likely benign but can be assessed on follow-up CT. ACT 112: Negative or not required by law. Electronically signed by: Efrem Wright M.D. 12/17/2024 11:[address] 12/17/24 10:03 CT SCAN OF THE BRAIN WITHOUT IV CONTRAST CLINICAL HISTORY: Fall. COMPARISON STUDY: Head CT August 31, 2024. TECHNIQUE: Unenhanced axial CT scan of the brain was performed from the vertex to the skull base. A dose lowering technique was utilized adhering to the principles of ALARA. FINDINGS: Brain parenchyma: No acute intracranial hemorrhage, midline shift or mass effect is present. [place]-white matter differentiation is preserved. There are no extra- axial fluid collections. There are no findings to suggest acute dural sinus thrombosis or acute territorial infarct. White matter hypodensities are u nchanged and favor small vessel disease. Inferior right cerebellar encephalomalacia suggestive of old infarct is again noted. Ventricles, sulci, cisterns: There is no hydrocephalus. The basal cisterns are patent. Calvarium: Unremarkable. Sinuses and mastoids: The visualized paranasal sinuses are clear. The mastoid air cells are well pneumatized. Orbits: The bony orbits are grossly intact. IMPRESSION: 1. No acute intracranial findings. No change in appearance of the brain. 2. No calvarial fractures. ACT 112: Negative or not required by law. Electronically signed by: Efrem Wright M.D. 12/17/2024 11:18 AM Medications Administered Discontinued Medications Dexamethasone (Dexamethasone Sod Inj 4 Mg/Ml Vial) 6 mg IV NOW STA Stop: 12/17/24 11:06 Last Admin: 12/17/24 11:15 Dose: 6 mg Documented By: mbu Supervising Physician Co-Signing Physician Notes Patient seen and examined at bedside. Patient appears fatigued and slightly dyspneic. present. Has not been feeling well for past few days, SOB, fatigued, weak. Fell today, mechanical, remembers whole event, did hit head. On exam, appears diffusely weak, rhonchi in bilateral lower lung dykes, trace pitting edema in legs bilaterally, elevated JVP. No leukocytosis, mildly elevated BNP and HS trop in setting of COVID, positive for COVID, mild subclinical hypothyroidism noted. CT chest concerning for bronchiolitis likely 2/2 COVID and pulmonary edema. Presentation consistent with COVID bronchiolitis in setting of acute decompensated HFrEF (EF 20%) as evidenced by bronchiolitis and pulmonary edema on imaging respectively and 2L oxygen requirement. These likely causing diffuse weakness. Imaging and presentation less consistent with overlying bacterial pneumonia, although on differential. PE considered less likely given no tachycardia and other findings more likely. Other considerations could be digoxin toxicity as cause of weakness/fatigue, worsening heart failure, contribution of SREEDHAR, arrythmia, contribution from reactive airway disease. -start remdesevir, hold decadron given extent of HF, start lasix 20 IV bid, start IS and flutter valve, start duonebs -check echo, digoxin level, interrogate pacemaker -check procalcitonin, if grossly elevated consider abx -PT/OT ordered -continue GDMT I have seen and discussed the case with the collaborating advanced practitioner. I agree with the above H&P. I have reviewed and confirmed the patients medical history, the findings on physical examination, and the patients diagnosis and treatment plan with Sha SMITH and agree with the information documented. I spent a total of 30 minutes coordinating, documenting, and providing care for this patient excluding time spent in the performance of separately billed services. All of the aforementioned completed outside of collaborating with the assigned advanced practitioner for a full treatment plan. I have reviewed the advanced practitioner's documentation, and I agree with, and take responsibility for the plan of care
[2024-12-17] MEDS ORDERED: GLUCAGON FOR INJ 1 MG VIAL SQ PRN (13:08)
[2024-12-17] MEDS ORDERED: GLUCOSE 40% GEL 15 GM TUBE PO PRN (13:08)
[2024-12-17] MEDS ORDERED: CARBOHYDRATES FOR HYPOGLYCEMIA PO PRN (13:08)
[2024-12-17] MEDS ORDERED: GLUCOSE 10 TAB/TUBE PO PRN (13:08)
[2024-12-17] MEDS ORDERED: DEXTROSE 50% 50 ML SYRINGE IV PRN (13:08)
[2024-12-17] MEDS ORDERED: HYDROCODONE/ACETAMOPHEN 5/325MG TAB PO PRN (14:02)
[2024-12-17] MEDS: REMDESIVIR 200 MG in SODIUM CHLORIDE 0.9% 210 ML IV STA (14:16)
[2024-12-17] MEDS: ALBUT/IPRATROP 3MG/0.5MG NEB 3 ML VIAL NEB STA (14:16)
[2024-12-17] MEDS: ALBUT/IPRATROP 3MG/0.5MG NEB 3 ML VIAL NEB SCH (14:32)
[2024-12-17] MEDS: MIDODRINE HCL 2.5 MG TAB PO SCH (14:35)
[2024-12-17] MEDS ORDERED: MAGNESIUM HYDROXIDE SUSP 30 ML UDC PO PRN (15:11)
[2024-12-17] MEDS ORDERED: ONDANSETRON INJ 2 MG/ML 2 ML VIAL IV PRN (15:11)
[2024-12-17] MEDS ORDERED: POLYETHYLENE (MIRALAX) 17 GM PACK PO PRN (15:11)
[2024-12-17] MEDS: AMMONIUM LACTATE 12% LOTION 225 GM BTL EXT SCH (15:19)
[2024-12-17] MEDS: WARFARIN SOD 5 MG TAB PO SCH (16:53)
--- NOTE | 2024-12-17 17:19 | XCELERA ---
[id number]
[2024-12-17] MEDS: FUROSEMIDE INJ 20 MG/2 ML VIAL IV SCH (18:26)
[2024-12-17] MEDS: INSULIN ASPART PER UNIT CHARGE SC SCH (18:26)
[2024-12-17] MEDS: ATORVASTATIN 40 MG TAB PO SCH (18:27)
[2024-12-17] MEDS: BUDESONIDE 0.25 MG/2 ML VIAL (PULMICORT) NEB SCH (19:53)
[2024-12-17] MEDS: ASPIRIN 81 MG ECTAB PO SCH (20:32)
[2024-12-17] MEDS: EMPAGLIFLOZIN 10 MG TAB PO SCH (20:32)
[2024-12-17] MEDS: ZOLPIDEM TARTRATE 5 MG TAB PO STA (20:32)
[2024-12-17] MEDS: DIGOXIN 0.125 MG TAB PO SCH (20:32)
[2024-12-17] MEDS: METOPROLOL SUCC 25MG EXT REL TAB PO SCH (20:32)
[2024-12-17] MEDS: VENLAFAXINE HCL XR 150 MG CAPXR PO SCH (20:33)
[2024-12-17] MEDS: VALSARTAN/SACUBITRIL 26/24MG TAB PO SCH (20:33)
[2024-12-18 08:12] LABS: Hematocrit (blood only) 42.0 % (42.0-52.0); Hemoglobin 13.8 g/dl (14.0-18.0); Mean Corpuscular Hemoglobin 30.7 pg (25.0-34.0); Mean Corpuscular Volume 93.5 fL (80.0-100.0); Platelet Count 156 K/uL (130-400); RDW Standard Deviation 54.0 fL (36.4-46.3); Red Blood Count 4.49 M/uL (4.70-6.10); White Blood Count 8.47 K/ul (4.8-10.8)
[2024-12-18 08:29] LABS: Anion Gap 9.0 (3-11); Blood Urea Nitrogen 19.0 mg/dl (6-23); Calcium 9.4 mg/dl (8.6-10.3); Carbon Dioxide 25.0 mmol/L (21-32); Chloride 105.0 mmol/L (98-107); Creatinine Clr Calc Pharmacy 97.3 ml/min; Glucose 147.0 mg/dl (70-99(Fasting)); Magnesium 2.1 mg/dl (1.7-2.4); Potassium 4.0 mmol/L (3.5-5.1); Sodium 139.0 mmol/L (136-145)
[2024-12-18 08:36] LABS: INR 2.2 (0.9-1.1); Prothrombin Time 22.3 Seconds (9.0-12.0)
[2024-12-18 08:38] LABS: Hemoglobin A1C 6.4 % (4.5-5.6)
--- NOTE | 2024-12-18 11:19 | Hospitalist Progress Note ---
Date of Service December 18, 2024 Assessment & Plan (1) Hypoxia: (2) Acute viral bronchiolitis: (3) SARS-CoV-2 positive: (4) Generalized weakness: (5) Fall: (6) Elevated troponin: Plan Patient is a 74y/o M with PMHx significant for DM type II, HLD, CAD, COPD, SREEDHAR on CPAP, pulmonary nodules, symptomatic orthostatic hypotension, severe ischemic cardiomyopathy s/p AICD implantation, permanent atrial fibrillation s/p prior ablation and history of apical left ventricular mural thrombus s/p [place] chronically anticoagulated on Coumadin, history of frequent ventricular ectopy and nonsustained ventricular tachycardia, severe pulmonary HTN, mitral regurgitation, tricuspid regurgitation, lumbar DDD, chronic low back pain on Percocet [employer], prior tobacco use and depression with anxiety who presented to the ED from home with c/o generalized weakness s/p mechanical fall this morning as well as URI symptoms x 2 days. Acute hypoxia Acute viral bronchiolitis 2/2 SARS-CoV-2 infection P/w dry cough, SOB, myalgias and chills x [address] suggestive of acute bronchiolitis, suspect acute viral bronchiolitis 2/2 SARS-CoV-2. Was hypoxic down to 88% on RA in ED per RN and was placed on 2L NC with improvement in saturations. No leukocytosis, not meeting sepsis criteria on admission. No indication for ABX coverage at this time, will check Pro-Michele. S/p 6mg IV dexamethasone in ED, no appreciable wheezing heard at the time of my examination in the ED. Hold off on further corticosteroids for now. Remdesivir ordered. Wean O2 as tolerated. Pulmonary toileting with scheduled nebs, ISP and FV. Hold home Trelegy for now. Clinically a little better and complains today of cough but no increasing shortness of breath Will continue current medications and ask for PT OT evaluation Generalized weakness 2/2 above Mechanical fall with (+) head strike [employer] Head CT unremarkable. Appreciate PT/OT evals, fall precautions. Complains today of generalized weakness without any diarrhea and/or vomiting Generalized weakness is complicated by severe ischemic cardiomyopathy Again PT and OT will be helpful before discharge Elevated troponin Suspect demand ischemia ISO above, EKG without any overt ST segment changes. Follow trend. EKG with chest pain PRN, telemetry monitoring onboard. Doubt any ACS and troponin is only mildly elevated Severe ischemic cardiomyopathy s/p AICD: TTE done 08/2024 with EF = 20-25%, diffuse hypokinesis to dyskinesis, mild MR/TR, pulm HTN. Possible acute on chronic systolic HF with EF 20-25% as of August [address] did also note mild interstitial pulmonary edema, trace bilateral pleural effusions which could be c/t presentation. Trace pretibial edema appreciated on exam. BNP also slightly bumped >> suggestive of acute on chronic HFrEF. Trial 20mg IV Lasix BID for now and reassess volume status in AM >> judicious diuresis given HFrEF, hypotension. Updated TTE pending. Follows closely with [facility] cardiology. Continue GDMT including Jardiance, BB and Entresto. Denies any chest pain and/or palpitationWill continue current medications Permanent atrial fibrillation s/p prior ablation Continue BB, digoxin (level pending). INR therapeutic, continue Coumadin and follow repeat INR in AM. INR remains therapeutic at 2.2 Rate is controlled and the blood pressure on the lower side at 93/58 H/o apical LV mural thrombus Seen on TTE completed in August 2024, continue Coumadin. DMII Hgb A1c 6.8% 9mo ago, repeat in AM. Diet-controlled. SSI protocol while inpt, monitor BSG checks ACHS. H/o symptomatic orthostatic hypotension Continue midodrine with routine BP checks. Fall precautions as per above. Other chronic medical conditions: SREEDHAR - Continue CPAP HS. HLD, CAD - Continue statin, ASA. Subclinical hypothyroidism - Noted on admitting labs, recommend repeat TFT in 4- 6wk on OP basis. Depression/anxiety - Continue Effexor. DVT Prophylaxis: Coumadin Code Status: DNR/DNI - Confirmed with pt at bedside in the ED. PCP: Antonio Meredith MD Disposition: Admit to med/telemetry Admission and Anticipated Discharge Date Admission Date: December 17, 2024 Subjective 12/18/2024 The patient was seen and examined in medical telemetry unit and in the COVID room He complains to have extreme weakness and tiredness Denies any shortness of breath and has only minimal cough without any phlegm Denies any abdominal pain, nausea and/or vomiting Review of Systems Review of Systems: All systems reviewed and are unremarkable except as noted below Physical Exam Physical Exam: Lying in bed without any acute distress Constitutional: + ill appearing and average body habitus Eyes: PERRL, conjunctivae normal, anicteric sclerae ENMT: external ear and nose normal, oropharynx normal Neck: trachea midline, no thyromegaly Respiratory: + respiratory distress (Minimal distress at rest); no labored breathing Auscultation: + diminished lung sounds and + crackles (Occasional crackles at the bases) Cardiovascular: Rate/Rhythm: regular rate and regular rhythm; not tachycardic Heart Sounds: normal S1 and normal S2; no murmur Extremities: no edema Gastrointestinal (Abdomen): Inspection/Auscultation: normal bowel sounds; abdomen not distended Percussion/Palpation: abdomen soft; abdomen nontender Musculoskeletal: No acute arthritis involving any of the joint Neurologic: normal touch/pain/proprioception and moves all extremities; no focal motor deficits Psychiatric: A+Ox3, euthymic affect Lymphatic: no cervical or axillary lymphadenopathy Results & Data Results & Data Vital Signs (Past 12 Hours) Vital Signs Temp Pulse Pulse Resp BP Pulse Ox O2 Del Method 12/18/24 07:21 80 18 95 Nasal Cannula 12/18/24 04:10 36.7 C 81 18 93/58 L 93 Nasal Cannula 12/18/24 02:09 82 18 96 Nasal Cannula 12/17/24 23:16 37.0 C 83 18 95/55 L 95 Nasal Cannula O2 Flow Rate 12/18/24 07:21 2 12/18/24 04:10 2 12/18/24 02:09 2 12/17/24 23:16 2 Laboratory Results Short CBC 12/18/24 Range/Units 07:14 WBC 8.47 (4.8-10.8) K/ul Hgb 13.8 L (14.0-18.0) g/dl Hct 42.0 (42.0-52.0) % Plt Count 156 (130-400) K/uL BMP 12/17/24 12/18/24 10:39 07:14 Sodium 139 Potassium 3.9 4.0 Chloride 105 Carbon Dioxide 25 BUN 19 Creatinine 0.72 Glucose 147 H Calcium 9.4 Liver Function 12/17/24 Range/Units 10:39 AST 13 (13-39) U/L Medications Administered Current Inpatient Medications Acetaminophen (Acetaminophen 325 Mg Tab) 650 mg PO Q4H PRN PRN Reason: Pain or Fever Stop: 01/16/25 15:10 Hydrocodone Bitart/Acetaminophen (Hydrocodone/Acetamophen 5/325mg Tab) 1 tab PO Q8H PRN PRN Reason: Pain Stop: 12/31/24 14:01 Albuterol (Albut/Ipratrop 3mg/0.5mg Neb 3 Ml Vial) 3 ml NEB Q4R [facility]ULLY; Protocol Stop: 01/16/25 14:59 Last Admin: 12/18/24 07:20 Dose: 3 ml Aspirin (Aspirin 81 Mg Ectab) 81 mg PO QPM [facility] Stop: 01/16/25 20:59 Last Admin: 12/17/24 20:32 Dose: 81 mg Atorvastatin Calcium (Atorvastatin 40 Mg Tab) 80 mg PO DAILY@1800 [facility] Stop: 01/16/25 17:59 Last Admin: 12/17/24 18:27 Dose: 80 mg Budesonide (Budesonide 0.25 Mg/2 Ml Vial (Pulmicort)) 0.25 mg NEB BIDR [facility] Stop: 01/16/25 18:59 Last Admin: 12/18/24 07:20 Dose: 0.25 mg Dextrose (Dextrose 50% 50 Ml Syringe) 25 - 50 ml IV UD PRN; Protocol PRN Reason: Hypoglycemia Protocol Stop: 01/16/25 13:07 Digoxin (Digoxin 0.125 Mg Tab) 0.125 mg PO QPM [facility] Stop: 01/16/25 20:59 Last Admin: 12/17/24 20:32 Dose: 0.125 mg Empagliflozin (Empagliflozin 10 Mg Tab) 10 mg PO QPM [facility] Stop: 01/16/25 20:59 Last Admin: 12/17/24 20:32 Dose: 10 mg Furosemide (Furosemide Inj 20 Mg/2 Ml Vial) 20 mg IV [id number] [facility] Stop: 01/16/25 16:59 Last Admin: 12/18/24 09:46 Dose: 20 mg Glucagon (Glucagon For Inj 1 Mg Vial) 1 mg SQ UD PRN; Protocol PRN Reason: Hypoglycemia Protocol Stop: 01/16/25 13:07 Glucose (Glucose 40% Gel 15 Gm Tube) 15 - 30 gm PO UD PRN; Protocol PRN Reason: Hypoglycemia Protocol Stop: 01/16/25 13:07 Glucose (Glucose 10 Tab/Tube) 4 - 8 tab PO UD PRN; Protocol PRN Reason: Hypoglycemia Protocol Stop: 01/16/25 13:07 Guaifenesin/Dextromethorphan (Guaifenesin/Dextrom Syrup 100mg/10mg 5ml Udc) 5 ml PO Q6H PRN PRN Reason: Cough Stop: 01/16/25 19:56 Last Admin: 12/17/24 20:35 Dose: 5 ml Remdesivir 100 mg/ Sodium (Chloride) 250 mls @ 250 mls/hr IV Q24H [facility] Stop: 12/21/24 14:14 Insulin Aspart (Insulin Aspart Per Unit Charge) 0 units SC ACHS [facility] Stop: 01/16/25 16:29 Last Admin: 12/18/24 09:47 Dose: 7 units Lactic Acid (Ammonium Lactate 12% Lotion 225 Gm Btl) 1 gm EXT TID [facility] Stop: 01/16/25 13:59 Last Admin: 12/18/24 08:47 Dose: 1 gm Metoprolol Succinate (Metoprolol Succ 25mg Ext Rel Tab) 25 mg PO QPM [facility] Stop: 01/16/25 20:59 Last Admin: 12/17/24 20:32 Dose: 25 mg Midodrine (Midodrine Hcl 2.5 Mg Tab) 2.5 mg PO BID@0800,1400 [facility] Stop: 01/16/25 14:14 Last Admin: 12/18/24 08:47 Dose: 2.5 mg Miscellaneous (Carbohydrates For Hypoglycemia ) 15 - 30 gm PO UD PRN PRN Reason: Hypoglycemia Protocol Stop: 01/16/25 13:07 Ondansetron HCl (Ondansetron Inj 2 Mg/Ml 2 Ml Vial) 4 mg IV Q6H PRN PRN Reason: Nausea Stop: 01/16/25 15:10 Polyethylene Glycol (Polyethylene (Miralax) 17 Gm Pack) 17 gm PO DAILY PRN PRN Reason: Constipation Stop: 01/16/25 15:10 Sacubitril/Valsartan (Valsartan/Sacubitril 26/24mg Tab) 0.5 tab PO BID [facility] Stop: 01/16/25 20:59 Last Admin: 12/18/24 08:46 Dose: 0.5 tab Venlafaxine HCl (Venlafaxine Hcl Xr 150 Mg Capxr) 150 mg PO HS [facility] Stop: 01/16/25 20:59 Last Admin: 12/17/24 20:33 Dose: 150 mg Warfarin Sodium (Warfarin Sod 5 Mg Tab) 5 mg PO SuMoTuWeThSa@1600 [facility] Stop: 01/16/25 15:59 Last Admin: 12/17/24 16:53 Dose: Not Given Warfarin Sodium (Warfarin Sod 2.5 Mg Tab) 2.5 mg PO Fr@1600 [facility] Stop: 01/22/25 15:59
[2024-12-18] MEDS: REMDESIVIR 100 MG in SODIUM CHLORIDE 0.9% 230 ML IV SCH (13:23)
[2024-12-18] MEDS: ACETAMINOPHEN 325 MG TAB PO PRN (15:33)
[2024-12-18] MEDS: ZOLPIDEM TARTRATE 5 MG TAB PO STA (21:57)
[2024-12-19 08:08] LABS: Hematocrit (blood only) 44.1 % (42.0-52.0); Hemoglobin 15.0 g/dl (14.0-18.0); Immature Granulocytes # (auto) 0.03 K/uL (0.01-0.20); Immature Granulocytes % (auto) 0.3 %; Mean Corpuscular Hemoglobin 31.6 pg (25.0-34.0); Mean Corpuscular Volume 93.0 fL (80.0-100.0); Platelet Count 175 K/uL (130-400); RDW Standard Deviation 54.0 fL (36.4-46.3); Red Blood Count 4.74 M/uL (4.70-6.10); White Blood Count 9.23 K/ul (4.8-10.8)
[2024-12-19 09:14] LABS: Alanine Aminotransferase 11.0 U/L (7-52); Albumin Globulin Ratio 1.2 (0.9-2); Albumin Level 3.7 gm/dl (3.4-5.0); Alkaline Phosphatase 90.0 U/L (34-104); Anion Gap 8.0 (3-11); Bilirubin,Total 0.9 mg/dl (0.2-1.0); Blood Urea Nitrogen 26.0 mg/dl (6-23); Calcium 9.5 mg/dl (8.6-10.3); Carbon Dioxide 27.0 mmol/L (21-32); Chloride 106.0 mmol/L (98-107); Creatinine Clr Calc Pharmacy 97.3 ml/min; Globulin 3.1 gm/dl (2.5-4.0); Glucose 99.0 mg/dl (70-99(Fasting)); Magnesium 2.2 mg/dl (1.7-2.4); Potassium 4.0 mmol/L (3.5-5.1); Sodium 141.0 mmol/L (136-145); Total Protein 6.8 gm/dl (6.0-8.3)
[2024-12-19 09:23] LABS: INR 2.0 (0.9-1.1); Prothrombin Time 20.4 Seconds (9.0-12.0)
--- NOTE | 2024-12-19 12:00 | Hospitalist Progress Note ---
Date of Service December 19, 2024 Assessment & Plan (1) Hypoxia: (2) Acute viral bronchiolitis: (3) SARS-CoV-2 positive: (4) Generalized weakness: (5) Fall: (6) Elevated troponin: Plan Patient is a 74y/o M with PMHx significant for DM type II, HLD, CAD, COPD, SREEDHAR on CPAP, pulmonary nodules, symptomatic orthostatic hypotension, severe ischemic cardiomyopathy s/p AICD implantation, permanent atrial fibrillation s/p prior ablation and history of apical left ventricular mural thrombus s/p [place] chronically anticoagulated on Coumadin, history of frequent ventricular ectopy and nonsustained ventricular tachycardia, severe pulmonary HTN, mitral regurgitation, tricuspid regurgitation, lumbar DDD, 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 Acute hypoxia Acute viral bronchiolitis 2/2 SARS-CoV-2 infection P/w dry cough, SOB, myalgias and chills x [address] suggestive of acute bronchiolitis, suspect acute viral bronchiolitis 2/2 SARS-CoV-2. Was hypoxic down to 88% on RA in ED per RN and was placed on 2L NC with improvement in saturations. No leukocytosis, not meeting sepsis criteria on admission. No indication for ABX coverage at this time, will check Pro-Michele. S/p 6mg IV dexamethasone in ED, no appreciable wheezing heard at the time of my examination in the ED. Hold off on further corticosteroids for now. Remdesivir ordered. Wean O2 as tolerated. Pulmonary toileting with scheduled nebs, ISP and FV. Hold home Trelegy for now. 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 Appreciate PT/OT evals, fall precautions. Complains today of generalized weakness without any diarrhea and/or vomiting Generalized weakness is complicated by severe ischemic cardiomyopathy His weakness has improved a lot Elevated troponin Suspect demand ischemia ISO above, EKG without any overt ST segment changes. Follow trend. EKG with chest pain PRN, telemetry monitoring onboard. Doubt any ACS and troponin is only mildly elevated Severe ischemic cardiomyopathy s/p AICD: TTE done 08/2024 with EF = 20-25%, diffuse hypokinesis to dyskinesis, mild MR/TR, pulm HTN. Possible acute on chronic systolic HF with EF 20-25% as of August [address] did also note mild interstitial pulmonary edema, trace bilateral pleural effusions which could be c/t presentation. Trace pretibial edema appreciated on exam. BNP also slightly bumped >> suggestive of acute on chronic HFrEF. Trial 20mg IV Lasix BID for now and reassess volume status in AM >> judicious diuresis given HFrEF, hypotension. Updated TTE pending. Follows closely with [facility] cardiology. Continue GDMT including Jardiance, BB and Entresto. Denies any chest pain and/or palpitationWill continue current medications Permanent atrial fibrillation s/p prior ablation Continue BB, digoxin (level pending). INR therapeutic, continue Coumadin and follow repeat INR in AM. INR remains therapeutic at 2.2 Rate is controlled and the blood pressure on the lower side at 93/58 Blood pressure remains normal at 110/72 H/o apical LV mural thrombus Seen on TTE completed in August 2024, continue Coumadin. DMII Hgb A1c 6.8% 9mo ago, repeat in AM. Diet-controlled. SSI protocol while inpt, monitor BSG checks ACHS. H/o symptomatic orthostatic hypotension Continue midodrine with routine BP checks. Fall precautions as per above. Other chronic medical conditions: SREEDHAR - Continue CPAP HS. HLD, CAD - Continue statin, ASA. Subclinical hypothyroidism - Noted on admitting labs, recommend repeat TFT in 4- 6wk on OP basis. Depression/anxiety - Continue Effexor. DVT Prophylaxis: Coumadin Code Status: DNR/DNI - Confirmed with pt at bedside in the ED. PCP: Antonio Meredith MD Disposition: Admit to med/telemetry Admission and Anticipated Discharge Date Admission Date: December 17, 2024 Subjective 12/18/2024 The patient was seen and examined in medical telemetry unit and in the COVID room He complains to have extreme weakness and tiredness Denies any shortness of breath and has only minimal cough without any phlegm Denies any abdominal pain, nausea and/or vomiting 12/19/2024 The patient was seen and examined in medical telemetry unit He has been much better today and denies any respiratory symptoms Saturating normally on room air Weakness has improved and he has been getting physical therapy and recommended home Review of Systems Review of Systems: All systems reviewed and are unremarkable except as noted below Physical Exam Physical Exam: Lying in bed without any acute distress Constitutional: + ill appearing and average body habitus Eyes: PERRL, conjunctivae normal, anicteric sclerae ENMT: external ear and nose normal, oropharynx normal Neck: trachea midline, no thyromegaly Respiratory: no respiratory distress and no labored breathing Auscultation: + diminished lung sounds and + crackles (Scanty crackles bilaterally) Cardiovascular: Rate/Rhythm: regular rate and regular rhythm; not tachycardic Heart Sounds: normal S1 and normal S2; no murmur Extremities: no edema Gastrointestinal (Abdomen): Inspection/Auscultation: normal bowel sounds; abdomen not distended Percussion/Palpation: abdomen soft; abdomen nontender Musculoskeletal: No acute arthritis involving any of the joint Neurologic: normal touch/pain/proprioception and moves all extremities; no focal motor deficits Psychiatric: A+Ox3, euthymic affect Lymphatic: no cervical or axillary lymphadenopathy Results & Data Results & Data Vital Signs (Past 12 Hours) Vital Signs Temp Pulse Pulse Resp BP Pulse Ox O2 Del Method 12/19/24 07:51 36.4 C L 80 20 110/72 94 Room Air 12/19/24 07:23 80 12/19/24 07:18 83 16 96 Nasal Cannula 12/19/24 03:31 36.4 C L 80 18 100/65 92 Room Air O2 Flow Rate 12/19/24 07:51 12/19/24 07:23 12/19/24 07:18 2 12/19/24 03:31 Laboratory Results Short CBC 12/19/24 Range/Units 07:30 WBC 9.23 (4.8-10.8) K/ul Hgb 15.0 (14.0-18.0) g/dl Hct 44.1 (42.0-52.0) % Plt Count 175 (130-400) K/uL BMP 12/19/24 07:30 Sodium 141 Potassium 4.0 Chloride 106 Carbon Dioxide 27 BUN 26 H Creatinine 0.72 Glucose 99 Calcium 9.5 Liver Function 11/10/25 Range/Units 07:30 Total Bilirubin 0.9 D (0.2-1.0) mg/dl AST 16 (13-39) U/L ALT 11 (7-52) U/L Alkaline Phosphatase 90 (34-104) U/L Albumin 3.7 (3.4-5.0) gm/dl Medications Administered Current Inpatient Medications Acetaminophen (Acetaminophen 325 Mg Tab) 650 mg PO Q4H PRN PRN Reason: Pain or Fever Stop: 01/16/25 15:10 Last Admin: 12/18/24 21:24 Dose: 650 mg Hydrocodone Bitart/Acetaminophen (Hydrocodone/Acetamophen 5/325mg Tab) 1 tab PO Q8H PRN PRN Reason: Pain Stop: 12/31/24 14:01 Albuterol (Albut/Ipratrop 3mg/0.5mg Neb 3 Ml Vial) 3 ml NEB TIDR [facility]; Protocol Stop: 01/18/25 12:59 Aspirin (Aspirin 81 Mg Ectab) 81 mg PO QPM [facility] Stop: 01/16/25 20:59 Last Admin: 12/18/24 21:24 Dose: 81 mg Atorvastatin Calcium (Atorvastatin 40 Mg Tab) 80 mg PO DAILY@1800 [facility] Stop: 01/16/25 17:59 Last Admin: 12/18/24 17:35 Dose: 80 mg Budesonide (Budesonide 0.25 Mg/2 Ml Vial (Pulmicort)) 0.25 mg NEB BIDR [facility] Stop: 01/16/25 18:59 Last Admin: 12/19/24 07:17 Dose: 0.25 mg Dextrose (Dextrose 50% 50 Ml Syringe) 25 - 50 ml IV UD PRN; Protocol PRN Reason: Hypoglycemia Protocol Stop: 01/16/25 13:07 Digoxin (Digoxin 0.125 Mg Tab) 0.125 mg PO QPM [facility] Stop: 01/16/25 20:59 Last Admin: 12/18/24 21:23 Dose: 0.125 mg Empagliflozin (Empagliflozin 10 Mg Tab) 10 mg PO QPM [facility] Stop: 01/16/25 20:59 Last Admin: 12/18/24 21:24 Dose: 10 mg Furosemide (Furosemide Inj 20 Mg/2 Ml Vial) 20 mg IV [id number] [facility] Stop: 01/16/25 16:59 Last Admin: 12/19/24 09:14 Dose: 20 mg Glucagon (Glucagon For Inj 1 Mg Vial) 1 mg SQ UD PRN; Protocol PRN Reason: Hypoglycemia Protocol Stop: 01/16/25 13:07 Glucose (Glucose 40% Gel 15 Gm Tube) 15 - 30 gm PO UD PRN; Protocol PRN Reason: Hypoglycemia Protocol Stop: 01/16/25 13:07 Glucose (Glucose 10 Tab/Tube) 4 - 8 tab PO UD PRN; Protocol PRN Reason: Hypoglycemia Protocol Stop: 01/16/25 13:07 Guaifenesin/Dextromethorphan (Guaifenesin/Dextrom Syrup 100mg/10mg 5ml Udc) 5 ml PO Q6H PRN PRN Reason: Cough Stop: 01/16/25 19:56 Last Admin: 12/19/24 09:24 Dose: 5 ml Remdesivir 100 mg/ Sodium (Chloride) 250 mls @ 250 mls/hr IV Q24H [facility] Stop: 12/21/24 14:14 Last Infusion: 12/18/24 14:44 Dose: Infused Insulin Aspart (Insulin Aspart Per Unit Charge) 0 units SC ACHS [facility] Stop: 01/16/25 16:29 Last Admin: 12/19/24 09:14 Dose: 5 units Lactic Acid (Ammonium Lactate 12% Lotion 225 Gm Btl) 1 gm EXT TID [facility] Stop: 01/16/25 13:59 Last Admin: 12/19/24 08:42 Dose: 1 gm Metoprolol Succinate (Metoprolol Succ 25mg Ext Rel Tab) 25 mg PO QPM [facility] Stop: 01/16/25 20:59 Last Admin: 12/18/24 21:23 Dose: 25 mg Midodrine (Midodrine Hcl 2.5 Mg Tab) 2.5 mg PO BID@0800,1400 [facility] Stop: 01/16/25 14:14 Last Admin: 12/19/24 08:41 Dose: 2.5 mg Miscellaneous (Carbohydrates For Hypoglycemia ) 15 - 30 gm PO UD PRN PRN Reason: Hypoglycemia Protocol Stop: 01/16/25 13:07 Ondansetron HCl (Ondansetron Inj 2 Mg/Ml 2 Ml Vial) 4 mg IV Q6H PRN PRN Reason: Nausea Stop: 01/16/25 15:10 Polyethylene Glycol (Polyethylene (Miralax) 17 Gm Pack) 17 gm PO DAILY PRN PRN Reason: Constipation Stop: 01/16/25 15:10 Sacubitril/Valsartan (Valsartan/Sacubitril 26/24mg Tab) 0.5 tab PO BID [facility] Stop: 01/16/25 20:59 Last Admin: 12/19/24 08:39 Dose: 0.5 tab Venlafaxine HCl (Venlafaxine Hcl Xr 150 Mg Capxr) 150 mg PO HS [facility] Stop: 01/16/25 20:59 Last Admin: 12/18/24 21:23 Dose: 150 mg Warfarin Sodium (Warfarin Sod 5 Mg Tab) 5 mg PO SuMoTuWeThSa@1600 [facility] Stop: 01/16/25 15:59 Last Admin: 12/18/24 15:33 Dose: 5 mg Warfarin Sodium (Warfarin Sod 2.5 Mg Tab) 2.5 mg PO Fr@1600 [facility] Stop: 01/22/25 15:59
[2024-12-19] MEDS: ALBUT/IPRATROP 3MG/0.5MG NEB 3 ML VIAL NEB SCH (13:40)
[2024-12-19] MEDS ORDERED: OXYMETAZOLINE 0.05% 30 ML BTL PRN (17:44)
[2024-12-19] MEDS: SODIUM CHLORIDE 0.65% NA SOLN 45 ML (OCEAN) PRN (18:25)
[2024-12-20 07:03] LABS: Hematocrit (blood only) 49.4 % (42.0-52.0); Hemoglobin 16.0 g/dl (14.0-18.0); Immature Granulocytes # (auto) 0.05 K/uL (0.01-0.20); Immature Granulocytes % (auto) 0.6 %; Mean Corpuscular Hemoglobin 30.1 pg (25.0-34.0); Mean Corpuscular Volume 93.0 fL (80.0-100.0); Platelet Count 187 K/uL (130-400); RDW Standard Deviation 54.9 fL (36.4-46.3); Red Blood Count 5.31 M/uL (4.70-6.10); White Blood Count 9.01 K/ul (4.8-10.8)
[2024-12-20 07:23] LABS: Anion Gap 9.0 (3-11); Blood Urea Nitrogen 28.0 mg/dl (6-23); Calcium 9.7 mg/dl (8.6-10.3); Carbon Dioxide 27.0 mmol/L (21-32); Chloride 102.0 mmol/L (98-107); Creatinine Clr Calc Pharmacy 107.8 ml/min; Glucose 105.0 mg/dl (70-99(Fasting)); Potassium 4.0 mmol/L (3.5-5.1); Sodium 138.0 mmol/L (136-145)
[2024-12-20 07:40] LABS: INR 2.0 (0.9-1.1); Prothrombin Time 20.8 Seconds (9.0-12.0)
[2024-12-20 07:59] VITALS: TEMP 97.9
--- NOTE | 2024-12-20 10:08 | Electrocardiogram Report ---
Test Reason : Blood Pressure : */* mmHG Vent. Rate : 80 BPM Atrial Rate : 106 BPM P-R Int : * ms QRS Dur : 168 ms QT Int : 426 ms P-R-T Axes : * 268 89 degrees QTcB Int : 491 ms Ventricular-paced rhythm Dissociated atrial activity appears to be present Abnormal ECG When compared with ECG of 01-Sep-2024 19:41, Vent. rate has decreased by 4 bpm Confirmed by Chang Roche ([id number]) on 12/20/2024 10:07:38 AM Referred By: REFERRED SELF Confirmed By: Chang Roche
[2024-12-20 12:08] VITALS: BP 100/65
[2024-12-20 12:59] VITALS: PULSE 80; RESP 15
--- NOTE | 2024-12-20 13:00 | Hospitalist Progress Note ---
Date of Service December 20, 2024 Assessment & Plan (1) Hypoxia: (2) Acute viral bronchiolitis: (3) SARS-CoV-2 positive: (4) Generalized weakness: (5) Fall: (6) Elevated troponin: Plan Patient is a 74y/o M with PMHx significant for DM type II, HLD, CAD, COPD, SREEDHAR on CPAP, pulmonary nodules, symptomatic orthostatic hypotension, severe ischemic cardiomyopathy s/p AICD implantation, permanent atrial fibrillation s/p prior ablation and history of apical left ventricular mural thrombus s/p ND chronically anticoagulated on Coumadin, history of frequent ventricular ectopy and nonsustained ventricular tachycardia, severe pulmonary HTN, mitral regurgitation, tricuspid regurgitation, lumbar DDD, chronic low back pain 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 Acute hypoxia Acute viral bronchiolitis 2/2 SARS-CoV-2 infection P/w dry cough, SOB, myalgias and chills x [address] suggestive of acute bronchiolitis, suspect acute viral bronchiolitis 2/2 SARS-CoV-2. Was hypoxic down to 88% on RA in ED per RN and was placed on 2L NC with improvement in saturations. No leukocytosis, not meeting sepsis criteria on admission. No indication for ABX coverage at this time, will check Pro-Michele. S/p 6mg IV dexamethasone in ED, no appreciable wheezing heard at the time of my examination in the ED. Hold off on further corticosteroids for now. Remdesivir ordered. Wean O2 as tolerated. Pulmonary toileting with scheduled nebs, ISP and FV. Hold home Trelegy for now. 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 Appreciate PT/OT evals, fall precautions. Complains today of generalized weakness without any diarrhea and/or vomiting Generalized weakness is complicated by severe ischemic cardiomyopathy His weakness has improved a lot Has had physical therapy and recommended home Elevated troponin Suspect demand ischemia ISO above, EKG without any overt ST segment changes. Follow trend. EKG with chest pain PRN, telemetry monitoring onboard. Doubt any ACS and troponin is only mildly elevated Severe ischemic cardiomyopathy s/p AICD: TTE done 08/2024 with EF = 20-25%, diffuse hypokinesis to dyskinesis, mild MR/TR, pulm HTN. Possible acute on chronic systolic HF with EF 20-25% as of August [address] did also note mild interstitial pulmonary edema, trace bilateral pleural effusions which could be c/t presentation. Trace pretibial edema appreciated on exam. BNP also slightly bumped >> suggestive of acute on chronic HFrEF. Trial 20mg IV Lasix BID for now and reassess volume status in AM >> judicious diuresis given HFrEF, hypotension. Updated TTE pending. Follows closely with [facility] cardiology. Continue GDMT including Jardiance, BB and Entresto. Denies any chest pain and/or palpitationWill continue current medications Will continue his usual doses of medications as before Permanent atrial fibrillation s/p prior ablation Continue BB, digoxin (level pending). INR therapeutic, continue Coumadin and follow repeat INR in AM. INR remains therapeutic at 2.2 Rate is controlled and the blood pressure on the lower side at 93/58 Blood pressure remains normal at 110/72 H/o apical LV mural thrombus Seen on TTE completed in August 2024, continue Coumadin. DMII Hgb A1c 6.8% 9mo ago, repeat in AM. Diet-controlled. SSI protocol while inpt, monitor BSG checks ACHS. H/o symptomatic orthostatic hypotension Continue midodrine with routine BP checks. Fall precautions as per above. Other chronic medical conditions: SREEDHAR - Continue CPAP HS. HLD, CAD - Continue statin, ASA. Subclinical hypothyroidism - Noted on admitting labs, recommend repeat TFT in 4- 6wk on OP basis. Depression/anxiety - Continue Effexor. DVT Prophylaxis: Coumadin Code Status: DNR/DNI - Confirmed with pt at bedside in the ED. PCP: Antonio Meredith MD Disposition: Admit to med/telemetry Admission and Anticipated Discharge Date Admission Date: December 17, 2024 Subjective 12/18/2024 The patient was seen and examined in medical telemetry unit and in the COVID room He complains to have extreme weakness and tiredness Denies any shortness of breath and has only minimal cough without any phlegm Denies any abdominal pain, nausea and/or vomiting 12/19/2024 The patient was seen and examined in medical telemetry unit He has been much better today and denies any respiratory symptoms Saturating normally on room air Weakness has improved and he has been getting physical therapy and recommended home 12/20/2024 The patient was seen and examined in medical telemetry unit He has been doing much better and denies any cough and/or shortness of breath His weakness has improved He will be discharged home this afternoon Review of Systems Review of Systems: All systems reviewed and are unremarkable except as noted below Physical Exam Physical Exam: Lying in bed without any acute distress Constitutional: + ill appearing and average body habitus Eyes: PERRL, conjunctivae normal, anicteric sclerae ENMT: external ear and nose normal, oropharynx normal Neck: trachea midline, no thyromegaly Respiratory: no respiratory distress and no labored breathing Auscultation: + diminished lung sounds and + crackles (Scanty crackles bilaterally) Cardiovascular: Rate/Rhythm: regular rate and regular rhythm; not tachycardic Heart Sounds: normal S1 and normal S2; no murmur Extremities: no edema Gastrointestinal (Abdomen): Inspection/Auscultation: normal bowel sounds; abdomen not distended Percussion/Palpation: abdomen soft; abdomen nontender Neurologic: normal touch/pain/proprioception and moves all extremities; no focal motor deficits Psychiatric: A+Ox3, euthymic affect Lymphatic: no cervical or axillary lymphadenopathy Results & Data Results & Data Vital Signs (Past 12 Hours) Vital Signs Temp Pulse Pulse Pulse Pulse Resp Resp 12/20/24 12:07 36.6 C 82 20 12/20/24 11:06 88 86 16 12/20/24 08:00 12/20/24 07:58 36.6 C 81 20 12/20/24 07:42 80 12/20/24 07:22 70 16 12/20/24 02:38 36.7 C 82 18 Resp BP Pulse Ox Pulse Ox Pulse Ox O2 Del Method O2 Flow Rate 12/20/24 12:07 100/65 90 Room Air 12/20/24 11:06 16 93 90 12/20/24 08:00 Nasal Cannula 2 12/20/24 07:58 112/73 91 Room Air 12/20/24 07:42 12/20/24 07:22 93 Nasal Cannula 2 12/20/24 02:38 121/74 95 Nasal Cannula 2
[2024-12-20 13:16] VITALS: O2SAT 65
--- NOTE | 2024-12-20 16:24 | Discharge Summary ---
Date of Service December 20, 2024 Admission HPI Per Admitting Provider Patient is a 74y/o M with PMHx significant for DM type II, HLD, CAD, COPD, SREEDHAR on CPAP, pulmonary nodules, symptomatic orthostatic hypotension, severe ischemic cardiomyopathy s/p AICD implantation, permanent atrial fibrillation s/p prior ablation and history of apical left ventricular mural thrombus s/p [place] chronically anticoagulated on Coumadin, history of frequent ventricular ectopy and nonsustained ventricular tachycardia, severe pulmonary HTN, mitral regurgitation, tricuspid regurgitation, lumbar DDD, chronic low back pain 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 History obtained from the patient, patient's at bedside, discussion with ED provider and associated chart review. [place] his "legs give out" when attempting to get out of recliner this morning. Mechanical in nature, no LOC. + head strike. Unwitnessed. Was unable to get off of the floor with the assistance of his 2/2 generalized weakness therefore EMS was called. Admits to URI symptoms x 2 days including dry cough and SOB. recently with similar symptoms. Also describes myalgias and chills. No recorded fevers. 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 Uses CPAP at bedtime for SREEDHAR. Appetite fair. Denies any bowel or urinary habit changes. No reported chest pain. Former smoker. No recent alcohol use. No recreational drug use. Admits to not taking any of this morning medications. Admission Exam Per Admitting Provider Physical Exam: General: Ill-appearing male, no acute distress, sitting up in bed, A&Ox3. at bedside. HEENT: Normocephalic. Oropharynx somewhat dry. Respiratory: Normal respiratory effort. On 2L NC and saturating around 96%. Decreased breath sounds bilaterally. No accessory muscle use. Cardiovascular: RRR, trace pretibial edema. Abdomen/GI: Active bowel sounds, soft, nontender to palpation in all quadrants. Extremities/MSK: No cyanosis or clubbing, extremities motor strength intact, actively moves all extremities. + significantly dry and flaky skin on BUE and BLE. Neurologic: No overt focal deficits, CN's II-XI not formally tested but appear grossly intact bilaterally. Principal Diagnosis Bronchiolitis due to COVID-19 virus infection, generalized weakness secondary to Discharge Exam Lying in bed without any acute distress Constitutional + ill appearing and average body habitus Eyes PERRL, conjunctivae normal, anicteric sclerae ENMT external ear and nose normal, oropharynx normal Neck trachea midline, no thyromegaly Respiratory no respiratory distress and no labored breathing Auscultation: + diminished lung sounds and + crackles (Scanty crackles bilaterally) Cardiovascular Rate/Rhythm: regular rate and regular rhythm; not tachycardic Heart Sounds: normal S1 and normal S2; no murmur Extremities: no edema Gastrointestinal (Abdomen) Inspection/Auscultation: normal bowel sounds; abdomen not distended Percussion/Palpation: abdomen soft; abdomen nontender Neurologic normal touch/pain/proprioception and moves all extremities; no focal motor deficits Psychiatric A+Ox3, euthymic affect Lymphatic no cervical or axillary lymphadenopathy Discharge Data Allergies Allergy/AdvReac Type Severity Reaction Status Date / Time codeine Allergy Severe HIVES, Verified 08/31/24 19:51 ITCHY Consultations 12/17/24 12:59 ED Decision to Admit Stat Ordered Studies 12/17/24 10:03 CT chest diagnostic wo con Stat CT head/brain wo con Stat Hospital Course (1) Hypoxia: (2) Acute viral bronchiolitis: (3) SARS-CoV-2 positive: (4) Generalized weakness: (5) Fall: (6) Elevated troponin: Plan Patient is a 74y/o M with PMHx significant for DM type II, HLD, CAD, COPD, SREEDHAR on CPAP, pulmonary nodules, symptomatic orthostatic hypotension, severe ischemic cardiomyopathy s/p AICD implantation, permanent atrial fibrillation s/p prior ablation and history of apical left ventricular mural thrombus s/p VA chronically anticoagulated on Coumadin, history of frequent ventricular ectopy and nonsustained ventricular tachycardia, severe pulmonary HTN, mitral regurgitation, tricuspid regurgitation, lumbar DDD, chronic low back pain 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 Acute hypoxia Acute viral bronchiolitis 2/2 SARS-CoV-2 infection P/w dry cough, SOB, myalgias and chills x [address] suggestive of acute bronchiolitis, suspect acute viral bronchiolitis 2/2 SARS-CoV-2. Was hypoxic down to 88% on RA in ED per RN and was placed on 2L NC with improvement in saturations. No leukocytosis, not meeting sepsis criteria on admission. No indication for ABX coverage at this time, will check Pro-Michele. S/p 6mg IV dexamethasone in ED, no appreciable wheezing heard at the time of my examination in the ED. Hold off on further corticosteroids for now. Remdesivir ordered. Wean O2 as tolerated. Pulmonary toileting with scheduled nebs, ISP and FV. Hold home Trelegy for now. 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 Appreciate PT/OT evals, fall precautions. Complains today of generalized weakness without any diarrhea and/or vomiting Generalized weakness is complicated by severe ischemic cardiomyopathy His weakness has improved a lot Has had physical therapy and recommended home Elevated troponin Suspect demand ischemia ISO above, EKG without any overt ST segment changes. Follow trend. EKG with chest pain PRN, telemetry monitoring onboard. Doubt any ACS and troponin is only mildly elevated Severe ischemic cardiomyopathy s/p AICD: TTE done 08/2024 with EF = 20-25%, diffuse hypokinesis to dyskinesis, mild MR/TR, pulm HTN. Possible acute on chronic systolic HF with EF 20-25% as of August [address] did also note mild interstitial pulmonary edema, trace bilateral pleural effusions which could be c/t presentation. Trace pretibial edema appreciated on exam. BNP also slightly bumped >> suggestive of acute on chronic HFrEF. Trial 20mg IV Lasix BID for now and reassess volume status in AM >> judicious diuresis given HFrEF, hypotension. Updated TTE pending. Follows closely with [facility] cardiology. Continue GDMT including Jardiance, BB and Entresto. Denies any chest pain and/or palpitationWill continue current medications Will continue his usual doses of medications as before Permanent atrial fibrillation s/p prior ablation Continue BB, digoxin (level pending). INR therapeutic, continue Coumadin and follow repeat INR in AM. INR remains therapeutic at 2.2 Rate is controlled and the blood pressure on the lower side at 93/58 Blood pressure remains normal at 110/72 H/o apical LV mural thrombus Seen on TTE completed in August 2024, continue Coumadin. DMII Hgb A1c 6.8% 9mo ago, repeat in AM. Diet-controlled. SSI protocol while inpt, monitor BSG checks ACHS. H/o symptomatic orthostatic hypotension Continue midodrine with routine BP checks. Fall precautions as per above. Other chronic medical conditions: SREEDHAR - Continue CPAP HS. HLD, CAD - Continue statin, ASA. Subclinical hypothyroidism - Noted on admitting labs, recommend repeat TFT in 4- 6wk on OP basis. Depression/anxiety - Continue Effexor. DVT Prophylaxis: Coumadin Code Status: DNR/DNI - Confirmed with pt at bedside in the ED. PCP: Antonio Meredith MD Disposition: Admit to med/telemetry Total Time Total Time Spent Total Time Spent (In Minutes): 35 Minutes Discharge Plan Discharge Items Patient Disposition: Home - Self-Care Reason For Visit: COVID BRONCHIOLITIS, HYPOXIA Discharge Diagnosis: Bronchiolitis due to COVID-19 virus infection, generalized weakness secondary Condition on Discharge: Good Activity: Resume your previous activity Non-emergency contact: Primary Care Provider Call non-emergency contact if: you have any medication questions and your symptoms worsen Follow-up/Referrals: Antonio Meredith MD [Primary Care Provider] - (Date & Time 12/26/2024 2:40 PM Provider: Stella Watkins PA-C [facility] ) Diet: Carb Consistent or DM2 and Low Sodium (2gm) Addtl Attending Provider Instructions: Please take precautions to avoid falls Take your medications as advised Please schedule appointment with a healthcare provider Pending Studies at Discharge: No Stand-Alone Forms: My [employer], Smoking Cessation Medications and DC Order Prescriptions: Continued albuterol sulfate 2.5 mg /3 mL (0.083 %) solution for nebulization 2.5 mg inhalation QID PRN (Reason: Shortness Of Breath) atorvastatin 40 mg tablet 80 mg PO QPM Rx Instructions: @1800 venlafaxine 75 mg capsule,extended release 24hr 150 mg PO HS hydrocodone-acetaminophen 5-325 mg tablet 1 tab PO Q8H PRN (Reason: Pain) digoxin 125 mcg (0.125 mg) tablet 125 mcg PO QPM zolpidem 10 mg tablet 10 mg PO HS PRN (Reason: Sleep) aspirin 81 mg Tablet,Delayed Release (Dr/Ec) 81 mg PO QPM albuterol sulfate [Ventolin HFA] 90 mcg/actuation HFA aerosol inhaler 2 puff INHALATION Q4H PRN (Reason: DYSPNEA OR WHEEZING) metoprolol succinate [Toprol XL] 25 mg tablet extended release 24 hr 25 mg PO QPM Jardiance 10 mg tablet 10 mg PO QPM warfarin 5 mg Tablet 5 mg PO DAILY Qty: 0 0RF Rx Instructions: 0.5 tablet Thursday and Thursday. 1 tablet all other days. midodrine 2.5 mg tablet 2.5 mg PO BID Rx Instructions: take one tablet by mouth every morning and again early afternoon. sacubitril-valsartan 24-26 mg tablet 0.5 tab PO BID Rx Instructions: take 0.5 tab PO in morning and 0.5 tab before bedtime Trelegy Ellipta 100-62.5-25 mcg blister with device 1 inh INHALATION DAILY Discharge Orders: Discharge Order (Routine); Ordered 12/20/24 Ordered By: Kris Pike/Other Patient Handouts: Managing Type 2 Diabetes Admission Data Admit Date/Time: 12/17/24 13:06 Attending Provider: Kris De Los Santos Admit Provider: Babatunde Ocasio Primary Care Provider: Antonio Meredith Other Providers: Babatunde Ocasio Other Interventions: Discharge Summary Assessment (RN) Last Done: 12/20/24 13:13
[2024-12-23] MEDS ORDERED: WARFARIN SOD 2.5 MG TAB PO SCH (16:00)
== END 2024-12-20 14:32 | disposition home or self-care (01) | DRG 177 ==
LOC: ED 09:41 → SUATTDRO 13:06 → EDINP 13:06 → 2N 16:19